=== PATIENT | female | born 1970 | race Caucasian/White ===

== ENCOUNTER 2017-05-19 15:41 | Inpatient (IN) | payer OTHER ==
[~2017-05-19] VITALS: Ht 165.1 cm; Wt 77.5 kg
[2017-05-19] MEDS ORDERED: VANCOMYCIN INJ 1,000 MG in SODIUM CHLORIDE 0.9% 250ML 250 ML IV STA (16:16)
[2017-05-19] MEDS ORDERED: SODIUM CHLORIDE 0.9% 1000ML 1,000 ML IV ONE ×2 (16:16→20:04)
[2017-05-19] MEDS ORDERED: PIPERACILL/TAZOBAC IV 4.5 GM in DEXTROSE 5% 100ML 100 ML IV STA (16:16)
--- NOTE | 2017-05-19 16:24 | EMERGENCY ROOM VISIT NOTE ---
History Report prepared by Jenn: Yanira Dyer Under the Supervision of: Dr. Nikolai Lockett M.D. First contact with patient: 15:57 Chief Complaint: WOUND INFECTION Stated Complaint: RIGHT BIG TOE HAS A HOLE IN IT History of Present Illness The patient is a 46 year old white female with a past medical history of diabetes, gastroparesis, hypertension who presents to the ED with a cc of worsening right great toe infection beginning over 1 month ago. Positive toe redness, malodorous toe. Negative cough, fever, chills, change in appetite, urinary symptoms. Pt has not been soaking her toe or seeing wound care. Pt does smoke. She denies alcohol use. Her sugars are normally in the 400s. Source of History: patient Onset: 1 month ago Position: toe(s) (right great toe) Quality: other (infection) Timing: worsening Associated Symptoms: No fevers, No chills, No cough, No urinary symptoms Note: Pt reports toe redness, smell. Review of Systems See HPI for pertinent positives and negatives. A total of ten systems were reviewed and were otherwise negative. Past Medical & Surgical Medical Problems: (1) Diabetes (2) Diabetic foot ulcer (3) Gastroparesis (4) Hypertension Family History No pertinent family history stated. Social History Smoking Status: Current Every Day Smoker Marital Status: Occupation Status: disabled Current/Historical Medications Scheduled Amitriptyline HCl (Amitriptyline HCl), 1 TAB PO HS Diphenhydramine Hcl (Benadryl Allergy), 7 CAP PO Q4 Docusate Sodium (Colace), 1 CAP PO BID Fentanyl (Fentanyl), 12 MCG TD CQ72HR Magnesium Oxide (Mag-Ox), 400 MG PO DAILY Melatonin (Melatonin Maximum Strengt), 2 TAB PO HS Oxycodone/Acetaminophen 10MG/325MG (Percocet 10MG/325MG), 1 TAB PO QID Pantoprazole (Protonix), 40 MG PO DAILY Scheduled PRN Promethazine Hcl (Phenergan), 25 MG PO Q4H PRN for Nausea Allergies Coded Allergies: Gabapentin (Unverified Allergy, Severe, HIVES/SWELLING, 05/19/17) Iodinated Diagnostic Agents (Unverified Allergy, Severe, FACIAL SWELLING, 05/19/17) Nadolol (Unverified Allergy, Severe, HIVES/SWELLING, 05/19/17) Shellfish Allergy (Unverified Allergy, Severe, SWELLING, 05/19/17) Insulin Detemir (Unverified Adverse Reaction, Severe, VOMITING, 05/19/17) Meperidine (Unverified Adverse Reaction, Severe, BECOMES VIOLENT, 05/19/17 ) Morphine and Related (Unverified Adverse Reaction, Severe, BECOMES VIOLENT , 05/19/17) Phenol (Unverified Adverse Reaction, Severe, VOMITING, 05/19/17) Pregabalin (Unverified Adverse Reaction, Severe, AGITATION, 05/19/17) Varenicline (Unverified Adverse Reaction, Severe, HOMICIDAL IDEATION, ) Uncoded Allergies: ARTIFICIAL SWEETENER (Allergy, Severe, ANAPHYLAXIS, 05/19/17) STEROIDS (Allergy, Severe, ANAPHYLAXIS, 05/19/17) Physical Exam Vital Signs Date Time Temp Pulse Resp B/P (MAP) Pulse Ox O2 Delivery O2 Flow Rate FiO2 05/19/17 18:18 94 18 132/88 96 Room Air 05/19/17 16:49 104 18 144/97 94 Room Air 05/19/17 15:45 37.1 122 18 150/96 99 Room Air Physical Exam GENERAL: Awake, alert, appears older than stated age, NAD HENT: Normocephalic, atraumatic. Edentulous. EYES: Normal conjunctiva. Sclera non-icteric. NECK: Supple. No nuchal rigidity. FROM. RESPIRATORY: CTAB, no rhonchi, wheezing, crackles CARDIAC: Tachycardic rate and regular rhythm, no MRG ABDOMEN: Soft, NTND, BS+ MSK: No chest wall TTP, no LE edema. RLE with stage 3 ulceration to the first great toe plantar aspect approximately 1cm x 2cm, some expanding erythema proximally that blanches. NEURO: GCS 15, CN 2-12 intact, moves all 4s on command SKIN: No rash or jaundice noted. Medical Decision & Procedures ER Provider Diagnostic Interpretation: Radiology results as stated below per my review and radiologist interpretation: CHEST ONE VIEW PORTABLE CLINICAL HISTORY: Evaluate Fever/Sepsis dyspnea COMPARISON STUDY: No previous studies for comparison. FINDINGS: The bones soft tissues and hemidiaphragms are normal. The cardiomediastinal silhouette is normal. The lungs are clear. The pulmonary vasculature is normal. IMPRESSION: Negative chest. The above report was generated using voice recognition software. It may contain grammatical, syntax or spelling errors. Electronically signed by: Braxton Gonzalez M.D. 05/19/2017 4:48 PM Dictated Date/Time: 05/19/2017 4:47 PM R FOOT MIN 3 VIEWS ROUTINE CLINICAL HISTORY: ulceration to R 1st toe h/o DM trauma COMPARISON: None. DISCUSSION: Soft tissue disruption overlying the distal phalanx great toe. No acute bony abnormality. Mild degenerative change throughout. No evidence for bony destructive process. There is no evidence for soft tissue swelling. IMPRESSION: Mild soft tissue edema/laceration overlying the distal phalanx great toe. No acute bony abnormality. The above report was generated using voice recognition software. It may contain grammatical, syntax or spelling errors. Electronically signed by: Braxton Gonzalez M.D. 05/19/2017 4:50 PM Dictated Date/Time: 05/19/2017 4:49 PM Laboratory Results 05/19/17 16:18 Red Blood Count 4.34, Mean Corpuscular Volume 96.8, Mean Corpuscular Hemoglobin 33.4, Mean Corpuscular Hemoglobin Concent 34.5, Mean Platelet Volume 10.4, Neutrophils (%) (Auto) 59.0, Lymphocytes (%) (Auto) 33.3, Monocytes (%) (Auto) 5.4, Eosinophils (%) (Auto) 1.6, Basophils (%) (Auto) 0.2, Neutrophils # (Auto) 7.82, Lymphocytes # (Auto) 4.42, Monocytes # (Auto) 0.72, Eosinophils # (Auto) 0.21, Basophils # (Auto) 0.03 05/19/17 16:18 Test 05/19/17 16:18 05/19/17 17:12 White Blood Count 13.27 K/uL (4.8-10.8) Red Blood Count 4.34 M/uL (4.2-5.4) Hemoglobin 14.5 g/dL (12.0-16.0) Hematocrit 42.0 % (37-47) Mean Corpuscular Volume 96.8 fL (80-100) Mean Corpuscular Hemoglobin 33.4 pg (25-34) Mean Corpuscular Hemoglobin Concent 34.5 g/dl (32-36) Platelet Count 315 K/uL (130-400) Mean Platelet Volume 10.4 fL (7.4-10.4) Neutrophils (%) (Auto) 59.0 % Lymphocytes (%) (Auto) 33.3 % Monocytes (%) (Auto) 5.4 % Eosinophils (%) (Auto) 1.6 % Basophils (%) (Auto) 0.2 % Neutrophils # (Auto) 7.82 K/uL (1.4-6.5) Lymphocytes # (Auto) 4.42 K/uL (1.2-3.4) Monocytes # (Auto) 0.72 K/uL (0.11-0.59) Eosinophils # (Auto) 0.21 K/uL (0-0.5) Basophils # (Auto) 0.03 K/uL (0-0.2) RDW Standard Deviation 44.0 fL (36.4-46.3) RDW Coefficient of Variation 12.6 % (11.5-14.5) Immature Granulocyte % (Auto) 0.5 % Immature Granulocyte # (Auto) 0.07 K/uL (0.00-0.02) Erythrocyte Sedimentation Rate 34 mm/hr (0-21) Prothrombin Time 9.8 SECONDS (9.0-12.0) Prothromb Time International Ratio 0.9 (0.9-1.1) Activated Partial Thromboplast Time 24.3 SECONDS (21.0-31.0) Partial Thromboplastin Ratio 0.9 Anion Gap 6.0 mmol/L (3-11) Est Creatinine Clear Calc Drug Dose 95.7 ml/min Estimated GFR () 111.0 Estimated GFR (Non- 95.8 BUN/Creatinine Ratio 15.0 (10-20) Calcium Level 8.6 mg/dl (8.5-10.1) Total Bilirubin 0.2 mg/dl (0.2-1) Direct Bilirubin < 0.1 mg/dl (0-0.2) Aspartate Amino Transf (AST/SGOT) 13 U/L (15-37) Alanine Aminotransferase (ALT/SGPT) 23 U/L (12-78) Alkaline Phosphatase 97 U/L (45-117) C-Reactive Protein 1.40 mg/dl (0-0.29) Total Protein 6.9 gm/dl (6.4-8.2) Albumin 3.3 gm/dl (3.4-5.0) Lipase 49 U/L (73-393) Lactic Acid Level 1.1 mmol/L (0.4-2.0) Laboratory results reviewed by me Medications Administered Medications (Trade) Dose Ordered Sig/Asaf Route Start Time Stop Time Status Last Admin Dose Admin Vancomycin HCl 1000 mg/Sodium Chloride 270 ml @ 125 mls/hr ONE STAT IV 05/19/17 16:16 05/19/17 18:25 DC 05/19/17 17:56 125 MLS/HR Sodium Chloride 1,000 ml @ 2,000 mls/hr Q30M ONCE IV 05/19/17 16:16 05/19/17 16:45 DC 05/19/17 17:22 2,000 MLS/HR Piperacillin Sod/ Tazobactam Sod 4.5 gm/Dextrose 120 ml @ 200 mls/hr NOW STAT IV 05/19/17 16:16 05/19/17 16:51 DC 05/19/17 17:22 200 MLS/HR ECG Indication: tachycardia Rate (beats per minute): 103 Rhythm: sinus tachycardia Findings: no ectopy, other (normal intervals, normal axis, no STS changes or TWI) ED Course 1600: The patient was evaluated in room C1B. A complete history and physical exam was performed. 1616: Piperacillin Sod/Tazobactam Sod 4.5 gm/Dextrose 120 ml @ 200 mls/hr IV, NSS 1000 ml @ 2000 mls/hr IV, Vancomycin HCl 1000 mg/Sodium Chloride 270 ml @ 125 mls/hr IV. 1716: I discussed the patient's case with CORAL Whalen [facility] service. The patient will be evaluated for further treatment and disposition. 1725: I reevaluated the patient. I discussed the test results and treatment plan with her. The patient will be evaluated for further management. Medical Decision Differential diagnosis: osteo, hyperglycemia, vasculopathy, cellulitis. The patient is a 46 year old white female with a past medical history of diabetes, gastroparesis, hypertension who presents to the ED with a cc of worsening right great toe infection beginning over 1 month ago. Patient was seen and evaluated at the bedside. Patient has had some progressive warmth and ulceration to the right first great toe. Patient is a history of gastroparesis and is noncompliant with medications. Patient does endorse a smoking history 2 packs per day which is down from 4 packs per day for many years. Patient has not good wound clinic. Given the patient's history patient is high risk of a progressively worsening wound. Patient was given empiric antibiotics blood cultures were obtained. Patient did have film which was negative for acute osteo. Patient white blood cell count 13. Patient was admitted for wound care, IV abx, DM control. Medication Reconcilliation Current Medication List: was personally reviewed by me Blood Pressure Screening Patient's blood pressure: Elevated blood pressure Blood pressure disposition: Referred to PCP Consults Time Called: 1712 Consulting Physician: CORAL Whalen hospitalist service Returned Call: 1716 Discussed the patient's case. The patient will be evaluated for further treatment and disposition. Impression Primary Impression: Diabetes Additional Impressions: Encounter for smoking cessation counseling Diabetic ulcer of toe Cellulitis Scribe Attestation The scribe's documentation has been prepared under my direction and personally reviewed by me in its entirety. I confirm that the note above accurately reflects all work, treatment, procedures, and medical decision making performed by me. Departure Information Dispostion Being Evaluated By Hospitalist Referrals No Doctor, Assigned (PCP) Patient Instructions My [facility] Problem Qualifiers Primary Impression: Diabetes Diabetes mellitus type: other specified (including CHINMAY) Diabetes mellitus complication status: with skin complications Diabetes mellitus complication detail: with foot ulcer Diabetes mellitus supervisor intermediates insulin use: without supervisor intermediates use Qualified Codes: E13.621 - Other specified diabetes mellitus with foot ulcer; L97.509 - Non-pressure chronic ulcer of other part of unspecified foot with unspecified severity Additional Impressions: Diabetic ulcer of toe Diabetes mellitus type: type 1 Laterality: right Non-pressure ulcer stage: with fat layer exposed Qualified Codes: E10.621 - Type 1 diabetes mellitus with foot ulcer; L97.512 - Non-pressure chronic ulcer of other part of right foot with fat layer exposed Cellulitis Site of cellulitis: extremity Site of cellulitis of extremity: toe Laterality: right Qualified Codes: L03.031 - Cellulitis of right toe
[2017-05-19 16:35] LABS: BASO % 0.2 %; BASO ABS # 0.03 K/uL (0-0.2); COMPLETE YES; EOS % 1.6 %; IG% 0.5 %; LYMPH % 33.3 %; LYMPH ABS # 4.42 K/uL (1.2-3.4); MEAN CELL VOLUME 96.8 fL (80-100); MEAN CORPUSCULAR HEMOGLOBIN 33.4 pg (25-34); MEAN CORPUSCULAR HGB CONC 34.5 g/dl (32-36); MEAN PLATELET VOLUME 10.4 fL (7.4-10.4); MONO % 5.4 %; PLATELET COUNT 315 K/uL (130-400); RED BLOOD COUNT 4.34 M/uL (4.2-5.4); WHITE BLOOD COUNT 13.27 K/uL (4.8-10.8)
[2017-05-19 16:43] LABS: INR 0.9 (0.9-1.1); PARTIAL THROMBOPLASTIN RATIO 0.9; PROTHROMBIN TIME (PATIENT) 9.8 SECONDS (9.0-12.0)
--- NOTE | 2017-05-19 16:49 | DIAGNOSTIC IMAGING REPORT ---
CHEST ONE VIEW PORTABLE CLINICAL HISTORY: Evaluate Fever/Sepsis dyspnea COMPARISON STUDY: No previous studies for comparison. FINDINGS: The bones soft tissues and hemidiaphragms are normal. The cardiomediastinal silhouette is normal. The lungs are clear. The pulmonary vasculature is normal. IMPRESSION: Negative chest. The above report was generated using voice recognition software. It may contain grammatical, syntax or spelling errors. Electronically signed by: Braxton Gonzalez M.D. 05/19/2017 4:48 PM Dictated Date/Time: 05/19/2017 4:47 PM
--- NOTE | 2017-05-19 16:51 | DIAGNOSTIC IMAGING REPORT ---
R FOOT MIN 3 VIEWS ROUTINE CLINICAL HISTORY: ulceration to R 1st toe h/o DM trauma COMPARISON: None. DISCUSSION: Soft tissue disruption overlying the distal phalanx great toe. No acute bony abnormality. Mild degenerative change throughout. No evidence for bony destructive process. There is no evidence for soft tissue swelling. IMPRESSION: Mild soft tissue edema/laceration overlying the distal phalanx great toe. No acute bony abnormality. The above report was generated using voice recognition software. It may contain grammatical, syntax or spelling errors. Electronically signed by: Braxton Gonzalez M.D. 05/19/2017 4:50 PM Dictated Date/Time: 05/19/2017 4:49 PM
[2017-05-19 17:00] LABS: ALT/SGPT 23 U/L (12-78); BLOOD UREA NITROGEN 11 mg/dl (7-18); CALCIUM 8.6 mg/dl (8.5-10.1); CARBON DIOXIDE 29 mmol/L (21-32); CHLORIDE 99 mmol/L (98-107); CREATININE 0.74 mg/dl (0.60-1.20); GLUCOSE 271 mg/dl (70-99); POTASSIUM 4.2 mmol/L (3.5-5.1); SODIUM 134 mmol/L (136-145)
[2017-05-19 17:03] LABS: ALKALINE PHOSPHATASE 97 U/L (45-117); AST/SGOT 13 U/L (15-37)
[2017-05-19] MEDS ORDERED: AMT100 PO (17:37)
[2017-05-19] MEDS ORDERED: MAGN400T6 PO (17:37)
[2017-05-19] MEDS ORDERED: OXYC-106 PO (17:37)
[2017-05-19] MEDS ORDERED: DRGTP12 TD (17:37)
[2017-05-19] MEDS ORDERED: MELATAB2 PO (17:37)
[2017-05-19] MEDS ORDERED: PANT40TA PO (17:37)
[2017-05-19] MEDS ORDERED: DIPH25CA65 PO (17:37)
[2017-05-19] MEDS ORDERED: PROM25TA9 PO (17:37)
[2017-05-19] MEDS ORDERED: DOCU-94 PO (17:37)
[2017-05-19] MEDS ORDERED: VANCOMYCIN CONSULT ACTIVE SCH (17:57)
[2017-05-19] MEDS ORDERED: PIPERACILL/TAZOBAC CONSULT ACTIVE SCH (18:00)
[2017-05-19] MEDS ORDERED: GLUCOSE 10 TABS/TUBE PO PRN (18:30)
[2017-05-19] MEDS ORDERED: DEXTROSE 50% 50 ML SYR IV PRN (18:30)
[2017-05-19] MEDS ORDERED: GLUCOSE 40% GEL 15 GM TUBE PO PRN (18:30)
[2017-05-19] MEDS ORDERED: GLUCAGON FOR INJ 1 MG VIAL SQ PRN (18:30)
[2017-05-19] MEDS ORDERED: PHARMACY GLYCEMIC MGMT CONSULT SCH (18:39)
[2017-05-19] MEDS ORDERED: OXYCODONE/ACETAMINOPHEN 10/325MG TAB ONE (19:30)
[2017-05-19] MEDS: OXYCODONE/ACETAMINOPHEN 10/325MG TAB PO PRN (19:33)
[2017-05-19 20:32] VITALS: BP 142/97; TEMP 37.1; O2SAT 96; BMI 28.4
--- NOTE | 2017-05-19 20:40 | History and Physical ---
History & Physical Date & Time of Service: May 19, 2017 ~ 18:00 Chief Complaint: Toe Wound Primary Care Physician: Gayla Palafox PA-C History of Present Illness 46 year old female who presents to the ED with a right great toe infection. Patient reports that about one month ago she got into the shower and noticed a large amount of blood on the floor. She then noticed she had cut her toe. After review of records, patient was placed on Augmentin for a right great toe infection/ulcer on 02/20 and then saw podiatry on 02/22 for debridement. Patient reports that the wound had mostly healed however she has kept a dressing on it. This morning when she removed the dressing there was a large amount of drainage , foul odor, and the wound had opened up again. Patient denies fever and chills. She has chronic shortness of breath which is unchanged. No chest pain, lightheadedness, or dizziness. She reports chronic nausea and vomiting from gastroparesis. No hematemesis or coffee ground emesis. She has chronic constipation. No BRBPR or dark tarry stools. She denies any urinary symptoms. Patient is a poorly controlled diabetic reporting she quit taking her insulin 2 months ago because it made her not feel well. In the ED, patient's WBC 13K, glucose 270, and she is mildly tachycardic. Other vitals are stable and other labs are unremarkable. She was given IV Vanco and Zosyn. Past Medical/Surgical History Medical Problems: (1) Chronic pain Status: Chronic (2) Depression Status: Chronic (3) Diabetes Status: Chronic (4) Gastroparesis Status: Chronic (5) GERD (gastroesophageal reflux disease) Status: Chronic (6) Hypertension Status: Chronic (7) BENITO (obstructive sleep apnea) Status: Chronic Surgical Problems: (1) H/O dilation and curettage Status: Chronic (2) H/O tubal ligation Status: Chronic (3) History of appendectomy Status: Chronic (4) History of hysterectomy Status: Chronic Family History Diabetes mellitus FATHER Hypertension MOTHER Social History Smoking Status: Current Every Day Smoker Alcohol Use: none Immunizations History of Tetanus Vaccine?: Yes Allergies Coded Allergies: Corticosteroids (Verified Allergy, Severe, STEROIDS-ANAPHYLAXIS, 05/19/17) Gabapentin (Verified Allergy, Severe, HIVES/SWELLING, 05/19/17) Iodinated Diagnostic Agents (Verified Allergy, Severe, FACIAL SWELLING, ) Nadolol (Verified Allergy, Severe, HIVES/SWELLING, 05/19/17) Shellfish Allergy (Verified Allergy, Severe, SWELLING, 05/19/17) Insulin Detemir (Verified Adverse Reaction, Intermediate, VOMITING, ) Meperidine (Verified Adverse Reaction, Intermediate, BECOMES VIOLENT, ) Morphine and Related (Verified Adverse Reaction, Intermediate, BECOMES VIOLENT, 05/19/17) Phenol (Verified Adverse Reaction, Intermediate, VOMITING, 05/19/17) Pregabalin (Verified Adverse Reaction, Intermediate, AGITATION, 05/19/17) Varenicline (Verified Adverse Reaction, Unknown, HOMICIDAL IDEATION, 05/19) Uncoded Allergies: ARTIFICIAL SWEETENER (Allergy, Severe, ANAPHYLAXIS, 05/19/17) Home Medications Scheduled Amitriptyline HCl (Amitriptyline HCl), 1 TAB PO HS Diphenhydramine Hcl (Benadryl Allergy), 7 CAP PO Q4 Docusate Sodium (Colace), 1 CAP PO BID Fentanyl (Fentanyl), 12 MCG TD CQ72HR Magnesium Oxide (Mag-Ox), 400 MG PO DAILY Melatonin (Melatonin Maximum Strengt), 2 TAB PO HS Oxycodone/Acetaminophen 10MG/325MG (Percocet 10MG/325MG), 1 TAB PO QID Pantoprazole (Protonix), 40 MG PO DAILY Scheduled PRN Promethazine Hcl (Phenergan), 25 MG PO Q4H PRN for Nausea Review of Systems ROS per HPI, all other systems reviewed and negative Physical Exam Vital Signs Date Time Temp Pulse Resp B/P (MAP) Pulse Ox O2 Delivery O2 Flow Rate FiO2 05/19/17 19:38 98 20 142/97 94 05/19/17 19:31 98 20 142/97 94 05/19/17 18:18 94 18 132/88 96 Room Air 05/19/17 16:49 104 18 144/97 94 Room Air 05/19/17 15:45 37.1 122 18 150/96 99 Room Air General Appearance: WD/WN, no apparent distress Head: normocephalic, atraumatic Eyes: normal inspection, EOMI, sclerae normal ENT: hearing grossly normal, + pertinent finding Neck: supple, no JVD, trachea midline Respiratory/Chest: lungs clear, normal breath sounds, no respiratory distress Cardiovascular: regular rate, rhythm, no edema, normal peripheral pulses Abdomen/GI: normal bowel sounds, non tender, soft, no organomegaly Extremities/Musculoskelatal: normal inspection, no calf tenderness, normal capillary refill Neurologic/Psych: no motor/sensory deficits, alert, normal mood/affect, oriented x 3 Skin: normal color, warm/dry, + pertinent finding Diagnostics Laboratory Results Results Past 24 Hours Test 05/19/17 16:18 05/19/17 17:12 Range/Units White Blood Count 13.27 4.8-10.8 K/uL Red Blood Count 4.34 4.2-5.4 M/uL Hemoglobin 14.5 12.0-16.0 g/dL Hematocrit 42.0 37-47 % Mean Corpuscular Volume 96.8 80-100 fL Mean Corpuscular Hemoglobin 33.4 25-34 pg Mean Corpuscular Hemoglobin Concent 34.5 32-36 g/dl Platelet Count 315 130-400 K/uL Mean Platelet Volume 10.4 7.4-10.4 fL Neutrophils (%) (Auto) 59.0 % Lymphocytes (%) (Auto) 33.3 % Monocytes (%) (Auto) 5.4 % Eosinophils (%) (Auto) 1.6 % Basophils (%) (Auto) 0.2 % Neutrophils # (Auto) 7.82 1.4-6.5 K/uL Lymphocytes # (Auto) 4.42 1.2-3.4 K/uL Monocytes # (Auto) 0.72 0.11-0.59 K/uL Eosinophils # (Auto) 0.21 0-0.5 K/uL Basophils # (Auto) 0.03 0-0.2 K/uL RDW Standard Deviation 44.0 36.4-46.3 fL RDW Coefficient of Variation 12.6 11.5-14.5 % Immature Granulocyte % (Auto) 0.5 % Immature Granulocyte # (Auto) 0.07 0.00-0.02 K/uL Erythrocyte Sedimentation Rate 34 0-21 mm/hr Prothrombin Time 9.8 9.0-12.0 SECONDS Prothromb Time International Ratio 0.9 0.9-1.1 Activated Partial Thromboplast Time 24.3 21.0-31.0 SECONDS Partial Thromboplastin Ratio 0.9 Sodium Level 134 136-145 mmol/L Potassium Level 4.2 3.5-5.1 mmol/L Chloride Level 99 98-107 mmol/L Carbon Dioxide Level 29 21-32 mmol/L Anion Gap 6.0 3-11 mmol/L Blood Urea Nitrogen 11 7-18 mg/dl Creatinine 0.74 0.60-1.20 mg/dl Est Creatinine Clear Calc Drug Dose 95.7 ml/min Estimated GFR () 111.0 Estimated GFR (Non- 95.8 BUN/Creatinine Ratio 15.0 10-20 Random Glucose 271 70-99 mg/dl Calcium Level 8.6 8.5-10.1 mg/dl Total Bilirubin 0.2 0.2-1 mg/dl Direct Bilirubin < 0.1 0-0.2 mg/dl Aspartate Amino Transf (AST/SGOT) 13 15-37 U/L Alanine Aminotransferase (ALT/SGPT) 23 12-78 U/L Alkaline Phosphatase 97 45-117 U/L C-Reactive Protein 1.40 0-0.29 mg/dl Total Protein 6.9 6.4-8.2 gm/dl Albumin 3.3 3.4-5.0 gm/dl Lipase 49 73-393 U/L Lactic Acid Level 1.1 0.4-2.0 mmol/L Microbiology Results 05/19/17 Blood Culture, Received Pending 05/19/17 Blood Culture, Received Pending 05/19/17 Gram Stain, Received Pending 05/19/17 Wound Culture, Received Pending Diagnostic Radiology RIGHT FOOT XR IMPRESSION: Mild soft tissue edema/laceration overlying the distal phalanx great toe. No acute bony abnormality. CXR IMPRESSION: Negative chest. Impression Assessment and Plan INFECTED DIABETIC FOOT ULCER - admit to med/surg - patient does meet SIRS criteria with mild leukocytosis and mild tachycardia however does not appear overly septic; normal lactic acid, BP stable - s/p Vanco and Zosyn in the ED, will continue with - gentle IVF - blood and wound cultures - wound care consult with nurse and Dr. Boggs DM - poorly controlled, non compliant - hgb a1c 11.1 01/2016 - blood sugar 270, no DKA - will start Lantus + SSI CHRONIC PAIN - continue Fentanyl patch and PRN Percocet DVT PROPHYLAXIS - SQ Lovenox DISPO - In my clinical judgment this beneficiary meets acute admission criteria, established by [facility], that includes being hospitalized through two midnights. Attending Note: Patient is a 46 yr female presents with history of DM II, gastroparesis, Neuropathy Tobacco use disorder, GERD, Depression, HTN, BENITO, Right foot drop and other problems presents with history of worsening right great toe foot ulcer since about a month. She admits to being non compliant with Insulin therapy and has poor insight about her medical condition. Physical Exam: Vitals signs as noted above General Appearance:Moderately built and nourished, no apparent distress Head: normocephalic, Atraumatic, loss of dentition Eyes: normal inspection, EOMI, PERRL Neck: supple, Trachea midline Respiratory/Chest: Normal breath sounds, CTA Cardiovascular: S1, S2, No murmur Abdomen/GI:Soft, Non tender, Bowel sounds present Extremities/Musculoskelatal:normal inspection, Right foot drop, R big toe ulcer Neurologic/Psych:AAOX3, right foot drop, decreased sensation, RLE motor 3-4/5. otherwise no focal deficits Skin:normal color,warm Assessment and Plan: Sepsis 2/2 Diabetic Foot Ulcer Blood/Wound cultures IVF, Abx Wound care May need debridement Lactate normal Uncontrolled DM II: Start ISS, lantus Tobacco use disorder: Nicotine patch Counseled to quit smoking I personally reviewed the record. Patient is interviewed and examined at bedside. Patient's care is coordinated with Meagan Burgos NP. Please refer to the documentation above for details of patient's presentation and for discussion of other issues. VTE Prophylaxis VTE Risk Assessment Done? Y/N: Yes Risk Level: Moderate
[2017-05-19] MEDS: NICOTINE 21 MG/24 HR TDSY TD SCH (20:41)
[2017-05-19 20:42] VITALS: BP 161/91; PULSE 96; TEMP 36.6; O2SAT 96
[2017-05-19] MEDS: ENOXAPARIN 40 MG/0.4 ML SYR SQ SCH (20:43)
--- NOTE | 2017-05-19 20:49 | Pharmacy Progress Note ---
Pharmacy Abx Dose Short Note Date of Service May 19, 2017. Assessment & Plan Pharmacy is consulted for: * Glycemic Control * Vancomycin IV dosing * Zosyn IV dose Assessment * 46 year old female admitted for worsening infection of her R great toe * Pharmacy has been consulted to dose broad spectrum abx for treatment of diabetic foot ulcer * Baseline renal fxn unclear however pt does not appear to have CELSO * Currently afebrile w/ mild leukocytosis, mildly tachycardic and hypertensive at this time * Blood and ulcer cxs ordered * Glycemic control is poor, in fact patient has not taken her insulin in the last 2 months. She is reported to be ordered Levemir 22units daily and Novolog 10 units w/ meals per [employer]GER's discussion with the patient. Random Glu on admission 271, however no metabolic acidosis noted. Patient claims to have hypoglycemic symptoms when BSGs below 200. Our goals will be less than 200 given data to support less infectious complications with tighter glycemic control. * Insulin doses will be based upon reported out-pt regimen and moderate-severe stress level. * Will add BSG checks overnight to allow us to gain control of hyperglycemia more quickly Plan Vancomycin * 1000mg IV dose given in ER (~12.9mg/kg); this dose may have only produced a peak conc of 15-20mcg/mL. * Will begin maintenance dose as soon as patient admitted to medical floor as no loading dose was given * Maintenance dose: 1250mg (~16mg/kg) IV Q 10 hours * Goal trough level for skin/skin structure infxn : 15 to 20 mcg/mL * Trough level ordered for: 05/21/17 w/ 4th dose * p'kinetic estimates: Vd 0.7L/kg; half-life ~8-9 hours Zosyn * 4.5gm IV x 1 over 30 min; then begin 3.375gm IV (extended infusion over 4 hrs ) Q 8 hours for eCrCl > 20cc/min Glycemic control: * Check A1c w/ next lab draw * Lantus 22 units SQ x 1 tonight, then begin 13 units SQ BID * BSGs ACHS and at 0000 + 0400 tonight given current BSG results * Goal range: 110-150 mg/dL * Correction factor: 25 mg/dL/unit * Carb ratio: 1 unit per 8 grams of CHO consumed Pharmacy will continue to follow and will adjust dose/frequency as necessary. Thank you.
[2017-05-19] MEDS ORDERED: INSULIN GLARGINE SOLOSTAR 100 UNITS/ML 3 ML PEN SC SCH (21:00)
[2017-05-19] MEDS: VANCOMYCIN INJ 1,250 MG in SODIUM CHLORIDE 0.9% 250ML 250 ML IV SCH (22:05)
[2017-05-19] MEDS: DOCUSATE SODIUM 100 MG CAP PO SCH (22:05)
[2017-05-19] MEDS: INSULIN ASPART 100 UNITS/ML 3 ML PEN SC SCH (22:25)
[2017-05-19] MEDS: PROMETHAZINE HCL 25 MG TAB PO PRN (23:22)
[2017-05-19] MEDS: AMITRIPTYLINE HCL 100 MG TAB PO SCH (23:22)
[2017-05-19] MEDS ORDERED: NURSING VERBAL MED ORDER ONE (23:30)
[2017-05-19 23:47] VITALS: BP 181/111; PULSE 97; TEMP 36.7; O2SAT 95
[2017-05-20] MEDS: OXYCODONE/ACETAMINOPHEN 10/325MG TAB PO PRN ×5 (00:05→21:50)
[2017-05-20] MEDS: INSULIN ASPART 100 UNITS/ML 3 ML PEN SC SCH ×6 (00:10→22:05)
[2017-05-20] MEDS: CHECK FENTANYL PATCH PLACEMENT SCH ×3 (00:11→16:00)
[2017-05-20] MEDS: PIPERACILL/TAZOBAC IV 3.375 GM in DEXTROSE 5% 100ML IV SCH ×3 (00:13→17:14)
[2017-05-20 04:00] VITALS: BP 160/100
[2017-05-20 07:33] VITALS: BP 162/97; PULSE 95; TEMP 36.6; O2SAT 93
[2017-05-20] MEDS: VANCOMYCIN INJ 1,250 MG in SODIUM CHLORIDE 0.9% 250ML 250 ML IV SCH ×2 (07:52→17:14)
[2017-05-20 07:55] LABS: HEMATOCRIT 39.5 % (37-47); MEAN CELL VOLUME 97.3 fL (80-100); MEAN CORPUSCULAR HEMOGLOBIN 32.5 pg (25-34); MEAN CORPUSCULAR HGB CONC 33.4 g/dl (32-36); MEAN PLATELET VOLUME 10.1 fL (7.4-10.4); PLATELET COUNT 285 K/uL (130-400); RED BLOOD COUNT 4.06 M/uL (4.2-5.4); WHITE BLOOD COUNT 10.26 K/uL (4.8-10.8)
[2017-05-20] MEDS ORDERED: INSULIN GLARGINE SOLOSTAR 100 UNITS/ML 3 ML PEN SC SCH ×3 (08:00→21:00)
[2017-05-20 08:23] LABS: ESTIMATED AVERAGE GLUCOSE 335 mg/dl; HA1C FLAG Normal (Normal)
[2017-05-20 08:25] LABS: BUN/CREATININE RATIO 13.7 (10-20); CREATININE 0.61 mg/dl (0.60-1.20); POTASSIUM 3.5 mmol/L (3.5-5.1)
[2017-05-20] MEDS: MAGNESIUM OXIDE 400 MG TAB PO SCH (09:14)
[2017-05-20] MEDS: PANTOprazole SOD 40 MG TAB PO SCH (09:14)
[2017-05-20] MEDS: DOCUSATE SODIUM 100 MG CAP PO SCH ×2 (09:14→21:51)
[2017-05-20] MEDS: NICOTINE 21 MG/24 HR TDSY TD SCH (09:15)
[2017-05-20 10:25] VITALS: O2SAT 93
--- NOTE | 2017-05-20 10:44 | Pharmacy Progress Note ---
Glycemic Control Progress Note Date of Service May 20, 2017. Scope Glycemic Pharmacist consulted for glycemic control to write orders per [facility] inpatient glycemic control protocol. Objective Accuchecks BSG (last 24hrs): Test 05/19/17 16:18 05/19/17 20:34 05/20/17 00:00 05/20/17 04:02 Random Glucose 271 mg/dl (70-99) Bedside Glucose 189 mg/dl (70-90) 220 mg/dl (70-90) 151 mg/dl (70-90) Test 05/20/17 07:18 05/20/17 07:26 Bedside Glucose 162 mg/dl (70-90) Random Glucose 170 mg/dl (70-99) HbA1c: Test 05/20/17 07:26 Hemoglobin A1c 13.3 % (4.5-5.6) H Recent Pertinent Medications The patient is currently receiving: * Basal insulin: Lantus 22 units SQ x 1 dose last evening and then Lantus 13 units SQ every 12 hours * Correctional Insulin: Novolog Correction per scale ACHS Goal Range: Low 110 mg/dL - High 150 mg/dL Correction Factor: 25 mg/dL/unit * Prandial insulin: Per carb ratio of 1 unit per 8 grams CHO consumed Outpatient Anti-Diabetic Meds non-complaint with outpatient regimen Assessment & Plan ASSESSMENT: * See progress note from 05/19/17 for more background info, in short: * Pt receiving SQ basal bolus insulin regimen for hyperglycemia secondary to baseline DM (outpatient regimen on hold, patient non-complaint),stress/infection , * BSGs over the past 24 hrs: 189, 220, 151, 162 * Hyperglycemia resolving/BSGs trending downwards with the addition of weight based SQ basal bolus insulin regimen * AM fasting BSG is slightly elevated at 162 mg/dl however, Lantus is not at steady state, will not increase dosing at this time. Lantus is currently ordered Q24h dose split BID dosing --> will change to Q24h dosing to daily administration to increase compliance * Bolus insulin parameters are in accordance with basal insulin dosing. * Will continue to titrate based on BSG trends. PLAN FOR INPATIENT GLYCEMIC CONTROL: * Basal insulin * Lantus 22 units SQ Q24hrs given in the morning * Unsure if this dosing will be adequate based on A1c, therefore, will schedule a small PRN dose of Lantus for this evening if BSG >200 * Bolus insulin * NovoLog per scale ACHS or Q6hrs while NPO * Goal Range: Low 110 mg/dL - High 150 mg/dL * Correction Factor: 25 mg/dL/unit * Nutritional / Prandial insulin per carb ratio of 1 unit per 8 grams CHO consumed RECOMMENDATIONS FOR DISCHARGE: * A1c = 13.3% on 05/20/17 * Pt will need an outpatient regimen that she can adhere to. Tight glycemic control essential for wound healing. * May consider changing to ReliON brand NPH vs 70/30 to minimize the number of insulin infections per day and cost. Will discuss options with DM educator and patient. * Please note that the plan above was derived based on current level of insulin resistance and hospital stress. These recommendations are appropriate for inpatient admission only. Plan of care upon discharge will need to be reassessed to avoid potential outpatient hypo/hyperglycemia. Thank you.
--- NOTE | 2017-05-20 12:08 | Progress Note ---
Internal Med Progress Note Date of Service: May 20, 2017. Provider Documentation: SUBJECTIVE: Seen and examined at bedside States having leg pain Denies chest pain, SOB, dizziness Family at bedside OBJECTIVE: Vital Signs-as noted below Physical Exam: General Appearance:Moderately built and nourished, no apparent distress Head: normocephalic, Atraumatic, loss of dentition Eyes: normal inspection, EOMI, PERRL Neck: supple, Trachea midline Respiratory/Chest: Normal breath sounds, CTA Cardiovascular: S1, S2, No murmur Abdomen/GI:Soft, Non tender, Bowel sounds present Extremities/Musculoskelatal:normal inspection, Right foot drop, R big toe ulcer Neurologic/Psych:AAOX3, right foot drop, decreased sensation, RLE motor 3-4/5. otherwise no focal deficits Skin:normal color,warm Lab data as noted below. ASSESSMENT & PLAN: Sepsis 2/2 Diabetic Foot Ulcer Continue IV Vanco and Zosyn S/P IVF blood and wound cultures pending wound care consult with nurse and Dr. Boggs May need debridement Lactate normal DM II poorly controlled, non compliant A1C: 13.3 no DKA Continue ISS, Lantus Appreciate Pharmacy help in glycemic management Chronic Pain continue Fentanyl patch and PRN Percocet Intolerance to Gabapentin/Lyrica in the past Tobacco use disorder: Nicotine patch Counseled to quit smoking DVT Px SQ Lovenox Disposition Expect to discharge home when stable Vital Signs: Date Time Temp Pulse Resp B/P (MAP) Pulse Ox O2 Delivery O2 Flow Rate FiO2 05/20/17 10:25 93 Room Air 05/20/17 07:33 36.6 95 18 162/97 (118) 93 05/20/17 04:00 160/100 (120) 05/20/17 00:00 Room Air 05/19/17 23:47 36.7 97 18 181/111 (134) 95 Room Air 05/19/17 20:42 36.6 96 18 161/91 (114) 96 Room Air 05/19/17 20:32 37.1 20 142/97 96 Room Air 05/19/17 19:38 98 20 142/97 94 05/19/17 19:31 98 20 142/97 94 05/19/17 18:18 94 18 132/88 96 Room Air 05/19/17 16:49 104 18 144/97 94 Room Air 05/19/17 15:45 37.1 122 18 150/96 99 Room Air Lab Results: Results Past 24 Hours Test 05/19/17 16:18 05/19/17 17:12 05/19/17 20:34 05/20/17 00:00 Range/Units White Blood Count 13.27 4.8-10.8 K/uL Red Blood Count 4.34 4.2-5.4 M/uL Hemoglobin 14.5 12.0-16.0 g/dL Hematocrit 42.0 37-47 % Mean Corpuscular Volume 96.8 80-100 fL Mean Corpuscular Hemoglobin 33.4 25-34 pg Mean Corpuscular Hemoglobin Concent 34.5 32-36 g/dl Platelet Count 315 130-400 K/uL Mean Platelet Volume 10.4 7.4-10.4 fL Neutrophils (%) (Auto) 59.0 % Lymphocytes (%) (Auto) 33.3 % Monocytes (%) (Auto) 5.4 % Eosinophils (%) (Auto) 1.6 % Basophils (%) (Auto) 0.2 % Neutrophils # (Auto) 7.82 1.4-6.5 K/uL Lymphocytes # (Auto) 4.42 1.2-3.4 K/uL Monocytes # (Auto) 0.72 0.11-0.59 K/uL Eosinophils # (Auto) 0.21 0-0.5 K/uL Basophils # (Auto) 0.03 0-0.2 K/uL RDW Standard Deviation 44.0 36.4-46.3 fL RDW Coefficient of Variation 12.6 11.5-14.5 % Immature Granulocyte % (Auto) 0.5 % Immature Granulocyte # (Auto) 0.07 0.00-0.02 K/uL Erythrocyte Sedimentation Rate 34 0-21 mm/hr Prothrombin Time 9.8 9.0-12.0 SECONDS Prothromb Time International Ratio 0.9 0.9-1.1 Activated Partial Thromboplast Time 24.3 21.0-31.0 SECONDS Partial Thromboplastin Ratio 0.9 Sodium Level 134 136-145 mmol/L Potassium Level 4.2 3.5-5.1 mmol/L Chloride Level 99 98-107 mmol/L Carbon Dioxide Level 29 21-32 mmol/L Anion Gap 6.0 3-11 mmol/L Blood Urea Nitrogen 11 7-18 mg/dl Creatinine 0.74 0.60-1.20 mg/dl Est Creatinine Clear Calc Drug Dose 95.7 ml/min Estimated GFR () 111.0 Estimated GFR (Non- 95.8 BUN/Creatinine Ratio 15.0 10-20 Random Glucose 271 70-99 mg/dl Calcium Level 8.6 8.5-10.1 mg/dl Total Bilirubin 0.2 0.2-1 mg/dl Direct Bilirubin < 0.1 0-0.2 mg/dl Aspartate Amino Transf (AST/SGOT) 13 15-37 U/L Alanine Aminotransferase (ALT/SGPT) 23 12-78 U/L Alkaline Phosphatase 97 45-117 U/L C-Reactive Protein 1.40 0-0.29 mg/dl Total Protein 6.9 6.4-8.2 gm/dl Albumin 3.3 3.4-5.0 gm/dl Lipase 49 73-393 U/L Lactic Acid Level 1.1 0.4-2.0 mmol/L Bedside Glucose 189 220 70-90 mg/dl Test 05/20/17 04:02 05/20/17 07:18 05/20/17 07:26 Range/Units Bedside Glucose 151 162 70-90 mg/dl White Blood Count 10.26 4.8-10.8 K/uL Red Blood Count 4.06 4.2-5.4 M/uL Hemoglobin 13.2 12.0-16.0 g/dL Hematocrit 39.5 37-47 % Mean Corpuscular Volume 97.3 80-100 fL Mean Corpuscular Hemoglobin 32.5 25-34 pg Mean Corpuscular Hemoglobin Concent 33.4 32-36 g/dl RDW Standard Deviation 44.8 36.4-46.3 fL RDW Coefficient of Variation 12.8 11.5-14.5 % Platelet Count 285 130-400 K/uL Mean Platelet Volume 10.1 7.4-10.4 fL Sodium Level 135 136-145 mmol/L Potassium Level 3.5 3.5-5.1 mmol/L Chloride Level 101 98-107 mmol/L Carbon Dioxide Level 28 21-32 mmol/L Anion Gap 6.0 3-11 mmol/L Blood Urea Nitrogen 8 7-18 mg/dl Creatinine 0.61 0.60-1.20 mg/dl Est Creatinine Clear Calc Drug Dose 116.1 ml/min Estimated GFR () 124.2 Estimated GFR (Non- 107.2 BUN/Creatinine Ratio 13.7 10-20 Random Glucose 170 70-99 mg/dl Estimated Average Glucose 335 mg/dl Hemoglobin A1c 13.3 4.5-5.6 % Calcium Level 8.0 8.5-10.1 mg/dl Microbiology Results 05/19/17 Blood Culture, Received Pending 05/19/17 Blood Culture, Received Pending 05/19/17 Gram Stain - Final, Resulted 05/19/17 Wound Culture, Resulted Pending
[2017-05-20] MEDS ORDERED: AMLODIPINE BESYLATE 5 MG TAB PO ONE (12:15)
[2017-05-20] MEDS ORDERED: POTASSIUM CHLORIDE 20 MEQ TABCR PO ONE (12:15)
[2017-05-20 14:59] VITALS: BP 130/86; PULSE 98; TEMP 36.8; O2SAT 95
[2017-05-20] MEDS: ENOXAPARIN 40 MG/0.4 ML SYR SQ SCH (21:52)
[2017-05-20] MEDS: AMITRIPTYLINE HCL 100 MG TAB PO SCH (21:53)
[2017-05-21] VITALS: BP 143/84; PULSE 95; TEMP 36.5; O2SAT 94
[2017-05-21] MEDS: PIPERACILL/TAZOBAC IV 3.375 GM in DEXTROSE 5% 100ML IV SCH ×3 (00:13→16:01)
[2017-05-21] MEDS: CHECK FENTANYL PATCH PLACEMENT SCH ×3 (00:13→16:01)
[2017-05-21 02:30] LABS: HEMATOCRIT 41.5 % (37-47); MEAN CORPUSCULAR HEMOGLOBIN 33.4 pg (25-34); MEAN CORPUSCULAR HGB CONC 34.5 g/dl (32-36); PLATELET COUNT 277 K/uL (130-400); RED BLOOD COUNT 4.28 M/uL (4.2-5.4); WHITE BLOOD COUNT 9.14 K/uL (4.8-10.8)
[2017-05-21] MEDS ORDERED: VANCOMYCIN TROUGH ONE (02:30)
[2017-05-21 02:54] LABS: BUN/CREATININE RATIO 14.3 (10-20); CALCIUM 8.2 mg/dl (8.5-10.1); CREATININE 0.68 mg/dl (0.60-1.20); POTASSIUM 3.9 mmol/L (3.5-5.1)
[2017-05-21 02:57] LABS: URINE APPEARANCE CLEAR (CLEAR); URINE BILIRUBIN NEG (NEG); URINE COLOR YELLOW; URINE NITRITE NEG (NEG); URINE PH 6.5 (4.5-7.5); URINE SPECIFIC GRAVITY 1.011 (1.000-1.030); UROBILINOGEN NEG (NEG)
[2017-05-21 02:59] LABS: MANUAL MICROSCOPIC REQUIRED? NO; REVIEW REQ? NO
[2017-05-21] MEDS: VANCOMYCIN INJ 1,250 MG in SODIUM CHLORIDE 0.9% 250ML 250 ML IV SCH ×3 (03:11→22:33)
[2017-05-21] MEDS: OXYCODONE/ACETAMINOPHEN 10/325MG TAB PO PRN ×4 (03:19→21:29)
[2017-05-21 07:29] VITALS: BP 150/92; PULSE 90; TEMP 36.5; O2SAT 96
[2017-05-21 08:00] VITALS: O2SAT 93
[2017-05-21] MEDS: NICOTINE 21 MG/24 HR TDSY TD SCH (08:00)
[2017-05-21] MEDS ORDERED: INSULIN GLARGINE SOLOSTAR 100 UNITS/ML 3 ML PEN SC SCH ×3 (08:00→21:00)
--- NOTE | 2017-05-21 08:34 | Pharmacy Progress Note ---
Pharmacy Abx Dose Short Note Date of Service May 21, 2017. Assessment & Plan Assessment 46 year old female receiving Vancomycin and Zosyn for treatment of Diabetic foot ulcer. Day # 3 of antimicrobial therapy. Item Value Date Time Vancomycin Level Trough 19.1 mcg/ml 05/21/17 0221 Trough level of 19.1 is therapeutic. Prior doses given on time. Renal function stable at this time. WBC are WNL. Pt is afebrile. Blood cultures have NGTD. Wound cultures growing gram positive cocci. Plan Vancomycin * Continue dose of 1250 mg IV every 10 hours * Goal trough level for 15 to 20 mcg/mL Pharmacy will continue to follow and will adjust dose/frequency as necessary. Thank you.
[2017-05-21] MEDS: FENTANYL PATCH REMOVE & WASTE SCH (08:59)
[2017-05-21] MEDS: FENTANYL 12 MCG/HR TDSY TD SCH (09:59)
[2017-05-21] MEDS: PANTOprazole SOD 40 MG TAB PO SCH (10:00)
[2017-05-21] MEDS: AMLODIPINE BESYLATE 5 MG TAB PO SCH (10:00)
[2017-05-21] MEDS: MAGNESIUM OXIDE 400 MG TAB PO SCH (10:00)
[2017-05-21] MEDS: DOCUSATE SODIUM 100 MG CAP PO SCH ×2 (10:01→20:31)
[2017-05-21] MEDS: INSULIN ASPART 100 UNITS/ML 3 ML PEN SC SCH ×4 (10:24→21:25)
--- NOTE | 2017-05-21 13:27 | Progress Note ---
Internal Med Progress Note Date of Service: May 21, 2017. Provider Documentation: SUBJECTIVE: Seen and examined at bedside Doing well Chronic Neuropathic Pain Denies chest pain, SOB, dizziness Family at bedside Reports constipation No other complaints OBJECTIVE: Vital Signs-as noted below Physical Exam: General Appearance:Moderately built and nourished, no apparent distress Head: normocephalic, Atraumatic, loss of dentition Eyes: normal inspection, EOMI, PERRL Neck: supple, Trachea midline Respiratory/Chest: Normal breath sounds, CTA Cardiovascular: S1, S2, No murmur Abdomen/GI:Soft, Non tender, Bowel sounds present Extremities/Musculoskelatal:normal inspection, Right foot drop, R big toe ulcer Neurologic/Psych:AAOX3, right foot drop, decreased sensation, RLE motor 3-4/5. otherwise no focal deficits Skin:normal color,warm Lab data as noted below. ASSESSMENT & PLAN: Sepsis 2/2 Diabetic Foot Ulcer Continue IV Vanco and Zosyn Day # 3 S/P IVF blood culture: No growth to date wound cultures pending wound care consult with nurse and Dr. Boggs May need debridement Lactate normal Continue current management DM II poorly controlled, non compliant A1C: 13.3 no DKA Continue HUNTER, Deandre Appreciate Pharmacy help in glycemic management Chronic Pain continue Fentanyl patch and PRN Percocet Intolerance to Gabapentin/Lyrica in the past Tobacco use disorder: Nicotine patch Counseled to quit smoking DVT Px SQ Lovenox Disposition Expect to discharge home when stable Vital Signs: Date Time Temp Pulse Resp B/P (MAP) Pulse Ox O2 Delivery O2 Flow Rate FiO2 05/21/17 08:00 93 Room Air 05/21/17 07:29 36.5 90 18 150/92 (111) 96 Room Air 05/21/17 00:00 Room Air 05/21/17 00:00 36.5 95 17 143/84 (103) 94 Room Air 05/20/17 22:00 Room Air 05/20/17 16:42 Room Air 05/20/17 14:59 36.8 98 20 130/86 (101) 95 Lab Results: Results Past 24 Hours Test 05/20/17 16:17 05/20/17 20:26 05/21/17 02:21 05/21/17 02:25 Range/Units Bedside Glucose 118 192 70-90 mg/dl White Blood Count 9.14 4.8-10.8 K/uL Red Blood Count 4.28 4.2-5.4 M/uL Hemoglobin 14.3 12.0-16.0 g/dL Hematocrit 41.5 37-47 % Mean Corpuscular Volume 97.0 80-100 fL Mean Corpuscular Hemoglobin 33.4 25-34 pg Mean Corpuscular Hemoglobin Concent 34.5 32-36 g/dl RDW Standard Deviation 45.1 36.4-46.3 fL RDW Coefficient of Variation 13.0 11.5-14.5 % Platelet Count 277 130-400 K/uL Mean Platelet Volume 10.0 7.4-10.4 fL Sodium Level 136 136-145 mmol/L Potassium Level 3.9 3.5-5.1 mmol/L Chloride Level 102 98-107 mmol/L Carbon Dioxide Level 27 21-32 mmol/L Anion Gap 7.0 3-11 mmol/L Blood Urea Nitrogen 10 7-18 mg/dl Creatinine 0.68 0.60-1.20 mg/dl Est Creatinine Clear Calc Drug Dose 104.1 ml/min Estimated GFR () 119.9 Estimated GFR (Non- 103.4 BUN/Creatinine Ratio 14.3 10-20 Random Glucose 188 70-99 mg/dl Calcium Level 8.2 8.5-10.1 mg/dl Vancomycin Level Trough 19.1 SEE COMMENT mcg/ml Urine Color YELLOW Urine Appearance CLEAR CLEAR Urine pH 6.5 4.5-7.5 Urine Specific [place] 1.011 1.000-1.030 Urine Protein NEG NEG Urine Glucose (UA) 2+ NEG Urine Ketones NEG NEG Urine Occult Blood NEG NEG Urine Nitrite NEG NEG Urine Bilirubin NEG NEG Urine Urobilinogen NEG NEG Urine Leukocyte Esterase NEG NEG Urine WBC (Auto) 0 0-5 /hpf Urine RBC (Auto) 0-4 0-4 /hpf Urine Hyaline Casts (Auto) 0 0-5 /lpf Urine Epithelial Cells (Auto) 10-20 0-5 /lpf Urine Bacteria (Auto) NEG NEG Test 05/21/17 07:51 05/21/17 11:51 Range/Units Bedside Glucose 294 240 70-90 mg/dl
[2017-05-21] MEDS ORDERED: DOCUSATE SODIUM/SENNA 50/8.6MG TAB PO ONE (13:30)
[2017-05-21] MEDS ORDERED: POLYETHYLENE (MIRALAX) 17 GM PACK PO PRN (13:45)
--- NOTE | 2017-05-21 14:40 | Pharmacy Progress Note ---
Glycemic Control Progress Note Date of Service May 21, 2017. Scope Glycemic Pharmacist consulted for glycemic control to write orders per [facility] inpatient glycemic control protocol. Objective Accuchecks BSG (last 24hrs): Test 05/20/17 16:17 05/20/17 20:26 05/21/17 02:21 05/21/17 07:51 Bedside Glucose 118 mg/dl (70-90) 192 mg/dl (70-90) 294 mg/dl (70-90) Random Glucose 188 mg/dl (70-99) Test 05/21/17 11:51 Bedside Glucose 240 mg/dl (70-90) HbA1c: Test 05/20/17 07:26 Hemoglobin A1c 13.3 % (4.5-5.6) H Recent Pertinent Medications Outpatient Anti-Diabetic Meds Non-compliance, no insulin x 2 weeks Assessment & Plan ASSESSMENT: * See progress note from 05/19/17 for more background info, in short: * Pt receiving SQ basal bolus insulin regimen for hyperglycemia secondary to baseline DM (outpatient regimen on hold, patient non-complaint),stress/infection , * BSGs over the past 24 hrs: 240, 294, 151, 220, 192 * Hyperglycemia resolving/BSGs trending downwards with the addition of weight based SQ basal bolus insulin regimen, however, pt still with sustained hyperglycemia at basically all times of the day. Total daily dose needs increased. * AM fasting BSG is elevated at 294 mg/dl --> increase in basal insulin is needed. * Post-prandial BSGs elevated. Will tighten in accordance with basal insulin dosing. * Pt received 54 units of insulin yesterday yielding suboptimal control today - -> will increase total daily dose and change to anticipated total daily dose of 75 units * Will continue to titrate based on BSG trends. PLAN FOR INPATIENT GLYCEMIC CONTROL: * Basal insulin: increase dose, change back to BID, Lantus not lasting 24hrs in this insulin resistant patient * Lantus 30 units of Lantus given this morning. Will give additional 10 units this evening for a total of 40 units today, then, change to Lantus 20 units SQ BID. * Bolus insulin : tighten parameters * NovoLog per scale ACHS or Q6hrs while NPO * Goal Range: Low 110 mg/dL - High 150 mg/dL * Correction Factor: 20 mg/dL/unit * Nutritional / Prandial insulin per carb ratio of 1 unit per 7 grams CHO consumed RECOMMENDATIONS FOR DISCHARGE: * A1c = 13.3% on 05/20/17 * Pt will need an outpatient regimen that she can adhere to. Tight glycemic control essential for wound healing. * May consider changing to ReliON brand NPH vs 70/30 to minimize the number of insulin infections per day and cost. Will discuss options with DM educator and patient. * Please note that the plan above was derived based on current level of insulin resistance and hospital stress. These recommendations are appropriate for inpatient admission only. Plan of care upon discharge will need to be reassessed to avoid potential outpatient hypo/hyperglycemia. Thank you.
[2017-05-21 15:49] VITALS: BP 137/89; PULSE 97; TEMP 36.5; O2SAT 95
[2017-05-21] MEDS: AMITRIPTYLINE HCL 100 MG TAB PO SCH (20:32)
[2017-05-21] MEDS: ENOXAPARIN 40 MG/0.4 ML SYR SQ SCH (20:32)
[2017-05-22] MEDS: CHECK FENTANYL PATCH PLACEMENT SCH ×3 (00:06→16:44)
[2017-05-22] MEDS: PIPERACILL/TAZOBAC IV 3.375 GM in DEXTROSE 5% 100ML IV SCH ×3 (00:11→16:43)
[2017-05-22] MEDS: INSULIN ASPART 100 UNITS/ML 3 ML PEN SC SCH ×6 (00:14→21:29)
[2017-05-22 00:20] VITALS: BP 149/92; PULSE 112; TEMP 36.8; O2SAT 93
[2017-05-22] MEDS: OXYCODONE/ACETAMINOPHEN 10/325MG TAB PO PRN ×5 (01:34→21:24)
[2017-05-22 06:50] LABS: HEMATOCRIT 42.3 % (37-47); MEAN CELL VOLUME 97.2 fL (80-100); MEAN CORPUSCULAR HEMOGLOBIN 32.6 pg (25-34); MEAN CORPUSCULAR HGB CONC 33.6 g/dl (32-36); MEAN PLATELET VOLUME 10.1 fL (7.4-10.4); PLATELET COUNT 282 K/uL (130-400); RED BLOOD COUNT 4.35 M/uL (4.2-5.4); WHITE BLOOD COUNT 9.15 K/uL (4.8-10.8)
[2017-05-22 07:17] VITALS: BP 150/90; PULSE 99; TEMP 36.9; O2SAT 94
[2017-05-22 07:18] LABS: BUN/CREATININE RATIO 9.5 (10-20); CALCIUM 8.5 mg/dl (8.5-10.1); CREATININE 0.77 mg/dl (0.60-1.20); POTASSIUM 3.7 mmol/L (3.5-5.1)
[2017-05-22] MEDS ORDERED: DOCUSATE SODIUM/SENNA 50/8.6MG TAB PO SCH (08:00)
[2017-05-22] MEDS: AMLODIPINE BESYLATE 5 MG TAB PO SCH (08:41)
[2017-05-22] MEDS: MAGNESIUM OXIDE 400 MG TAB PO SCH (08:41)
[2017-05-22] MEDS: DOCUSATE SODIUM 100 MG CAP PO SCH ×2 (08:41→21:24)
[2017-05-22] MEDS: PANTOprazole SOD 40 MG TAB PO SCH (08:41)
[2017-05-22] MEDS: NICOTINE 21 MG/24 HR TDSY TD SCH (08:43)
[2017-05-22] MEDS: INSULIN GLARGINE SOLOSTAR 100 UNITS/ML 3 ML PEN SC SCH ×2 (08:48→21:30)
[2017-05-22] MEDS: VANCOMYCIN INJ 1,250 MG in SODIUM CHLORIDE 0.9% 250ML 250 ML IV SCH ×2 (09:45→19:30)
--- NOTE | 2017-05-22 13:39 | Progress Note ---
Internal Med Progress Note Date of Service: May 22, 2017. Provider Documentation: SUBJECTIVE: Seen and examined at bedside Clinically no significant change from yesterday Had debridement of wound today Chronic Neuropathic Pain Denies chest pain, SOB, dizziness Family at bedside Reports constipation No other complaints OBJECTIVE: Vital Signs-as noted below Physical Exam: General Appearance:Moderately built and nourished, no apparent distress Head: normocephalic, Atraumatic, loss of dentition Eyes: normal inspection, EOMI, PERRL Neck: supple, Trachea midline Respiratory/Chest: Normal breath sounds, CTA Cardiovascular: S1, S2, No murmur Abdomen/GI:Soft, Non tender, Bowel sounds present Extremities/Musculoskelatal:normal inspection, Right foot drop, R big toe ulcer in bandage Neurologic/Psych:AAOX3, right foot drop, decreased sensation, RLE motor 3-4/5. otherwise no focal deficits Skin:normal color,warm Lab data as noted below. ASSESSMENT & PLAN: Sepsis 2/2 Diabetic Foot Ulcer Continue IV Vanco and Zosyn for now till would cultures from 05/22 result Day # 4 S/P IVF blood culture: No growth to date wound cultures: Staph, Group B strep Wound cultures from 05/22: pending wound care consult with nurse and Dr. Boggs May need debridement Lactate normal Continue current management MRI RLE pending DM II poorly controlled, non compliant A1C: 13.3 no DKA Continue Deandre HARRISON Appreciate Pharmacy help in glycemic management [place] to discharge on simplified insulin regimen- Novolog Mix 70/30 Needs following prescription/Supplies prior to discharge: 1. NovoFine Autocover insulin pen needles. 2. FreeStyle Lite test strips to check 3x/day. 3. Lancets to check 3x/day. HTN: Started on Amlodipine, Metoprolol Monitor Chronic Pain continue Fentanyl patch and PRN Percocet Intolerance to Gabapentin/Lyrica in the past Tobacco use disorder: Nicotine patch Counseled to quit smoking DVT Px SQ Lovenox Disposition Expect to discharge home when stable Vital Signs: Date Time Temp Pulse Resp B/P (MAP) Pulse Ox O2 Delivery O2 Flow Rate FiO2 05/22/17 07:17 36.9 99 18 150/90 (110) 94 Room Air 05/22/17 07:05 Room Air 05/22/17 00:20 36.8 112 149/92 (111) 93 Room Air 05/22/17 00:15 Room Air 05/21/17 16:00 Room Air 05/21/17 15:49 36.5 97 20 137/89 (105) 95 Room Air Lab Results: Results Past 24 Hours Test 05/21/17 16:45 05/21/17 20:54 05/22/17 00:03 05/22/17 04:05 Range/Units Bedside Glucose 205 104 227 255 70-90 mg/dl Test 05/22/17 06:24 Range/Units White Blood Count 9.15 4.8-10.8 K/uL Red Blood Count 4.35 4.2-5.4 M/uL Hemoglobin 14.2 12.0-16.0 g/dL Hematocrit 42.3 37-47 % Mean Corpuscular Volume 97.2 80-100 fL Mean Corpuscular Hemoglobin 32.6 25-34 pg Mean Corpuscular Hemoglobin Concent 33.6 32-36 g/dl RDW Standard Deviation 45.4 36.4-46.3 fL RDW Coefficient of Variation 12.8 11.5-14.5 % Platelet Count 282 130-400 K/uL Mean Platelet Volume 10.1 7.4-10.4 fL Sodium Level 137 136-145 mmol/L Potassium Level 3.7 3.5-5.1 mmol/L Chloride Level 101 98-107 mmol/L Carbon Dioxide Level 27 21-32 mmol/L Anion Gap 9.0 3-11 mmol/L Blood Urea Nitrogen 7 7-18 mg/dl Creatinine 0.77 0.60-1.20 mg/dl Est Creatinine Clear Calc Drug Dose 92.0 ml/min Estimated GFR () 105.8 Estimated GFR (Non- 91.3 BUN/Creatinine Ratio 9.5 10-20 Random Glucose 170 70-99 mg/dl Calcium Level 8.5 8.5-10.1 mg/dl Microbiology Results 05/22/17 Gram Stain, Received Pending 05/22/17 Wound Culture, Received Pending
--- NOTE | 2017-05-22 13:44 | Wound Consultation: Inpatient ---
Wound Consultation Date of Consultation: May 22, 2017. Attending Physician: Kings Hopper MD Reason for Consultation: Nonhealing ulceration right great toe History of Present Illness Patient states she injured her right great toe approximately 3 months ago getting out of a shower. Patient states there was bleeding at that time. Patient states she's had intermittently nonhealing from the site. Patient states she's been treated by both her primary care physician in podiatry. Patient states that it became worse on Monday with increased swelling and redness. Patient denies any fever chills or night sweats. Patient denies any chest pain shortness of breath abdominal discomfort nausea or vomiting. Patient denies any other systemic complaints at this time. Family History Diabetes mellitus FATHER Hypertension MOTHER Social History Smoking Status: Current Every Day Smoker Alcohol Use: none Allergies Coded Allergies: Corticosteroids (Verified Allergy, Severe, STEROIDS-ANAPHYLAXIS, 05/19/17) Gabapentin (Verified Allergy, Severe, HIVES/SWELLING, 05/19/17) Iodinated Diagnostic Agents (Verified Allergy, Severe, FACIAL SWELLING, ) Nadolol (Verified Allergy, Severe, HIVES/SWELLING, 05/19/17) Shellfish Allergy (Verified Allergy, Severe, SWELLING, 05/19/17) Insulin Detemir (Verified Adverse Reaction, Intermediate, VOMITING, ) Meperidine (Verified Adverse Reaction, Intermediate, BECOMES VIOLENT, ) Morphine and Related (Verified Adverse Reaction, Intermediate, BECOMES VIOLENT, 05/19/17) Phenol (Verified Adverse Reaction, Intermediate, VOMITING, 05/19/17) Pregabalin (Verified Adverse Reaction, Intermediate, AGITATION, 05/19/17) Varenicline (Verified Adverse Reaction, Unknown, HOMICIDAL IDEATION, 05/19) Uncoded Allergies: ARTIFICIAL SWEETENER (Allergy, Severe, ANAPHYLAXIS, 05/19/17) Home Medications Scheduled Amitriptyline HCl (Amitriptyline HCl), 1 TAB PO HS Diphenhydramine Hcl (Benadryl Allergy), 7 CAP PO Q4 Docusate Sodium (Colace), 1 CAP PO BID Fentanyl (Fentanyl), 12 MCG TD [id number] Magnesium Oxide (Mag-Ox), 400 MG PO DAILY Melatonin (Melatonin Maximum Strengt), 2 TAB PO HS Oxycodone/Acetaminophen 10MG/325MG (Percocet 10MG/325MG), 1 TAB PO QID Pantoprazole (Protonix), 40 MG PO DAILY Scheduled PRN Promethazine Hcl (Phenergan), 25 MG PO Q4H PRN for Nausea Inpatient Medications Current Inpatient Medications Medications (Trade) Dose Ordered Sig/Asaf Route Start Time Stop Time Status Last Admin Dose Admin Enoxaparin Sodium (Lovenox Inj) 40 mg Q24H SQ 05/19/17 20:00 06/18/17 19:59 05/21/17 20:32 40 MG Acetaminophen (Tylenol Tab) 650 mg Q4H PRN PO 05/19/17 18:00 06/18/17 17:59 Ondansetron HCl (Zofran Inj) 4 mg Q6H PRN IV 05/19/17 18:00 06/18/17 17:59 Vancomycin HCl (Consult) 1 ea UD N/A 05/19/17 17:57 06/18/17 17:56 Piperacillin Sod/ Tazobactam Sod (Consult) 1 ea UD N/A 05/19/17 18:00 06/18/17 17:59 Amitriptyline HCl (Elavil Tab) 100 mg HS PO 05/19/17 21:00 06/18/17 20:59 05/21/17 20:32 100 MG Docusate Sodium (coLACE CAP) 100 mg BID PO 05/19/17 20:03 06/18/17 20:59 05/22/17 08:41 100 MG Fentanyl (Duragesic Patch) 12 mcg Q72H TD 05/21/17 09:00 06/04/17 08:59 05/21/17 09:59 12 MCG Magnesium Oxide (Mag-Ox Tab) 400 mg DAILY PO 05/20/17 08:00 06/19/17 08:59 05/22/17 08:41 400 MG Pantoprazole Sodium (Protonix Tab) 40 mg DAILY PO 05/20/17 08:00 06/19/17 08:59 05/22/17 08:41 40 MG Promethazine HCl (Phenergan Tab) 25 mg Q4H PRN PO 05/19/17 18:30 06/18/17 18:29 05/19/17 23:22 25 MG Insulin Aspart (novoLOG ASPART) SLIDING SCALE If C... ACHS SC 05/19/17 21:00 06/18/17 20:59 05/22/17 12:53 10 UNITS Glucose (Glucose 40% Gel) 15-30 GRAMS 15 GRAMS... UD PRN PO 05/19/17 18:30 06/18/17 18:29 Glucose (Glucose Chew Tab) 4-8 Tablets 4 Tabl... UD PRN PO 05/19/17 18:30 06/18/17 18:29 Dextrose (Dextrose 50% 50ML Syringe) 25-50ML OF 50% DW IV FOR... UD PRN IV 05/19/17 18:30 06/18/17 18:29 Glucagon (Glucagon Inj) 1 mg UD PRN SQ 05/19/17 18:30 06/18/17 18:29 Miscellaneous Information (Consult Glycemic Management Pharmacy) 1 ea UD N/A 05/19/17 18:39 06/18/17 18:38 Nicotine (Nicoderm Cq 21MG Patch) 1 patch QAM TD 05/19/17 18:45 06/18/17 18:44 05/20/17 09:15 1 PATCH Miscellaneous (Remove Nicoderm Patch) 1 ea HS N/A 05/19/17 21:00 06/18/17 20:59 05/20/17 21:54 1 EA Vancomycin HCl 1250 mg/Sodium Chloride 275 ml @ 125 mls/hr Q10H IV 05/19/17 21:00 05/29/17 20:59 05/22/17 09:45 125 MLS/HR Miscellaneous (Fentanyl Patch Remove & Waste) 1 ea Q3D N/A 05/21/17 08:59 06/20/17 08:58 05/21/17 08:59 1 EA Miscellaneous Information (Check Fentanyl Patch Placement) 1 ea QS N/A 05/20/17 00:00 06/19/17 00:00 05/22/17 08:43 1 EA Piperacillin Sod/ Tazobactam Sod 3.375 gm/Dextrose 115 ml @ 28.75 mls/ hr Q8H IV 05/20/17 00:00 05/30/17 00:00 05/22/17 09:45 28.75 MLS/HR Diphenhydramine HCl (Benadryl Cap) 25 mg BID PRN PO 05/19/17 23:45 06/18/17 23:44 05/22/17 08:48 25 MG Amlodipine Besylate (Norvasc Tab) 5 mg QAM PO 05/21/17 08:00 06/20/17 07:59 05/22/17 08:41 5 MG Oxycodone/ Acetaminophen (Percocet 10-325MG Tab) 1 tab Q4H PRN PO 05/20/17 16:15 06/02/17 20:59 05/22/17 12:07 1 TAB Polyethylene (Miralax Powder Packet) 17 gm DAILY PRN PO 05/21/17 13:45 06/20/17 13:44 Insulin Glargine (Lantus Solostar Pen) 20 units BID SC 05/22/17 08:00 06/21/17 07:59 05/22/17 08:48 20 UNITS Physical Exam Date Time Temp Pulse Resp B/P (MAP) Pulse Ox O2 Delivery O2 Flow Rate FiO2 05/22/17 07:17 36.9 99 18 150/90 (110) 94 Room Air 05/22/17 07:05 Room Air 05/22/17 00:20 36.8 112 149/92 (111) 93 Room Air 05/22/17 00:15 Room Air 05/21/17 16:00 Room Air 05/21/17 15:49 36.5 97 20 137/89 (105) 95 Room Air General: The patient is lying in a hospital bed in no distress. Vital signs were reviewed and found to be unremarkable patient is afebrile Alert, cooperative and appropriate to all questions. HEENT: Pupils equal and reactive to light. Sclera clear, EOM intact. Neck: Supple, No JVD noted Chest: CTA in all ann. No deformity Heart: RRR without murmurs, S3, S4, thrills, rubs or heaves Extremities: Right great toe demonstrates an ulceration with undermining of skin noted in the medial aspect of the distal phalanx. No active drainage is present. Some minimal odor is noted. There is slough noted at the base. There is no active drainage or odor noted. No significant periwound erythema or edema or tenderness noted. Distal neurovascular bundles intact. Pulses +2 bilaterally equal posterior tibial and dorsal pedalis. Neurological: Alert and oriented x3. No focal deficits. Skin: No rashes, papules, vesicles, excoriations Laboratory Results Last 24 Hours Test 05/21/17 16:45 05/21/17 20:54 05/22/17 00:03 05/22/17 04:05 Bedside Glucose 205 mg/dl 104 mg/dl 227 mg/dl 255 mg/dl Test 05/22/17 06:24 White Blood Count 9.15 K/uL Red Blood Count 4.35 M/uL Hemoglobin 14.2 g/dL Hematocrit 42.3 % Mean Corpuscular Volume 97.2 fL Mean Corpuscular Hemoglobin 32.6 pg Mean Corpuscular Hemoglobin Concent 33.6 g/dl RDW Standard Deviation 45.4 fL RDW Coefficient of Variation 12.8 % Platelet Count 282 K/uL Mean Platelet Volume 10.1 fL Sodium Level 137 mmol/L Potassium Level 3.7 mmol/L Chloride Level 101 mmol/L Carbon Dioxide Level 27 mmol/L Anion Gap 9.0 mmol/L Blood Urea Nitrogen 7 mg/dl Creatinine 0.77 mg/dl Est Creatinine Clear Calc Drug Dose 92.0 ml/min Estimated GFR () 105.8 Estimated GFR (Non- 91.3 BUN/Creatinine Ratio 9.5 Random Glucose 170 mg/dl Calcium Level 8.5 mg/dl Assessment & Plan Assessment: Lino grade 2 diabetic foot ulcer right great toe nonhealing Plan: At this time the site did require debridement. With the patient's permission and after the application of topical Xylocaine 4% the site was debrided with a combination of scissors, forceps and a #5 curette. Surrounding undermined skin and central slough was removed without difficulty no significant bleeding occurred. No subcutaneous tissue was removed. Culture was obtained. The patient is currently on antibiotic therapy. The site will be dressed with Aquacel Ag and gauze change daily patient will have a consultation with that orthotics for application of a CAM boot required for offloading. Following discharge patient will be followed up at the wound clinic per her request. This represented a non-excisional debridement of less than 20 cm.
[2017-05-22 13:45] VITALS: Ht 165.1 cm; Wt 77.5 kg
[2017-05-22 15:19] VITALS: BP 129/82; PULSE 106; TEMP 36.6; O2SAT 94
[2017-05-22] MEDS: AMITRIPTYLINE HCL 100 MG TAB PO SCH (21:24)
[2017-05-22] MEDS: ENOXAPARIN 40 MG/0.4 ML SYR SQ SCH (21:26)
[2017-05-22] MEDS: METOPROLOL TARTRATE 25 MG TAB PO SCH (21:59)
[2017-05-22] MEDS: PROMETHAZINE HCL 25 MG TAB PO PRN (22:00)
[2017-05-23 00:15] VITALS: BP 143/92; PULSE 89; TEMP 36.7; O2SAT 95
[2017-05-23] MEDS: PIPERACILL/TAZOBAC IV 3.375 GM in DEXTROSE 5% 100ML IV SCH ×2 (00:19→07:51)
[2017-05-23] MEDS: CHECK FENTANYL PATCH PLACEMENT SCH ×3 (00:19→15:51)
[2017-05-23] MEDS: ACETAMINOPHEN 325 MG TAB PO PRN ×2 (00:19→15:28)
[2017-05-23] MEDS ORDERED: GADAVIST IV PRN (01:00)
[2017-05-23] MEDS: OXYCODONE/ACETAMINOPHEN 10/325MG TAB PO PRN ×5 (01:28→20:40)
[2017-05-23] MEDS ORDERED: VANCOMYCIN TROUGH ONE (04:30)
[2017-05-23] MEDS ORDERED: VANCOMYCIN TROUGH SCH (04:30)
[2017-05-23 04:54] LABS: BUN/CREATININE RATIO 12.5 (10-20); CALCIUM 8.2 mg/dl (8.5-10.1); CREATININE 0.8 mg/dl (0.60-1.20)
[2017-05-23] MEDS: VANCOMYCIN INJ 1,250 MG in SODIUM CHLORIDE 0.9% 250ML 250 ML IV SCH (04:58)
--- NOTE | 2017-05-23 06:53 | DIAGNOSTIC IMAGING REPORT ---
LOWER EXT NON JOINT COMBO CLINICAL HISTORY: DFU right great toe pain. Infection. TECHNIQUE: Multiaxial MRI acquisition pre and post contrast enhancement COMPARISON STUDY: None FINDINGS: Findings suggesting moderate soft tissue edematous change about the soft tissues distal phalanx great toe. Subtle increase in signal on the inversion recovery sequence of the distal phalanx specifically with evidence for minimal postcontrast enhancement. Images suggest the periosteum about the great toe to be edematous. Mild degenerative change of the intertarsal and to lesser extent tarsometatarsal joints. Minimal muscular soft tissue edematous change about the foot. No additional bone marrow replacing process. No evidence for abscess or collection. Subtle edematous change of the subcutaneous fat circumferentially about the foot and toes. IMPRESSION: 1. Findings consistent with periostitis and probable early osteomyelitis distal phalanx great toe. 2. Moderate soft tissue edema about the great toe with less prominent findings seen throughout the foot. 3. No evidence for drainable abscess or collection. The above report was generated using voice recognition software. It may contain grammatical, syntax or spelling errors. Electronically signed by: Braxton Gonzalez M.D. 05/23/2017 6:52 AM Dictated Date/Time: 05/23/2017 6:43 AM
[2017-05-23 07:17] VITALS: BP 130/90; PULSE 92; TEMP 36.6; O2SAT 95
[2017-05-23] MEDS: DOCUSATE SODIUM 100 MG CAP PO SCH ×2 (07:52→20:40)
[2017-05-23] MEDS: PANTOprazole SOD 40 MG TAB PO SCH (07:52)
[2017-05-23] MEDS: AMLODIPINE BESYLATE 5 MG TAB PO SCH (07:53)
[2017-05-23] MEDS: METOPROLOL TARTRATE 25 MG TAB PO SCH ×2 (07:53→20:42)
[2017-05-23] MEDS: NICOTINE 21 MG/24 HR TDSY TD SCH (07:53)
[2017-05-23] MEDS: MAGNESIUM OXIDE 400 MG TAB PO SCH (07:53)
[2017-05-23] MEDS: INSULIN ASPART 100 UNITS/ML 3 ML PEN SC SCH ×4 (08:53→22:00)
[2017-05-23] MEDS: INSULIN GLARGINE SOLOSTAR 100 UNITS/ML 3 ML PEN SC SCH ×2 (08:54→20:46)
--- NOTE | 2017-05-23 12:21 | Pharmacy Progress Note ---
Glycemic Control Progress Note Date of Service May 23, 2017. Scope Glycemic Pharmacist consulted for glycemic control to write orders per [facility] inpatient glycemic control protocol. Objective Accuchecks BSG (last 24hrs): Test 05/22/17 16:15 05/22/17 20:05 05/23/17 04:29 05/23/17 07:31 Bedside Glucose 183 mg/dl (70-90) 179 mg/dl (70-90) 161 mg/dl (70-90) Random Glucose 206 mg/dl (70-99) Test 05/23/17 11:26 Bedside Glucose 146 mg/dl (70-90) HbA1c: Test 05/20/17 07:26 Hemoglobin A1c 13.3 % (4.5-5.6) H Recent Pertinent Medications The patient is currently receiving: * Basal insulin: Lantus 20 units every 12 hours * Correctional Insulin: Novolog Correction per scale ACHS Goal Range: Low 110 mg/dL - High 150 mg/dL Correction Factor: 20 mg/dL/unit * Prandial insulin: Per carb ratio of 1 unit per 7 grams CHO consumed Outpatient Anti-Diabetic Meds Non-compliance, no insulin x 2 weeks Assessment & Plan ASSESSMENT: * See progress note from 05/19/17 for more background info, in short: * Pt receiving SQ basal bolus insulin regimen for hyperglycemia secondary to baseline DM (outpatient regimen on hold), stress/infection * non-compliance - no insulin for two weeks prior to admission * Patient is currently receiving an average of 80 units of insulin per day * 40 units of basal insulin * 40 units of prandial/correctional insulin * BSGs ranging 161 - 183 mg/dl over the past 24hrs * Changes needed to insulin regimen: * AM Fasting BSG = 161 mg/dl. This is in slightly above goal range for patient based on inpatient targets and co-morbidities. * Post-prandial BSGs are improving but remain slightly above goal, therefore need to tighten CF/CR. * Anticipate needing about 95 units of insulin per day. Increase insulin ~ 15% today. PLAN FOR INPATIENT GLYCEMIC CONTROL: * Increase Lantus to 23 units SQ BID * Tighten correction factor to 18 mg/dl/unit * Tighten carb ratio to 1 unit per 6 grams CHO consumed * Goal range to Low 110 mg/dL - High 150 mg/dL RECOMMENDATIONS FOR DISCHARGE: * A1c = 13.3% on 05/20/17 * Pt will need an outpatient regimen that she can adhere to. Tight glycemic control essential for wound healing. * Consider changing to 70/30 to minimize the number of insulin infections per day and cost. * Recommend 70/30 SQ BID with breakfast and dinner * Please note that the plan above was derived based on current level of insulin resistance and hospital stress. These recommendations are appropriate for inpatient admission only. Plan of care upon discharge will need to be reassessed to avoid potential outpatient hypo/hyperglycemia. Thank you.
[2017-05-23] MEDS: ONDANSETRON INJ 2 MG/ML 2 ML VIAL IV PRN (12:27)
[2017-05-23] MEDS ORDERED: CALCIUM POLYCARBOPHIL 1 TAB PO ONE (12:45)
--- NOTE | 2017-05-23 12:46 | Progress Note ---
Medicine Progress Note Date & Time of Visit: May 23, 2017 at 12:35. Subjective 46 yo F with uncontrolled DM admitted for sepsis 2/2 diabetic foot ulcer -MRI overnight showed OM -pain present, not worse or better than normal -s/p wound debridement per Dr. Boggs yesterday morning -tolerating PO -wound culture resulting GBS and MSSA Objective Last 8 Hrs Date Time Temp Pulse Resp B/P (MAP) Pulse Ox O2 Delivery O2 Flow Rate FiO2 05/23/17 08:00 Room Air 05/23/17 07:17 36.6 92 20 130/90 (103) 95 Room Air Physical Exam: GEN: WNWD, in no acute distress, alert and appropriate HEENT: NC/AT, normal sclerae, MMM CARDIO: reg rate, S1/2 heard without m/g/r LUNGS: CTA bilaterally, no crackles, rales or wheezes, good diaphragmatic excursion ABD: soft, non-tender, non-distended, no rebound or guarding. +hypoactive BS EXTREMITY: RP and DP palpable 2+ bilat, no LE swelling or edema, extremities are warm and well-perfused R toe wound, clean ulcer base s/p debridement yest, moist, min serous drainage onto Optifoam. No surrounding erythema. NEURO: grossly intact throughout MUSC: moves around bed with ease, moves all extremities equally. SKIN: warm and dry and wound as above. Laboratory Results: 05/22/17 06:24 05/23/17 04:29 Test 05/19/17 16:18 05/19/17 17:12 05/20/17 07:26 05/21/17 02:25 Immature Granulocyte % (Auto) 0.5 % White Blood Count 13.27 K/uL (4.8-10.8) Red Blood Count 4.34 M/uL (4.2-5.4) Hemoglobin 14.5 g/dL (12.0-16.0) Hematocrit 42.0 % (37-47) Mean Corpuscular Volume 96.8 fL (80-100) Mean Corpuscular Hemoglobin 33.4 pg (25-34) Mean Corpuscular Hemoglobin Concent 34.5 g/dl (32-36) Platelet Count 315 K/uL (130-400) Mean Platelet Volume 10.4 fL (7.4-10.4) Neutrophils (%) (Auto) 59.0 % Lymphocytes (%) (Auto) 33.3 % Monocytes (%) (Auto) 5.4 % Eosinophils (%) (Auto) 1.6 % Basophils (%) (Auto) 0.2 % Neutrophils # (Auto) 7.82 K/uL (1.4-6.5) Lymphocytes # (Auto) 4.42 K/uL (1.2-3.4) Monocytes # (Auto) 0.72 K/uL (0.11-0.59) Eosinophils # (Auto) 0.21 K/uL (0-0.5) Basophils # (Auto) 0.03 K/uL (0-0.2) Immature Granulocyte # (Auto) 0.07 K/uL (0.00-0.02) Erythrocyte Sedimentation Rate 34 mm/hr (0-21) Prothrombin Time 9.8 SECONDS (9.0-12.0) Prothromb Time International Ratio 0.9 (0.9-1.1) Activated Partial Thromboplast Time 24.3 SECONDS (21.0-31.0) Partial Thromboplastin Ratio 0.9 Total Bilirubin 0.2 mg/dl (0.2-1) Direct Bilirubin < 0.1 mg/dl (0-0.2) Aspartate Amino Transf (AST/SGOT) 13 U/L (15-37) Alanine Aminotransferase (ALT/SGPT) 23 U/L (12-78) Alkaline Phosphatase 97 U/L (45-117) C-Reactive Protein 1.40 mg/dl (0-0.29) Total Protein 6.9 gm/dl (6.4-8.2) Albumin 3.3 gm/dl (3.4-5.0) Lipase 49 U/L (73-393) Lactic Acid Level 1.1 mmol/L (0.4-2.0) Estimated Average Glucose 335 mg/dl Hemoglobin A1c 13.3 % (4.5-5.6) Urine Color YELLOW Urine Appearance CLEAR (CLEAR) Urine pH 6.5 (4.5-7.5) Urine Specific [place] 1.011 (1.000-1.030) Urine Protein NEG (NEG) Urine Glucose (UA) 2+ (NEG) Urine Ketones NEG (NEG) Urine Occult Blood NEG (NEG) Urine Nitrite NEG (NEG) Urine Bilirubin NEG (NEG) Urine Urobilinogen NEG (NEG) Urine Leukocyte Esterase NEG (NEG) Urine WBC (Auto) 0 /hpf (0-5) Urine RBC (Auto) 0-4 /hpf (0-4) Urine Hyaline Casts (Auto) 0 /lpf (0-5) Urine Epithelial Cells (Auto) 10-20 /lpf (0-5) Urine Bacteria (Auto) NEG (NEG) Test 05/22/17 06:24 05/23/17 04:29 05/23/17 11:26 Red Blood Count 4.35 M/uL (4.2-5.4) Mean Corpuscular Volume 97.2 fL (80-100) Mean Corpuscular Hemoglobin 32.6 pg (25-34) Mean Corpuscular Hemoglobin Concent 33.6 g/dl (32-36) RDW Standard Deviation 45.4 fL (36.4-46.3) RDW Coefficient of Variation 12.8 % (11.5-14.5) Mean Platelet Volume 10.1 fL (7.4-10.4) Anion Gap 5.0 mmol/L (3-11) Est Creatinine Clear Calc Drug Dose 88.5 ml/min Estimated GFR () 101.0 Estimated GFR (Non- 87.2 BUN/Creatinine Ratio 12.5 (10-20) Calcium Level 8.2 mg/dl (8.5-10.1) Vancomycin Level Trough 20.8 mcg/ml (SEE COMMENT) Bedside Glucose 146 mg/dl (70-90) Date/Time Source Procedure Growth Status 05/19/17 17:12 Blood Blood Culture - Preliminary NO GROWTH TO DATE. Resulted 05/22/17 11:50 Drainage-Deep Toe Right 1 Gram Stain - Final Resulted 05/22/17 11:50 Drainage-Deep Toe Right 1 Wound Culture - Preliminary PIN-POINT GROWTH PRESENT, REINCUBATING. Resulted Last 24 Hours Test 05/22/17 16:15 05/22/17 20:05 05/23/17 04:29 05/23/17 07:31 Bedside Glucose 183 mg/dl 179 mg/dl 161 mg/dl Sodium Level 136 mmol/L Potassium Level 4.0 mmol/L Chloride Level 102 mmol/L Carbon Dioxide Level 29 mmol/L Anion Gap 5.0 mmol/L Blood Urea Nitrogen 10 mg/dl Creatinine 0.80 mg/dl Est Creatinine Clear Calc Drug Dose 88.5 ml/min Estimated GFR () 101.0 Estimated GFR (Non- 87.2 BUN/Creatinine Ratio 12.5 Random Glucose 206 mg/dl Calcium Level 8.2 mg/dl Vancomycin Level Trough 20.8 mcg/ml Test 05/23/17 11:26 Bedside Glucose 146 mg/dl Assessment & Plan 46 yo F presented with sepsis 2/2 diabetic foot ulcer. 1. Sepsis 2/2 diabetic foot ulcer and underlying osteomyelitis- OM noted on MRI overnight. ID consulted in this setting to assist with 4-6 weeks of abx therapy. Apprec recs and management. Pt had debridement yesterday per Dr. Boggs. Wound looks good and is covered with Aquacel and Optifoam per instruction yesterday. Cont with Vanc/Zosyn until ID weighs in-cultures are MSSA and GBS in wound with blood cultures clear to date. 2. DMII-h/o noncompliance per notes. A1C 13. Cont ISS/Lantus and carb coverage. Apprec inpatient glycemic pharmacist assistance. Plan to dc on Novolog 70/30 per prior discussions with other docs. Needs following prescription/Supplies prior to discharge: 1. NovoFine Autocover insulin pen needles. 2. FreeStyle Lite test strips to check 3x/day. 3. Lancets to check 3x/day. 3. HTN-Started on Amlodipine, Metoprolol this admission. Controlled. Cont current therapy. 4. Chronic pain-was previously on high dose Fentanyl patch as outpatient ( 175mcg) but then was taken off and had Percocet increased to 8 times daily. Currently on Fentanyl 12 and Percocet 6 times daily in addition to Elavil 100mg PO qHS. Pt sees a Pain specialist as outpatient. Consulted PM for assistance this admission as patient reports uncontrolled pain an that she feels the need to increase to 8 times per day again. PM recommending Keppra 250mg PO BID to try (allergy to gabapentin and Lyrica in past). SAMIA Acosta to see in am. 5. Smoker-nicotine patch. Counseled to quit smoking. DVT Px SQ Lovenox Full Code Dispo: to home when abx figured out. [facility] Hospital[facility] Consultants: Wound Care Provider-Ambrose ID-[facility]ason [facility] Current Inpatient Medications: Current Inpatient Medications Medications (Trade) Dose Ordered Sig/Asaf Route Start Time Stop Time Status Last Admin Dose Admin Enoxaparin Sodium (Lovenox Inj) 40 mg Q24H SQ 05/19/17 20:00 06/18/17 19:59 05/22/17 21:26 40 MG Acetaminophen (Tylenol Tab) 650 mg Q4H PRN PO 05/19/17 18:00 06/18/17 17:59 05/23/17 00:19 650 MG Ondansetron HCl (Zofran Inj) 4 mg Q6H PRN IV 05/19/17 18:00 06/18/17 17:59 05/23/17 12:27 4 MG Vancomycin HCl (Consult) 1 ea UD N/A 05/19/17 17:57 06/18/17 17:56 Piperacillin Sod/ Tazobactam Sod (Consult) 1 ea UD N/A 05/19/17 18:00 06/18/17 17:59 Amitriptyline HCl (Elavil Tab) 100 mg HS PO 05/19/17 21:00 06/18/17 20:59 05/22/17 21:24 100 MG Docusate Sodium (coLACE CAP) 100 mg BID PO 05/19/17 20:03 06/18/17 20:59 05/23/17 07:52 100 MG Fentanyl (Duragesic Patch) 12 mcg Q72H TD 05/21/17 09:00 06/04/17 08:59 05/21/17 09:59 12 MCG Magnesium Oxide (Mag-Ox Tab) 400 mg DAILY PO 05/20/17 08:00 06/19/17 08:59 05/23/17 07:53 400 MG Pantoprazole Sodium (Protonix Tab) 40 mg DAILY PO 05/20/17 08:00 06/19/17 08:59 05/23/17 07:52 40 MG Promethazine HCl (Phenergan Tab) 25 mg Q4H PRN PO 05/19/17 18:30 06/18/17 18:29 05/22/17 22:00 25 MG Insulin Aspart (novoLOG ASPART) SLIDING SCALE If C... ACHS SC 05/19/17 21:00 06/18/17 20:59 05/23/17 12:33 7 UNITS Glucose (Glucose 40% Gel) 15-30 GRAMS 15 GRAMS... UD PRN PO 05/19/17 18:30 06/18/17 18:29 Glucose (Glucose Chew Tab) 4-8 Tablets 4 Tabl... UD PRN PO 05/19/17 18:30 06/18/17 18:29 Dextrose (Dextrose 50% 50ML Syringe) 25-50ML OF 50% DW IV FOR... UD PRN IV 05/19/17 18:30 06/18/17 18:29 Glucagon (Glucagon Inj) 1 mg UD PRN SQ 05/19/17 18:30 06/18/17 18:29 Miscellaneous Information (Consult Glycemic Management Pharmacy) 1 ea UD N/A 05/19/17 18:39 06/18/17 18:38 Nicotine (Nicoderm Cq 21MG Patch) 1 patch QAM TD 05/19/17 18:45 06/18/17 18:44 05/20/17 09:15 1 PATCH Miscellaneous (Remove Nicoderm Patch) 1 ea HS N/A 05/19/17 21:00 06/18/17 20:59 05/20/17 21:54 1 EA Vancomycin HCl 1250 mg/Sodium Chloride 275 ml @ 125 mls/hr Q10H IV 05/19/17 21:00 05/29/17 20:59 05/23/17 04:58 125 MLS/HR Miscellaneous (Fentanyl Patch Remove & Waste) 1 ea Q3D N/A 05/21/17 08:59 06/20/17 08:58 05/21/17 08:59 1 EA Miscellaneous Information (Check Fentanyl Patch Placement) 1 ea QS N/A 05/20/17 00:00 06/19/17 00:00 05/23/17 07:51 1 EA Piperacillin Sod/ Tazobactam Sod 3.375 gm/Dextrose 115 ml @ 28.75 mls/ hr Q8H IV 05/20/17 00:00 05/30/17 00:00 05/23/17 07:51 28.75 MLS/HR Diphenhydramine HCl (Benadryl Cap) 25 mg BID PRN PO 05/19/17 23:45 06/18/17 23:44 05/23/17 07:57 25 MG Amlodipine Besylate (Norvasc Tab) 5 mg QAM PO 05/21/17 08:00 06/20/17 07:59 05/23/17 07:53 5 MG Oxycodone/ Acetaminophen (Percocet 10-325MG Tab) 1 tab Q4H PRN PO 05/20/17 16:15 06/02/17 20:59 05/23/17 11:53 1 TAB Polyethylene (Miralax Powder Packet) 17 gm DAILY PRN PO 05/21/17 13:45 06/20/17 13:44 Metoprolol Tartrate (Lopressor Tab) 12.5 mg BID PO 05/22/17 20:00 06/21/17 19:59 05/23/17 07:53 12.5 MG Gadobutrol (Gadavist) 7.5 mmol UD PRN IV 05/23/17 01:00 05/27/17 00:59 Insulin Glargine (Lantus Solostar Pen) 23 units BID SC 05/23/17 08:30 06/22/17 08:29 05/23/17 08:54 23 UNITS Levetiracetam (Keppra Tab) 250 mg BID PO 05/23/17 20:00 06/22/17 19:59 Calcium Polycarbophil (Fibercon Tab) 1 tab QAM PO 05/24/17 08:00 06/23/17 07:59 Calcium Polycarbophil (Fibercon Tab) 1 tab NOW ONCE PO 05/23/17 12:45 05/23/17 12:46
--- NOTE | 2017-05-23 13:28 | Pharmacy Progress Note ---
Pharmacy Abx Dose Short Note Date of Service May 23, 2017. Assessment & Plan Assessment 46 year old female with uncontrolled DM receiving Vancomycin 1250mg IV q 10 hours for treatment of Sepsis/Diabetic Foot Ulcer Day # 11/30 of antimicrobial therapy. -MRI overnight showed OM, ID to be consulted for duration of therapy. Plan Vancomycin * Trough level of 20.8 mcg/mL on 05/23 @ 0430 is supratherapeutic. * Change dose to 1250 mg IV every 12 hours. * Goal trough level for vancomycin : 15 to 20 mcg/mL * Trough or random level ordered for: 05/25/17 @ 0430. Pharmacy will continue to follow and will adjust dose/frequency as necessary. Thank you.
--- NOTE | 2017-05-23 14:42 | Progress Note ---
Progress Note Date of Service May 23, 2017. Progress Note ID Consult Dictated #[id number] A/P: 1. Diabetic Foot Infection -Lee to po augmentin and doxy - 3 weeks total -Can follow with ID at wound center post d/c -No contraindication to d/c from ID standpoint -Thank you
[2017-05-23 14:50] VITALS: BP 126/79; PULSE 97; TEMP 36.6; O2SAT 94
--- NOTE | 2017-05-23 14:56 | INFECT. DISEASE CONSULTATION ---
DATE OF CONSULTATION: 05/23/2017 HISTORY OF PRESENT ILLNESS: This is a 46-year-old female who was admitted with a right toe infection. She states that in January, she had noticed a cut while getting in the shower on the right first toe. She was dressing this at home and recently, she noticed purulent drainage and foul odor to her toe upon changing the dressing at home. She subsequently came to the hospital and was admitted. She did have a superficial wound culture done on the , which grew group B strep, resistant to clindamycin and azithromycin. This also grew MSSA. She has been on Zosyn and vancomycin since admission to the hospital. She has been afebrile since admission and denies any fevers or chills prior to admission. Her white blood cell count was normal. Her sed rate was mildly elevated at 34. She did have an MRI done on the , which showed questionable early osteo, but no definitive osteomyelitis was noted. She did have a followup with the wound care physician here in the hospital yesterday and underwent debridement and dressing change. A culture was done again on the and Gram stain has rare GPCs. She is tolerating antibiotics well. She denies any pain and states she has neuropathy in the foot. She has no nausea, vomiting, diarrhea, abdominal pain, cough, shortness of breath or chest pain. She states that she is due to be discharged later today with plans to follow up in the wound care center. All remaining review of systems reviewed and are unremarkable. PAST MEDICAL HISTORY: Significant for chronic pain, depression, type 2 diabetes, gastroparesis, GERD, hypertension, and obstructive sleep apnea. PAST SURGICAL HISTORY: Significant for D&C, tubal ligation, appendectomy and hysterectomy. FAMILY HISTORY: Noncontributory. SOCIAL HISTORY: Significant for daily tobacco use. She denies any alcohol or drug use. ALLERGIES: She has no antibiotic allergies and other allergies are listed in the chart. CURRENT MEDICATIONS: Include calcium, Keppra, vancomycin, insulin, Lopressor, MiraLax, fentanyl patch, Norvasc, Percocet, Protonix, magnesium, Zosyn, Benadryl, amitriptyline, Colace, Lovenox, nicotine patch, Phenergan, Tylenol and Zofran. PHYSICAL EXAMINATION: VITAL SIGNS: She is afebrile, pulse 92, respiratory rate 20, blood pressure 130/90, and oxygen saturation is 95% on room air. GENERAL: She is awake, alert and oriented x3. She is in no acute distress. HEENT: Mucous membranes are moist. Extraocular muscles are intact. HEART: Regular. LUNGS: Clear. ABDOMEN: Soft, nontender, and nondistended. There is no lower extremity edema. SKIN: Without rash. Examination of the retrosternal area shows superficial ulceration. There is no surrounding edema, erythema, warmth, tenderness, or fluctuance. There is no bleeding or drainage on my exam. LABORATORY STUDIES: CBC, hemoglobin yesterday was 9.1 down from 13.2 on admission. Chemistry panel reveals a sodium of 136, potassium 4.0, chloride 102, bicarbonate 29, BUN 10, creatinine 0.8, and glucose 146. Urinalysis was negative. Vancomycin trough today is 20. LFTs were normal on admission. Blood cultures from the are no growth to date x2 sets. Superficial wound culture grew group B strep and MSSA. Imaging is as above. ASSESSMENT AND PLAN: Diabetic foot wound, questionable early osteomyelitis. At this time, she will be transitioned to Augmentin and doxycycline by mouth. She will have a minimum of 3 weeks of therapy. She can follow up with infectious diseases and wound care center as well. I do not see any contraindication for discharge from an infectious diseases standpoint. Thank you for this consultation.
[2017-05-23] MEDS ORDERED: VANCOMYCIN INJ 1,250 MG in SODIUM CHLORIDE 0.9% 250ML 250 ML IV SCH (17:00)
[2017-05-23] MEDS: AMOXICILLIN/CLAVULANATE TAB 875 MG TAB PO SCH (17:55)
[2017-05-23] MEDS: DOXYCYCLINE HYCLATE 100 MG CAP PO SCH (20:41)
[2017-05-23] MEDS: LEVETIRACETAM 250 MG TAB PO SCH (20:41)
[2017-05-23] MEDS: ENOXAPARIN 40 MG/0.4 ML SYR SQ SCH (20:43)
[2017-05-23] MEDS: AMITRIPTYLINE HCL 100 MG TAB PO SCH (22:03)
[2017-05-23 22:50] VITALS: BP 179/100; PULSE 103; TEMP 36.9; O2SAT 95
[2017-05-24] MEDS: CHECK FENTANYL PATCH PLACEMENT SCH ×2 (00:08→08:43)
[2017-05-24 03:28] VITALS: BP 144/86
[2017-05-24] MEDS: OXYCODONE/ACETAMINOPHEN 10/325MG TAB PO PRN ×3 (05:50→14:16)
[2017-05-24 07:12] VITALS: BP 137/85; PULSE 96; TEMP 36.7; O2SAT 93
[2017-05-24] MEDS ORDERED: CALCIUM POLYCARBOPHIL 1 TAB PO SCH (08:00)
[2017-05-24] MEDS: DOCUSATE SODIUM 100 MG CAP PO SCH (08:44)
[2017-05-24] MEDS: PANTOprazole SOD 40 MG TAB PO SCH (08:44)
[2017-05-24] MEDS: AMLODIPINE BESYLATE 5 MG TAB PO SCH (08:45)
[2017-05-24] MEDS: LEVETIRACETAM 250 MG TAB PO SCH (08:45)
[2017-05-24] MEDS: METOPROLOL TARTRATE 25 MG TAB PO SCH (08:45)
[2017-05-24] MEDS: AMOXICILLIN/CLAVULANATE TAB 875 MG TAB PO SCH (08:46)
[2017-05-24] MEDS: DOXYCYCLINE HYCLATE 100 MG CAP PO SCH (08:46)
[2017-05-24] MEDS: MAGNESIUM OXIDE 400 MG TAB PO SCH (08:47)
[2017-05-24] MEDS: NICOTINE 21 MG/24 HR TDSY TD SCH (08:47)
[2017-05-24] MEDS: INSULIN ASPART 100 UNITS/ML 3 ML PEN SC SCH ×2 (08:51→13:19)
[2017-05-24] MEDS: FENTANYL PATCH REMOVE & WASTE SCH (08:52)
[2017-05-24] MEDS: INSULIN GLARGINE SOLOSTAR 100 UNITS/ML 3 ML PEN SC SCH (08:52)
[2017-05-24] MEDS: ACETAMINOPHEN 325 MG TAB PO PRN (08:58)
[2017-05-24] MEDS: FENTANYL 12 MCG/HR TDSY TD SCH (08:59)
[2017-05-24] MEDS: ONDANSETRON INJ 2 MG/ML 2 ML VIAL IV PRN (09:52)
--- NOTE | 2017-05-24 10:06 | DIAGNOSTIC IMAGING REPORT ---
L-SPINE MIN 4 VIEWS ROUTINE CLINICAL HISTORY: Back pain. COMPARISON: None FINDINGS: Alignment of the lumbar spine is anatomic. There are possible L5 pars defects. There is mild loss of height of the superior endplate of L2. Otherwise, vertebral body heights are maintained. Disc spaces are preserved. There is mild multilevel osteophytosis and facet arthrosis of the lumbar spine. Moderate vascular calcification is present. IMPRESSION: 1. Mild loss of height of the superior endplate of L2 which suggests an age indeterminate compression fracture. 2. Preserved disc spaces with mild multilevel osteophytosis and facet arthrosis. Electronically signed by: Aquiles Bentley M.D. 05/24/2017 10:05 AM Dictated Date/Time: 05/24/2017 10:03 AM
--- NOTE | 2017-05-24 12:20 | Pain Management Consultation ---
Pain Management Consultation Date of Consultation May 24, 2017. Reason for Consultation Chronic LE neuropathy Pain Location 1 - 2 - 3 - History Mrs. Kang is a 46 year old white female that has been admitted to the [facility] for sepsis secondary to an infected right foot wound with possible early osteomyelitis. Patient is an uncontrolled diabetic. She cut her right toe about 2 months ago and has undergone antibiotic treatment and wound clinic debridement. Five days ago she was changing the bandage and noted purulent discharge, foul odor, increased pain, and worsening of the wound. She is going to be discharged with wound clinic and infectious disease for Augmentin and Doxycycline PO. Patient reports a significant history of peripheral neuropathy and is on chronic pain medications for this. She describes minimal sensation along the right foot. There is a burning and sharp pain along the right medial lower leg and lateral thigh/groin. She does report right sided low back pain that has been ongoing but not evaluated in a long time. She reports a previous history of an L2 compression fracture many years ago. She states that the right low back pain radiates in the right lateral thigh, up the back and along the left side of the neck. She has been previously been on Fentanyl patch 175mcg/hr which was not effective so it was changed to Percocet 10/325mg 8 tablets daily. She was doing well and decreased to 6 tablets daily. Over the last month the pain has been worsening and she feels like she needs more pain medication. She has previously tried Lyrica and Gabapentin but discontinued them as it caused upset stomach. Patient does tolerate Amitriptyline 100mg QHS. She denies any leg weakness, foot drop, saddle anesthesia, bowel/bladder incontinence, fevers, chills. Case discussed with Dr. Coles Past Medical/Surgical History (1) Diabetes (2) Gastroparesis (3) Hypertension (4) GERD (gastroesophageal reflux disease) (5) Chronic pain (6) Depression (7) BENITO (obstructive sleep apnea) (8) H/O dilation and curettage (9) H/O tubal ligation (10) History of appendectomy (11) History of hysterectomy Family History Diabetes mellitus FATHER Hypertension MOTHER Social / Work History Smokeless Tobacco Use: No Alcohol Use: none Drug Use: none Marital Status: Housing Status: lives with family Allergies Coded Allergies: Corticosteroids (Verified Allergy, Severe, STEROIDS-ANAPHYLAXIS, 05/19/17) Gabapentin (Verified Allergy, Severe, HIVES/SWELLING, 05/19/17) Iodinated Diagnostic Agents (Verified Allergy, Severe, FACIAL SWELLING, ) Nadolol (Verified Allergy, Severe, HIVES/SWELLING, 05/19/17) Shellfish Allergy (Verified Allergy, Severe, SWELLING, 05/19/17) Insulin Detemir (Verified Adverse Reaction, Intermediate, VOMITING, ) Meperidine (Verified Adverse Reaction, Intermediate, BECOMES VIOLENT, ) Morphine and Related (Verified Adverse Reaction, Intermediate, BECOMES VIOLENT, 05/19/17) Phenol (Verified Adverse Reaction, Intermediate, VOMITING, 05/19/17) Pregabalin (Verified Adverse Reaction, Intermediate, AGITATION, 05/19/17) Varenicline (Verified Adverse Reaction, Unknown, HOMICIDAL IDEATION, 05/19) Uncoded Allergies: ARTIFICIAL SWEETENER (Allergy, Severe, ANAPHYLAXIS, 05/19/17) Medications Current Inpatient Medications Medications (Trade) Dose Ordered Sig/Asaf Route Start Time Stop Time Status Last Admin Dose Admin Enoxaparin Sodium (Lovenox Inj) 40 mg Q24H SQ 05/19/17 20:00 06/18/17 19:59 05/23/17 20:43 40 MG Acetaminophen (Tylenol Tab) 650 mg Q4H PRN PO 05/19/17 18:00 06/18/17 17:59 05/24/17 08:58 650 MG Ondansetron HCl (Zofran Inj) 4 mg Q6H PRN IV 05/19/17 18:00 06/18/17 17:59 05/24/17 09:52 4 MG Amitriptyline HCl (Elavil Tab) 100 mg HS PO 05/19/17 21:00 06/18/17 20:59 05/23/17 22:03 100 MG Docusate Sodium (coLACE CAP) 100 mg BID PO 05/19/17 20:03 06/18/17 20:59 05/24/17 08:44 100 MG Fentanyl (Duragesic Patch) 12 mcg Q72H TD 05/21/17 09:00 06/04/17 08:59 05/24/17 08:59 12 MCG Magnesium Oxide (Mag-Ox Tab) 400 mg DAILY PO 05/20/17 08:00 06/19/17 08:59 05/24/17 08:47 400 MG Pantoprazole Sodium (Protonix Tab) 40 mg DAILY PO 05/20/17 08:00 06/19/17 08:59 05/24/17 08:44 40 MG Promethazine HCl (Phenergan Tab) 25 mg Q4H PRN PO 05/19/17 18:30 06/18/17 18:29 05/22/17 22:00 25 MG Insulin Aspart (novoLOG ASPART) SLIDING SCALE If C... ACHS SC 05/19/17 21:00 06/18/17 20:59 05/24/17 08:51 8 UNITS Glucose (Glucose 40% Gel) 15-30 GRAMS 15 GRAMS... UD PRN PO 05/19/17 18:30 06/18/17 18:29 Glucose (Glucose Chew Tab) 4-8 Tablets 4 Tabl... UD PRN PO 05/19/17 18:30 06/18/17 18:29 Dextrose (Dextrose 50% 50ML Syringe) 25-50ML OF 50% DW IV FOR... UD PRN IV 05/19/17 18:30 06/18/17 18:29 Glucagon (Glucagon Inj) 1 mg UD PRN SQ 05/19/17 18:30 06/18/17 18:29 Miscellaneous Information (Consult Glycemic Management Pharmacy) 1 ea UD N/A 05/19/17 18:39 06/18/17 18:38 Nicotine (Nicoderm Cq 21MG Patch) 1 patch QAM TD 05/19/17 18:45 06/18/17 18:44 05/20/17 09:15 1 PATCH Miscellaneous (Remove Nicoderm Patch) 1 ea HS N/A 05/19/17 21:00 06/18/17 20:59 05/20/17 21:54 1 EA Miscellaneous (Fentanyl Patch Remove & Waste) 1 ea Q3D N/A 05/21/17 08:59 06/20/17 08:58 05/24/17 08:52 1 EA Miscellaneous Information (Check Fentanyl Patch Placement) 1 ea QS N/A 05/20/17 00:00 06/19/17 00:00 05/24/17 08:43 1 EA Diphenhydramine HCl (Benadryl Cap) 25 mg BID PRN PO 05/19/17 23:45 06/18/17 23:44 05/24/17 08:58 25 MG Amlodipine Besylate (Norvasc Tab) 5 mg QAM PO 05/21/17 08:00 06/20/17 07:59 05/24/17 08:45 5 MG Oxycodone/ Acetaminophen (Percocet 10-325MG Tab) 1 tab Q4H PRN PO 05/20/17 16:15 06/02/17 20:59 05/24/17 09:52 1 TAB Polyethylene (Miralax Powder Packet) 17 gm DAILY PRN PO 05/21/17 13:45 06/20/17 13:44 Metoprolol Tartrate (Lopressor Tab) 12.5 mg BID PO 05/22/17 20:00 06/21/17 19:59 05/24/17 08:45 12.5 MG Gadobutrol (Gadavist) 7.5 mmol UD PRN IV 05/23/17 01:00 05/27/17 00:59 Insulin Glargine (Lantus Solostar Pen) 23 units BID SC 05/23/17 08:30 06/22/17 08:29 05/24/17 08:52 23 UNITS Levetiracetam (Keppra Tab) 250 mg BID PO 05/23/17 20:00 06/22/17 19:59 05/24/17 08:45 250 MG Calcium Polycarbophil (Fibercon Tab) 1 tab QAM PO 05/24/17 08:00 06/23/17 07:59 05/24/17 08:46 1 TAB Amoxicillin/ Clavulanate Potassium (Augmentin Tab) 875 mg BIDM PO 05/23/17 17:00 06/02/17 16:59 05/24/17 08:46 875 MG Doxycycline Hyclate (Vibramycin Cap) 100 mg BID PO 05/23/17 20:00 06/02/17 19:59 05/24/17 08:46 100 MG Review of Systems Denies any constitutional, cardiac, pulmonary, neurological, GI, , extremity, endocrine, neuro, ENT, dermatological, or musculoskeletal complaints other than stated in HPI Physical Exam Height & Weight: Height 5 feet, 5.00 inches. Weight 77.500 (Kilograms) 170 (Pounds) Last Vital Signs Documentation Date Time Temp Pulse Resp B/P (MAP) Pulse Ox O2 Delivery O2 Flow Rate FiO2 05/24/17 07:12 36.7 96 18 137/85 (102) 93 Room Air Exam: GENERAL: Mrs. Kang is a 46 y/o white female that appears her stated age. Speech and cognition is intact. Mood and affect is appropriate. She is sitting in the hospital bed, in no acute distress. HEAD: Normocephalic; atraumatic. EYES: Pupils are round, equal, and reactive to light; EOM intact. ENT: No external ear discharge or lesions. No rhinorrhea or epistaxis. No mucosal lesions. CHEST: Regular chest respiration and excursion. EXTREMITIES: There is minimal sensation along the right foot. + wound on the right great toe. There is hyperalgesia along the right medal lower leg. There are engorged superficial varicose veins. There is no tenderness along the right lateral aspect of thigh. BACK: Full ROM. There is midline and right lumbosacral tenderness, right SI joint tenderness. Mild spasm along the right superior gluteal/quadratus lumborum muscles without myoneural trigger points. Negative SLR. NEURO: CN II-XII grossly intact with no focal deficits noted. Laboratory Laboratory Results (Last CBC): 05/22/17 06:24 Imaging Radiology Findings L-SPINE MIN 4 VIEWS ROUTINE CLINICAL HISTORY: Back pain. COMPARISON: None FINDINGS: Alignment of the lumbar spine is anatomic. There are possible L5 pars defects. There is mild loss of height of the superior endplate of L2. Otherwise, vertebral body heights are maintained. Disc spaces are preserved. There is mild multilevel osteophytosis and facet arthrosis of the lumbar spine. Moderate vascular calcification is present. IMPRESSION: 1. Mild loss of height of the superior endplate of L2 which suggests an age indeterminate compression fracture. 2. Preserved disc spaces with mild multilevel osteophytosis and facet arthrosis. Electronically signed by: Aquiles Bentley M.D. 05/24/2017 10:05 AM Dictated Date/Time: 05/24/2017 10:03 AM [place] Drug Monitoring Program Search Results: patient reviewed within database Assessment 1. Peripheral neuropathy 2. Uncontrolled diabetes mellitus 3. Early osteomyelitis of the right foot 4. Sepsis secondary to osteomyelitis 5. Low back pain 6. History of L2 compression fracture Recommendations 1. Continue Fentanyl patch 12mcg/hr 2. Continue Percocet 10/325mg x 4 hours PRN pain 3. Will increase Keppra to 500mg BID as she did tolerate the 250mg last night and this morning. Monitor LFT's routinely during Keppra use. Patient's baseline LFTs were unremarkable. 4. A lumbar x-ray was ordered as she does complain of low back pain and possible radicular symptoms along the right leg. X-rays showed old compression fracture at L2. She can follow up with PCP regarding low back pain.
[2017-05-24] MEDS ORDERED: LANC-333 TOP (14:22)
[2017-05-24] MEDS ORDERED: FSTTS EX (14:22)
[2017-05-24] MEDS ORDERED: INSU32MI13 SC (14:22)
[2017-05-24] MEDS ORDERED: DXY100 PO (14:22)
[2017-05-24] MEDS ORDERED: NRV5 PO (14:22)
[2017-05-24] MEDS ORDERED: NICO21DI4 TD (14:22)
[2017-05-24] MEDS ORDERED: INSU70IN2 SC (14:22)
[2017-05-24] MEDS ORDERED: AMOX1TAB43 PO (14:22)
[2017-05-24] MEDS ORDERED: LEVE500T13 PO (14:22)
--- NOTE | 2017-05-24 14:30 | Discharge Instructions ---
Discharge Instructions Date of Service May 24, 2017. Admission Reason for Admission: Diabetic Foot Ulcer Discharge Discharge Diagnosis / Problem: Osteomyelitis R foot, uncontrolled DMII Discharge Goals Goal(s): Therapeutic intervention, Prevent Disease Progression Activity Recommendations Activity Limitations: per Instructions/Follow-up section . Instructions / Follow-Up Instructions / Follow-Up Please take all medications as instructed. You will need liver function tests checked periodically while on Keppra for pain management. This can be checked through your PCP office. Please follow-up with skin care specialist who sees you to update them on changes made to your regimen during this hospitalization. You are being put on a mixed insulin that will start at 30 Units twice daily to be taken with meals. Please check your blood sugar at least twice daily, with one time being in the morning prior to eating. Please bring this written log to your PCP on follow-up which will be with Gayla Palafox PA-C on 04/28 @ 9:45am. You have been placed on an antihypertensive (blood pressure medication) during this hospitalization. Your blood pressure will be checked at the appointment above. You are being put on two antibiotics to treat the bone infection in your foot. Please follow-up with Dr. Melissa Venegas with [facility]Infectious Disease clinic and Dr. Braxton Boggs in the Wound clinic within three weeks of discharge as instructed. It is VERY important that you quit smoking! You have been provided with nicotine patches to help you quit. Please use these and enlist the help of your PCP moving forward to stay away from tobacco products. It was a pleasure taking care of you! Call if you have any questions or problems. You can reach a [facility] hospitalist on duty at [facility] 24 hours a day by calling [phone]. Take care of yourself. Vannesa Cain, [facility] Hospitalist Current Hospital Diet Patient's current hospital diet: Diabetes Type 2 Diet Discharge Diet Recommended Diet: Diabetes Type 2 Diet Pending Studies Studies pending at discharge: yes List of pending studies: Deep tissue wound culture-S. aureus with sensitivity pending at discharge. Laboratory Results 05/22/17 06:24 05/23/17 04:29 Test 05/19/17 16:18 05/19/17 17:12 05/20/17 07:26 05/21/17 02:25 Immature Granulocyte % (Auto) 0.5 % White Blood Count 13.27 K/uL (4.8-10.8) Red Blood Count 4.34 M/uL (4.2-5.4) Hemoglobin 14.5 g/dL (12.0-16.0) Hematocrit 42.0 % (37-47) Mean Corpuscular Volume 96.8 fL (80-100) Mean Corpuscular Hemoglobin 33.4 pg (25-34) Mean Corpuscular Hemoglobin Concent 34.5 g/dl (32-36) Platelet Count 315 K/uL (130-400) Mean Platelet Volume 10.4 fL (7.4-10.4) Neutrophils (%) (Auto) 59.0 % Lymphocytes (%) (Auto) 33.3 % Monocytes (%) (Auto) 5.4 % Eosinophils (%) (Auto) 1.6 % Basophils (%) (Auto) 0.2 % Neutrophils # (Auto) 7.82 K/uL (1.4-6.5) Lymphocytes # (Auto) 4.42 K/uL (1.2-3.4) Monocytes # (Auto) 0.72 K/uL (0.11-0.59) Eosinophils # (Auto) 0.21 K/uL (0-0.5) Basophils # (Auto) 0.03 K/uL (0-0.2) Immature Granulocyte # (Auto) 0.07 K/uL (0.00-0.02) Erythrocyte Sedimentation Rate 34 mm/hr (0-21) Prothrombin Time 9.8 SECONDS (9.0-12.0) Prothromb Time International Ratio 0.9 (0.9-1.1) Activated Partial Thromboplast Time 24.3 SECONDS (21.0-31.0) Partial Thromboplastin Ratio 0.9 Total Bilirubin 0.2 mg/dl (0.2-1) Direct Bilirubin < 0.1 mg/dl (0-0.2) Aspartate Amino Transf (AST/SGOT) 13 U/L (15-37) Alanine Aminotransferase (ALT/SGPT) 23 U/L (12-78) Alkaline Phosphatase 97 U/L (45-117) C-Reactive Protein 1.40 mg/dl (0-0.29) Total Protein 6.9 gm/dl (6.4-8.2) Albumin 3.3 gm/dl (3.4-5.0) Lipase 49 U/L (73-393) Lactic Acid Level 1.1 mmol/L (0.4-2.0) Estimated Average Glucose 335 mg/dl Hemoglobin A1c 13.3 % (4.5-5.6) Urine Color YELLOW Urine Appearance CLEAR (CLEAR) Urine pH 6.5 (4.5-7.5) Urine Specific [place] 1.011 (1.000-1.030) Urine Protein NEG (NEG) Urine Glucose (UA) 2+ (NEG) Urine Ketones NEG (NEG) Urine Occult Blood NEG (NEG) Urine Nitrite NEG (NEG) Urine Bilirubin NEG (NEG) Urine Urobilinogen NEG (NEG) Urine Leukocyte Esterase NEG (NEG) Urine WBC (Auto) 0 /hpf (0-5) Urine RBC (Auto) 0-4 /hpf (0-4) Urine Hyaline Casts (Auto) 0 /lpf (0-5) Urine Epithelial Cells (Auto) 10-20 /lpf (0-5) Urine Bacteria (Auto) NEG (NEG) Test 05/22/17 06:24 05/23/17 04:29 05/24/17 07:50 Red Blood Count 4.35 M/uL (4.2-5.4) Mean Corpuscular Volume 97.2 fL (80-100) Mean Corpuscular Hemoglobin 32.6 pg (25-34) Mean Corpuscular Hemoglobin Concent 33.6 g/dl (32-36) RDW Standard Deviation 45.4 fL (36.4-46.3) RDW Coefficient of Variation 12.8 % (11.5-14.5) Mean Platelet Volume 10.1 fL (7.4-10.4) Anion Gap 5.0 mmol/L (3-11) Est Creatinine Clear Calc Drug Dose 88.5 ml/min Estimated GFR () 101.0 Estimated GFR (Non- 87.2 BUN/Creatinine Ratio 12.5 (10-20) Calcium Level 8.2 mg/dl (8.5-10.1) Vancomycin Level Trough 20.8 mcg/ml (SEE COMMENT) Bedside Glucose 193 mg/dl (70-90) Date/Time Source Procedure Growth Status 05/19/17 17:12 Blood Blood Culture - Preliminary NO GROWTH TO DATE. Resulted 05/22/17 11:50 Drainage-Deep Toe Right 1 Gram Stain - Final Resulted 05/22/17 11:50 Wound Culture - Preliminary Staphylococcus Aureus Resulted Hemoglobin A1c Test 05/20/17 07:26 Range/Units Estimated Average Glucose 335 mg/dl Hemoglobin A1c 13.3 H 4.5-5.6 % Medical Emergencies . Who to Call and When: Medical Emergencies: If at any time you feel your situation is an emergency, please call 911 immediately. . Non-Emergent Contact Non-Emergency issues call your: Primary Care Provider . . "Provider Documentation" section prepared by Vannesa Cain. . VTE Core Measure Inpt VTE Proph given/why not?: Enoxaparin (Lovenox)SQ
[2017-05-24] MEDS ORDERED: INSU32MI SC (14:33)
--- NOTE | 2017-05-24 14:36 | Discharge Summary ---
Discharge Summary Date of Service May 24, 2017. Discharge Summary Admission Date: May 19, 2017 at 17:53 Discharge Date: May 24, 2017 Discharge Disposition: Home Principal Diagnosis: Sepsis 2/2 R foot diabetic ulcer and osteomyelitis DMII-uncontrolled with complications Gastroparesis Chronic pain Chronic L2 compression fracture. HTN-new onset Smoker Procedures: 05/22: wound debridement. Vaccinations: None. Consultations: Wound Care Provider-Ambrose ROJAS-Katelin Rojo Pending Studies/Follow-Up: see instructions below. Medication Reconciliation New Medications: Glucostix Blood Test Strips (Onetouch Ultra Control) 1 Ea Strp BOX EX UD, #1 3 Refills Insulin Isophan/Regular (Novolin 70/30) Susp 30 UNITS SC BIDM for 30 Days, #5 PEN 1 Refill Take with meals. Insulin Pen Needle (Bd Pen Needle/Loly/Ultra) 1 Mis Mis BOX SC UD, #1 3 Refills Lancets (Freestyle Lancets) 1 Mis Mis EA TOP BID, #100 3 Refills Amlodipine Besylate (Amlodipine Besylate) 5 Mg Tab 5 MG PO QAM for 30 Days, #30 TAB 1 Refill Amoxicillin & Pot Clavulanate (Amoxicillin/Clavulanate P) 1 Tab Tab 875 MG PO BIDM for 21 Days, #42 TAB take with meals Doxycycline Hyclate (Doxycycline Hyclate) 100 Mg Cap 100 MG PO BID for 21 Days, #42 CAP Take with meals. Levetiracetam (Keppra) 500 Mg Tab 500 MG PO BID for 30 Days, #60 TAB Nicotine (Nicoderm Cq) 21 Mg/24 Hr Dis 1 PATCH TD QAM for 15 Days, #[address] patch on clean, dry skin once daily. Continued Medications: Amitriptyline HCl (Amitriptyline HCl) 100 Mg Tab 1 TAB PO HS Diphenhydramine Hcl (Benadryl Allergy) 25 Mg Cap 7 CAP PO Q4, CAP Docusate Sodium (Colace) 100 Mg Cap 1 CAP PO BID, CAP Fentanyl (Fentanyl) 12 Mcg Tdsy 12 MCG TD [id number] Magnesium Oxide (Mag-Ox) 400 Mg Tab 400 MG PO DAILY, TAB Melatonin (Melatonin Maximum Strengt) 5 Mg Tab 2 TAB PO HS, TAB Oxycodone/Acetaminophen 10MG/325MG (Percocet 10MG/325MG) Tab 1 TAB PO QID for Severe Pain, TAB Pantoprazole (Protonix) 40 Mg Tab 40 MG PO DAILY, TAB Promethazine Hcl (Phenergan) 25 Mg Tab 25 MG PO Q4H PRN for Nausea, TAB Admission Information HPI (per Admitting provider): 46 year old female who presents to the ED with a right great toe infection. Patient reports that about one month ago she got into the shower and noticed a large amount of blood on the floor. She then noticed she had cut her toe. After review of records, patient was placed on Augmentin for a right great toe infection/ulcer on 02/20 and then saw podiatry on 02/22 for debridement. Patient reports that the wound had mostly healed however she has kept a dressing on it. This morning when she removed the dressing there was a large amount of drainage , foul odor, and the wound had opened up again. Patient denies fever and chills. She has chronic shortness of breath which is unchanged. No chest pain, lightheadedness, or dizziness. She reports chronic nausea and vomiting from gastroparesis. No hematemesis or coffee ground emesis. She has chronic constipation. No BRBPR or dark tarry stools. She denies any urinary symptoms. Patient is a poorly controlled diabetic reporting she quit taking her insulin 2 months ago because it made her not feel well. In the ED, patient's WBC 13K, glucose 270, and she is mildly tachycardic. Other vitals are stable and other labs are unremarkable. She was given IV Vanco and Zosyn. Physical Exam (per Admitting): General Appearance: WD/WN, no apparent distress Head: normocephalic, atraumatic Eyes: normal inspection, EOMI, sclerae normal ENT: hearing grossly normal, + pertinent finding Neck: supple, no JVD, trachea midline Respiratory/Chest: lungs clear, normal breath sounds, no respiratory distress Cardiovascular: regular rate, rhythm, no edema, normal peripheral pulses Abdomen/GI: normal bowel sounds, non tender, soft, no organomegaly Extremities/Musculoskelatal: normal inspection, no calf tenderness, normal capillary refill Neurologic/Psych: no motor/sensory deficits, alert, normal mood/affect, oriented x 3 Skin: normal color, warm/dry, + pertinent finding Hospital Course 46 yo F with h/o uncontrolled diabetes was admitted for worsening of drainage and odor from an ulcer on her R toe. She was started on IV Vancomycin and Zosyn and cultures were obtained. Dr. Boggs from wound care debrided her wound on 05/22. Wound culture revealed MSSA and GBS and ID was consulted and recommended Augmentin and Doxycycline for 3 weeks with follow-up wound care and with them. She was also found to have elevated blood pressure and was started on amlodipine and metoprolol while hospitalize, discharged on amlodipine as monotherapy at discharge. While admitted her blood sugar was controlled with Lantus and Novolog but HbA1C was found to be 13. She was discharged on 70/30 insulin starting at 30 Units twice daily based on her needs. Notification was sent through [employer] to her PCP regarding this and a follow-up was scheduled with PCP within 7 days of discharge to ensure compliance and titrate medications. She was advised to quit smoking and was sent home with nicotine patches which she received in house to continue this process. Defer to PCP to continue to educate her and encourage staying quit. While she was admitted she did admit to some worsening of her chronic pain as well as pain with her diabetic foot wound. She was placed on Fentanyl 12 mcg q72 hours in addition to her 6 Percocets daily as needed. Pain Management was consulted and recommended the addition of Keppra to her regimen (she had trouble with gabapentin and Lyrica in the past). This was started and baseline LFTs were normal. These will need to be monitored periodically, and the patient was advised to have close follow- up with her outpatient Pain Specialist at discharge. She verbalized understand ing of all instructions with intent to comply. She was sent home in good condition. Total time spent on discharge = 60 minutes This includes examination of the patient, discharge planning, medication reconciliation, and communication with other providers. Discharge Instructions [facility] [address] [place] [address] Discharge Medical Patient Name: Sheila Kang Unit Number: [id number] Date of : 1970 Patient Status: Admitted Inpatient Attending Doctor: Vannesa Cain DO DI: Medical v4 Discharge Instructions Date of Service May 24, 2017. Admission Reason for Admission: Diabetic Foot Ulcer Discharge Discharge Diagnosis / Problem: Osteomyelitis R foot, uncontrolled DMII Discharge Goals Goal(s): Therapeutic intervention, Prevent Disease Progression Activity Recommendations Activity Limitations: per Instructions/Follow-up section . Instructions / Follow-Up Instructions / Follow-Up Please take all medications as instructed. You will need liver function tests checked periodically while on Keppra for pain management. This can be checked through your PCP office. Please follow-up with branding specialist who sees you to update them on changes made to your regimen during this hospitalization. You are being put on a mixed insulin that will start at 30 Units twice daily to be taken with meals. Please check your blood sugar at least twice daily, with one time being in the morning prior to eating. Please bring this written log to your PCP on follow-up which will be with Gayla Palafox PA-C on 04/28 @ 9:45am. You have been placed on an antihypertensive (blood pressure medication) during this hospitalization. Your blood pressure will be checked at the appointment above. You are being put on two antibiotics to treat the bone infection in your foot. Please follow-up with Dr. Melissa Venegas with [facility] and Dr. Braxton Boggs in the Wound clinic within three weeks of discharge as instructed. It is VERY important that you quit smoking! You have been provided with nicotine patches to help you quit. Please use these and enlist the help of your PCP moving forward to stay away from tobacco products. It was a pleasure taking care of you! Call if you have any questions or problems. You can reach a [facility] hospitalist on duty at [facility] 24 hours a day by calling [phone]. Take care of yourself. Vannesa Cain, [facility] Hospitalist Current Hospital Diet Patient's current hospital diet: Diabetes Type 2 Diet Discharge Diet Recommended Diet: Diabetes Type 2 Diet Pending Studies Studies pending at discharge: yes List of pending studies: Deep tissue wound culture-S. aureus with sensitivity pending at discharge. Laboratory Results 05/22/17 06:24 05/23/17 04:29 Test 05/19/17 16:18 05/19/17 17:12 05/20/17 07:26 05/21/17 02:25 Immature Granulocyte % (Auto) 0.5 % White Blood Count 13.27 K/uL (4.8-10.8) Red Blood Count 4.34 M/uL (4.2-5.4) Hemoglobin 14.5 g/dL (12.0-16.0) Hematocrit 42.0 % (37-47) Mean Corpuscular Volume 96.8 fL (80-100) Mean Corpuscular Hemoglobin 33.4 pg (25-34) Mean Corpuscular Hemoglobin Concent 34.5 g/dl (32-36) Platelet Count 315 K/uL (130-400) Mean Platelet Volume 10.4 fL (7.4-10.4) Neutrophils (%) (Auto) 59.0 % Lymphocytes (%) (Auto) 33.3 % Monocytes (%) (Auto) 5.4 % Eosinophils (%) (Auto) 1.6 % Basophils (%) (Auto) 0.2 % Neutrophils # (Auto) 7.82 K/uL (1.4-6.5) Lymphocytes # (Auto) 4.42 K/uL (1.2-3.4) Monocytes # (Auto) 0.72 K/uL (0.11-0.59) Eosinophils # (Auto) 0.21 K/uL (0-0.5) Basophils # (Auto) 0.03 K/uL (0-0.2) Immature Granulocyte # (Auto) 0.07 K/uL (0.00-0.02) Erythrocyte Sedimentation Rate 34 mm/hr (0-21) Prothrombin Time 9.8 SECONDS (9.0-12.0) Prothromb Time International Ratio 0.9 (0.9-1.1) Activated Partial Thromboplast Time 24.3 SECONDS (21.0-31.0) Partial Thromboplastin Ratio 0.9 Total Bilirubin 0.2 mg/dl (0.2-1) Direct Bilirubin < 0.1 mg/dl (0-0.2) Aspartate Amino Transf (AST/SGOT) 13 U/L (15-37) Alanine Aminotransferase (ALT/SGPT) 23 U/L (12-78) Alkaline Phosphatase 97 U/L (45-117) C-Reactive Protein 1.40 mg/dl (0-0.29) Total Protein 6.9 gm/dl (6.4-8.2) Albumin 3.3 gm/dl (3.4-5.0) Lipase 49 U/L (73-393) Lactic Acid Level 1.1 mmol/L (0.4-2.0) Estimated Average Glucose 335 mg/dl Hemoglobin A1c 13.3 % (4.5-5.6) Urine Color YELLOW Urine Appearance CLEAR (CLEAR) Urine pH 6.5 (4.5-7.5) Urine Specific [place] 1.011 (1.000-1.030) Urine Protein NEG (NEG) Urine Glucose (UA) 2+ (NEG) Urine Ketones NEG (NEG) Urine Occult Blood NEG (NEG) Urine Nitrite NEG (NEG) Urine Bilirubin NEG (NEG) Urine Urobilinogen NEG (NEG) Urine Leukocyte Esterase NEG (NEG) Urine WBC (Auto) 0 /hpf (0-5) Urine RBC (Auto) 0-4 /hpf (0-4) Urine Hyaline Casts (Auto) 0 /lpf (0-5) Urine Epithelial Cells (Auto) 10-20 /lpf (0-5) Urine Bacteria (Auto) NEG (NEG) Test 05/22/17 06:24 05/23/17 04:29 05/24/17 07:50 Red Blood Count 4.35 M/uL (4.2-5.4) Mean Corpuscular Volume 97.2 fL (80-100) Mean Corpuscular Hemoglobin 32.6 pg (25-34) Mean Corpuscular Hemoglobin Concent 33.6 g/dl (32-36) RDW Standard Deviation 45.4 fL (36.4-46.3) RDW Coefficient of Variation 12.8 % (11.5-14.5) Mean Platelet Volume 10.1 fL (7.4-10.4) Anion Gap 5.0 mmol/L (3-11) Est Creatinine Clear Calc Drug Dose 88.5 ml/min Estimated GFR () 101.0 Estimated GFR (Non- 87.2 BUN/Creatinine Ratio 12.5 (10-20) Calcium Level 8.2 mg/dl (8.5-10.1) Vancomycin Level Trough 20.8 mcg/ml (SEE COMMENT) Bedside Glucose 193 mg/dl (70-90) Date/Time Source Procedure Growth Status 05/19/17 17:12 Blood Blood Culture - Preliminary NO GROWTH TO DATE. Resulted 05/22/17 11:50 Drainage-Deep Toe Right 1 Gram Stain - Final Resulted 05/22/17 11:50 Wound Culture - Preliminary Staphylococcus Aureus Resulted Hemoglobin A1c Test 05/20/17 07:26 Range/Units Estimated Average Glucose 335 mg/dl Hemoglobin A1c 13.3 H 4.5-5.6 % Medical Emergencies . Who to Call and When: Medical Emergencies: If at any time you feel your situation is an emergency, please call 911 immediately. . Non-Emergent Contact Non-Emergency issues call your: Primary Care Provider . . "Provider Documentation" section prepared by Vannesa Cain. . VTE Core Measure Inpt VTE Proph given/why not?: Enoxaparin (Lovenox)SQ Additional Copies To Gayla Palafox PA-C
[2017-05-24 15:10] VITALS: BP 137/85; PULSE 96; TEMP 36.7; O2SAT 93
[2017-05-24 15:17] VITALS: BP 103/70; PULSE 93; TEMP 36.7; O2SAT 96
[2017-05-24] MEDS ORDERED: LEVETIRACETAM 500 MG TAB PO SCH (20:00)
[2017-05-25] MEDS ORDERED: VANCOMYCIN TROUGH SCH (04:30)
== END 2017-05-24 15:35 | disposition home health service (06) | DRG 872 ==
LOC: C.EDB 15:44 → C.MS4W 17:53 → EDBEDREQSVC 17:58 → ENRESERV 19:18
PROVIDERS: ADMIT Internal Medicine; ATTEND Hospitalist
PROC: 0HDMXZZ Extraction of Right Foot Skin, External Approach (ICD-10-PCS; principal; 2017-05-22)
DX: A41.9 Sepsis, unspecified organism (principal); E11.69 Type 2 diabetes mellitus with other specified complication; M86.9 Osteomyelitis, unspecified; E11.621 Type 2 diabetes mellitus with foot ulcer; L97.518 Non-pressure chronic ulcer of other part of right foot with other specified severity; B95.61 Methicillin susceptible Staphylococcus aureus infection as the cause of diseases classified elsewhere; B95.1 Streptococcus, group B, as the cause of diseases classified elsewhere; I10 Essential (primary) hypertension; G89.29 Other chronic pain; M48.56XS Collapsed vertebra, not elsewhere classified, lumbar region, sequela of fracture; E11.42 Type 2 diabetes mellitus with diabetic polyneuropathy; E11.43 Type 2 diabetes mellitus with diabetic autonomic (poly)neuropathy; K21.9 Gastro-esophageal reflux disease without esophagitis; F32.9 Major depressive disorder, single episode, unspecified; F17.200 Nicotine dependence, unspecified, uncomplicated; Z51.81 Encounter for therapeutic drug level monitoring; Z79.899 Other long term (current) drug therapy; Z79.891 Long term (current) use of opiate analgesic; Z91.14 Patient's other noncompliance with medication regimen; Z83.3 Family history of diabetes mellitus; Z82.49 Family history of ischemic heart disease and other diseases of the circulatory system

== ENCOUNTER → 2017-06-06 | Outpatient (CLI) | payer OTHER ==
[~2017-06-06] MED LIST: AMOX1TAB43 PO; AMT100 PO; DIPH25CA65 PO; DOCU-94 PO; DRGTP12 TD; DXY100 PO; INSU70IN2 SC; LEVE500T13 PO; MAGN400T6 PO; MELATAB2 PO; NRV5 PO; OXYC-106 PO; PANT40TA PO; PROM25TA9 PO
--- NOTE | 2017-06-06 13:02 | DIAGNOSTIC IMAGING REPORT ---
RIGHT FIRST TOE 3 VIEWS HISTORY: NON HEALING DIABETIC WOUND, R/O osteomyelitis COMPARISON: Right forefoot MRI 05/22/2017 and right foot radiograph 05/19/2017. FINDINGS: There is no fracture or dislocation. Soft tissue swelling within the first toe is again noted. There is a small skin ulceration along the medial aspect of the first toe. Questionable loss of the normal cortex along the medial base of the distal phalanx of the first toe. This raises the possibility of osteomyelitis. No radiopaque foreign bodies. IMPRESSION: Questionable loss of the normal cortex along the medial base of the distal phalanx of the first toe deep to the focal skin ulceration. This raises the possibility of osteomyelitis. Electronically signed by: Corey Gallo M.D. 06/06/2017 1:01 PM Dictated Date/Time: 06/06/2017 12:57 PM
== END | disposition home or self-care (01) ==
LOC: C.RAD 12:27
PROVIDERS: ATTEND Emergency Medicine
DX: S91.101D Unspecified open wound of right great toe without damage to nail, subsequent encounter (principal); X58.XXXD Exposure to other specified factors, subsequent encounter

== ENCOUNTER 2017-11-28 11:23 | Inpatient (IN) | payer OTHER ==
[~2017-11-28] VITALS: Ht 165.1 cm; Wt 61.5 kg
--- NOTE | 2017-11-28 11:46 | EMERGENCY ROOM VISIT NOTE ---
History Report prepared by Jenn: Beni Chang Under the Supervision of: Dr. Ovidio Martinez D.O. First contact with patient: 11:37 Chief Complaint: CARDIAC ASSESSMENT Stated Complaint: CHEST PAIN History of Present Illness The patient is a 47 year old female who presents to the Emergency Room with complaints of resolving chest discomfort today. The patient is an insulin- dependent diabetic who has a history of coronary artery disease. She had a cardiac catheterization because of a heart attack last month. She was seen at [facility] in [place] for this. She had stents placed for acute coronary syndrome. She smokes approximately 5 packs of cigarettes a day. She also takes medicines for diabetes and hypertension. The patient states that she took her own nitroglycerin but was also given nitroglycerin by the prehospital personnel. She was also given 4 baby aspirin. She states the pain was worsened with exertion and located over her anterior chest wall. She states the pain was better with rest as well as the nitroglycerin. She states the pain is very mild at this time. She denies having any shortness of breath or leg swelling. She denies having any recent falls or injuries. Source of History: patient Onset: Earlier today Position: chest Symptom Intensity: pain very mild at this time Quality: other (discomfort) Timing: other (resolving) Modifying Factors (Worsening): exertion Associated Symptoms: No SOB Note: Denies any leg swelling. Review of Systems See HPI for pertinent positives & negatives. A total of 10 systems reviewed and were otherwise negative. Past Medical & Surgical Medical Problems: (1) Chronic pain (2) Depression (3) Diabetes (4) Gastroparesis (5) GERD (gastroesophageal reflux disease) (6) Hypertension (7) BENITO (obstructive sleep apnea) Surgical Problems: (1) H/O dilation and curettage (2) H/O tubal ligation (3) History of appendectomy (4) History of hysterectomy Family History Diabetes mellitus FATHER Hypertension MOTHER Social History Smoking Status: Current Every Day Smoker Drug Use: none Marital Status: Occupation Status: disabled Current/Historical Medications Scheduled Amitriptyline HCl (Amitriptyline HCl), 1 TAB PO HS Ascorbic Acid (Vitamin C), 100 MG PEG DAILY Aspirin (Aspirin Chewable), 81 MG PO DAILY Docusate Sodium (Colace), 1 CAP PO BID Insulin Isophan/Regular (Novolin 70/30), 30 UNITS SC BIDM Inulin (Fiber Choice Fruity Bites), 3 MG PO BID Loratadine (Allergy Relief), 10 MG PO DAILY Magnesium Oxide (Mag-Ox), 400 MG PO DAILY Melatonin (Melatonin Maximum Strengt), 2 TAB PO HS Metoprolol Tartrate (Lopressor) (Lopressor), 50 MG PO Q12 Nitroglycerin (Nitrostat), 0.4 MG UT PRN Pantoprazole (Protonix), 40 MG PO DAILY Potassium (Potassium), 99 MG PO DAILY Pravastatin Sod (Pravastatin Sodium), 20 MG PO QPM Sertraline (Zoloft), 50 MG PO DAILY Ticagrelor (Brilinta), 90 MG PO BID Scheduled PRN Albuterol Sulf (Proventil 0.083% 2.5MG/3ML), 2.5 MG INH QID PRN for Wheezing Diphenhydramine Hcl (Benadryl Allergy), 1 CAP PO Q6 PRN for Itching Furosemide (Lasix), 20 MG PO DAILY PRN for wt gain /edema Ondansetron Hcl (Zofran), 4 MG PO Q8 PRN for Nausea Oxycodone Hcl (Oxycodone Hcl), 10 MG PO Q6 PRN for Pain Promethazine Hcl (Phenergan), 25 MG PO Q6 PRN for Nausea Allergies Coded Allergies: Corticosteroids (Verified Allergy, Severe, STEROIDS-ANAPHYLAXIS, 11/28/17) Gabapentin (Verified Allergy, Severe, HIVES/SWELLING, 11/28/17) Iodinated Diagnostic Agents (Verified Allergy, Severe, FACIAL SWELLING, 11/28/17) Nadolol (Verified Allergy, Severe, HIVES/SWELLING, 11/28/17) Shellfish Allergy (Verified Allergy, Severe, SWELLING, 11/28/17) Egg White (Verified Allergy, Intermediate, GI SYMPTOMS, 11/28/17) Milk (Verified Allergy, Intermediate, GI SYMPTOMS, 11/29/17) Insulin Detemir (Verified Adverse Reaction, Intermediate, VOMITING, 11/28/17 ) Meperidine (Verified Adverse Reaction, Intermediate, BECOMES VIOLENT, ) Morphine and Related (Verified Adverse Reaction, Intermediate, BECOMES VIOLENT, 11/28/17) Phenol (Verified Adverse Reaction, Intermediate, VOMITING, 11/28/17) Pregabalin (Verified Adverse Reaction, Intermediate, AGITATION, 11/28/17) Varenicline (Verified Adverse Reaction, Unknown, HOMICIDAL IDEATION, ) Uncoded Allergies: ARTIFICIAL SWEETENER (Allergy, Severe, ANAPHYLAXIS, 05/19/17) ultrasound gel (Allergy, Intermediate, HIVES, 05/31/17) Physical Exam Vital Signs Date Time Temp Pulse Resp B/P (MAP) Pulse Ox O2 Delivery O2 Flow Rate FiO2 11/28/17 13:04 102 16 134/100 11/28/17 11:54 95 Room Air 11/28/17 11:54 95 Room Air 11/28/17 11:54 37.3 97 18 97/81 95 Room Air 11/28/17 11:50 98 Physical Exam GENERAL: Patient is awake alert in no acute distress patient is resting comfortably and showing no signs of anxiety EYES: The conjunctivae are clear. The pupils are round and reactive. EARS, NOSE, MOUTH AND THROAT: The nose is without any evidence of any deformity. Mucous membranes are moist tongue is midline NECK: The neck is nontender and supple. RESPIRATORY: Normal respiratory effort is noted there is no evidence of wheezing rhonchi or rales CARDIOVASCULAR: Regular rate and rhythm noted there no murmurs rubs or gallops normal S1 normal S2 GASTROINTESTINAL: The abdomen is soft. Bowel sounds are present in all quadrants. Abdomen is nontender MUSCULOSKELETAL/EXTREMITIES: There is no evidence of gross deformity full range of motion is noted in the hips and shoulders SKIN: There is no obvious evidence of any rash. There are no petechiae, pallor or cyanosis noted. NEUROLOGIC: Patient is awake alert and oriented x3. Medical Decision & Procedures ER Provider Diagnostic Interpretation: X-ray results as stated below per interpretation by me and the radiologist. CHEST ONE VIEW PORTABLE HISTORY: 47 years-old Female CHEST PAIN acute atypical chest pain COMPARISON: Chest radiograph 05/19/2017 TECHNIQUE: Portable AP view of the chest FINDINGS: Cardiomediastinal and hilar silhouettes are within normal limits. Linear subsegmental atelectasis about the left lung base without pneumothorax, pleural effusion, overt pulmonary edema or lobar airspace consolidation. Bones of the chest appear grossly intact. Calcific tendinosis about the left rotator cuff. IMPRESSION: No acute process. The above report was generated using voice recognition software. It may contain grammatical, syntax or spelling errors. Electronically signed by: Madan Burnett M.D. 11/28/2017 12:03 PM Dictated Date/Time: 11/28/2017 12:02 PM Laboratory Results Test 11/28/17 12:10 Immature Granulocyte % (Auto) 0.4 % White Blood Count 15.12 K/uL (4.8-10.8) Red Blood Count 4.96 M/uL (4.2-5.4) Hemoglobin 16.2 g/dL (12.0-16.0) Hematocrit 45.7 % (37-47) Mean Corpuscular Volume 92.1 fL (80-100) Mean Corpuscular Hemoglobin 32.7 pg (25-34) Mean Corpuscular Hemoglobin Concent 35.4 g/dl (32-36) Platelet Count 304 K/uL (130-400) Mean Platelet Volume 10.6 fL (7.4-10.4) Neutrophils (%) (Auto) 77.3 % Lymphocytes (%) (Auto) 15.7 % Monocytes (%) (Auto) 5.1 % Eosinophils (%) (Auto) 1.3 % Basophils (%) (Auto) 0.2 % Neutrophils # (Auto) 11.69 K/uL (1.4-6.5) Lymphocytes # (Auto) 2.37 K/uL (1.2-3.4) Monocytes # (Auto) 0.77 K/uL (0.11-0.59) Eosinophils # (Auto) 0.20 K/uL (0-0.5) Basophils # (Auto) 0.03 K/uL (0-0.2) Immature Granulocyte # (Auto) 0.06 K/uL (0.00-0.02) Prothrombin Time 9.8 SECONDS (9.0-12.0) Prothromb Time International Ratio 0.9 (0.9-1.1) Activated Partial Thromboplast Time 25.0 SECONDS (21.0-31.0) Partial Thromboplastin Ratio 1.0 D-Dimer 320 ug/L FEU (0-500) Estimated Average Glucose 324 mg/dl Hemoglobin A1c 12.9 % (4.5-5.6) Total Bilirubin 0.6 mg/dl (0.2-1) Direct Bilirubin mg/dl (0-0.2) Aspartate Amino Transf (AST/SGOT) 14 U/L (15-37) Alanine Aminotransferase (ALT/SGPT) 16 U/L (12-78) Alkaline Phosphatase 122 U/L (45-117) Total Creatine Kinase 46 U/L (26-192) Creatine Kinase MB < 0.5 ng/ml (0.5-3.6) Creatine Kinase MB Ratio (0-3.0) Total Protein 8.1 gm/dl (6.4-8.2) Albumin 3.6 gm/dl (3.4-5.0) Lipase 38 U/L (73-393) Chemistry Specimen Hemolysis Laboratory results per my review. Medications Administered Medications (Trade) Dose Ordered Sig/Asaf Route Start Time Stop Time Status Last Admin Dose Admin Sodium Chloride 1,000 ml @ 999 mls/hr Q1H1M STAT IV 11/28/17 12:59 11/28/17 13:59 DC 11/28/17 13:13 999 MLS/HR Insulin Human Regular (novoLIN-R U-100 PER UNIT) 6 units NOW STAT IV 11/28/17 12:59 11/28/17 13:00 DC 11/28/17 13:13 6 UNITS Al Hydrox/Mg Hydrox/Simethicone (Maalox Max Susp) 15 ml Q4H PRN PO 11/28/17 13:15 12/28/17 13:14 11/28/17 17:15 15 ML ECG Per My Interpretation Indication: chest pain Rate (beats per minute): 98 Rhythm: normal sinus Findings: ST depression (Anterolateral), no ectopy Comparison ECG Date: changes are new compared to 05/19/2017 ED Course 1140: The patient was evaluated in room C6. A complete history and physical examination were performed. 1259: Novolin-R U-100 PER UNIT 6 units IV, NSS 1000 ml @ 999 mls/hr IV. 1305: I discussed the patient with Dr. Mohinder Brown room service bellhop. She will evaluate the patient for further treatment. 1306: Upon reevaluation, the patient is resting comfortably. I discussed results and treatment plan with her. She verbalizes agreement and understanding. The patient will be evaluated for further management and care. Medical Decision Prior records/ancillary studies reviewed. Triage Nursing notes reviewed. The patient's history was concerning for chest pain. Differential diagnosis: Etiologies such as cardiac ischemia, aortic dissection, pulmonary embolism, pneumonia, pneumothorax, musculoskeletal, infections, pericarditis, myocarditis , esophageal rupture, gastrointestinal, as well as others were entertained. The patient is a 47-year-old female who presented to the emergency department for an evaluation of chest discomfort. The patient was at the pain clinic when she started having difficulty with chest pressure. She has a history of insulin -dependent diabetes and recently had stenting for an acute coronary artery occlusion at [facility]. The patient received aspirin and nitroglycerin prior to arrival. Her pain was significantly improved. I discussed the patient's laboratory and radiographic studies with her. I also discussed the limitations of the emergency department workup for chest pain with her. She was further treated with IV fluids and insulin for elevated blood sugar. I discussed her case with the on-call [facility] hospitalist. They have agreed to evaluate the patient in the emergency department for further management and disposition. Medication Reconcilliation Current Medication List: was personally reviewed by me Blood Pressure Screening Patient's blood pressure: Normal blood pressure Consults Time Called: 1300 Consulting Physician: Dr. Mohinder Brown room service bellhop Returned Call: 1305 I discussed the patient with Dr. Mohinder Brown room service bellhop. She will evaluate the patient for further treatment. Impression Primary Impression: Chest pain Additional Impressions: Abnormal EKG Hyperglycemia Scribe Attestation The scribe's documentation has been prepared under my direction and personally reviewed by me in its entirety. I confirm that the note above accurately reflects all work, treatment, procedures, and medical decision making performed by me. Departure Information Dispostion Being Evaluated By Hospitalist Referrals Gayla Palafox PA-C (PCP) Patient Instructions My [facility] Problem Qualifiers Primary Impression: Chest pain Chest pain type: unspecified Qualified Codes: R07.9 - Chest pain, unspecified
--- NOTE | 2017-11-28 12:05 | DIAGNOSTIC IMAGING REPORT ---
CHEST ONE VIEW PORTABLE HISTORY: 47 years-old Female CHEST PAIN acute atypical chest pain COMPARISON: Chest radiograph 05/19/2017 TECHNIQUE: Portable AP view of the chest FINDINGS: Cardiomediastinal and hilar silhouettes are within normal limits. Linear subsegmental atelectasis about the left lung base without pneumothorax, pleural effusion, overt pulmonary edema or lobar airspace consolidation. Bones of the chest appear grossly intact. Calcific tendinosis about the left rotator cuff. IMPRESSION: No acute process. The above report was generated using voice recognition software. It may contain grammatical, syntax or spelling errors. Electronically signed by: Madan Burnett M.D. 11/28/2017 12:03 PM Dictated Date/Time: 11/28/2017 12:02 PM
[2017-11-28 12:27] LABS: BASO % 0.2 %; BASO ABS # 0.03 K/uL (0-0.2); EOS % 1.3 %; HEMATOCRIT 45.7 % (37-47); HEMOGLOBIN 16.2 g/dL (12.0-16.0); IG# 0.06 K/uL (0.00-0.02); LYMPH % 15.7 %; LYMPH ABS # 2.37 K/uL (1.2-3.4); MEAN CELL VOLUME 92.1 fL (80-100); MEAN CORPUSCULAR HEMOGLOBIN 32.7 pg (25-34); MEAN CORPUSCULAR HGB CONC 35.4 g/dl (32-36); MEAN PLATELET VOLUME 10.6 fL (7.4-10.4); MONO % 5.1 %; MONO ABS # 0.77 K/uL (0.11-0.59); NEUT % 77.3 %; NEUT ABS # 11.69 K/uL (1.4-6.5); PLATELET COUNT 304 K/uL (130-400); RED CELL DISTRIBUTION WIDTH CV 13.3 % (11.5-14.5); RED CELL DISTRIBUTION WIDTH SD 44.5 fL (36.4-46.3); WHITE BLOOD COUNT 15.12 K/uL (4.8-10.8)
[2017-11-28 12:41] LABS: INR 0.9 (0.9-1.1)
[2017-11-28 12:54] LABS: ALBUMIN 3.6 gm/dl (3.4-5.0); ALKALINE PHOSPHATASE 122 U/L (45-117); ALT/SGPT 16 U/L (12-78); AST/SGOT 14 U/L (15-37); BLOOD UREA NITROGEN 11 mg/dl (7-18); CALCIUM 8.9 mg/dl (8.5-10.1); CARBON DIOXIDE 25 mmol/L (21-32); CKMB < 0.5 ng/ml (0.5-3.6); CREATININE 1.24 mg/dl (0.60-1.20); GLUCOSE 442 mg/dl (70-99); LIPASE 38 U/L (73-393); POTASSIUM 4.6 mmol/L (3.5-5.1); SODIUM 128 mmol/L (136-145); TOTAL PROTEIN 8.1 gm/dl (6.4-8.2)
[2017-11-28] MEDS ORDERED: NovoLIN-R INSULIN PER UNIT CHARGE IV STA (12:59)
[2017-11-28] MEDS ORDERED: SODIUM CHLORIDE 0.9% 1000ML 1,000 ML IV STA (12:59)
[2017-11-28] MEDS ORDERED: ONDANSETRON INJ 2 MG/ML 2 ML VIAL IV PRN (13:15)
[2017-11-28] MEDS ORDERED: MAGNESIUM HYDROXIDE SUSP 30 ML UDC PO PRN (13:15)
[2017-11-28] MEDS ORDERED: ALUMINUM/MAGNESIUM/SIMETH (MAALOX MAX) 30 ML UDC PO PRN (13:15)
[2017-11-28] MEDS ORDERED: ACETAMINOPHEN 325 MG TAB PO PRN (13:15)
[2017-11-28] MEDS ORDERED: NITROGLYCERIN 0.4 MG SL PER TAB CHARGE SL PRN (13:15)
[2017-11-28] MEDS ORDERED: POLYETHYLENE (MIRALAX) 17 GM PACK PO PRN (13:15)
[2017-11-28] MEDS ORDERED: PHARMACY GLYCEMIC MGMT CONSULT PRN (13:17)
[2017-11-28] MEDS ORDERED: SODIUM CHLORIDE 0.9% 1000ML 1,000 ML IV SCH (13:30)
--- NOTE | 2017-11-28 13:41 | History and Physical ---
History & Physical Date & Time of Service: November 28, 2017 at 13:41 Chief Complaint: Chest Pain Primary Care Physician: Gayla Palafox PA-C History of Present Illness Source: patient This is a 47-year-old female with medical history coronary artery disease with STEMI on 10/24/2017 status post PTCA, poorly controlled long-standing type 2 diabetes with severe artery pain and peripheral neuropathy, retinopathy , hypertension, hyperlipidemia with statin intolerance, ongoing tobacco usage(was stopped smoking 5 pack cigarettes a day; cut down to one half cigarettes a day after cardiac cath) Presented to ER with complaint of ongoing shortness of breath, dyspnea on exertion, decreased exercise tolerance, intermittent sharp chest pain This morning she noted to have sharp pain on the left precordial area with no radiation Took sublingual nitro with improvement During my time of interview patient was completely, no evidence of hypoxia, SPO2 95% on room air Blood sugar more than 400/with acute renal failure creatinine 1.24 baseline creatinine 0.7 on 10/25/2017 Past Medical/Surgical History Medical Problems: (1) Chronic pain (2) Depression (3) Diabetes (4) Gastroparesis (5) GERD (gastroesophageal reflux disease) (6) Hypertension (7) BENITO (obstructive sleep apnea) Surgical Problems: (1) H/O dilation and curettage (2) H/O tubal ligation (3) History of appendectomy (4) History of hysterectomy Family History Diabetes mellitus FATHER Hypertension MOTHER Social History Smoking Status: Heavy Tobacco Smoker Drug Use: none Marital Status: Housing status: lives with family Occupational Status: disabled Immunizations History of Tetanus Vaccine?: Yes Allergies Coded Allergies: Corticosteroids (Verified Allergy, Severe, STEROIDS-ANAPHYLAXIS, 11/28/17) Gabapentin (Verified Allergy, Severe, HIVES/SWELLING, 11/28/17) Iodinated Diagnostic Agents (Verified Allergy, Severe, FACIAL SWELLING, 11/28/17) Nadolol (Verified Allergy, Severe, HIVES/SWELLING, 11/28/17) Shellfish Allergy (Verified Allergy, Severe, SWELLING, 11/28/17) Egg White (Verified Allergy, Intermediate, GI SYMPTOMS, 11/28/17) Milk (Verified Allergy, Intermediate, GI SYMPTOMS, 11/29/17) Insulin Detemir (Verified Adverse Reaction, Intermediate, VOMITING, 11/28/17 ) Meperidine (Verified Adverse Reaction, Intermediate, BECOMES VIOLENT, ) Morphine and Related (Verified Adverse Reaction, Intermediate, BECOMES VIOLENT, 11/28/17) Phenol (Verified Adverse Reaction, Intermediate, VOMITING, 11/28/17) Pregabalin (Verified Adverse Reaction, Intermediate, AGITATION, 11/28/17) Varenicline (Verified Adverse Reaction, Unknown, HOMICIDAL IDEATION, ) Uncoded Allergies: ARTIFICIAL SWEETENER (Allergy, Severe, ANAPHYLAXIS, 05/19/17) ultrasound gel (Allergy, Intermediate, HIVES, 05/31/17) Home Medications Scheduled Amitriptyline HCl (Amitriptyline HCl), 1 TAB PO HS Ascorbic Acid (Vitamin C), 100 MG PEG DAILY Aspirin (Aspirin Chewable), 81 MG PO DAILY Docusate Sodium (Colace), 1 CAP PO BID Insulin Isophan/Regular (Novolin 70/30), 30 UNITS SC BIDM Inulin (Fiber Choice Fruity Bites), 3 MG PO BID Loratadine (Allergy Relief), 10 MG PO DAILY Magnesium Oxide (Mag-Ox), 400 MG PO DAILY Melatonin (Melatonin Maximum Strengt), 2 TAB PO HS Metoprolol Tartrate (Lopressor) (Lopressor), 50 MG PO Q12 Nitroglycerin (Nitrostat), 0.4 MG UT PRN Pantoprazole (Protonix), 40 MG PO DAILY Potassium (Potassium), 99 MG PO DAILY Pravastatin Sod (Pravastatin Sodium), 20 MG PO QPM Sertraline (Zoloft), 50 MG PO DAILY Ticagrelor (Brilinta), 90 MG PO BID Scheduled PRN Albuterol Sulf (Proventil 0.083% 2.5MG/3ML), 2.5 MG INH QID PRN for Wheezing Diphenhydramine Hcl (Benadryl Allergy), 1 CAP PO Q6 PRN for Itching Furosemide (Lasix), 20 MG PO DAILY PRN for wt gain /edema Ondansetron Hcl (Zofran), 4 MG PO Q8 PRN for Nausea Oxycodone Hcl (Oxycodone Hcl), 10 MG PO Q6 PRN for Pain Promethazine Hcl (Phenergan), 25 MG PO Q6 PRN for Nausea Review of Systems Constitutional: + weakness, + fatigue Respiratory: + shortness of breath, + dyspnea on exertion, + dyspnea at rest Cardiovascular: + chest pain, + orthopnea, + palpitations Musculoskeletal: + problem reported (Chronic low back pain) Neurologic: + weakness, + numbness/tingling (Chronic bilateral lower extremity neuropathic pain), + balance problems (Chronic secondary to diabetic neuropathy) Psychiatric: + depression symptoms Endocrine: + excessive thirst Physical Exam Vital Signs Date Time Temp Pulse Resp B/P (MAP) Pulse Ox O2 Delivery O2 Flow Rate FiO2 11/28/17 13:33 96 16 111/74 11/28/17 13:04 102 16 134/100 11/28/17 11:54 95 Room Air 11/28/17 11:54 95 Room Air 11/28/17 11:54 37.3 97 18 97/81 95 Room Air 11/28/17 11:50 98 General Appearance: + pertinent finding Head: normocephalic (Chronically ill-appearing), atraumatic Eyes: normal inspection, sclerae normal ENT: + pertinent finding (Dry oral mucosa) Neck: no JVD, no carotid bruits Respiratory/Chest: no respiratory distress, + decreased breath sounds Cardiovascular: regular rate, rhythm, no edema, no JVD Abdomen/GI: normal bowel sounds, non tender, soft Extremities/Musculoskelatal: normal inspection, normal capillary refill, no pedal edema Neurologic/Psych: alert, normal mood/affect, oriented x 3 Diagnostics Laboratory Results Results Past 24 Hours Test 11/28/17 12:10 11/28/17 13:24 Range/Units White Blood Count 15.12 4.8-10.8 K/uL Red Blood Count 4.96 4.2-5.4 M/uL Hemoglobin 16.2 12.0-16.0 g/dL Hematocrit 45.7 37-47 % Mean Corpuscular Volume 92.1 80-100 fL Mean Corpuscular Hemoglobin 32.7 25-34 pg Mean Corpuscular Hemoglobin Concent 35.4 32-36 g/dl Platelet Count 304 130-400 K/uL Mean Platelet Volume 10.6 7.4-10.4 fL Neutrophils (%) (Auto) 77.3 % Lymphocytes (%) (Auto) 15.7 % Monocytes (%) (Auto) 5.1 % Eosinophils (%) (Auto) 1.3 % Basophils (%) (Auto) 0.2 % Neutrophils # (Auto) 11.69 1.4-6.5 K/uL Lymphocytes # (Auto) 2.37 1.2-3.4 K/uL Monocytes # (Auto) 0.77 0.11-0.59 K/uL Eosinophils # (Auto) 0.20 0-0.5 K/uL Basophils # (Auto) 0.03 0-0.2 K/uL RDW Standard Deviation 44.5 36.4-46.3 fL RDW Coefficient of Variation 13.3 11.5-14.5 % Immature Granulocyte % (Auto) 0.4 % Immature Granulocyte # (Auto) 0.06 0.00-0.02 K/uL Prothrombin Time 9.8 9.0-12.0 SECONDS Prothromb Time International Ratio 0.9 0.9-1.1 Activated Partial Thromboplast Time 25.0 21.0-31.0 SECONDS Partial Thromboplastin Ratio 1.0 D-Dimer 320 0-500 ug/L FEU Sodium Level 128 136-145 mmol/L Potassium Level 4.6 3.5-5.1 mmol/L Chloride Level 93 98-107 mmol/L Carbon Dioxide Level 25 21-32 mmol/L Anion Gap 10.0 3-11 mmol/L Blood Urea Nitrogen 11 7-18 mg/dl Creatinine 1.24 0.60-1.20 mg/dl Est Creatinine Clear Calc Drug Dose 56.7 ml/min Estimated GFR () 59.1 Estimated GFR (Non- 51.0 BUN/Creatinine Ratio 9.1 10-20 Random Glucose 442 70-99 mg/dl Calcium Level 8.9 8.5-10.1 mg/dl Total Bilirubin 0.6 0.2-1 mg/dl Direct Bilirubin 0-0.2 mg/dl Aspartate Amino Transf (AST/SGOT) 14 15-37 U/L Alanine Aminotransferase (ALT/SGPT) 16 12-78 U/L Alkaline Phosphatase 122 45-117 U/L Total Creatine Kinase 46 26-192 U/L Creatine Kinase MB < 0.5 0.5-3.6 ng/ml Creatine Kinase MB Ratio 0-3.0 Troponin I < 0.015 0-0.045 ng/ml Total Protein 8.1 6.4-8.2 gm/dl Albumin 3.6 3.4-5.0 gm/dl Lipase 38 73-393 U/L Beta-Hydroxybutyric Acid 0.2-2.81 mg/dL Chemistry Specimen Hemolysis Microbiology Results 11/28/17 Blood Culture, Ordered Pending 11/28/17 Blood Culture, Ordered Pending CXR normal Impression Assessment and Plan CHEST PAIN : had intermittent chest pain prior to arrival at present chest pain free , need to rule out ACS , recent hx of NSTEMI , echo shows wall motion abnormality similar after prior MO cont to monitor in tele serial cardiac markers cardiology consulted CAD S/P PTCA : recent NSTEMI ON 10/24/17 life flighted to [facility], cardiac cath shows 2 vessels coronary artery disease underwent bare metal cardiac stent in her obtuse marginal artery and distal RCA patient also had mild LAD disease Patient mentioned that she has been compliant with her aspirin and Brilinta Recent office visit with cardiology Dr. Thomason on 11/16/2017 Presents with intermittent chest pain -relief with sublingual nitro Also progressive shortness of breath/dyspnea on exertion Patient does not appear to be volume overloaded or decompensated CHF Twelve-lead EKG shows evidence of prior inferior infarct Resting echo shows wall motion abnormality similar to prior echo post non-ST elevated MO - few weeks ago Patient will be continued with aspirin and Brilinta/statin on Lopressor 50 mg twice daily Patient reason remains high risk for acute coronary event-given history of poor compliance to medication/poorly controlled/continued heavy smoking HYPERGLYCEMIA /POORLY CONTROLLED TYPE 2 DM: Mentions of taking her insulin as directed Does not follow diabetic diet Hemoglobin A1c more than 12 Presented with blood sugar more than 400 given with IV insulin in the ER Continued with NPH Insulin sliding scale Pharmacy consulted for diabetic management HEAVY TOBACCO USAGE Patient been smoking 4-5 pack cigarettes a day for more than 20 years Mention that she cut down her smoking after attack Still continues to smoke 1.5 packs cigarette a day patient counseled multiple times risk of developing Reported acute coronary event/stroke with continue smoking Patient verbalizes understanding Mention she has been continued to work to cut down her smoking habits refuses Continue patch AK I ON CKD STAGE 3: Secondary due to hyperglycemia/volume loss Given gentle hydration in the ER Follow PRP Patient is counseled regarding development of end-stage renal disease being dialysis dependent with poorly controlled diabetes asthma educator consulted Avoid NSAIDs, contrast studies HYPERLIPIDEMIA History of statin intolerance Continue pravastatin 20 mg daily-dose recently increased from 10 mg daily by cardiology Fasting lipid panel ordered in a.m. HYPERTENSION Blood pressure stable Continue Lopressor 50 mg twice daily Patient will benefit with addition of low-dose KALLI once renal function improves to baseline CODE STATUS: Full code DVT PROPHYLAXIS: Subcu heparin DISPOSITION: Expected to be discharged home when medically stable Follows with family practice at [facility] Cardiology follow-up with Dr. Tung Thomason [facility] cardiology clinic Level of Care Telemetry Resuscitation Status FULL RESUSCITATION VTE Prophylaxis Risk Level: Moderate Given or contraindicated: Unfractionated heparin SQ
[2017-11-28] MEDS ORDERED: CARBOHYDRATES FOR HYPOGLYCEMIA PO PRN (13:45)
[2017-11-28] MEDS ORDERED: GLUCOSE 40% GEL 15 GM TUBE PO PRN (13:45)
[2017-11-28] MEDS ORDERED: DEXTROSE 50% 50 ML SYR IV PRN (13:45)
[2017-11-28] MEDS ORDERED: GLUCAGON FOR INJ 1 MG VIAL SQ PRN (13:45)
[2017-11-28] MEDS ORDERED: IV FLUIDS COMPLETED PRN (13:45)
[2017-11-28] MEDS ORDERED: GLUCOSE 10 TABS/TUBE PO PRN (13:45)
[2017-11-28 13:53] LABS: HEMOGLOBIN A1C 12.9 % (4.5-5.6)
[2017-11-28] MEDS ORDERED: FURO-85 PO (14:18)
[2017-11-28] MEDS ORDERED: INUL6.5C PO (14:18)
[2017-11-28] MEDS ORDERED: NTRGSL/4 UT (14:18)
[2017-11-28] MEDS ORDERED: ASPCH81X PO (14:18)
[2017-11-28] MEDS ORDERED: OXYC-164 PO (14:18)
[2017-11-28] MEDS ORDERED: ONDA4TAB46 PO (14:18)
[2017-11-28] MEDS ORDERED: LORA-554 PO (14:18)
[2017-11-28] MEDS ORDERED: POTA99TA PO (14:18)
[2017-11-28] MEDS ORDERED: ALBINS/ INH (14:18)
[2017-11-28] MEDS ORDERED: METO50TA16 PO (14:18)
[2017-11-28] MEDS ORDERED: TICA1TAB PO (14:18)
[2017-11-28] MEDS ORDERED: PRVC/10 PO (14:18)
[2017-11-28] MEDS ORDERED: SERT50TA PO (14:18)
[2017-11-28] MEDS ORDERED: ASCO100C2 PEG (14:18)
[2017-11-28 14:45] VITALS: BP 119/89; PULSE 98; TEMP 36.8; O2SAT 95; BMI 28.3
--- NOTE | 2017-11-28 15:16 | Pharmacy Progress Note ---
Glycemic Control Intl Consult Date of Service November 28, 2017. Scope Glycemic Pharmacist consulted by Dr Vines on 11/28/17 for glycemic control and to write orders per [facility] inpatient glycemic control protocol Objective Weight (Kilograms): 77.200 Accuchecks BSG (last 24hrs): Test 11/28/17 12:10 Random Glucose 442 mg/dl (70-99) Laboratory Data (last 24hrs) Test 11/28/17 12:10 Anion Gap 10.0 mmol/L BUN/Creatinine Ratio 9.1 Blood Urea Nitrogen 11 mg/dl Creatinine 1.24 mg/dl Hemoglobin A1c 12.9 % Potassium Level 4.6 mmol/L Sodium Level 128 mmol/L White Blood Count 15.12 K/uL Red Blood Count 4.96 M/uL Hemoglobin 16.2 g/dL Hematocrit 45.7 % Mean Corpuscular Volume 92.1 fL Mean Corpuscular Hemoglobin 32.7 pg Mean Corpuscular Hemoglobin Concent 35.4 g/dl Platelet Count 304 K/uL Mean Platelet Volume 10.6 fL Neutrophils (%) (Auto) 77.3 % Lymphocytes (%) (Auto) 15.7 % Monocytes (%) (Auto) 5.1 % Eosinophils (%) (Auto) 1.3 % Basophils (%) (Auto) 0.2 % Neutrophils # (Auto) 11.69 K/uL Lymphocytes # (Auto) 2.37 K/uL Monocytes # (Auto) 0.77 K/uL Eosinophils # (Auto) 0.20 K/uL Basophils # (Auto) 0.03 K/uL HbA1c Test 11/28/17 12:10 Hemoglobin A1c 12.9 % (4.5-5.6) H Recent Pertinent Medications Outpatient Anti-diabetic Regimen: * Novolin 70/30 30 units SQ BID * A1c = 12.9 % 11/28/17 Assessment & Plan ASSESSMENT: * 47 yr old T2DM female admitted with chest pain and hyperglycemia. * Patient has poor outpatient control, HbA1c 12.9%. BSG of 442 mg/dL upon arrival. She was administered a 6 unit regular insulin IV bolus in the ED. * Will initiate basal + bolus insulin based on weight and stress of 3. Will likely loosen parameters tomorrow once severe hyperglycemia resolves. Since patient uses Novolin 70/30 as an outpatient, I will utilize NPH as inpatient ( kinetics more similar than Lantus/Levemir) PLAN FOR INPATIENT GLYCEMIC CONTROL: * Basal insulin * NPH 20 units SQ BID * Bolus Insulin with * NOVOLOG per scale ACHS or Q6hrs while NPO * Goal Range: Low 120 mg/dL - High 150 mg/dL * Correction Factor: 20 mg/dL/unit * Nutritional / Prandial insulin per carb ratio of 1 unit per 7 grams CHO consumed * Add one overnight check * Please note that the plan above was derived based on current level of insulin resistance and hospital stress. These recommendations are appropriate for inpatient admission only. Plan of care upon discharge will need to be reassessed to avoid potential outpatient hypo/hyperglycemia. Thank you.
[2017-11-28] MEDS ORDERED: INSULIN HUMAN NPH SC SCH (16:00)
--- NOTE | 2017-11-28 16:17 | ECHOCARDIOGRAM REPORT ---
*NOTICE TO RECEIVING REPUBLICAN AGENCY This information is strictly Confidential and protected under [place] law. [place] law prohibits you from making any further disclosure of this information unless further disclosure is expressly permitted by the written consent of the person to whom it pertains or is authorized by law. A general authorization for the release of medical or other information is not sufficient for this purpose. Hospital accepts no responsibility if the information is made available to any other person, INCLUDING THE PATIENT. Interpretation Summary * Name: RAIN FRANKLIN Study Date: 11/28/2017 01:52 PM BP: 111/74 mmHg * Patient Location: [facility] HR: 94 * : 1970 (M/d/yyyy) Gender: Female Height: 65 in * Age: 47 yrs Ethnicity: [place] Weight: 171 lb * Ordering Physician: Donna Vines * Referring Physician: Self, Referred * Performed By: Viki Hernandez RDCS * * Reason For Study: CHEST PAIN * BSA: 1.9 m2 * -- Conclusions -- * Normal LV chamber size with moderate concentric LVH. * Normal LV systolic function, EF 55-60%. * Moderate to severe hypokinesis of the basal/mid inferolateral wall, consistent with cardiac cath results from 11/16/17. * Grade I diastolic dysfunction. * No significant valvular pathology. Procedure Details * A contrast injection of Definity was performed to improve assessment of LV function. * Contrast was injected into an intravenous site in the left arm. * One vial of Definity ultrasound contrast was diluted in normal saline to a total volume of 10 ml. A total of '2' ml of solution was administered during imaging. * Lot # [id number] of Definity utilized for procedure. * Expiration date 1 SEP 11. Left Ventricle * The left ventricle is normal in size. * There is moderate concentric left ventricular hypertrophy. * Left ventricular systolic function is normal. * Ejection Fraction = 55-60%. * Moderate to severe hypokinesis of the basal/mid inferolateral wall, consistent with cardiac cath results from 11/16/17. Right Ventricle * The right ventricular cavity size is normal (basal dimension <4.2 cm in right ventricular apical 4-chamber view). * The right ventricular systolic function is normal as assessed by tricuspid annular plane systolic excursion (TAPSE) (normal >1.5 cm). Atria * The left atrial size is normal. * Right atrial size is normal. * No ASD detected; PFO is not assessed. Mitral Valve * The mitral valve is normal in structure and function. Tricuspid Valve * The tricuspid valve is normal in structure and function. Aortic Valve * The aortic valve is not well visualized. * No hemodynamically significant valvular aortic stenosis. * There is no significant aortic regurgitation. Pulmonic Valve * The pulmonary valve is inadequately visualized, but the Doppler data is adequate for interpretation. Great Vessels * The aortic root is normal size. Pericardium/Pleural * There is no pericardial effusion. Left Ventricular Diastolic Function * Grade I diastolic dysfunction, (abnormal relaxation pattern). MMode 2D Measurements and Calculations IVSd 1.4 cm IVSs 1.8 cm LVIDd 3.9 cm LVIDs 2.7 cm LVPWd 1.5 cm LVPWs 1.6 cm IVS/LVPW 0.91 FS 30.5 % EDV(Teich) 65.9 ml ESV(Teich) 27.2 ml EF(Teich) 58.7 % EDV(cubed) 59.3 ml ESV(cubed) 19.9 ml EF(cubed) 66.5 % % IVS thick 30.6 % % LVPW thick 6.0 % LV mass(C)d 216.0 grams LV mass(C)dI 116.7 grams/m\S\2 LV mass(C)s 177.9 grams LV mass(C)sI 96.1 grams/m\S\2 SV(Teich) 38.7 ml SI(Teich) 20.9 ml/m\S\2 SV(cubed) 39.5 ml SI(cubed) 21.3 ml/m\S\2 Ao root diam 3.0 cm Ao root area 6.9 cm\S\2 LA dimension 3.0 cm LA/Ao 1.0 LVAd ap4 25.2 cm\S\2 LVLd ap4 8.1 cm EDV(MOD-sp4) 63.0 ml EDV(sp4-el) 67.0 ml LVAs ap4 14.5 cm\S\2 LVLs ap4 6.9 cm ESV(MOD-sp4) 25.0 ml ESV(sp4-el) 25.8 ml EF(MOD-sp4) 60.3 % EF(sp4-el) 61.4 % LVAd ap2 26.5 cm\S\2 LVLd ap2 7.5 cm EDV(MOD-sp2) 77.8 ml EDV(sp2-el) 78.8 ml LVAs ap2 16.6 cm\S\2 LVLs ap2 6.6 cm ESV(MOD-sp2) 35.2 ml ESV(sp2-el) 35.8 ml EF(MOD-sp2) 54.8 % EF(sp2-el) 54.5 % LVLd %diff -6.99 % EDV(MOD-bp) 72.1 ml LVLs %diff -4.71 % ESV(MOD-bp) 28.3 ml EF(MOD-bp) 60.8 % SV(MOD-sp4) 38.0 ml SI(MOD-sp4) 20.5 ml/m\S\2 SV(MOD-sp2) 42.6 ml SI(MOD-sp2) 23.0 ml/m\S\2 SV(MOD-bp) 43.8 ml SI(MOD-bp) 23.7 ml/m\S\2 SV(sp4-el) 41.1 ml SI(sp4-el) 22.2 ml/m\S\2 SV(sp2-el) 42.9 ml SI(sp2-el) 23.2 ml/m\S\2 Doppler Measurements and Calculations MV E max gabino 60.9 cm/sec MV A max gabino 94.4 cm/sec MV E/A 0.65 MV dec time 0.28 sec Ao V2 max 118.5 cm/sec Ao max PG 5.6 mmHg Ao max PG (full) 2.8 mmHg LV V1 max PG 2.8 mmHg LV V1 max 83.9 cm/sec
[2017-11-28] MEDS: INSULIN ASPART 100 UNITS/ML 3 ML PEN SC SCH ×2 (17:17→20:38)
[2017-11-28] MEDS ORDERED: ALBUTEROL 0.083% NEBU SOLN 3 ML VIAL INH PRN (19:00)
[2017-11-28] MEDS ORDERED: FUROSEMIDE 20 MG TAB PO PRN (19:00)
[2017-11-28] MEDS ORDERED: OXYCODONE HCL IR 5 MG TAB (IMMEDIATE RELEASE) PO PRN (19:00)
[2017-11-28] MEDS ORDERED: NITROGLYCERIN 0.4 MG SL PER TAB CHARGE UT PRN (19:00)
[2017-11-28 19:36] VITALS: BP 113/77; PULSE 95; TEMP 37; O2SAT 94
[2017-11-28] MEDS: PROMETHAZINE HCL 25 MG TAB PO PRN (20:26)
[2017-11-28] MEDS: OXYCODONE HCL IR 5 MG TAB (IMMEDIATE RELEASE) PO PRN (20:26)
[2017-11-28] MEDS: TICAGRELOR 90 MG TAB PO SCH (20:27)
[2017-11-28] MEDS: METOPROLOL TARTRATE 50 MG TAB PO SCH (20:27)
[2017-11-28] MEDS: DOCUSATE SODIUM 100 MG CAP PO SCH (20:28)
[2017-11-28] MEDS: PRAVASTATIN SOD 20 MG TAB PO SCH (20:28)
[2017-11-28 20:35] LABS: CREATININE 0.83 mg/dl (0.60-1.20)
[2017-11-28 20:47] LABS: POTASSIUM 3.7 mmol/L (3.5-5.1)
[2017-11-28] MEDS ORDERED: INSULIN GLARGINE SOLOSTAR 100 UNITS/ML 3 ML PEN SC SCH (21:00)
[2017-11-28 23:25] VITALS: BP 99/67; PULSE 81; TEMP 37; O2SAT 93
[2017-11-29] MEDS ORDERED: INSULIN ASPART 100 UNITS/ML 3 ML PEN SC SCH
[2017-11-29] MEDS: OXYCODONE HCL IR 5 MG TAB (IMMEDIATE RELEASE) PO PRN ×5 (01:06→23:35)
[2017-11-29 03:28] VITALS: BP 95/57; PULSE 83; TEMP 36.7; O2SAT 96
[2017-11-29 06:20] VITALS: BP 107/74; PULSE 89; TEMP 36.6; O2SAT 96
[2017-11-29 07:30] LABS: HEMATOCRIT 41.8 % (37-47); HEMOGLOBIN 14.1 g/dL (12.0-16.0); MEAN CELL VOLUME 94.1 fL (80-100); MEAN CORPUSCULAR HEMOGLOBIN 31.8 pg (25-34); MEAN CORPUSCULAR HGB CONC 33.7 g/dl (32-36); PLATELET COUNT 264 K/uL (130-400); RED CELL DISTRIBUTION WIDTH CV 13.3 % (11.5-14.5); WHITE BLOOD COUNT 10.66 K/uL (4.8-10.8)
[2017-11-29] MEDS ORDERED: INSULIN HUMAN NPH SC SCH ×2 (08:00→16:45)
[2017-11-29 08:02] LABS: CALCIUM 8.7 mg/dl (8.5-10.1); CREATININE 0.88 mg/dl (0.60-1.20); POTASSIUM 3.6 mmol/L (3.5-5.1)
--- NOTE | 2017-11-29 08:32 | Pharmacy Progress Note ---
Glycemic Control Progress Note Date of Service November 29, 2017. Scope Glycemic Pharmacist consulted for glycemic control to write orders per [facility] inpatient glycemic control protocol. Objective Accuchecks BSG (last 24hrs): Test 11/28/17 12:10 11/28/17 14:20 11/28/17 15:17 11/28/17 16:45 Random Glucose 442 mg/dl (70-99) Bedside Glucose 297 mg/dl (70-90) 280 mg/dl (70-90) 255 mg/dl (70-90) Test 11/28/17 19:44 11/28/17 20:32 11/28/17 23:56 11/29/17 07:16 Random Glucose 195 mg/dl (70-99) 194 mg/dl (70-99) Bedside Glucose 179 mg/dl (70-90) 284 mg/dl (70-90) Test 11/29/17 07:31 Bedside Glucose 206 mg/dl (70-90) HbA1c: Test 11/28/17 12:10 Hemoglobin A1c 12.9 % (4.5-5.6) H Outpatient Anti-Diabetic Meds * Novolin 70/30 30 units SQ BID Assessment & Plan ASSESSMENT: 11/28/17: * BSGs over the past 24 hours: 442, 297, 255, 179, 284, 206 (fasting) * Fasting BSG is above goal range. Uncertain if patient took AM dose of Novolin 70/30 prior to arrival to ER. Elevated fasting may be due to basal deficiency. Will increase basal insulin (anticipate needing ~ 25 units BID). * Post prandial BSGs remain above goal but are improving. Will tighten carb ratio. * Patient is scheduled for cardiac cath on 11/30. She is ordered solu-medrol 40 mg IV q8h x 4 doses for h/o IV contrast allergy. * Will temporarily increase NPH and tighten CF/CR while on steroids. Overnight checks with coverage will be added to better control steroid induced hyperglycemia. 11/29/17: * 47 yr old T2DM female admitted with chest pain and hyperglycemia. PMH significant for CAD, STEMI (10/24/17) s/p PTCA. * Patient has poor outpatient control, HbA1c 12.9%. BSG of 442 mg/dL upon arrival. She was administered a 6 unit regular insulin IV bolus in the ED. * Will initiate basal + bolus insulin based on weight and stress of 3. Will likely loosen parameters tomorrow once severe hyperglycemia resolves. Since patient uses Novolin 70/30 as an outpatient, I will utilize NPH as inpatient ( kinetics more similar than Lantus/Levemir) PLAN FOR INPATIENT GLYCEMIC CONTROL: * Basal insulin - increase * NPH 30 units SQ this AM x 1 * NPH 20-30 units SQ tonight (20 units for BSG <140, 25 units for 140-200, 30 units for > 200) * Bolus Insulin with - tighten * NOVOLOG per scale ACHS or Q6hrs while NPO * Lower goal Range: Low 110 mg/dL - High 140 mg/dL * Correction Factor: 15 mg/dL/unit * Nutritional / Prandial insulin per carb ratio of 1 unit per 4 grams CHO consumed * Overnight check at 00 and 04 Thank you.
[2017-11-29] MEDS: LISINOPRIL 2.5 MG TAB PO SCH (08:41)
[2017-11-29] MEDS: FUROSEMIDE 20 MG TAB PO SCH (08:42)
[2017-11-29] MEDS: DOCUSATE SODIUM 100 MG CAP PO SCH ×2 (08:42→22:43)
[2017-11-29] MEDS: TICAGRELOR 90 MG TAB PO SCH ×2 (08:43→22:43)
[2017-11-29] MEDS: PANTOprazole SOD 40 MG TAB PO SCH (08:43)
[2017-11-29] MEDS: ASPIRIN 81 MG ECTAB PO SCH (08:43)
[2017-11-29] MEDS: MAGNESIUM OXIDE 400 MG TAB PO SCH (08:44)
[2017-11-29] MEDS: METOPROLOL TARTRATE 50 MG TAB PO SCH ×2 (08:44→22:44)
[2017-11-29] MEDS: INSULIN ASPART 100 UNITS/ML 3 ML PEN SC SCH ×4 (08:47→17:29)
[2017-11-29] MEDS ORDERED: ASPIRIN 81 MG CHEW PO SCH (09:00)
[2017-11-29] MEDS ORDERED: FAMOTIDINE IV INJ 20 MG in DEXTROSE 5% 100ML 100 ML IV ONE (09:30)
--- NOTE | 2017-11-29 09:54 | Cardiology Consultation ---
Cardiology Consultation Date of Service November 29, 2017. Cardiology Consultation Indication: Consultation for chest pain History: This is a 47-year-old poorly controlled diabetic, smoker with a history of intolerance to statin medications who in early October presented with chest pain and was life flighted from [facility] to [facility]. After admission there she was noted to have a non-STEMI. She was not taken immediately to the Pathology Specialist as she was hyperglycemic and also needed dye prep due to an allergy to IV contrast. She eventually underwent a cardiac catheterization. She received a bare-metal stents within the distal right coronary artery and obtuse marginal artery. She had been doing well and was seen in late October by her primary wine pasteurizer Dr. Thomason in [place]. She was at the the pain clinic yesterday. She was walking out to her vehicle when she suddenly became short of breath and developed chest discomfort. She did take 1 sublingual nitroglycerin which did not resolve her discomfort. She received a second sublingual nitroglycerin by the paramedics and then once again in the emergency department which completely resolved her pain. She has been pain- free since admission. Cardiac markers have been negative. Her admitting EKG shows an old inferior wall myocardial infarction. An echocardiogram completed this admission shows wall motion abnormalities of the inferior basilar myocardium consistent with a previous infarct. Allergies: Patient has multiple food and environmental allergies. She is also allergic to IV contrast Reported Home Medications Medications Dose Route/Sig Max Daily Dose Days Date Category Dose Instructions Nitrostat (Nitroglycerin) 0.4 Mg Tab 0.4 Mg UT PRN 11/28/17 Reported Lasix (Furosemide) 20 Mg Tab 20 Mg PO DAILY PRN 11/28/17 Reported Proventil 0.083% 2.5MG/3ML (Albuterol Sulf) 2.5 Mg/3 Ml Nebu 2.5 Mg INH QID PRN 11/28/17 Reported Zoloft (Sertraline HCl) 50 Mg Tab 50 Mg PO DAILY 11/28/17 Reported Pravastatin Sodium (Pravastatin Sod) 10 Mg Tab 20 Mg PO QPM 11/28/17 Reported Potassium 99 Mg Tab 99 Mg PO DAILY 11/28/17 Reported Oxycodone Hcl 10 Mg Tab 10 Mg PO Q6 PRN 11/28/17 Reported Zofran (Ondansetron HCl) 4 Mg Tab 4 Mg PO Q8 PRN 11/28/17 Reported Lopressor (Metoprolol Tartrate) 50 Mg Tab 50 Mg PO Q12 11/28/17 Reported Fiber Choice Fruity Bites (Inulin) 1.5 Gm Chw 3 Mg PO BID 11/28/17 Reported Brilinta (Ticagrelor) 90 Mg Tab 90 Mg PO BID 11/28/17 Reported Aspirin Chewable (Aspirin) 81 Mg Chew 81 Mg PO DAILY 11/28/17 Reported Vitamin C (Ascorbic Acid) 100 Mg Chw 100 Mg PEG DAILY 11/28/17 Reported Allergy Relief (Loratadine) 10 Mg Tab 10 Mg PO DAILY 11/28/17 Reported Novolin 70/30 (Insulin Human Isoph/Insulin Regular) Susp 30 Units SC BIDM 30 05/24/17 Rx Take with meals. Melatonin Maximum Strengt (Melatonin) 5 Mg Tab 2 Tab PO HS 05/19/17 Reported Benadryl Allergy (Diphenhydramine Hcl) 25 Mg Cap 1 Cap PO Q6 PRN 05/19/17 Reported Colace (Docusate Sodium) 100 Mg Cap 1 Cap PO BID 05/19/17 Reported Mag-Ox (Magnesium Oxide) 400 Mg Tab 400 Mg PO DAILY 05/19/17 Reported Protonix (Pantoprazole Sodium) 40 Mg Tab 40 Mg PO DAILY 05/19/17 Reported Phenergan (Promethazine HCl) 25 Mg Tab 25 Mg PO Q6 PRN 05/19/17 Reported Amitriptyline HCl 100 Mg Tab 1 Tab PO HS 05/19/17 Reported Past medical history: As outlined above in early October patient presented with a non-STEMI and was treated at [facility] with bare-metal stents to the distal right coronary artery and obtuse marginal branch. She has a history of poorly controlled diabetes with complications of nonhealing ulcers and severe autonomic and peripheral neuropathies.. She has an intolerance to statin medications. She is treated for hypertension. She has tobacco associated lung and vascular disease. She has a history of chronic low back pain and is treated at the pain clinic. She also has a disability with foot drop on the right lower extremity. Social history: She lives with her . Previously she had smoked 4-5 packs of cigarettes daily but she states she is trying to cut down. Family medical history: Noncontributory General: The patient denies weight change, night sweats, fever, chills. Head: The patient denies headache and prior head trauma. Cardiovascular: The patient denies chest pain or chest discomfort, dyspnea on exertion, palpitations, PND, orthopnea, edema, spontaneous shortness of breath, syncope and near syncope. Pulmonary: The patient denies cough, wheeze, pleurisy, hemoptysis, sputum, and excessive snoring. Gastrointestinal: The patient denies nausea, vomiting, diarrhea, constipation, bloating, hematemesis, hematochezia, and abdominal pain. Skin: The patient denies diaphoresis and rash. Musculoskeletal: The patient denies joint pain, joint swelling, myalgia, back pain, neck pain and prior injuries. Neurological: The patient denies prior stroke and seizures Vital Signs Past 12 Hours Date Time Temp Pulse Resp B/P (MAP) Pulse Ox O2 Delivery O2 Flow Rate FiO2 11/29/17 06:20 36.6 89 16 107/74 (85) 96 Room Air 11/29/17 04:00 Room Air 11/29/17 03:28 36.7 83 18 95/57 (70) 96 Room Air 11/29/17 00:00 Room Air 11/28/17 23:25 37.0 81 18 99/67 (78) 93 Room Air General Appearance: Alert and Oriented x3. NAD. Head: Normocephalic Atraumatic. Eyes: PERRLA, EOMI, conjunctiva and sclera clear Neck: Supple. No carotid bruits noted. No JVD. No HJD. Respiratory: Breath sounds clear to auscultation bilaterally. No w/r/r. Cardiovascular: Reg rate and rhythm. S1 and S2 noted. No murmurs, rubs, gallops. PMI non displace. Abdomen: Normal bowel sounds, soft nontender. no abdominal bruits. Extremities: No edema, no clubbing or cyanosis. distal pulses 2/4 bilaterally. Neuro: No focal deficits. Psychiatric: Normal affect. Last 24 Hours Test 11/28/17 12:10 11/28/17 13:24 11/28/17 14:20 11/28/17 15:17 White Blood Count 15.12 K/uL Red Blood Count 4.96 M/uL Hemoglobin 16.2 g/dL Hematocrit 45.7 % Mean Corpuscular Volume 92.1 fL Mean Corpuscular Hemoglobin 32.7 pg Mean Corpuscular Hemoglobin Concent 35.4 g/dl Platelet Count 304 K/uL Mean Platelet Volume 10.6 fL Neutrophils (%) (Auto) 77.3 % Lymphocytes (%) (Auto) 15.7 % Monocytes (%) (Auto) 5.1 % Eosinophils (%) (Auto) 1.3 % Basophils (%) (Auto) 0.2 % Neutrophils # (Auto) 11.69 K/uL Lymphocytes # (Auto) 2.37 K/uL Monocytes # (Auto) 0.77 K/uL Eosinophils # (Auto) 0.20 K/uL Basophils # (Auto) 0.03 K/uL RDW Standard Deviation 44.5 fL RDW Coefficient of Variation 13.3 % Immature Granulocyte % (Auto) 0.4 % Immature Granulocyte # (Auto) 0.06 K/uL Prothrombin Time 9.8 SECONDS Prothromb Time International Ratio 0.9 Activated Partial Thromboplast Time 25.0 SECONDS Partial Thromboplastin Ratio 1.0 D-Dimer 320 ug/L FEU Sodium Level 128 mmol/L Potassium Level 4.6 mmol/L Chloride Level 93 mmol/L Carbon Dioxide Level 25 mmol/L Anion Gap 10.0 mmol/L Blood Urea Nitrogen 11 mg/dl Creatinine 1.24 mg/dl Est Creatinine Clear Calc Drug Dose 56.7 ml/min Estimated GFR () 59.1 Estimated GFR (Non- 51.0 BUN/Creatinine Ratio 9.1 Random Glucose 442 mg/dl Estimated Average Glucose 324 mg/dl Hemoglobin A1c 12.9 % Calcium Level 8.9 mg/dl Total Bilirubin 0.6 mg/dl Direct Bilirubin mg/dl Aspartate Amino Transf (AST/SGOT) 14 U/L Alanine Aminotransferase (ALT/SGPT) 16 U/L Alkaline Phosphatase 122 U/L Total Creatine Kinase 46 U/L Creatine Kinase MB < 0.5 ng/ml Creatine Kinase MB Ratio Troponin I < 0.015 ng/ml Total Protein 8.1 gm/dl Albumin 3.6 gm/dl Lipase 38 U/L Beta-Hydroxybutyric Acid mg/dL 1.71 mg/dL Chemistry Specimen Hemolysis Bedside Glucose 297 mg/dl 280 mg/dl Test 11/28/17 16:45 11/28/17 19:44 11/28/17 20:32 11/28/17 23:35 Bedside Glucose 255 mg/dl 179 mg/dl Sodium Level 133 mmol/L Potassium Level 3.7 mmol/L Chloride Level 100 mmol/L Carbon Dioxide Level 26 mmol/L Anion Gap 7.0 mmol/L Blood Urea Nitrogen 9 mg/dl Creatinine 0.83 mg/dl Est Creatinine Clear Calc Drug Dose 84.2 ml/min Estimated GFR () 96.0 Estimated GFR (Non- 82.8 BUN/Creatinine Ratio 11.4 Random Glucose 195 mg/dl Calcium Level 8.0 mg/dl Troponin I < 0.015 ng/ml Pro-B-Type Natriuretic Peptide 824 pg/ml Urine Color YELLOW Urine Appearance CLEAR Urine pH 5.0 Urine Specific [place] 1.020 Urine Protein NEG Urine Glucose (UA) 3+ Urine Ketones NEG Urine Occult Blood NEG Urine Nitrite NEG Urine Bilirubin NEG Urine Urobilinogen NEG Urine Leukocyte Esterase NEG Urine Opiates Screen POS Urine Methadone, Qualitative NEG Urine Barbiturates NEG Urine Phencyclidine (PCP) Level NEG Ur Amphetamine/Methamphetamine NEG MDMA (Ecstasy) Screen NEG Urine Benzodiazepines Screen NEG Urine Cocaine Metabolite NEG Urine Marijuana (THC) NEG Test 11/28/17 23:56 11/29/17 01:11 11/29/17 07:16 11/29/17 07:31 Bedside Glucose 284 mg/dl 206 mg/dl Troponin I < 0.015 ng/ml < 0.015 ng/ml White Blood Count 10.66 K/uL Red Blood Count 4.44 M/uL Hemoglobin 14.1 g/dL Hematocrit 41.8 % Mean Corpuscular Volume 94.1 fL Mean Corpuscular Hemoglobin 31.8 pg Mean Corpuscular Hemoglobin Concent 33.7 g/dl RDW Standard Deviation 46.0 fL RDW Coefficient of Variation 13.3 % Platelet Count 264 K/uL Mean Platelet Volume 10.0 fL Sodium Level 133 mmol/L Potassium Level 3.6 mmol/L Chloride Level 97 mmol/L Carbon Dioxide Level 29 mmol/L Anion Gap 8.0 mmol/L Blood Urea Nitrogen 9 mg/dl Creatinine 0.88 mg/dl Est Creatinine Clear Calc Drug Dose 69.6 ml/min Estimated GFR () 89.4 Estimated GFR (Non- 77.2 BUN/Creatinine Ratio 9.8 Random Glucose 194 mg/dl Calcium Level 8.7 mg/dl Magnesium Level 2.3 mg/dl Triglycerides Level 529 mg/dl Cholesterol Level 216 mg/dl HDL Cholesterol 32 mg/dl LDL Cholesterol, Calculated mg/dl VLDL Cholesterol, Calculated mg/dl Cholesterol/HDL Ratio 6.8 Impression: 1. Chest pain probable angina 2. Recent non-STEMI with bare-metal stents placed in the right coronary and obtuse marginal branches 3. Poorly controlled diabetes with complications of diabetic neuropathy and nonhealing ulcers 4. Cigarette smoking 5. Multiple food and environmental allergies as well as a contrast dye allergy 6. Intolerance to statin medications. Recommendations: I recommended to the patient that she undergo repeat cardiac catheterization to see the status of her stents. She will need IV hydration overnight as well as a dye prep starting today. I see that she lists 1 of her allergies as corticosteroids however, with her heart cath in October she was given steroids for dye prep and tolerated them without problem. She is a difficult patient to evaluate due to her multiple medical problems and chronic pain. I feel the best way is to repeat the cardiac catheterization to be certain the stents are open otherwise she may re-percent with ongoing discomfort. I have explained the risk, benefit and intent of the cardiac catheterization to her including the potential for catheter based intervention such as balloon angioplasty or intracoronary stents. The patient is willing to proceed.
[2017-11-29] MEDS ORDERED: DC ALL ANTICOAGULANTS SCH (10:00)
[2017-11-29] MEDS ORDERED: DiphenhydrAMINE HCL 50 MG/ML VIAL IV SCH (10:00)
[2017-11-29] MEDS: PROMETHAZINE HCL 25 MG TAB PO PRN ×2 (11:23→23:35)
[2017-11-29 11:40] VITALS: BMI 22.4
[2017-11-29 11:51] VITALS: BP 101/74; PULSE 102; TEMP 36.5; O2SAT 97
[2017-11-29] MEDS ORDERED: METHYLPREDNISOLONE IV 40 MG in SYRINGE 0 ML IV ONE (14:00)
[2017-11-29 15:42] VITALS: BP 93/68; PULSE 93; TEMP 36.8; O2SAT 98
[2017-11-29] MEDS ORDERED: DiphenhydrAMINE HCL 50 MG/ML VIAL IV STA (16:20)
[2017-11-29] MEDS ORDERED: DiphenhydrAMINE HCL 50 MG/ML VIAL IV PRN (16:30)
[2017-11-29] MEDS: DiphenhydrAMINE HCL 50 MG/ML VIAL IV SCH (17:49)
[2017-11-29] MEDS: METHYLPREDNISOLONE IV 40 MG in SYRINGE 0 ML IV SCH (18:44)
[2017-11-29 19:23] VITALS: BP 108/80; PULSE 105; TEMP 37.2; O2SAT 93
[2017-11-29] MEDS ORDERED: MELATONIN 10 MG PO SCH (21:00)
[2017-11-29] MEDS ORDERED: INSULIN PROTOCOL GOAL RANGE ONE (21:30)
[2017-11-29] MEDS ORDERED: SEVERE STRESS LEVEL ONE (21:30)
[2017-11-29] MEDS ORDERED: INSULIN IV INFUSION PROTOCOL SCH (21:33)
--- NOTE | 2017-11-29 22:04 | Progress Note ---
Medicine Progress Note Date & Time of Visit: November 29, 2017 at 17:39. Subjective 47-year-old poorly controlled diabetic with active smoking history who is an active smoker with known coronary artery disease status post cath last month with 2 bare-metal stents placed presents with worsening chest pain and shortness of breath. The patient reports that shortness of breath has been ongoing since her heart catheterization in early September. Her chest pain began suddenly yesterday and has since resolved after some nitro in the ER yesterday. She remains pain-free since admission. She is currently very itchy as she has received Solu-Medrol which she is allergic to. We are giving her Benadryl currently. She has no evidence of hives at this time. She has no conversational dyspnea. She is tolerating p.o. She denies any history of weight gain. Objective Last 8 Hrs Date Time Temp Pulse Resp B/P (MAP) Pulse Ox O2 Delivery O2 Flow Rate FiO2 11/29/17 16:00 Room Air 11/29/17 15:42 36.8 93 20 93/68 (76) 98 Room Air 11/29/17 12:00 Room Air 11/29/17 11:51 36.5 102 16 101/74 (83) 97 Room Air Physical Exam: GEN: WNWD, in mild distress 2/2 pruritis, alert and appropriate HEENT: NC/AT, normal sclerae, MMM CARDIO: reg rate, S1/2 heard without m/g/r LUNGS: CTA bilaterally, no crackles, rales or wheezes, good diaphragmatic excursion ABD: soft, non-tender, non-distended, no rebound or guarding EXTREMITY: RP and DP palpable 2+ bilat, no LE swelling or edema, extremities are warm and well-perfused NEURO: CN 2-12 grossly intact MUSC: 5/5 strength throughout, no gross focal deficits SKIN: warm and dry Laboratory Results: 11/29/17 07:16 11/29/17 07:16 Test 11/28/17 12:10 11/28/17 13:24 11/28/17 19:44 11/28/17 23:35 Immature Granulocyte % (Auto) 0.4 % White Blood Count 15.12 K/uL (4.8-10.8) Red Blood Count 4.96 M/uL (4.2-5.4) Hemoglobin 16.2 g/dL (12.0-16.0) Hematocrit 45.7 % (37-47) Mean Corpuscular Volume 92.1 fL (80-100) Mean Corpuscular Hemoglobin 32.7 pg (25-34) Mean Corpuscular Hemoglobin Concent 35.4 g/dl (32-36) Platelet Count 304 K/uL (130-400) Mean Platelet Volume 10.6 fL (7.4-10.4) Neutrophils (%) (Auto) 77.3 % Lymphocytes (%) (Auto) 15.7 % Monocytes (%) (Auto) 5.1 % Eosinophils (%) (Auto) 1.3 % Basophils (%) (Auto) 0.2 % Neutrophils # (Auto) 11.69 K/uL (1.4-6.5) Lymphocytes # (Auto) 2.37 K/uL (1.2-3.4) Monocytes # (Auto) 0.77 K/uL (0.11-0.59) Eosinophils # (Auto) 0.20 K/uL (0-0.5) Basophils # (Auto) 0.03 K/uL (0-0.2) Immature Granulocyte # (Auto) 0.06 K/uL (0.00-0.02) Prothrombin Time 9.8 SECONDS (9.0-12.0) Prothromb Time International Ratio 0.9 (0.9-1.1) Activated Partial Thromboplast Time 25.0 SECONDS (21.0-31.0) Partial Thromboplastin Ratio 1.0 D-Dimer 320 ug/L FEU (0-500) Estimated Average Glucose 324 mg/dl Hemoglobin A1c 12.9 % (4.5-5.6) Total Bilirubin 0.6 mg/dl (0.2-1) Direct Bilirubin mg/dl (0-0.2) Aspartate Amino Transf (AST/SGOT) 14 U/L (15-37) Alanine Aminotransferase (ALT/SGPT) 16 U/L (12-78) Alkaline Phosphatase 122 U/L (45-117) Total Creatine Kinase 46 U/L (26-192) Creatine Kinase MB < 0.5 ng/ml (0.5-3.6) Creatine Kinase MB Ratio (0-3.0) Total Protein 8.1 gm/dl (6.4-8.2) Albumin 3.6 gm/dl (3.4-5.0) Lipase 38 U/L (73-393) Chemistry Specimen Hemolysis Beta-Hydroxybutyric Acid 1.71 mg/dL (0.2-2.81) Pro-B-Type Natriuretic Peptide 824 pg/ml (0-450) Urine Color YELLOW Urine Appearance CLEAR (CLEAR) Urine pH 5.0 (4.5-7.5) Urine Specific Ozan 1.020 (1.000-1.030) Urine Protein NEG (NEG) Urine Glucose (UA) 3+ (NEG) Urine Ketones NEG (NEG) Urine Occult Blood NEG (NEG) Urine Nitrite NEG (NEG) Urine Bilirubin NEG (NEG) Urine Urobilinogen NEG (NEG) Urine Leukocyte Esterase NEG (NEG) Urine Phencyclidine (PCP) Level NEG (NEG) Ur Amphetamine/Methamphetamine NEG (NEG) MDMA (Ecstasy) Screen NEG (NEG) Urine Cocaine Metabolite NEG (NEG) Urine Marijuana (THC) NEG (NEG) Test 11/29/17 07:16 11/29/17 20:33 Red Blood Count 4.44 M/uL (4.2-5.4) Mean Corpuscular Volume 94.1 fL (80-100) Mean Corpuscular Hemoglobin 31.8 pg (25-34) Mean Corpuscular Hemoglobin Concent 33.7 g/dl (32-36) RDW Standard Deviation 46.0 fL (36.4-46.3) RDW Coefficient of Variation 13.3 % (11.5-14.5) Mean Platelet Volume 10.0 fL (7.4-10.4) Anion Gap 8.0 mmol/L (3-11) Est Creatinine Clear Calc Drug Dose 69.6 ml/min Estimated GFR () 89.4 Estimated GFR (Non- 77.2 BUN/Creatinine Ratio 9.8 (10-20) Calcium Level 8.7 mg/dl (8.5-10.1) Magnesium Level 2.3 mg/dl (1.8-2.4) Troponin I < 0.015 ng/ml (0-0.045) Triglycerides Level 529 mg/dl (0-150) Cholesterol Level 216 mg/dl (0-200) HDL Cholesterol 32 mg/dl LDL Cholesterol, Calculated mg/dl VLDL Cholesterol, Calculated mg/dl Cholesterol/HDL Ratio 6.8 Bedside Glucose 410 mg/dl (70-90) Date/Time Source Procedure Growth Status 11/28/17 15:10 Blood Blood Culture Pending Received Last 24 Hours Test 11/28/17 19:44 11/28/17 20:32 11/28/17 23:35 11/28/17 23:56 Sodium Level 133 mmol/L Potassium Level 3.7 mmol/L Chloride Level 100 mmol/L Carbon Dioxide Level 26 mmol/L Anion Gap 7.0 mmol/L Blood Urea Nitrogen 9 mg/dl Creatinine 0.83 mg/dl Est Creatinine Clear Calc Drug Dose 84.2 ml/min Estimated GFR () 96.0 Estimated GFR (Non- 82.8 BUN/Creatinine Ratio 11.4 Random Glucose 195 mg/dl Calcium Level 8.0 mg/dl Troponin I < 0.015 ng/ml Pro-B-Type Natriuretic Peptide 824 pg/ml Bedside Glucose 179 mg/dl 284 mg/dl Urine Color YELLOW Urine Appearance CLEAR Urine pH 5.0 Urine Specific Ozan 1.020 Urine Protein NEG Urine Glucose (UA) 3+ Urine Ketones NEG Urine Occult Blood NEG Urine Nitrite NEG Urine Bilirubin NEG Urine Urobilinogen NEG Urine Leukocyte Esterase NEG Urine Opiates Screen POS Urine Methadone, Qualitative NEG Urine Barbiturates NEG Urine Phencyclidine (PCP) Level NEG Ur Amphetamine/Methamphetamine NEG MDMA (Ecstasy) Screen NEG Urine Benzodiazepines Screen NEG Urine Cocaine Metabolite NEG Urine Marijuana (THC) NEG Test 11/29/17 01:11 11/29/17 07:16 11/29/17 07:31 11/29/17 11:03 Troponin I < 0.015 ng/ml < 0.015 ng/ml White Blood Count 10.66 K/uL Red Blood Count 4.44 M/uL Hemoglobin 14.1 g/dL Hematocrit 41.8 % Mean Corpuscular Volume 94.1 fL Mean Corpuscular Hemoglobin 31.8 pg Mean Corpuscular Hemoglobin Concent 33.7 g/dl RDW Standard Deviation 46.0 fL RDW Coefficient of Variation 13.3 % Platelet Count 264 K/uL Mean Platelet Volume 10.0 fL Sodium Level 133 mmol/L Potassium Level 3.6 mmol/L Chloride Level 97 mmol/L Carbon Dioxide Level 29 mmol/L Anion Gap 8.0 mmol/L Blood Urea Nitrogen 9 mg/dl Creatinine 0.88 mg/dl Est Creatinine Clear Calc Drug Dose 69.6 ml/min Estimated GFR () 89.4 Estimated GFR (Non- 77.2 BUN/Creatinine Ratio 9.8 Random Glucose 194 mg/dl Calcium Level 8.7 mg/dl Magnesium Level 2.3 mg/dl Triglycerides Level 529 mg/dl Cholesterol Level 216 mg/dl HDL Cholesterol 32 mg/dl LDL Cholesterol, Calculated mg/dl VLDL Cholesterol, Calculated mg/dl Cholesterol/HDL Ratio 6.8 Bedside Glucose 206 mg/dl 212 mg/dl Test 11/29/17 16:30 Bedside Glucose 284 mg/dl Assessment & Plan 47-year-old poorly controlled diabetic with active smoking history who is an active smoker with known coronary artery disease status post cath last month with 2 bare-metal stents placed presents with worsening chest pain and shortness of breath. The patient reports that shortness of breath has been ongoing since her heart catheterization in early September. Her chest pain began suddenly yesterday and has since resolved after some nitro in the ER yesterday. She remains pain-free since admission. She is currently very itchy as she has received Solu-Medrol which she is allergic to. We are giving her Benadryl currently. She has no evidence of hives at this time. She has no conversational dyspnea. She is tolerating p.o. She denies any history of weight gain. 1. Chest pain-recent h/o stenting and patient is an active smoker with uncontrolled diabetes. Serial cardiac enzymes are negative. No EKG changes, echocardiogram shows wall motion abnormality consistent with prior left heart catheterization. Cardiology recommends repeat left heart catheterization which will take place in am. Nitro/morphine PRN. Cont medical management with aspirin, Brilinta, Lopressor, lisinopril, and pravastatin. Of note patient has statin intolerance history. 2. Dyspnea-chest x-ray is clear, possibly related to worsening heart disease. Of note patient has no orthopnea, weight gain, leg swelling or conversational dyspnea. Proceed with left heart catheterization tomorrow. 3. Contrast allergy-premedicate with steroids. However, patient is allergic to steroids so will premedicate steroid with Benadryl. 4. Tobacco abuse-patient used to smoke 5 packs of cigarettes per day and is now down to a pack and a half per day after her catheterization. She was strongly encouraged to quit smoking. She has a contact dermatitis to NicoDerm and states this does not work. She has tried Chantix and this was unsuccessful for her to. She continues to contemplate quitting which is strongly recommended. 5. Poorly controlled type 2 diabetes mellitus-continue insulin sliding scale with carb coverage and Lantus while hospitalized. Recent A1c is above 12. Patient will need close follow-up with primary care doc on discharge to gain control of this especially in setting of CAD. Appreciate pharmacy recommendations 6. AK I-resolved. 7. Hypertriglyceridemia-patient has a history of statin intolerance aside from current use of pravastatin. Triglycerides are greater than 550. Would recommend fenofibrate therapy however patient has multiple allergies. Defer this to cardiology or outpatient primary health care coordinator. 8. Hypertension-blood pressure controlled, continue KALLI inhibitor therapy. DVT prophylaxis-SCDs in setting of upcoming procedure Full code Disposition-likely to home in 1-2 days pending catheterization results. Vannesa Cain DO [facility] Hospitalist Consultants: Cardiology-Osorio Keen MD Current Inpatient Medications: Current Inpatient Medications Medications (Trade) Dose Ordered Sig/Asaf Route Start Time Stop Time Status Last Admin Dose Admin Acetaminophen (Tylenol Tab) 650 mg Q4H PRN PO 11/28/17 13:15 12/28/17 13:14 Al Hydrox/Mg Hydrox/Simethicone (Maalox Max Susp) 15 ml Q4H PRN PO 11/28/17 13:15 12/28/17 13:14 11/28/17 17:15 15 ML Magnesium Hydroxide (Milk Of Magnesia Susp) 30 ml Q12H PRN PO 11/28/17 13:15 12/28/17 13:14 Nitroglycerin (Nitrostat Tab) 0.4 mg UD PRN SL 11/28/17 13:15 12/28/17 13:14 Aspirin (Ecotrin Tab) 81 mg QAM PO 11/29/17 09:00 12/29/17 08:59 11/29/17 08:43 81 MG Polyethylene (Miralax Powder Packet) 17 gm DAILY PRN PO 11/28/17 13:15 12/28/17 13:14 Miscellaneous Information (Consult Glycemic Management Pharmacy) 1 ea UD PRN N/A 11/28/17 13:17 12/28/17 13:16 Insulin Aspart (novoLOG ASPART) SLIDING SCALE If C... ACHS SC 11/28/17 16:15 12/28/17 16:14 11/29/17 17:29 10 UNITS Glucose (Glucose 40% Gel) 15-30 GRAMS 15 GRAMS... UD PRN PO 11/28/17 13:45 12/28/17 13:44 Glucose (Glucose Chew Tab) 4-8 Tablets 4 Tabl... UD PRN PO 11/28/17 13:45 12/28/17 13:44 Dextrose (Dextrose 50% 50ML Syringe) 25-50ML 25ML FOR ... UD PRN IV 11/28/17 13:45 12/28/17 13:44 Glucagon (Glucagon Inj) 1 mg UD PRN SQ 11/28/17 13:45 12/28/17 13:44 Carbohydrates (Carbohydrates For Hypoglycemia) 15-30 GRAMS 15 grams if BSG 54-69... UD PRN PO 11/28/17 13:45 12/28/17 13:44 Albuterol Sulfate (Ventolin 0.083% 2.5MG/3ML Neb) 2.5 mg QID PRN INH 11/28/17 19:00 12/28/17 18:59 Docusate Sodium (coLACE CAP) 100 mg BID PO 11/28/17 21:00 12/28/17 20:59 11/29/17 08:42 100 MG Magnesium Oxide (Mag-Ox Tab) 400 mg DAILY PO 11/29/17 09:00 12/29/17 08:59 11/29/17 08:44 400 MG Metoprolol Tartrate (Lopressor Tab) 50 mg Q12 PO 11/28/17 21:00 12/28/17 20:59 11/29/17 08:44 50 MG Pantoprazole Sodium (Protonix Tab) 40 mg DAILY PO 11/29/17 09:00 12/29/17 08:59 11/29/17 08:43 40 MG Pravastatin Sodium (Pravachol Tab) 20 mg QPM PO 11/28/17 21:00 12/28/17 20:59 11/28/17 20:28 20 MG Promethazine HCl (Phenergan Tab) 25 mg Q6 PRN PO 11/28/17 19:00 12/28/17 18:59 11/29/17 11:23 25 MG Ticagrelor (Brilinta Tab) 90 mg BID PO 11/28/17 21:00 12/28/17 20:59 11/29/17 08:43 90 MG Oxycodone HCl (Roxicodone Immediate Rel Tab) 10 mg Q4H PRN PO 11/28/17 19:45 12/12/17 19:44 11/29/17 15:33 10 MG Furosemide (Lasix Tab) 20 mg DAILY PO 11/29/17 09:00 12/28/17 18:59 11/29/17 08:42 20 MG Lisinopril (Zestril Tab) 2.5 mg QAM PO 11/29/17 09:00 12/29/17 08:59 11/29/17 08:41 2.5 MG Sodium Chloride 1,000 ml @ 61 mls/hr [id number] IV 11/30/17 00:00 12/30/17 00:00 Miscellaneous (Dc All Anticoagulants) 1 ea TODAY@1000 N/A 11/29/17 10:00 11/29/17 23:59 11/29/17 15:12 1 EA Methylprednisolone Sodium Succinate 40 mg/Syringe 0.64 ml @ 1.5 mls/min Q8H IV 11/29/17 18:00 11/30/17 10:01 Diphenhydramine HCl (Benadryl Inj) 25 mg TODAY@0600 IV 11/30/17 06:00 11/30/17 18:00 Famotidine 20 mg/ Syringe 5 ml @ 2.5 mls/min TODAY@0600 IV 11/30/17 06:00 11/30/17 18:00 Insulin Aspart (novoLOG ASPART) SLIDING SCALE If C... 0000,0400 SC 11/30/17 00:00 11/30/17 04:01 Insulin Human NPH (novoLIN-N NPH) SEE PROTOCOL 1645 SC 11/29/17 16:45 11/29/17 18:00 11/29/17 17:30 30 UNITS Melatonin (Melatonin) 20 mg HS PO 11/29/17 21:00 12/29/17 20:59 Diphenhydramine HCl (Benadryl Inj) 25 mg Q8H IV 11/29/17 17:30 11/30/17 09:31 Potassium Gluconate (Potassium Gluconate) 99 mg QAM PO 11/30/17 09:00 12/30/17 08:59
[2017-11-29] MEDS: PRAVASTATIN SOD 20 MG TAB PO SCH (22:44)
[2017-11-29] MEDS ORDERED: INSULIN HUMAN REGULAR IV BOLUS 1.5 UNIT in SYRINGE 0 ML IV SCH (22:45)
[2017-11-29] MEDS ORDERED: INSULIN REGULAR 250 UNITS in SODIUM CHLORIDE 0.9% 250ML 250 ML IV SCH (23:00)
[2017-11-30] VITALS (11 sets, daily range): BP systolic 95–149; BP diastolic 66–95; PULSE 84–111; TEMP 36.6–37; O2SAT 93–95; Ht 165.1 cm; Wt 61.5 kg
[2017-11-30] MEDS: SODIUM CHLORIDE 0.9% 1000ML 1,000 ML IV SCH ×2 (01:25→16:24)
[2017-11-30] MEDS: DiphenhydrAMINE HCL 50 MG/ML VIAL IV SCH ×2 (01:27→12:18)
[2017-11-30] MEDS: METHYLPREDNISOLONE IV 40 MG in SYRINGE 0 ML IV SCH ×2 (02:31→12:06)
[2017-11-30] MEDS ORDERED: FAMOTIDINE IV INJ 20 MG in SYRINGE 3 ML IV SCH (06:00)
[2017-11-30] MEDS ORDERED: DiphenhydrAMINE HCL 50 MG/ML VIAL IV SCH (06:00)
[2017-11-30] MEDS ORDERED: INSULIN ASPART 100 UNITS/ML 3 ML PEN SC SCH ×2 (08:00)
[2017-11-30] MEDS ORDERED: POTASSIUM 99 MG PO SCH ×2 (09:00)
[2017-11-30] MEDS: FUROSEMIDE 20 MG TAB PO SCH (09:00)
[2017-11-30] MEDS ORDERED: FENTANYL CITRATE INJ 50 MCG/1 ML 2 ML VIAL ONE (09:25)
[2017-11-30] MEDS ORDERED: MIDAZOLAM HCL 1 MG/ML 2ML VIAL ONE (09:25)
[2017-11-30] MEDS ORDERED: NiCARDipine HCL INJ 2.5 MG/ML 10 ML AMP ONE (09:25)
[2017-11-30] MEDS ORDERED: NITROGLYCERIN/D5W 100MCG/ML 20ML SYR ONE (09:25)
[2017-11-30] MEDS ORDERED: LIDOCAINE HCL 1% 20 ML VIAL ONE (09:40)
[2017-11-30] MEDS ORDERED: SODIUM CHLORIDE 0.9% 1000ML 1,000 ML IV SCH (10:35)
[2017-11-30] MEDS ORDERED: SODIUM CHLORIDE 0.9% 1000ML 250 ML IV PRN (10:35)
--- NOTE | 2017-11-30 10:38 | Pre Sedation Assessment ---
Pre Sedation Assessment General Date of Sedation: November 30, 2017. Vital Signs Past 12 Hours Date Time Temp Pulse Resp B/P (MAP) Pulse Ox O2 Delivery O2 Flow Rate FiO2 11/30/17 10:30 95 18 104/69 (81) 95 Room Air 11/30/17 07:02 36.7 98 20 114/76 (89) 94 Room Air 11/30/17 05:08 37.0 99 18 149/95 (113) 93 Room Air 11/30/17 04:00 Room Air 11/30/17 00:43 36.8 111 18 107/70 (82) 94 Room Air 11/30/17 00:00 Room Air Review Cardiovascular: regular rate, rhythm Lungs: lungs clear Pre-Sedation Airway Assessment Smoking Status: Heavy Tobacco Smoker Hx of Sleep Apnea: No Hx of difficult intubation: No Short Thick Neck: Yes Thyro-mental Distance: < or =3 Finger Breadths Mallampati Classification: Class II ASA Classification: Class III NPO Status Date of Last Intake of Fluids: November 30, 2017 Time of Last Intake of Fluids: 11:59 Date of Last Intake of Solids: November 30, 2017 Time of Last Intake of Solids: 11:59 Procedure Planning Contraindications for Sedation: None Current Medications Reviewed: Yes Notes The planned sedation has been discussed with the patient. Informed Consent was obtained. I have identified the patient, determined the appropriateness of sedation and have assessed the patient immediately prior to the procedure. All medicine(s) and interventions are by my order.
--- NOTE | 2017-11-30 10:40 | Post Sedation Assessment ---
Post Sedation Assessment General Date of Sedation November 30, 2017. Vital Signs: Vital Signs Past 12 Hours Date Time Temp Pulse Resp B/P (MAP) Pulse Ox O2 Delivery O2 Flow Rate FiO2 11/30/17 10:30 95 18 104/69 (81) 95 Room Air 11/30/17 07:02 36.7 98 20 114/76 (89) 94 Room Air 11/30/17 05:08 37.0 99 18 149/95 (113) 93 Room Air 11/30/17 04:00 Room Air 11/30/17 00:43 36.8 111 18 107/70 (82) 94 Room Air 11/30/17 00:00 Room Air Post Procedure Recovery Score Activity: (2) Moves 4 extremities * Respiration: (2) Deep breath/cough Circulation: (2) +/-20% PreAnes Value Consciousness: (2) Fully Awake Oxygen Saturation: (2) > 92% On Room Air Post Anesthesia Score: 8 Discharge Sedation Level of Care: Fast Track Phase II Post Sedation Plan On clinical assessment, the patient appears to have tolerated the sedation without complications. Patient is recovering as anticipated. Patient will continue to be monitored by nursing and may be discharged when sedation discharge criteria are met per below protocol. Upon Completions of procedure and additional 15 minutes continue every 5 minute vital signs and the P.A.R. score; then discharge to a Phase I or Fast Track to Phase II per the following guidelines: * Discharge Patient to appropriate Phase II area if PAR is 8 or greater or return to pre- procedure baseline. The post - procedure orders will be as directed. * If PAR score is less than 8 or not return to pre-procedure baseline then patient will follow Phase I monitoring till PAR is reached for Phase II. The Phase I may be done in procedure room or may call to secure a Phase I area. * If naloxone or flumazenil are used for reversal, hold in Phase I for an additional 60 -120 minutes before discharge to Phase II. Please call the Sedation Physician to re-evaluate and complete post-note for discharge to Phase II area. Do NOT discharge from procedure sedation or Phase 1 until post- sedation evaluation note is complete by procedure /sedation MD Sedation Discharge Instructions to be given to the patient at discharge to home.
--- NOTE | 2017-11-30 10:43 | Cardiac Catheterization ---
Procedure Note Procedure Date November 30, 2017. Pre-Procedure Diagnosis Angina AUC Score 7 Post-Procedure Diagnosis Mild CAD Procedure(s) Performed Coronary Angiography [facility] [facility] Dr. Keen Human Services Case Manager(s) None Estimated Blood Loss None Medication(s) Heparin, Versed, Lidocaine 1% Summary of Findings See dictated report Hemodynamics Rest Ao: 96 Final Ao: 112 LV: Aortic valve not crossed Recommendations Medical therapy and/or Counseling Specimens None Radiation Exposure (mGy) 2511 Contrast (mls) 137 Disposition PCU ACC Data Cardiac Status Clinical evaluation leading to the procedure CAD Presntation: Unstable angina Anginal Classification: CCS II Heart Failure: No Cardiogenic Shock w/in 24Hrs: No Cardiac Arrest w/in 24Hrs: No Imaging studies past 6 months: Yes Stress studies past 6 months: No Coronary Anatomy Dominant: Right Left Main (% Stenosis): Normal LAD (% Stenosis): Normal Circumflex (% Stenosis): Normal RCA (% Stenosis): Normal Diagnostic Status: Elective Closure Device Percutaneous Entry Location: Radial Closure Device: Radial Band Recommendations: Medical therapy and/or Counseling
[2017-11-30] MEDS ORDERED: ACETAMINOPHEN 325 MG TAB PO PRN (10:45)
[2017-11-30] MEDS ORDERED: ONDANSETRON INJ 2 MG/ML 2 ML VIAL IV PRN (10:45)
[2017-11-30] MEDS ORDERED: ATROPINE SULFATE 0.1 MG/ML 5ML SYR IV PRN (10:45)
--- NOTE | 2017-11-30 10:48 | Procedure Note ---
Cardiac Cath Report Procedure: 1. Coronary angiography History: This is a 47-year-old diabetic heavy smoker who at the beginning of October was admitted to [facility] with unstable angina. Eventually she went on to have coronary stents placed in the marginal from the left circumflex artery as well as the posterior lateral branch of the right coronary artery. She has been readmitted with chest pain and the procedure is being completed to check the status of the coronary stents. Procedure summary: After informed consent was obtained patient was taken to the cardiac catheterization lab where access was obtained using a retrograde Salinger technique from the right radial artery. Preformed 4 Tanzanian and 5 Tanzanian diagnostic catheters were utilized for the coronary angiograms. Following the procedure the patient was returned to the holding area the Associate Artistic Director in stable condition. Coronary angiography: Selective injections of the right coronary artery reveal it to be hyper dominant. The right coronary artery is smooth in appearance widely patent and within normal limits with the previous stented site in the posterior lateral branch being patent. Selective injections of the left coronary artery revealed the left main trunk to be widely patent. The LAD is small distally at the apex of the heart giving off a medium to large branch at the apex of the heart. There is an additional diagonal branch which is medium to large size after the takeoff of the first septal hand box folder. The LAD has minor 10-20% narrowing just after the takeoff of the first septal branch with the remainder being widely patent. The left circumflex artery is widely patent including the previous stent site in the marginal branch. Summary: Widely patent coronary anatomy including the previous stent sites in the marginal branch of the left circumflex artery and the posterior lateral branch from the right coronary artery. Recommendations: Continued medical management of the patient's coronary artery disease.
[2017-11-30] MEDS: OXYCODONE HCL IR 5 MG TAB (IMMEDIATE RELEASE) PO PRN ×2 (11:12→17:09)
[2017-11-30] MEDS: PANTOprazole SOD 40 MG TAB PO SCH (12:05)
[2017-11-30] MEDS: ASPIRIN 81 MG ECTAB PO SCH (12:05)
[2017-11-30] MEDS: LISINOPRIL 2.5 MG TAB PO SCH (12:05)
[2017-11-30] MEDS: DOCUSATE SODIUM 100 MG CAP PO SCH (12:05)
[2017-11-30] MEDS: MAGNESIUM OXIDE 400 MG TAB PO SCH (12:05)
[2017-11-30] MEDS: TICAGRELOR 90 MG TAB PO SCH (12:05)
[2017-11-30] MEDS: METOPROLOL TARTRATE 50 MG TAB PO SCH (12:05)
[2017-11-30] MEDS ORDERED: INSULIN HUMAN NPH SC ONE (13:45)
--- NOTE | 2017-11-30 14:01 | Pharmacy Progress Note ---
Pharmacy Glycemic Short Note 2 Date of Service November 30, 2017. OUTPATIENT ANTIDIABETIC REGIMEN: * Novolin 70/30 30 units SQ BID * pt reports only taking 15 units BID ASSESSMENT: 11/30/17: * Despite significant increase in both basal and bolus insulin in anticipation of steroid induced hyperglycemia, BSGs became further elevated last evening, therefore patient was started on IV insulin infusion. Infusion is currently running at 3.7 units/hr. Last dose of solu-medrol IV was at 1000. * Will attempt to transition off insulin infusion per patient may be discharged later today. * Will utilize higher goal range per patient reports feeling ill with normal BSG values PLAN FOR INPATIENT GLYCEMIC CONTROL: * IV insulin infusion * continue to overlap with SQ insulin unless instructed to hold infusion per calculator or for up to 6 hours (whichever happens sooner) * Basal insulin * NPH 25 units SQ BID * Bolus insulin * NovoLog per scale ACHS or Q6hrs while NPO * Goal Range: Low 120 mg/dL - High 160 mg/dL * Correction Factor: 20 mg/dL/unit * Nutritional / Prandial insulin per carb ratio of 1 unit per 6 grams CHO consumed PLAN FOR DISCHARGE: * Poor outpatient glycemic control, A1c 12.9%, due to non compliance and poor diet choices (see CDE note). * Recommend Novolin 70/30 30 units SQ BID on discharge (this is patients ordered dose, however, she reports only administering 15 units BID at home). Recommend f/u with [facility] within one week after discharge. Patient reports clinic appointments q2 months. She would likely benefit from more frequent follow up. * Lifestyle modifications needed to improve glycemic control. Thank you.
[2017-11-30] MEDS: INSULIN ASPART 100 UNITS/ML 3 ML PEN SC SCH (17:48)
--- NOTE | 2017-11-30 18:03 | Discharge Summary ---
Discharge Summary Date of Service November 30, 2017. Discharge Summary Admission Date: November 28, 2017 at 13:17 Discharge Date: November 30, 2017 Discharge Disposition: Home with services Principal Diagnosis: Chest pain Uncontrolled DMII Dyspnea on exertion Procedures: Left heart catheterization Vaccinations: None. Consultations: Cardiology-Osorio Keen MD Pending Studies/Follow-Up: see instructions below. Medication Reconciliation Continued Medications: Albuterol Sulf (Proventil 0.083% 2.5MG/3ML) 2.5 Mg/3 Ml Nebu 2.5 MG INH QID PRN for Wheezing Amitriptyline HCl (Amitriptyline HCl) 100 Mg Tab 1 TAB PO HS Ascorbic Acid (Vitamin C) 100 Mg Chw 100 MG PEG DAILY Aspirin (Aspirin Chewable) 81 Mg Chew 81 MG PO DAILY Diphenhydramine Hcl (Benadryl Allergy) 25 Mg Cap 1 CAP PO Q6 PRN for Itching, CAP Docusate Sodium (Colace) 100 Mg Cap 1 CAP PO BID, CAP Furosemide (Lasix) 20 Mg Tab 20 MG PO DAILY PRN for wt gain /edema Insulin Isophan/Regular (Novolin 70/30) Susp 30 UNITS SC BIDM for 30 Days, #5 PEN 1 Refill Take with meals. Inulin (Fiber Choice Fruity Bites) 1.5 Gm Chw 3 MG PO BID Loratadine (Allergy Relief) 10 Mg Tab 10 MG PO DAILY Magnesium Oxide (Mag-Ox) 400 Mg Tab 400 MG PO DAILY, TAB Melatonin (Melatonin Maximum Strengt) 5 Mg Tab 2 TAB PO HS, TAB Metoprolol Tartrate (Lopressor) (Lopressor) 50 Mg Tab 50 MG PO Q12 Nitroglycerin (Nitrostat) 0.4 Mg Tab 0.4 MG UT PRN Ondansetron Hcl (Zofran) 4 Mg Tab 4 MG PO Q8 PRN for Nausea Oxycodone Hcl (Oxycodone Hcl) 10 Mg Tab 10 MG PO Q6 PRN for Pain Pantoprazole (Protonix) 40 Mg Tab 40 MG PO DAILY, TAB Potassium (Potassium) 99 Mg Tab 99 MG PO DAILY Pravastatin Sod (Pravastatin Sodium) 10 Mg Tab 20 MG PO QPM Promethazine Hcl (Phenergan) 25 Mg Tab 25 MG PO Q6 PRN for Nausea Sertraline (Zoloft) 50 Mg Tab 50 MG PO DAILY Ticagrelor (Brilinta) 90 Mg Tab 90 MG PO BID Admission Information HPI (per Admitting provider): This is a 47-year-old female with medical history coronary artery disease with STEMI on 10/24/2017 status post PTCA, poorly controlled long-standing type 2 diabetes with severe artery pain and peripheral neuropathy, retinopathy , hypertension, hyperlipidemia with statin intolerance, ongoing tobacco usage(was stopped smoking 5 pack cigarettes a day; cut down to one half cigarettes a day after cardiac cath) Presented to ER with complaint of ongoing shortness of breath, dyspnea on exertion, decreased exercise tolerance, intermittent sharp chest pain This morning she noted to have sharp pain on the left precordial area with no radiation Took sublingual nitro with improvement During my time of interview patient was completely, no evidence of hypoxia, SPO2 95% on room air Blood sugar more than 400/with acute renal failure creatinine 1.24 baseline creatinine 0.7 on 10/25/2017 Physical Exam (per Admitting): General Appearance: + pertinent finding Head: normocephalic (Chronically ill-appearing), atraumatic Eyes: normal inspection, sclerae normal ENT: + pertinent finding (Dry oral mucosa) Neck: no JVD, no carotid bruits Respiratory/Chest: no respiratory distress, + decreased breath sounds Cardiovascular: regular rate, rhythm, no edema, no JVD Abdomen/GI: normal bowel sounds, non tender, soft Extremities/Musculoskelatal: normal inspection, normal capillary refill, no pedal edema Neurologic/Psych: alert, normal mood/affect, oriented x 3 Hospital Course 47-year-old poorly controlled diabetic who is an active smoker with known coronary artery disease status post cath last month with 2 bare-metal stents placed presents with worsening chest pain and shortness of breath. The patient reports that shortness of breath has been ongoing since her heart catheterization in early September. Her chest pain began suddenly the day prior to arrival and has since resolved after some nitro in the ER. She remained pain- free since admission. She denied any history of weight gain. She underwent a cardiac catheterization with solumedrol and benadryl as premedication for her contrast allergy. CAth revealed no in-stent stenosis or new disease to explain her symptoms. She was discharged in stable condition after cleared by PT and OT to safely return home. Physical exam on day of discharge was unremarkable- cath site was clean, dry and healing well. She was adamantly encouraged to quit smoking and after she reported intolerance to all kinds of cessation methods, we discussed the possibility of utilizing the smoking cessation class here at the hospital, which she said she would consider. 1. Chest pain-recent h/o stenting and patient is an active smoker with uncontrolled diabetes. Serial cardiac enzymes are negative. No EKG changes, echocardiogram shows wall motion abnormality consistent with prior left heart catheterization. Cardiology recommends repeat left heart catheterization which did not reveal any acute changes. Nitro/morphine PRN. Cont medical management with aspirin, Brilinta, Lopressor, lisinopril, and pravastatin. Of note patient has statin intolerance history. 2. Dyspnea-chest x-ray is clear, possibly related to worsening heart disease. Of note patient has no orthopnea, weight gain, leg swelling or conversational dyspnea. Likely related to smoking 5 packs of cigarettes daily. 3. Contrast allergy-premedicate with steroids. However, patient is allergic to steroids so will premedicate steroid with Benadryl. 4. Tobacco abuse-patient used to smoke 5 packs of cigarettes per day and is now down to a pack and a half per day after her catheterization. She was strongly encouraged to quit smoking. She has a contact dermatitis to NicoDerm and states this does not work. She has tried Chantix and this was unsuccessful for her to. She continues to contemplate quitting which is strongly recommended. 5. Poorly controlled type 2 diabetes mellitus-continue insulin sliding scale with carb coverage and Lantus while hospitalized. Recent A1c is above 12. Patient will need close follow-up with primary care doc on discharge to gain control of this especially in setting of CAD. Appreciate pharmacy recommendations 6. AK I-resolved. 7. Hypertriglyceridemia-patient has a history of statin intolerance aside from current use of pravastatin. Triglycerides are greater than 550. Would recommend fenofibrate therapy however patient has multiple allergies. Defer this to cardiology or outpatient primary manager critical care unit. 8. Hypertension-blood pressure controlled, continue KALLI inhibitor therapy. DVT prophylaxis-SCDs in setting of upcoming procedure Full code Disposition- to home with home health for continued PT and OT. Vannesa Cain DO [facility] Hospitalist Total time spent on discharge = 60 minutes This includes examination of the patient, discharge planning, medication reconciliation, and communication with other providers. Discharge Instructions [facility] [address] [facility] [id number] Dis[facility] Medical Patient Name: Sheila Kang Unit Number: [id number] Date of : 1970 Patient Status: Admitted Inpatient Attending Doctor: Vannesa Cain DO DI: Medical v5 Discharge Instructions Date of Service November 30, 2017. Admission Reason for Admission: Abnormal Ekg, Chest Pain, Hyperglycemia Discharge Discharge Diagnosis / Problem: chest pain-resolved, CAD, uncontrolled DMII. Discharge Goals Goal(s): Improve function, Improve disease control, Prevent Disease Progression Activity Recommendations Activity Limitations: per Instructions/Follow-up section . Instructions / Follow-Up Instructions / Follow-Up Please continue all medications as instructed on discharge list. Please follow-up with [facility] clinic for diabetic follow-up within 1 week of discharge. A more frequent follow-up is recommended (every 2-4 weeks) until sugars are more controlled and your hemoglobin A1C comes down. You have a follow-up appointment from this hospitalization with SAMIA Herman on 12/06 at 11:25 AM. Please bring all hospitalization paperwork with you to this appointment. Per our discussion on the smoking cessation class offered at [facility], please contact Deann Hernandez at for more information. It was a pleasure taking care of you! Call if you have any questions or problems. You can reach a [facility] hospitalist on duty at [facility] 24 hours a day by calling [phone]. Take care of yourself. Vannesa Cain DO [facility] Hospitalist Current Hospital Diet Patient's current hospital diet: AHA Diet (Heart Healthy), Diabetes Type 2 Diet Discharge Diet Recommended Diet: AHA Diet (Heart Healthy), Diabetes Type 2 Diet Procedures Procedures Performed: Left heart catheterization Pending Studies Studies pending at discharge: yes List of pending studies: PReliminary blood cultures are negative with final readings pending at discharge. Laboratory Results Hemoglobin A1c Test 11/28/17 12:10 Range/Units Estimated Average Glucose 324 mg/dl Hemoglobin A1c 12.9 H 4.5-5.6 % Lipid Panel Test 11/29/17 07:16 Range/Units Triglycerides Level 529 H 0-150 mg/dl Cholesterol Level 216 H 0-200 mg/dl HDL Cholesterol 32 mg/dl Cholesterol/HDL Ratio 6.8 LDL Cholesterol, Calculated mg/dl Medical Emergencies . Who to Call and When: Medical Emergencies: If at any time you feel your situation is an emergency, please call 911 immediately. . Non-Emergent Contact Non-Emergency issues call your: Primary Care Provider, Court Supervisor . . "Provider Documentation" section prepared by Vannesa Cain. . Additional Copies To Gayla Palafox PA-C
[2017-11-30] MEDS ORDERED: DC IV INSULIN INFUSION ONE (19:00)
[2017-11-30] MEDS ORDERED: INSULIN HUMAN NPH SC SCH (20:00)
[2017-12-01] MEDS ORDERED: INSULIN ASPART 100 UNITS/ML 3 ML PEN SC SCH
== END 2017-11-30 18:59 | disposition home health service (06) | DRG 313 ==
LOC: C.EDC 11:23 → EDBD 11:23 → C.2T 13:17 → EDBEDREQ 13:21 → ENRESERV 13:36
PROVIDERS: ADMIT Hospitalist; ATTEND Hospitalist
PROC: B211Y10 Fluoroscopy of Multiple Coronary Arteries using Other Contrast, Laser Intraoperative (ICD-10-PCS; principal; 2017-11-30 09:30)
DX: R07.9 Chest pain, unspecified (principal); N17.9 Acute kidney failure, unspecified; K21.9 Gastro-esophageal reflux disease without esophagitis; I12.9 Hypertensive chronic kidney disease with stage 1 through stage 4 chronic kidney disease, or unspecified chronic kidney disease; I25.10 Atherosclerotic heart disease of native coronary artery without angina pectoris; I25.2 Old myocardial infarction; G47.33 Obstructive sleep apnea (adult) (pediatric); E11.65 Type 2 diabetes mellitus with hyperglycemia; N18.3 Chronic kidney disease, stage 3 (moderate); E78.5 Hyperlipidemia, unspecified; F32.9 Major depressive disorder, single episode, unspecified; E11.40 Type 2 diabetes mellitus with diabetic neuropathy, unspecified; F17.210 Nicotine dependence, cigarettes, uncomplicated; Z79.4 Long term (current) use of insulin; Z79.82 Long term (current) use of aspirin; Z79.899 Other long term (current) drug therapy; Z83.3 Family history of diabetes mellitus; Z88.5 Allergy status to narcotic agent; Z88.8 Allergy status to other drugs, medicaments and biological substances; Z91.041 Radiographic dye allergy status

== ENCOUNTER 2020-02-24 01:08 | Inpatient (IN) ==
[2020-02-24] MEDS ORDERED: HYDROmorphone INJ 1 MG/ML SYRINGE IV STA (01:25)
--- NOTE | 2020-02-24 01:31 | Emergency Department Note ---
Impression & Plan Blister of foot, left, infected, Failure of outpatient treatment ED Provider Note Name: RAIN FRANKLIN Age: 49 Sex: F Arrives Via: Walk-In Informant: Patient ED Provider: Ayaan Mckinney MD Chief Complaint: Left foot infection Impression: Blister of foot, left, infected Failure of outpatient treatment Medical Decision Makin yr old female with DMi/CAD, and chronic wounds on feet arrives with acutely worsening left foot wound now with spreading cellulitis up left leg to knee. Foot is quite swollen but no compartment syndrome. This is concerning as she is currently already on Augmentin. With history felt IV abx indicated and patient agreeable to this. She is not septic and is breathing comfortably. Hospitalist in to evaluate further. I will note that exam not consistent with DVT. Furthermore right foot infection I had seen her for 2 weeks ago is much improved (for what she is on Augmentin). Prior Medical Record and Triage/Nursing Notes reviewed by Me Additional history obtained from chart Differentials:Cellulitis, abscess, MRSA infection, DVT, necrotizing fasciitis, dermatitis, drug eruption, allergic reaction, as well as other pathologies. Vital Signs: reviewed and remarkable for no significant abnormalities Interventions: Saline lock, Dapto IV, Rocephin IV, dilaudid 1mg IV Labs:Reviewed and remarkable for hyperglycemia Imaging:Xray Results per my interpretation: 3 view left foot: soft tissue swelling, no clear osteo Consults:Dr Edmundo SANCHEZ Hospitalist Plan: Disposition:Hospitalization. Condition: Good Blood pressure:Normal.No Referral necessary Prescriptions:None PDMP: n/a History of Present Illness:49 / female with history DMII & CAD amongst others who has been dealing with chronic wounds on feet arrives for evaluation of left foot infection. Notes 2 weeks ago with infection right foot, initially on Doxy, switched to Augmentin for which she has been taking the last 1 week. Right foot has greatly improved. Admits she was hanging out at [facility] this week and started with left foot infection. Rapidly worsening over the last few days. Entire foot red, radiating up the leg and has associated groin pain. Notes she has had a fever a few days ago. She was seen at [place] ED today and started on Clinda, but due to worsening pain and redness she came to ED here for evaluation. Movement makes worse, rest makes better. No nausea, vomiting, cp, sob, nor other symptoms. Admits she was seen at [facility] after syncope last week which was felt to be due to heat stroke. No syncope since and states she has been feeling well. ROS: See above HPI for pertinent positives & negatives. A total of 10 systems reviewed and were otherwise negative. Past Medical History:See Below Past Surgical History:See Below Family History:See Below Social History:See Below Home Medications:See Below Allergies:See Below Vitals:Blood Pressure: 160/79, Pulse 93, RR 20, T 36.8C, O2 99% on RA Physical Exam: GENERAL: Patient is uncomfortable appearing and in moderate distress. EYES: No scleral icterus, unremarkable pupils. ENT: Mucous membranes moist, no nasal congestion. NECK: No masses appreciated, nomeningismus, trachea is midline. RESPIRATORY: No dyspnea. Clear to auscultation and equal bilaterally. No wheeze, no rhonchi. CARDIOVASCULAR: Regular rate and rhythm.No murmurs, rubs, gallops appreciated. GASTROINTESTINAL: Abdomen soft, non-tender, no peritonitis.Bowel sounds positive.No masses appreciated. BACK: No midline tenderness, no CVA tenderness EXTREMITIES: Swollen red left foot with blistering and ulceration bottom anterior foot, severe TTP, cap refill intact, pain with ROM. Redness and mild edema left lower leg from knee down. TTP left groin. Otherwise normal motion all extremities, no cyanosis, no edema. NEUROLOGIC: Alert and oriented, no acute motor or sensory deficits, no focal weakness, cranial nerves grossly intact. SKIN: No rash, no jaundice, no diaphoresis. PSYCH: Appropriate GCS: 15 ED Course: Times/Reassessments: Feeling better post pain meds. 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 Beliefs That Will Affect Care: None marital status: Current Living Situation: Spouse Current Living Situation Comment: lives with current occupational status: disabled Feels Safe at Home: Yes Childhood Exposure to Second-Hand Smoke: Yes caffeine: No during the past year weight has: decreased > 10 lbs Dental Care, Regularly: Yes Physical Activity Frequency: 3-4 Times per Week Seatbelt Use: sometimes Sunscreen Use: Yes Allergies Allergies Allergy/AdvReac Type Severity Reaction Status Date / Time Corticosteroids Allergy Severe STEROIDS-AN Verified 02/18/20 11:03 (Glucocorticoids) APHYLAXIS gabapentin Allergy Severe HIVES/SWELL Verified 02/18/20 11:03 ING Iodinated Contrast Media Allergy Severe FACIAL Verified 02/18/20 11:03 SWELLING nadolol Allergy Severe HIVES/SWELL Verified 02/18/20 11:03 ING shellfish derived Allergy Severe SWELLING Verified 02/18/20 11:03 albuterol Allergy Unknown Verified 02/24/20 01:36 aloe vera Allergy Unknown Verified 02/24/20 01:36 atorvastatin [From Lipitor] Allergy Unknown Verified 02/24/20 01:36 azithromycin [From Zithromax] Allergy Unknown Verified 02/24/20 01:36 barium sulfate Allergy Unknown Verified 02/24/20 01:36 beeswax Allergy Unknown Verified 02/24/20 01:36 blueberry Allergy Unknown Verified 02/24/20 05:25 carbidopa Allergy Unknown Verified 02/24/20 01:36 celecoxib [From Celebrex] Allergy Unknown Verified 02/24/20 01:36 dicyclomine Allergy Unknown Verified 02/24/20 01:36 fluoxetine [From Prozac] Allergy Unknown Verified 02/24/20 01:36 influenza virus vaccine ts Allergy Unknown Verified 02/24/20 01:36 [id number] (36 mos,up) [From Fluarix] insulin glargine Allergy Unknown Verified 02/24/20 01:36 [From Lantus U-100 Insulin] levofloxacin Allergy Unknown Verified 02/24/20 01:36 oxymorphone Allergy Unknown Verified 02/24/20 01:36 peach Allergy Unknown Verified 02/24/20 05:25 penicillin V Allergy Unknown Verified 02/24/20 01:36 prednisone Allergy Unknown Verified 02/24/20 01:36 rosuvastatin [From Crestor] Allergy Unknown Verified 02/24/20 01:36 strawberry Allergy Unknown Verified 02/24/20 05:25 sulfamethoxazole Allergy Unknown Verified 02/24/20 01:36 [From Bactrim] tomato Allergy Unknown Verified 02/24/20 01:36 trimethoprim [From Bactrim] Allergy Unknown Verified 02/24/20 01:36 cephalexin [From Keflex] AdvReac Severe YEAST Verified 02/18/20 11:03 INFECTION egg AdvReac Intermediate GI SYMPTOMS Verified 02/24/20 05:23 insulin detemir AdvReac Intermediate VOMITING Verified 02/18/20 11:03 meperidine AdvReac Intermediate BECOMES Verified 02/18/20 11:03 VIOLENT milk AdvReac Intermediate GI SYMPTOMS Verified 02/24/20 05:23 morphine AdvReac Intermediate BECOMES Verified 02/18/20 11:03 VIOLENT phenol AdvReac Intermediate VOMITING Verified 02/18/20 11:03 pregabalin AdvReac Intermediate AGITATION Verified 02/18/20 11:03 varenicline AdvReac Unknown HOMICIDAL Verified 02/18/20 11:03 IDEATION ARTIFICIAL SWEETENER Allergy Severe ANAPHYLAXIS Uncoded 02/18/20 11:03 ultrasound gel Allergy Intermediate HIVES Uncoded 02/18/20 11:03 gynemoistrin Allergy Unknown Uncoded 02/24/20 01:36 Home Meds Home Medications Medication Instructions Recorded Confirmed aspirin 81 mg PO HS 01/22/19 02/24/20 docusate sodium [Stool Softener] 100 mg PO AMPM 01/22/19 02/24/20 furosemide [Lasix] 20 mg PO DAILY PRN 01/22/19 02/24/20 nitroglycerin [Nitrostat] 0 mg SUBLINGUAL UD PRN 01/22/19 02/24/20 metoprolol succinate 25 mg PO DAILY 08/26/19 02/24/20 pantoprazole [Protonix] 40 mg PO DAILY 08/26/19 02/24/20 methocarbamol 500 mg PO TID 09/27/19 02/24/20 Fiber Choice Fruity Bites 1.5g 2 tab PO QAM PRN 02/18/20 02/24/20 melatonin 10 mg tablet 10 mg PO HS tab 02/18/20 02/24/20 blood sugar diagnostic #10 ea 02/19/20 02/19/20 diphenhydramine HCl 25 mg capsule 25 mg PO TID PRN 02/19/20 02/24/20 duloxetine 30 mg capsule,delayed 30 mg PO DAILY 02/19/20 02/24/20 release fenofibrate 160 mg tablet 160 mg PO DAILY 02/19/20 02/24/20 levalbuterol HCl 0.31 mg/3 mL 0.31 mg INH Q8H 02/19/20 02/24/20 solution for nebulization magnesium oxide 400 mg (241.3 mg 400 mg PO DAILY 02/19/20 02/24/20 magnesium) tablet naloxegol 12.5 mg tablet 12.5 mg PO QAM 02/19/20 02/24/20 potassium 99 mg tablet 99 mg PO DAILY tab 02/19/20 02/24/20 pravastatin 20 mg tablet 20 mg PO DAILY 02/19/20 02/24/20 promethazine 25 mg tablet 25 mg PO Q6H PRN 02/19/20 02/24/20 cinnamon bark-chromium picolinate 4 cap PO DAILY cap 02/20/20 02/24/20 500 mg-100 mcg capsule Previous Rx's Medication Instructions Recorded cadexomer iodine 0.9 % topical gel 40 g TOP DAILY 30 Days #40 gm 02/10/20 amoxicillin 875 mg-potassium 1 tab PO bid 14 Days #28 tab 02/13/20 clavulanate 125 mg tablet OneTouch Delica Lancets 33 gauge #400 ea NS 02/20/20 OneTouch Verio test strips #400 ea NS 02/20/20 Results & Data (ED) Vital Signs Vital Signs - 24 hr 02/24/20 01:13 02/24/20 03:01 02/24/20 03:30 Temperature 36.8 C Temperature Source Oral Pulse Rate 93 H 84 83 Pulse Rate from SpO2 Sensor 84 82 Respiratory Rate 20 14 16 Respiratory Effort / Characteristics Non-Labored Spontaneous Respiratory Depth Normal Blood Pressure 160/79 H 118/81 146/97 H Blood Pressure Mean 106 106 109 Pulse Oximetry 99 95 96 Oxygen Delivery Method Room Air Room Air Room Air Sepsis New/Unexplained Change in Mental Status N/A Sepsis Action Taken by Nursing No Action Required Laboratory Data Result diagrams: 02/24/20 01:53 02/24/20 01:53 Lab Results 02/24/20 02/24/20 02/24/20 Range/Units 01:40 01:53 01:53 WBC 12.76 H (4.8-10.8) K/uL RBC 4.24 (4.2-5.4) M/uL Hgb 13.9 (12.0-16.0) g/dL Hct 42.3 (37-47) % MCV 99.8 (80-100) fL MCH 32.8 (25-34) pg MCHC 32.9 (32-36) g/dL RDW Std Deviation 47.8 H (36.4-46.3) fL RDW Coeff of Eleazar 13.1 (11.5-14.5) % Plt Count 354 (130-400) K/uL MPV 10.3 (7.4-10.4) fL Immature Gran % (Auto) 0.2 % Neut % (Auto) 57.1 % Lymph % (Auto) 31.7 % [place] % (Auto) 5.2 % Eos % (Auto) 5.4 % Baso % (Auto) 0.4 % Neut # (Auto) 7.29 H (1.4-6.5) K/uL Lymph # (Auto) 4.05 H (1.2-3.4) K/uL [place] # (Auto) 0.66 H (0.11-0.59) K/uL Eos # (Auto) 0.69 H (0-0.5) K/uL Baso # (Auto) 0.05 (0-0.2) K/uL Immature Gran # (Auto) 0.02 (0.00-0.02) K/uL PT 10.1 (9.0-12.0) Seconds INR 1.0 (0.9-1.1) Sodium (136-145) mmol/L Potassium (3.5-5.1) mmol/L Chloride (98-107) mmol/L Carbon Dioxide (21-32) mmol/L Anion Gap (3-11) BUN (7-18) mg/dl Creatinine (0.6-1.2) mg/dl Est Cr Clr Drug Dosing Est GFR ( Amer) Est GFR (Non-Af Amer) BUN/Creatinine Ratio (10-20) Glucose (70-99) mg/dl Lactate (0.4-2.0) mmol/L Calcium (8.5-10.1) mg/dl Total Creatine Kinase (26-192) U/L Troponin I (0-0.045) ng/ml C-Reactive Protein (0-0.29) mg/dl Procalcitonin (0-0.5) ng/ml Urine Color Yellow Urine Appearance Clear (Clear) Urine pH 5.0 (4.5-7.5) Ur Specific Gordon 1.032 H (1.000-1.030) Urine Protein Negative (Negative) Urine Glucose (UA) 3+ H (Negative) Urine Ketones Negative (Negative) Urine Blood Negative (Negative) Urine Nitrite Negative (Negative) Urine Bilirubin Negative (Negative) Urine Urobilinogen Negative (Negative) Ur Leukocyte Esterase Negative (Negative) 02/24/20 02/24/20 02/24/20 Range/Units 01:53 01:53 02:20 WBC (4.8-10.8) K/uL RBC (4.2-5.4) M/uL Hgb (12.0-16.0) g/dL Hct (37-47) % MCV (80-100) fL MCH (25-34) pg MCHC (32-36) g/dL RDW Std Deviation (36.4-46.3) fL RDW Coeff of Eleazar (11.5-14.5) % Plt Count (130-400) K/uL MPV (7.4-10.4) fL Immature Gran % (Auto) % Neut % (Auto) % Lymph % (Auto) % [place] % (Auto) % Eos % (Auto) % Baso % (Auto) % Neut # (Auto) (1.4-6.5) K/uL Lymph # (Auto) (1.2-3.4) K/uL [place] # (Auto) (0.11-0.59) K/uL Eos # (Auto) (0-0.5) K/uL Baso # (Auto) (0-0.2) K/uL Immature Gran # (Auto) (0.00-0.02) K/uL PT (9.0-12.0) Seconds INR (0.9-1.1) Sodium 137 (136-145) mmol/L Potassium 4.1 (3.5-5.1) mmol/L Chloride 103 (98-107) mmol/L Carbon Dioxide 27 (21-32) mmol/L Anion Gap 7.0 (3-11) BUN 18 (7-18) mg/dl Creatinine 1.12 (0.6-1.2) mg/dl Est Cr Clr Drug Dosing Not Reportable Est GFR ( Amer) 65.9 Est GFR (Non-Af Amer) 56.8 BUN/Creatinine Ratio 15.7 (10-20) Glucose 275 H (70-99) mg/dl Lactate 1.3 (0.4-2.0) mmol/L Calcium 8.5 (8.5-10.1) mg/dl Total Creatine Kinase 76 (26-192) U/L Troponin I < 0.015 (0-0.045) ng/ml C-Reactive Protein 3.13 H (0-0.29) mg/dl Procalcitonin < 0.05 (0-0.5) ng/ml Urine Color Urine Appearance (Clear) Urine pH (4.5-7.5) Ur Specific Gordon (1.000-1.030) Urine Protein (Negative) Urine Glucose (UA) (Negative) Urine Ketones (Negative) Urine Blood (Negative) Urine Nitrite (Negative) Urine Bilirubin (Negative) Urine Urobilinogen (Negative) Ur Leukocyte Esterase (Negative) Administered Medications Discontinued Medications Hydromorphone HCl (Dilaudid) 1 mg IV NOW STA Stop: 02/24/20 01:26 Last Admin: 02/24/20 02:03 Dose: 1 mg Documented by: [id number] Daptomycin 300 mg/ Syringe 6 mls @ 3 mls/min IV NOW ONE; Protocol Stop: 02/24/20 02:39 Last Admin: 02/24/20 04:09 Dose: 3 mls/min Documented by: [id number] Ceftriaxone Sodium (Rocephin) 2,000 mg in 70 mls @ 140 mls/hr IV NOW STA Stop: 02/24/20 03:07 Last Infusion: 02/24/20 03:57 Dose: 0 mls/hr Documented by: [id number] Admin: 02/24/20 03:21 Dose: 140 mls/hr Documented by: [id number] Promethazine HCl (Phenergan) Confirm Administered Dose 25 mg .ROUTE .STK-MED ONE Stop: 02/24/20 04:05 Last Admin: 08/03/20 04:08 Dose: 25 mg Documented by: [id number] Discharge Plan Visit Data *Final* Discharge Date/Time: 02/24/20 04:50 Chief Complaint: Swelling/Edema to Extremity Stated Complaint: LEFT LEG/FOOT SWELLING,OPEN SORE ON FOOT ED Provider: Ayaan Mckinney Discharge Problem: Blister of foot, left, infected, Failure of outpatient treatment Patient Disposition: Admitted As Inpatient Discharge Instructions Interventions: ED Discharge Assessment Last Done: 02/24/20 04:50 Discharge Problem: Blister of foot, left, infected Qualifiers: Encounter type: initial encounter Qualified Code(s): S90.822A - Blister (nonthermal), left foot, initial encounter
[2020-02-24 02:06] LABS: Basophils # (auto) 0.05 K/uL (0-0.2); Basophils % (auto) 0.4 %; Eosinophils # (auto) 0.69 K/uL (0-0.5); Eosinophils % (auto) 5.4 %; Hematocrit (blood only) 42.3 % (37-47); Hemoglobin 13.9 g/dL (12.0-16.0); Immature Granulocytes # (auto) 0.02 K/uL (0.00-0.02); Immature Granulocytes % (auto) 0.2 %; Lymphocytes # (auto) 4.05 K/uL (1.2-3.4); Lymphocytes % (auto) 31.7 %; Mean Corpuscular Hemoglobin 32.8 pg (25-34); Mean Corpuscular Hgb Conc 32.9 g/dL (32-36); Mean Corpuscular Volume 99.8 fL (80-100); Mean Platelet Volume 10.3 fL (7.4-10.4); Monocytes # (auto) 0.66 K/uL (0.11-0.59); Monocytes % (auto) 5.2 %; Neutrophils # (auto) 7.29 K/uL (1.4-6.5); Neutrophils % (auto) 57.1 %; Platelet Count 354 K/uL (130-400); RDW Coefficient of Variation 13.1 % (11.5-14.5); RDW Standard Deviation 47.8 fL (36.4-46.3); Red Blood Count 4.24 M/uL (4.2-5.4); White Blood Count 12.76 K/uL (4.8-10.8)
[2020-02-24 02:10] LABS: Appearance Urine Clear (Clear); Bilirubin Urine Negative (Negative); Blood Urine Negative (Negative); Color Urine Yellow; Glucose Urine UA 3+ (Negative); Ketones Urine Negative (Negative); Leukocyte Esterase Urine Negative (Negative); Nitrite Urine Negative (Negative); Protein Urine Negative (Negative); Specific Gravity Urine 1.032 (1.000-1.030); Urobilinogen Urine Negative (Negative)
[2020-02-24 02:15] LABS: Prothrombin Time 10.1 Seconds (9.0-12.0)
[2020-02-24 02:21] LABS: BUN Creatinine Ratio 15.7 (10-20); Blood Urea Nitrogen 18 mg/dl (7-18); Calcium 8.5 mg/dl (8.5-10.1); Carbon Dioxide 27 mmol/L (21-32); Chloride 103 mmol/L (98-107); Est GFR (African American) 65.9; Est GFR (Non-African American) 56.8; Glucose 275 mg/dl (70-99); Potassium 4.1 mmol/L (3.5-5.1); Sodium 137 mmol/L (136-145)
[2020-02-24 02:26] LABS: C Reactive Protein 3.13 mg/dl (0-0.29); Creatine Kinase 76 U/L (26-192); Troponin I < 0.015 ng/ml (0-0.045)
[2020-02-24] MEDS ORDERED: DAPTOmycin 300 MG in SYRINGE 0 ML IV ONE (02:38)
[2020-02-24] MEDS ORDERED: DAPTOMYCIN CONSULT ACTIVE PRN (02:38)
[2020-02-24] MEDS ORDERED: cefTRIAXone SODIUM 2,000 MG/70 ML BAG IV STA (02:38)
--- NOTE | 2020-02-24 03:50 | History & Physical Report ---
Date of Service February 24, 2020 Assessment & Plan (1) Wound of foot: 49yo female with DM, neuropathy, wound on LLE with cellulitis. Afebrile, HD stable, non-toxic in appearance, +Leukocytosis with WBC=12.76 -Observation to medical floor -Follow culture results -Daptomycin and Zosyn -Monitor redness of site for progression -Wound Care consultation appreciated -Iodosorb topical -Check GIANCARLO - patient with poor wound healing Present on Admission?: Yes (2) Dyslipidemia: Chronic. Stable. -Continue Fenofibrate -Hold Statin while on Daptomycin Present on Admission?: Yes (3) Uncontrolled type 2 diabetes mellitus with neurologic complication, with long-term current use of insulin: Elevated blood sugar today to 275. Last PzSV1C=3.5. Patient follows with Endocrinology. Last seen on 02/20/20 -Lantus 10u BID -ISS with CF=30, CR=10. Goal blood sugar 100- 140 Present on Admission?: Yes (4) Coronary artery disease: History of CAD s/p NSTEMI in 2017, PCI to RCA and OM. Patient denies CP. Troponin unremarkable. EKG with no acute ischemic changes. -Continue ASA 81mgpo daily -Continue Metoprolol 25mg po daily -Holding statin while on Daptomycin Present on Admission?: Yes (5) Depression: Chronic. Stable -Continue Duloxetine 30mg po daily Present on Admission?: Yes (6) Chronic pain: Patient with chronic pain -Continue Methocarbamol 500mg po TID -Continue Naloxegol 12.5mg po daily Present on Admission?: Yes (7) Hypertension: Blood pressure mildly elevated at 160/79 -Continue Metoprolol 25mg po daily -Continue to monitor Present on Admission?: Yes (8) Gastroparesis: Chronic nausea, abdominal pain -Continue Protonix -Continue Phenergan F/E/N - Heplock. Continue PO Magnesium oxide. CC/AHA diet as tolerated Ppx -Lovenox Code - DNR/DNI Dispo - Observation to medical floor Present on Admission?: Yes History of Present Illness Chief Complaint: LLE Ulcer Primary Care Provider: Dion Alas MD Sheila Kang is a 49yo female with multiple medical problems to include DM, HTN, CAD s/p NSTEMI in 2017 with PCI to RCA and OM. Patient presents today with wound on plantar surface of left foot. She reports that this wound was discovered 7 days ago at [facility]. She was at [facility] when she had a syncopal event. She was seen at [facility] and told it was her heart. During that hospital stay she reports that her left sock was caked with blood. When they removed her sock she was found to have a large bleeding wound. Patient does not recall injuring her foot. She does not recall burning her foot or walking on hot pavement. She did walk across hot sand but says it was just for a few feet. She ultimately left [facility] AMA before a full cardiac workup could be completed. Since then, her has been changing the dressing on her left foot. He has been applying Aquacel and a padded dressing then wrapping it. They report that there is always drainage on the bandages and that the wound frequently bleeds. Today she developed swelling of her left foot and leg with pain and streaking radiating up into her thigh. Also with blisters on the lateral dorsal aspect of her foot. She denies fevers but has had some chills. She has baseline nausea and abdominal pain from her diabetic gastroparesis but denies acute worsening of these issues. She has occasional episodes of SOB which, again, is not new or worsened. Otherwise, patient with no new complaints. ER Course: Daptomycin, Ceftriaxone, Dilaudid Allergies Allergy/AdvReac Type Severity Reaction Status Date / Time Corticosteroids Allergy Severe STEROIDS-AN Verified 02/18/20 11:03 (Glucocorticoids) APHYLAXIS gabapentin Allergy Severe HIVES/SWELL Verified 02/18/20 11:03 ING Iodinated Contrast Media Allergy Severe FACIAL Verified 02/18/20 11:03 SWELLING nadolol Allergy Severe HIVES/SWELL Verified 02/18/20 11:03 ING shellfish derived Allergy Severe SWELLING Verified 02/18/20 11:03 egg Allergy Intermediate GI SYMPTOMS Verified 02/18/20 11:03 milk Allergy Intermediate GI SYMPTOMS Verified 02/18/20 11:03 albuterol Allergy Unknown Verified 02/24/20 01:36 aloe vera Allergy Unknown Verified 02/24/20 01:36 atorvastatin [From Lipitor] Allergy Unknown Verified 02/24/20 01:36 azithromycin [From Zithromax] Allergy Unknown Verified 02/24/20 01:36 barium sulfate Allergy Unknown Verified 02/24/20 01:36 beeswax Allergy Unknown Verified 02/24/20 01:36 carbidopa Allergy Unknown Verified 02/24/20 01:36 celecoxib [From Celebrex] Allergy Unknown Verified 02/24/20 01:36 dicyclomine Allergy Unknown Verified 02/24/20 01:36 duloxetine [From Cymbalta] Allergy Unknown Verified 02/24/20 01:36 fluoxetine [From Prozac] Allergy Unknown Verified 02/24/20 01:36 influenza virus vaccine ts Allergy Unknown Verified 02/24/20 01:36 [id number] (36 mos,up) [From Fluarix] insulin glargine Allergy Unknown Verified 02/24/20 01:36 [From Lantus U-100 Insulin] levofloxacin Allergy Unknown Verified 02/24/20 01:36 oxymorphone Allergy Unknown Verified 02/24/20 01:36 pantoprazole Allergy Unknown Verified 02/24/20 01:36 penicillin V Allergy Unknown Verified 02/24/20 01:36 prednisone Allergy Unknown Verified 02/24/20 01:36 rosuvastatin [From Crestor] Allergy Unknown Verified 02/24/20 01:36 sulfamethoxazole Allergy Unknown Verified 02/24/20 01:36 [From Bactrim] tomato Allergy Unknown Verified 02/24/20 01:36 trimethoprim [From Bactrim] Allergy Unknown Verified 02/24/20 01:36 cephalexin [From Keflex] AdvReac Severe YEAST Verified 02/18/20 11:03 INFECTION insulin detemir AdvReac Intermediate VOMITING Verified 02/18/20 11:03 meperidine AdvReac Intermediate BECOMES Verified 02/18/20 11:03 VIOLENT morphine AdvReac Intermediate BECOMES Verified 02/18/20 11:03 VIOLENT phenol AdvReac Intermediate VOMITING Verified 02/18/20 11:03 pregabalin AdvReac Intermediate AGITATION Verified 02/18/20 11:03 varenicline AdvReac Unknown HOMICIDAL Verified 02/18/20 11:03 IDEATION ARTIFICIAL SWEETENER Allergy Severe ANAPHYLAXIS Uncoded 02/18/20 11:03 ultrasound gel Allergy Intermediate HIVES Uncoded 02/18/20 11:03 blueberries Allergy Unknown Uncoded 02/24/20 01:36 gynemoistrin Allergy Unknown Uncoded 02/24/20 01:36 peaches Allergy Unknown Uncoded 02/24/20 01:36 strawberries Allergy Unknown Uncoded 02/24/20 01:36 Home Medications Home Medications Medication Instructions Recorded Confirmed Type aspirin 81 mg PO HS 01/22/19 02/24/20 History docusate sodium [Stool Softener] 100 mg PO AMPM 01/22/19 02/24/20 History furosemide [Lasix] 20 mg PO DAILY PRN 01/22/19 02/24/20 History nitroglycerin [Nitrostat] 0 mg SUBLINGUAL UD PRN 01/22/19 02/24/20 History metoprolol succinate 25 mg PO DAILY 08/26/19 02/24/20 History pantoprazole [Protonix] 40 mg PO DAILY 08/26/19 02/24/20 History methocarbamol 500 mg PO TID 09/27/19 02/24/20 History cadexomer iodine 0.9 % topical gel 40 g TOP DAILY 30 Days #40 gm 02/10/20 02/24/20 Rx amoxicillin 875 mg-potassium 1 tab PO bid 14 Days #28 tab 02/13/20 02/24/20 Rx clavulanate 125 mg tablet Fiber Choice Fruity Bites 1.5g 2 tab PO QAM PRN 02/18/20 02/24/20 History melatonin 10 mg tablet 50 mg PO HS tab 02/18/20 02/24/20 History blood sugar diagnostic #10 ea 02/19/20 02/19/20 History diphenhydramine HCl 25 mg capsule 25 mg PO TID PRN 02/19/20 02/24/20 History duloxetine 30 mg capsule,delayed 30 mg PO DAILY 02/19/20 02/24/20 History release fenofibrate 160 mg tablet 160 mg PO DAILY 02/19/20 02/24/20 History levalbuterol HCl 0.31 mg/3 mL 0.31 mg INH Q8H 02/19/20 02/24/20 History solution for nebulization magnesium oxide 400 mg (241.3 mg 400 mg PO DAILY 02/19/20 02/24/20 History magnesium) tablet naloxegol 12.5 mg tablet 12.5 mg PO QAM 02/19/20 02/24/20 History potassium 99 mg tablet 99 mg PO DAILY tab 02/19/20 02/24/20 History pravastatin 20 mg tablet 20 mg PO DAILY 07/29/20 08/03/20 History promethazine 25 mg tablet 25 mg PO Q6H PRN 02/19/20 02/24/20 History OneTouch Delica Lancets 33 gauge #400 ea NS 02/20/20 02/20/20 Rx OneTouch Verio test strips #400 ea NS 02/20/20 02/20/20 Rx cinnamon bark-chromium picolinate 4 cap PO DAILY cap 02/20/20 02/24/20 History 500 mg-100 mcg capsule Past Med/Surg History Family History (Updated 02/20/20 @ 08:24 by Melanie Deng) Grandmother (Paternal) Diabetes Father Diabetes Uncle Diabetes Hypothyroidism Cancer Stroke Mother Coronary heart disease Heart disease Social History Smoking Status: Current every day smoker Tobacco Type: Cigarettes Age Started Using Tobacco: 13; Cigarettes Per Day: 20; Hx Alcohol Use: No Hx Substance Use: No Preferred Language: Romansh Communication Ability: Effective Communication Tools: Letter Board, Picture Board and Facial Expression Visual Impairment: Limited Hearing Ability: Normal Surgical Assistant Required: No Beliefs That Will Affect Care: Orthodox marital status: Current Living Situation: Spouse Current Living Situation Comment: lives with current occupational status: disabled Feels Safe at Home: Yes Childhood Exposure to Second-Hand Smoke: Yes caffeine: No during the past year weight has: decreased > 10 lbs Dental Care, Regularly: Yes Physical Activity Frequency: 3-4 Times per Week Seatbelt Use: sometimes Sunscreen Use: Yes Review of Systems Review of Systems: All systems reviewed & are unremarkable except as noted in HPI & below Physical Exam Physical Exam: General: patient resting comfortably, NAD, non-toxic in appearance, AA&O x 4 Skin: warm, dry, wound on medial aspect of right great toe with eschar, no bleeding/drainage/malodor, large well circumscribed wound on dorsal surface of left foot with serous drainage, redness of dorsum of right foot with visible streaking to knee on medial side HEENT: NC/AT, PERRL, EOMI, anicteric sclera, conjunctiva without injection, external ear normal to inspection and nontender, nares patent, moist mucus membranes, edentulous, no oropharyngeal lesions, neck supple, trachea midline, no LAD, no thyromegaly, no JVD Heart: +S1/S2, regular, no m/r/g Lungs: equal air entry bilaterally, no rales/rhonchi/wheezes Abd: +BS, soft, ND, diffusely tender with deep palpation, no r ebound/guarding/peritoneal signs, no masses/organomegaly/ascites Ext: warm, 2+ pulses in UE, 1+ pulses in LE bilaterally, skin on legs is red/shiny/hairless, +edema of left foot, redness of foot with streaking as above, small blisters on lateral aspect of left foot Neuro: nonfocal, patient AA&O x 4, speech intact, no facial droop, moving all extremities on command with equal strength 5/5, +neuropathy of bilateral LE Results & Data Results & Data ([facility]) Vital Signs (Past 12 Hours) Vital Signs Temp Pulse Resp BP Pulse Ox 02/24/20 01:13 36.8 C 93 H 20 160/79 H 99 Laboratory Results Lab Results 02/24/20 02/24/20 02/24/20 Range/Units 01:40 01:53 01:53 WBC 12.76 H (4.8-10.8) K/uL RBC 4.24 (4.2-5.4) M/uL Hgb 13.9 (12.0-16.0) g/dL Hct 42.3 (37-47) % MCV 99.8 (80-100) fL MCH 32.8 (25-34) pg MCHC 32.9 (32-36) g/dL RDW Std Deviation 47.8 H (36.4-46.3) fL RDW Coeff of Eleazar 13.1 (11.5-14.5) % Plt Count 354 (130-400) K/uL MPV 10.3 (7.4-10.4) fL Immature Gran % (Auto) 0.2 % Neut % (Auto) 57.1 % Lymph % (Auto) 31.7 % Frio % (Auto) 5.2 % Eos % (Auto) 5.4 % Baso % (Auto) 0.4 % Neut # (Auto) 7.29 H (1.4-6.5) K/uL Lymph # (Auto) 4.05 H (1.2-3.4) K/uL Frio # (Auto) 0.66 H (0.11-0.59) K/uL Eos # (Auto) 0.69 H (0-0.5) K/uL Baso # (Auto) 0.05 (0-0.2) K/uL Immature Gran # (Auto) 0.02 (0.00-0.02) K/uL PT 10.1 (9.0-12.0) Seconds INR 1.0 (0.9-1.1) Sodium (136-145) mmol/L Potassium (3.5-5.1) mmol/L Chloride (98-107) mmol/L Carbon Dioxide (21-32) mmol/L Anion Gap (3-11) BUN (7-18) mg/dl Creatinine (0.6-1.2) mg/dl Est Cr Clr Drug Dosing Est GFR ( Amer) Est GFR (Non-Af Amer) BUN/Creatinine Ratio (10-20) Glucose (70-99) mg/dl Lactate (0.4-2.0) mmol/L Calcium (8.5-10.1) mg/dl Total Creatine Kinase (26-192) U/L Troponin I (0-0.045) ng/ml C-Reactive Protein (0-0.29) mg/dl Procalcitonin (0-0.5) ng/ml Urine Color Yellow Urine Appearance Clear (Clear) Urine pH 5.0 (4.5-7.5) Ur Specific [place] 1.032 H (1.000-1.030) Urine Protein Negative (Negative) Urine Glucose (UA) 3+ H (Negative) Urine Ketones Negative (Negative) Urine Blood Negative (Negative) Urine Nitrite Negative (Negative) Urine Bilirubin Negative (Negative) Urine Urobilinogen Negative (Negative) Ur Leukocyte Esterase Negative (Negative) 02/24/20 02/24/20 02/24/20 Range/Units 01:53 01:53 02:20 WBC (4.8-10.8) K/uL RBC (4.2-5.4) M/uL Hgb (12.0-16.0) g/dL Hct (37-47) % MCV (80-100) fL MCH (25-34) pg MCHC (32-36) g/dL RDW Std Deviation (36.4-46.3) fL RDW Coeff of Eleazar (11.5-14.5) % Plt Count (130-400) K/uL MPV (7.4-10.4) fL Immature Gran % (Auto) % Neut % (Auto) % Lymph % (Auto) % Frio % (Auto) % Eos % (Auto) % Baso % (Auto) % Neut # (Auto) (1.4-6.5) K/uL Lymph # (Auto) (1.2-3.4) K/uL Frio # (Auto) (0.11-0.59) K/uL Eos # (Auto) (0-0.5) K/uL Baso # (Auto) (0-0.2) K/uL Immature Gran # (Auto) (0.00-0.02) K/uL PT (9.0-12.0) Seconds INR (0.9-1.1) Sodium 137 (136-145) mmol/L Potassium 4.1 (3.5-5.1) mmol/L Chloride 103 (98-107) mmol/L Carbon Dioxide 27 (21-32) mmol/L Anion Gap 7.0 (3-11) BUN 18 (7-18) mg/dl Creatinine 1.12 (0.6-1.2) mg/dl Est Cr Clr Drug Dosing Not Reportable Est GFR ( Amer) 65.9 Est GFR (Non-Af Amer) 56.8 BUN/Creatinine Ratio 15.7 (10-20) Glucose 275 H (70-99) mg/dl Lactate 1.3 (0.4-2.0) mmol/L Calcium 8.5 (8.5-10.1) mg/dl Total Creatine Kinase 76 (26-192) U/L Troponin I < 0.015 (0-0.045) ng/ml C-Reactive Protein 3.13 H (0-0.29) mg/dl Procalcitonin < 0.05 (0-0.5) ng/ml Urine Color Urine Appearance (Clear) Urine pH (4.5-7.5) Ur Specific [place] (1.000-1.030) Urine Protein (Negative) Urine Glucose (UA) (Negative) Urine Ketones (Negative) Urine Blood (Negative) Urine Nitrite (Negative) Urine Bilirubin (Negative) Urine Urobilinogen (Negative) Ur Leukocyte Esterase (Negative) Diagnostic Findings CXR - no acute process. Formal read pending X-ray left foot - no gas, no fracture. Formal read pending. PG Care Time/CCT Total # of Minutes Spent Total Time Spent with Patient: Total time spent is greater than 50% in coordination of care (as documented) at patient's floor/unit and/or counseling patient: Coding Level of Care Code 37309 OBS Care - Level 3 Diagnoses Wound of foot S91.309A Dyslipidemia E78.5 Uncontrolled type 2 diabetes mellitus with neurologic complication, with long- term current use of insulin E11.49; E11.65; Z79.4 Coronary artery disease I25.10 Coronary Disease-Associated Artery/Lesion type: [place] artery [place] vs. transplanted heart: [place] heart Associated angina: without angina Depression F32.9 Depression Type: major depressive disorder Major depression recurrence: unspecified whether recurrent Active/Remission status: remission status unspecified Chronic pain G89.29 Chronic pain type: other chronic pain Hypertension I10 Hypertension type: essential hypertension Gastroparesis K31.84 (1) Chronic pain Chronic pain type: other chronic pain Qualified Code(s): G89.29 - Other chronic pain (2) Coronary artery disease Coronary Disease-Associated Artery/Lesion type: [place] artery [place] vs. transplanted heart: [place] heart Associated angina: without angina Qualified Code(s): I25.10 - Atherosclerotic heart disease of [place] coronary artery without angina pectoris (3) Depression Depression Type: major depressive disorder Major depression recurrence: unspecified whether recurrent Active/Remission status: remission status unspecified Qualified Code(s): F32.9 - Major depressive disorder, single episode, unspecified (4) Hypertension Hypertension type: essential hypertension Qualified Code(s): I10 - Essential (primary) hypertension
[2020-02-24] MEDS ORDERED: PROMETHAZINE HCL 25 MG TAB ONE (04:04)
[2020-02-24] MEDS ORDERED: GLUCAGON FOR INJ 1 MG VIAL SQ PRN (05:17)
[2020-02-24] MEDS ORDERED: ACETAMINOPHEN 325 MG TAB PO PRN (05:17)
[2020-02-24] MEDS ORDERED: GLUCOSE 10 TABS/TUBE PO PRN (05:17)
[2020-02-24] MEDS ORDERED: PIPERACILL/TAZOBAC CONSULT ACTIVE PRN (05:17)
[2020-02-24] MEDS ORDERED: CARBOHYDRATES FOR HYPOGLYCEMIA PO PRN (05:17)
[2020-02-24] MEDS ORDERED: GLUCOSE 40% GEL 15 GM TUBE PO PRN (05:17)
[2020-02-24] MEDS ORDERED: PROMETHAZINE HCL 25 MG TAB PO PRN (05:17)
[2020-02-24] MEDS ORDERED: DEXTROSE 50% 50 ML SYRINGE IV PRN (05:17)
[2020-02-24] MEDS ORDERED: PIPERACILLIN/TAZOBACTAM 3.375 GM in DEXTROSE 5% 100 ML IV ONE (05:45)
--- NOTE | 2020-02-24 06:28 | XRay Report ---
XR chest 1V portable CLINICAL HISTORY: syncope mental status change COMPARISON STUDY: 09/27/2019 FINDINGS: The bones soft tissues and hemidiaphragms are normal. The cardiomediastinal silhouette is n ormal. The lungs are clear. The pulmonary vasculature is normal. IMPRESSION: Negative chest. ACT 112: Negative or not required by law. The above report was generated using voice recognition software. It may contain grammatical, syntax or spelling errors. Electronically signed by: Braxton Gonzalez M.D. 02/24/2020 6:27 AM
--- NOTE | 2020-02-24 06:30 | XRay Report ---
XR foot LT min 3V routine CLINICAL HISTORY: left foot infection COMPARISON: None. DISCUSSION: The bones and joint spaces appear intact. There is no evidence of fracture, dislocation o r bony disease. There is no evidence for soft tissue swelling. IMPRESSION: Negative study. ACT 112: Negative or not required by law. The above report was generated using voice recognition software. It may contain grammatical, syntax or spelling errors. Electronically signed by: Braxton Gonzalez M.D. 02/24/2020 6:28 AM
[2020-02-24 06:38] LABS: Magnesium 2.2 mg/dl (1.8-2.4); Phosphorus 3.7 mg/dl (2.5-4.9)
--- NOTE | 2020-02-24 07:22 | Ultrasound Report ---
Ankle-brachial indices HISTORY: Ulcer. Nonhealing wounds. FINDINGS: Right ankle brachial index involving posterior tibial artery is 0.71. Dorsalis pedis is 1.1 8. Left ankle-brachial index involving the posterior tibial is 1.07. Dorsalis pedis is 1.01 IMPRESSION: 1. Moderate arterial occlusive change right leg. 2. Normal indices left leg. Electronically signed by: Braxton Gonzalez M.D. 02/24/2020 7:20 AM
[2020-02-24] MEDS: LEVALBUTEROL 0.31MG/3 ML VIAL INH SCH ×3 (07:23→23:09)
[2020-02-24] MEDS ORDERED: IBUPROFEN 200 MG TAB PO STA (08:20)
[2020-02-24] MEDS: FENOFIBRATE~ORDER AWAITING ACTION SCH ×3 (08:49→23:57)
[2020-02-24] MEDS: MAGNESIUM OXIDE 400 MG TAB PO SCH (08:54)
[2020-02-24] MEDS: DULOXETINE HCL 30 MG CAP PO SCH (08:55)
[2020-02-24] MEDS: METOPROLOL SUCC 25MG EXT REL TAB PO SCH (08:55)
[2020-02-24] MEDS: DOCUSATE SODIUM 100 MG CAP PO SCH ×2 (08:55→21:37)
[2020-02-24] MEDS: METHOCARBAMOL 500 MG TABLET PO SCH ×3 (08:55→21:37)
[2020-02-24] MEDS: ENOXAPARIN INJ 40 MG/0.4 ML SYR SQ SCH (08:55)
[2020-02-24] MEDS: PANTOprazole 40 MG TAB PO SCH (08:55)
[2020-02-24] MEDS: INSULIN ASPART 100 UNITS/ML 3 ML PEN SC SCH ×4 (08:58→21:22)
[2020-02-24] MEDS ORDERED: INSULIN GLARGINE SOLOSTAR 100 UNITS/ML 3 ML PEN SC SCH ×2 (09:00→21:00)
[2020-02-24] MEDS ORDERED: CADEXOMER IODINE TOP SCH (09:00)
[2020-02-24] MEDS ORDERED: OXYCODONE HCL IR 5 MG TAB (IMMEDIATE RELEASE) PO STA ×2 (09:24→17:25)
--- NOTE | 2020-02-24 10:53 | Hospitalist Progress Note ---
Date of Service February 24, 2020 Assessment & Plan (1) Wound of foot: 49yo female with multiple chronic medical issues including Insulin Dependent DM, here with a diabetic foot wound on LLE with cellulitis. Patient was started on IV antibiotics. - patient with bilateral foot wounds - wound on L LE has progressed since wound care clinic visit on 02/16 - PO Augmentin likely a treatment failure - left foot Xray not concerning for osteomyelitis - continue IV Daptomycin and Zosyn - redness seems to be resolving on exam today - Iodosorb topical - Wound Care consultation appreciated - risk factors include underlying diabetes mellitus with peripheral neuropathy and PAD (2) Uncontrolled type 2 diabetes mellitus with neurologic complication, with long-term current use of insulin: - A1c from 02/19 above goal at 8.5 - Patient recently became established with endocrinology - BG running in 200s while in hospital - increase Lantus from 10u to 12u BID - ISS with CF=30, CR=10. - Goal blood sugar 100- 140 - diabetic diet (3) Dyslipidemia: - Continue home dose Fenofibrate - Hold Statin while on Daptomycin (4) Coronary artery disease: - History of CAD s/p NSTEMI in 2017, PCI to RCA and OM. - Troponin undetectable on admission. - EKG with no acute ischemic changes. - Continue ASA 81mgpo daily - Continue Metoprolol 25mg po daily - Holding statin while on Daptomycin (5) Peripheral vascular disease: - patient with many vasculopathic risk factors, including HTN, hyperlipidemia, diabetes and tobacco abuse - GIANCARLO showing normal left sided values, but reduced R sided posterior tibial value of 0.71 - consider outpatient vascular surgery consult - likely contributory to foot wounds (6) Tobacco use: - smoked since age 3 (as in kindergarten age) - at times would smoke up to 4 ppd, now down to 1ppd - has tried multiple nicotine replacement options, Chantix and Wellbutrin, all of which failed or she could not tolerate - she is in the non-contemplative stage of change - when asked if she would get a lung cancer screening CT, she said she would 'not want to know about a cancer even if its there' (7) Gastroparesis: - secondary to diabetes mellitus - Chronic nausea, abdominal pain - Continue home dose Protonix - Continue home dose Phenergan (8) Diabetic peripheral neuropathy: - patient already has [employer] shoes - cannot tolerate gabapentin or lyrica (9) Chronic pain: -Continue home dose Methocarbamol 500mg po TID -Continue home dose Naloxegol 12.5mg po daily (10) Hypertension: - Blood pressure at goal at 120/77 - Continue Metoprolol 25mg po daily (11) Cirrhosis: - chronic - avoid hepatotoxic agents if possible (12) Depression: Chronic. Stable -Continue Duloxetine 30mg po daily Diet: DM II, heart healthy removed due to difficulty with patient's multiple food allergies Ppx -Lovenox, SQ Code - DNR/DNI Dispo - med/surg Admission and Anticipated Discharge Date Admission Date: February 24, 2020 Supervising Physician Co-Signing Physician Notes I personally examined the patient and verified all ware points of history and exam, discussed case, and agree with decision making with Dr Lunsford. feeling about the same as when she came in. vitals noted nad heent nc at mmm. foot with large but appearing reasonably shallow ulcer not much as far as surrounding erythema does have streaking up medial thigh that is quite tender foot ulcer w associated lymphangitis - continue current abx given risks for MDR pathogens etc (uncontrolled DM, recent hospital stay, open wound, failure of augmentin) DM2 - uncontrolled - await A1c, but tighten insulins - continue basal bolus otherwise as above Subjective States that her left leg is burning - not helped by ibuprofen. Of note, her wounds were discovered 7 days ago at [facility]. She was taken to [facility] after a syncopal episode while at [facility] - she developed chest pain while at the [facility], for which she took two nitroglycerins. Her syncopal event was thought to be related to her nitroglycerin use. Patient ultimately signed herself out AMA of [facility]. She was already following with [facility] for her ulcers - she was seen in clinic there on 02/16, at which time she was started on oral Augmentin. She was also evaluated at [facility] on 02/17 - a dobutamine stress echo was ordered at this visit, but not yet scheduled. On 02/19 she established care with [place] end[facility], A1c was 8.5 at the time. They are looking to get her an insulin pump Review of Systems Review of Systems: All systems reviewed & are unremarkable except as noted in HPI & below Physical Exam Constitutional: WD/WN, vitals as above cooperative Eyes: PERRL, conjunctivae normal, anicteric sclerae ENMT: external ear and nose normal, oropharynx normal Neck: normal visual inspection and trachea midline Respiratory: normal respiratory effort, lungs clear to auscultation Auscultation: no crackles, no rales, no rhonchi, no wheezes and no pleural rub Cardiovascular: RRR, no murmur, no edema Extremities: no pedal edema Gastrointestinal (Abdomen): normal bowel sounds, soft, nontender, no hepatosplenomegaly Skin: + wound ulcers on plantar aspects of b/l feet. dressing in place, dry. no erythema visible above dressing. Psychiatric: A+Ox3, euthymic affect Results & Data Results & Data ([facility]) Vital Signs (Past 12 Hours) Vital Signs Temp Pulse Pulse Pulse Resp BP BP 02/24/20 07:32 36.4 C L 81 16 120/77 02/24/20 07:23 87 16 02/24/20 05:22 36.9 C 88 16 142/68 H 02/24/20 04:00 80 16 130/91 02/24/20 03:30 83 16 146/97 H 02/24/20 03:01 84 14 118/81 02/24/20 01:13 36.8 C 93 H 20 160/79 H Pulse Ox 02/24/20 07:32 98 02/24/20 07:23 99 02/24/20 05:22 100 02/24/20 04:00 96 02/24/20 03:30 96 02/24/20 03:01 95 02/24/20 01:13 99 Resident Activity Tracking Resident Involvement: Resident Care Provided Care Provided: Adult Hospital Medicine (1) Chronic pain Chronic pain type: other chronic pain Qualified Code(s): G89.29 - Other chronic pain (2) Coronary artery disease Associated angina: without angina Coronary Disease-Associated Artery/Lesion type: [place] artery [place] vs. transplanted heart: [place] heart Qualified Code(s): I25.10 - Atherosclerotic heart disease of [place] coronary artery without angina pectoris (3) Depression Active/Remission status: remission status unspecified Depression Type: major depressive disorder Major depression recurrence: unspecified whether recurrent Qualified Code(s): F32.9 - Major depressive disorder, single episode, unspecified (4) Hypertension Hypertension type: essential hypertension Qualified Code(s): I10 - Essential (primary) hypertension
[2020-02-24] MEDS: PIPERACILLIN/TAZOBACTAM 3.375 GM in DEXTROSE 5% 100 ML IV SCH ×2 (12:03→20:00)
[2020-02-24] MEDS ORDERED: IBUPROFEN 200 MG TAB PO PRN (17:25)
--- NOTE | 2020-02-24 17:48 | Electrocardiogram Report ---
Test Reason : Blood Pressure : / mmHG Vent. Rate : 087 BPM Atrial Rate : 087 BPM P-R Int : 154 ms QRS Dur : 090 ms QT Int : 376 ms P-R-T Axes : 043 -37 055 degrees QTc Int : 452 ms Normal sinus rhythm Left axis deviation Abnormal ECG When compared with ECG of 27-SEP-2019 21:19, No significant change was found Confirmed by Jung Ortega ([id number]) on 02/24/2020 5:48:34 PM Referred By: REFERRED SELF Confirmed By:John Ortega
[2020-02-24] MEDS: INSULIN GLARGINE SOLOSTAR 100 UNITS/ML 3 ML PEN SC SCH (21:22)
[2020-02-24] MEDS: MELATONIN 3 MG TAB PO SCH (21:37)
[2020-02-24] MEDS: ASPIRIN 81 MG ECTAB PO SCH (21:37)
[2020-02-25] MEDS: OXYCODONE HCL IR 5 MG TAB (IMMEDIATE RELEASE) PO PRN ×6 (00:01→23:43)
[2020-02-25] MEDS: PIPERACILLIN/TAZOBACTAM 3.375 GM in DEXTROSE 5% 100 ML IV SCH ×3 (04:23→19:14)
[2020-02-25] MEDS: DAPTOmycin 225 MG in SYRINGE 0 ML IV SCH (04:24)
[2020-02-25 06:33] LABS: Basophils # (auto) 0.03 K/uL (0-0.2); Basophils % (auto) 0.4 %; Eosinophils # (auto) 0.49 K/uL (0-0.5); Eosinophils % (auto) 5.8 %; Hematocrit (blood only) 39.6 % (37-47); Hemoglobin 13.1 g/dL (12.0-16.0); Immature Granulocytes # (auto) 0.03 K/uL (0.00-0.02); Immature Granulocytes % (auto) 0.4 %; Lymphocytes # (auto) 2.68 K/uL (1.2-3.4); Lymphocytes % (auto) 31.6 %; Mean Corpuscular Hemoglobin 32.5 pg (25-34); Mean Corpuscular Hgb Conc 33.1 g/dL (32-36); Mean Corpuscular Volume 98.3 fL (80-100); Mean Platelet Volume 10.3 fL (7.4-10.4); Monocytes # (auto) 0.48 K/uL (0.11-0.59); Monocytes % (auto) 5.7 %; Neutrophils # (auto) 4.76 K/uL (1.4-6.5); Neutrophils % (auto) 56.1 %; Platelet Count 289 K/uL (130-400); RDW Coefficient of Variation 12.8 % (11.5-14.5); RDW Standard Deviation 46.1 fL (36.4-46.3); Red Blood Count 4.03 M/uL (4.2-5.4); White Blood Count 8.47 K/uL (4.8-10.8)
[2020-02-25] MEDS ORDERED: POLYETHYLENE (MIRALAX) 17 GM PACK PO PRN (06:51)
[2020-02-25 07:01] LABS: Calcium 8.4 mg/dl (8.5-10.1); Creatinine Clr Calc Pharmacy 75.3 ml/min; Est GFR (African American) 82.5; Est GFR (Non-African American) 71.2; Potassium 3.8 mmol/L (3.5-5.1)
[2020-02-25] MEDS: LEVALBUTEROL 0.31MG/3 ML VIAL INH SCH ×3 (07:13→22:57)
[2020-02-25] MEDS: ENOXAPARIN INJ 40 MG/0.4 ML SYR SQ SCH (08:27)
[2020-02-25] MEDS: DULOXETINE HCL 30 MG CAP PO SCH (08:27)
[2020-02-25] MEDS: METOPROLOL SUCC 25MG EXT REL TAB PO SCH (08:27)
[2020-02-25] MEDS: DOCUSATE SODIUM 100 MG CAP PO SCH ×2 (08:27→20:50)
[2020-02-25] MEDS: MAGNESIUM OXIDE 400 MG TAB PO SCH (08:27)
[2020-02-25] MEDS: METHOCARBAMOL 500 MG TABLET PO SCH ×3 (08:28→20:50)
[2020-02-25] MEDS: PANTOprazole 40 MG TAB PO SCH (08:28)
[2020-02-25] MEDS: FENOFIBRATE~ORDER AWAITING ACTION SCH (08:29)
[2020-02-25 08:32] LABS: Estimated Average Glucose 312 mg/dl; Hemoglobin A1C 12.5 % (4.5-5.6)
[2020-02-25] MEDS: INSULIN ASPART 100 UNITS/ML 3 ML PEN SC SCH ×4 (08:38→20:49)
[2020-02-25] MEDS: INSULIN GLARGINE SOLOSTAR 100 UNITS/ML 3 ML PEN SC SCH ×2 (08:39→20:50)
[2020-02-25] MEDS: FENOFIBRATE NANOCRYSTALLIZED 145 MG TABLET PO SCH (10:59)
--- NOTE | 2020-02-25 19:39 | Hospitalist Progress Note ---
Date of Service February 25, 2020 Assessment & Plan (1) Wound of foot: 49yo female with DM, neuropathy, wound on LLE with cellulitis. Afebrile, HD stable, non-toxic in appearance, +Leukocytosis with WBC=12.76 -w lymphangitis as well - improving nicely. continue current abx for now, continue wound care. hopefully stable for discharge on PO abx and ongoing wound care in next 1-2 days (2) Uncontrolled type 2 diabetes mellitus with neurologic complication, with long-term current use of insulin: contniue to titrate basal/bolus insulins (3) Dyslipidemia: Chronic. Stable. -Continue Fenofibrate -Hold Statin while on Daptomycin (4) Coronary artery disease: History of CAD s/p NSTEMI in 2017, PCI to RCA and OM. no symptoms today -Continue ASA 81mgpo daily -Continue Metoprolol 25mg po daily -Holding statin while on Daptomycin (5) Peripheral vascular disease: (6) Tobacco use: (7) Gastroparesis: Chronic nausea, abdominal pain -Continue Protonix -Continue Phenergan F/E/N - Heplock. Continue PO Magnesium oxide. CC/AHA diet as tolerated Ppx -Lovenox Code - DNR/DNI Dispo - improving- hopefully home next 1-2 days (8) Diabetic peripheral neuropathy: (9) Chronic pain: Patient with chronic pain -Continue Methocarbamol 500mg po TID -Continue Naloxegol 12.5mg po daily (10) Hypertension: Blood pressure mildly elevated at 160/79 -Continue Metoprolol 25mg po daily -Continue to monitor (11) Cirrhosis: (12) Depression: Chronic. Stable -Continue Duloxetine 30mg po daily Admission and Anticipated Discharge Date Admission Date: February 24, 2020 Subjective feeling better leg less tender foot burning less. follows w wound care actively and notes that she'll have no trouble w outpt wound follow up. no other new complaints. Review of Systems Review of Systems: All systems reviewed & are unremarkable except as noted in HPI & below Physical Exam Physical Exam: gen aao pleasant nad heent nc at mmm breathing unlabored no accessory muscles good effort skin - essentially no streaking up medial leg, maybe very faintly there - far less tender. foot ulcer now dressed but no trac alexander erythema Results & Data Results & Data ([facility]) Vital Signs (Past 12 Hours) Vital Signs Temp Pulse Resp BP BP Pulse Ox 02/25/20 15:12 81 18 96 02/25/20 15:02 98.4 F 81 19 148/82 H 98 02/25/20 08:35 86 124/85 99 02/25/20 07:51 98.2 F 81 17 133/83 94 PG Care Time/CCT Total # of Minutes Spent Total Time Spent with Patient: Total time spent is greater than 50% in coordination of care (as documented) at patient's floor/unit and/or counseling patient: Coding Level of Care Code 60255 Subseq Hosp Care Lvl 3 Diagnoses Wound of foot S91.309A Uncontrolled type 2 diabetes mellitus with neurologic complication, with long- term current use of insulin E11.49; E11.65; Z79.4 Dyslipidemia E78.5 Coronary artery disease I25.10 Coronary Disease-Associated Artery/Lesion type: king salmon artery [place] vs. transplanted heart: king salmon heart Associated angina: without angina Peripheral vascular disease I73.9 Tobacco use Z72.0 Gastroparesis K31.84 Diabetic peripheral neuropathy E11.42 Chronic pain G89.29 Chronic pain type: other chronic pain Hypertension I10 Hypertension type: essential hypertension Cirrhosis K74.60 Depression F32.9 Depression Type: major depressive disorder Major depression recurrence: unspecified whether recurrent Active/Remission status: remission status unspecified (1) Coronary artery disease Coronary Disease-Associated Artery/Lesion type: king salmon artery [place] vs. transplanted heart: king salmon heart Associated angina: without angina Qualified Code(s): I25.10 - Atherosclerotic heart disease of king salmon coronary artery without angina pectoris (2) Chronic pain Chronic pain type: other chronic pain Qualified Code(s): G89.29 - Other chronic pain (3) Hypertension Hypertension type: essential hypertension Qualified Code(s): I10 - Essential (primary) hypertension (4) Depression Depression Type: major depressive disorder Major depression recurrence: unspecified whether recurrent Active/Remission status: remission status unspecified Qualified Code(s): F32.9 - Major depressive disorder, single episode, unspecified
[2020-02-25] MEDS: MELATONIN 3 MG TAB PO SCH (20:50)
[2020-02-25] MEDS: ASPIRIN 81 MG ECTAB PO SCH (20:51)
[2020-02-26] MEDS: DAPTOmycin 225 MG in SYRINGE 0 ML IV SCH (04:11)
[2020-02-26] MEDS: PIPERACILLIN/TAZOBACTAM 3.375 GM in DEXTROSE 5% 100 ML IV SCH ×2 (04:11→11:53)
[2020-02-26] MEDS: OXYCODONE HCL IR 5 MG TAB (IMMEDIATE RELEASE) PO PRN ×3 (04:17→15:44)
[2020-02-26] MEDS: LEVALBUTEROL 0.31MG/3 ML VIAL INH SCH ×2 (07:21→15:13)
[2020-02-26] MEDS: PANTOprazole 40 MG TAB PO SCH (08:48)
[2020-02-26] MEDS: METHOCARBAMOL 500 MG TABLET PO SCH ×2 (08:48→14:10)
[2020-02-26] MEDS: METOPROLOL SUCC 25MG EXT REL TAB PO SCH (08:49)
[2020-02-26] MEDS: DULOXETINE HCL 30 MG CAP PO SCH (08:49)
[2020-02-26] MEDS: MAGNESIUM OXIDE 400 MG TAB PO SCH (08:49)
[2020-02-26] MEDS: FENOFIBRATE NANOCRYSTALLIZED 145 MG TABLET PO SCH (08:49)
[2020-02-26] MEDS: DOCUSATE SODIUM 100 MG CAP PO SCH ×2 (08:49→08:53)
[2020-02-26] MEDS: ENOXAPARIN INJ 40 MG/0.4 ML SYR SQ SCH (08:53)
[2020-02-26] MEDS: INSULIN GLARGINE SOLOSTAR 100 UNITS/ML 3 ML PEN SC SCH (08:54)
[2020-02-26] MEDS: INSULIN ASPART 100 UNITS/ML 3 ML PEN SC SCH ×3 (08:55→17:42)
--- NOTE | 2020-02-26 15:46 | Discharge Summary ---
Date of Service February 26, 2020 Admission HPI Per Admitting Provider Sheila Kang is a 49yo female with multiple medical problems to include DM, HTN, CAD s/p NSTEMI in 2017 with PCI to RCA and OM. Patient presents today with wound on plantar surface of left foot. She reports that this wound was discovered 7 days ago at [facility]. She was at [facility] when she had a syncopal event. She was seen at [facility] and told it was her heart. During that hospital stay she reports that her left sock was caked with blood. When they removed her sock she was found to have a large bleeding wound. Patient does not recall injuring her foot. She does not recall burning her foot or walking on hot pavement. She did walk across hot sand but says it was just for a few feet. She ultimately left [facility] AMA before a full cardiac workup could be completed. Since then, her has been changing the dressing on her left foot. He has been applying Aquacel and a padded dressing then wrapping it. They report that there is always drainage on the bandages and that the wound frequently bleeds. Today she developed swelling of her left foot and leg with pain and streaking radiating up into her thigh. Also with blisters on the lateral dorsal aspect of her foot. She denies fevers but has had some chills. She has baseline nausea and abdominal pain from her diabetic gastroparesis but denies acute worsening of these issues. She has occasional episodes of SOB which, again, is not new or worsened. Otherwise, patient with no new complaints. ER Course: Daptomycin, Ceftriaxone, Dilaudid Admission Exam Per Admitting Provider General: patient resting comfortably, NAD, non-toxic in appearance, AA&O x 4 Skin: warm, dry, wound on medial aspect of right great toe with eschar, no bleeding/drainage/malodor, large well circumscribed wound on dorsal surface of left foot with serous drainage, redness of dorsum of right foot with visible streaking to knee on medial side HEENT: NC/AT, PERRL, EOMI, anicteric sclera, conjunctiva without injection, external ear normal to inspection and nontender, nares patent, moist mucus membranes, edentulous, no oropharyngeal lesions, neck supple, trachea midline, no LAD, no thyromegaly, no JVD Heart: +S1/S2, regular, no m/r/g Lungs: equal air entry bilaterally, no rales/rhonchi/wheezes Abd: +BS, soft, ND, diffusely tender with deep palpation, no rebound/guarding/peritoneal signs, no masses/organomegaly/ascites Ext: warm, 2+ pulses in UE, 1+ pulses in LE bilaterally, skin on legs is red/shiny/hairless, +edema of left foot, redness of foot with streaking as above, small blisters on lateral aspect of left foot Neuro: nonfocal, patient AA&O x 4, speech intact, no facial droop, moving all extremities on command with equal strength 5/5, +neuropathy of bilateral LE Principal Diagnosis cellulitis Discharge Exam Constitutional WD/WN, vitals as above cooperative Eyes PERRL, conjunctivae normal, anicteric sclerae ENMT external ear and nose normal, oropharynx normal Neck normal visual inspection and trachea midline Respiratory normal respiratory effort, lungs clear to auscultation Auscultation: no crackles, no rales, no rhonchi, no wheezes and no pleural rub Cardiovascular RRR, no murmur, no edema Extremities: no pedal edema Gastrointestinal (Abdomen) normal bowel sounds, soft, nontender, no hepatosplenomegaly Skin + wound erythema has faded Psychiatric A+Ox3, euthymic affect Discharge Data Allergies Allergy/AdvReac Type Severity Reaction Status Date / Time Corticosteroids Allergy Severe STEROIDS-AN Verified 02/18/20 11:03 (Glucocorticoids) APHYLAXIS gabapentin Allergy Severe HIVES/SWELL Verified 02/18/20 11:03 ING Iodinated Contrast Media Allergy Severe FACIAL Verified 02/18/20 11:03 SWELLING nadolol Allergy Severe HIVES/SWELL Verified 02/18/20 11:03 ING shellfish derived Allergy Severe SWELLING Verified 02/18/20 11:03 albuterol Allergy Unknown Verified 02/24/20 01:36 aloe vera Allergy Unknown Verified 02/24/20 01:36 aspartame Allergy Verified 02/24/20 09:54 atorvastatin [From Lipitor] Allergy Unknown Verified 02/24/20 01:36 azithromycin [From Zithromax] Allergy Unknown Verified 02/24/20 01:36 barium sulfate Allergy Unknown Verified 02/24/20 01:36 beeswax Allergy Unknown Verified 02/24/20 01:36 blueberry Allergy Unknown Verified 02/24/20 05:25 carbidopa Allergy Unknown Verified 02/24/20 01:36 celecoxib [From Celebrex] Allergy Unknown Verified 02/24/20 01:36 dicyclomine Allergy Unknown Verified 02/24/20 01:36 fluoxetine [From Prozac] Allergy Unknown Verified 02/24/20 01:36 influenza virus vaccine ts Allergy Unknown Verified 02/24/20 01:36 [id number] (36 mos,up) [From Fluarix] insulin glargine Allergy Unknown Verified 02/24/20 01:36 [From Lantus U-100 Insulin] levofloxacin Allergy Unknown Verified 02/24/20 01:36 oxymorphone Allergy Unknown Verified 02/24/20 01:36 peach Allergy Unknown Verified 02/24/20 05:25 penicillin V Allergy Unknown Verified 02/24/20 01:36 prednisone Allergy Unknown Verified 02/24/20 01:36 rosuvastatin [From Crestor] Allergy Unknown Verified 02/24/20 01:36 strawberry Allergy Unknown Verified 02/24/20 05:25 sucralose Allergy Verified 02/24/20 09:55 [From Splenda (sucralose)] sulfamethoxazole Allergy Unknown Verified 02/24/20 01:36 [From Bactrim] tomato Allergy Unknown Verified 02/24/20 01:36 trimethoprim [From Bactrim] Allergy Unknown Verified 02/24/20 01:36 cephalexin [From Keflex] AdvReac Severe YEAST Verified 02/18/20 11:03 INFECTION egg AdvReac Intermediate GI SYMPTOMS Verified 02/24/20 05:23 insulin detemir AdvReac Intermediate VOMITING Verified 02/18/20 11:03 meperidine AdvReac Intermediate BECOMES Verified 02/18/20 11:03 VIOLENT milk AdvReac Intermediate GI SYMPTOMS Verified 02/24/20 05:23 morphine AdvReac Intermediate BECOMES Verified 02/18/20 11:03 VIOLENT phenol AdvReac Intermediate VOMITING Verified 02/18/20 11:03 pregabalin AdvReac Intermediate AGITATION Verified 02/18/20 11:03 varenicline AdvReac Unknown HOMICIDAL Verified 02/18/20 11:03 IDEATION ARTIFICIAL SWEETENER Allergy Severe ANAPHYLAXIS Uncoded 02/18/20 11:03 ultrasound gel Allergy Intermediate HIVES Uncoded 02/18/20 11:03 gynemoistrin Allergy Unknown Uncoded 02/24/20 01:36 Consultations 02/24/20 02:38 ED Decision to Admit Stat Ordered Studies 02/24/20 05:17 US ankle/brachial index ltd Routine Hospital Course (1) Wound of foot: 49yo female with multiple chronic medical issues including Insulin Dependent DM, here with a diabetic foot wound on LLE with ascending cellulitis. Patient was started on IV antibiotics. - patient with bilateral foot wounds - wound on L LE has progressed since wound care clinic visit on 02/16 - PO Augmentin likely a treatment failure - left foot Xray not concerning for osteomyelitis - patient was treated with IV Daptomycin and Zosyn - ascending lymphangitis faded while on the above antibiotic regimen - Wound Care followed patient while in hospital - risk factors include underlying diabetes mellitus with peripheral neuropathy and PAD - patient discharged on high dose Bactrim for a total of 14 day course. Outpatient items to do: Continued wound care (2) Uncontrolled type 2 diabetes mellitus with neurologic complication, with long-term current use of insulin: - A1c from 02/19 above goal at 8.5 - Patient recently became established with endocrinology - sugars controlled with Lantus 16u BID + ISS with CF=30, CR=10. - Goal blood sugar 100- 140 Outpatient items to do: Continued diabetes/insulin dosing education. Repeat A1c in 3 months. (3) Dyslipidemia: - Continue home dose Fenofibrate - Statin held while on Daptomycin in hospital. She may resume at discharge. (4) Coronary artery disease: - History of CAD s/p NSTEMI in 2017, PCI to RCA and OM. - Troponin undetectable on admission. - EKG with no acute ischemic changes. - Continue ASA 81mgpo daily - Continue Metoprolol 25mg po daily - resume statin upon discharge (5) Peripheral vascular disease: - patient with many vasculopathic risk factors, including HTN, hyperlipidemia, diabetes and tobacco abuse - GIANCARLO showing normal left sided values, but reduced R sided posterior tibial value of 0.71 - likely contributory to foot wounds - working arranged outpatient follow up with Dr. Haider (vascular surgery) Outpatient items to do: ensure non-emergent follow up with vascular surgery (6) Tobacco use: - smoked since age 3 (as in kindergarten age) - at times would smoke up to 4 ppd, now down to 1ppd - has tried multiple nicotine replacement options, Chantix and Wellbutrin, all of which failed or she could not tolerate - she is in the non-contemplative stage of change - when asked if she would get a lung cancer screening CT, she said she would 'not want to know about a cancer even if its there' Outpatient items to do: educate patient options of cancer therapy if she were to engage in routine screenings (7) Gastroparesis: - secondary to diabetes mellitus - Chronic nausea, abdominal pain - Continue home dose Protonix - Continue home dose Phenergan (8) Diabetic peripheral neuropathy: - patient already has Darco shoes - cannot tolerate gabapentin or lyrica (9) Chronic pain: -Continue home dose Methocarbamol 500mg po TID -Continue home dose Naloxegol 12.5mg po daily (10) Hypertension: - Blood pressure at goal for most of hospital stay - Continue Metoprolol 25mg po daily (11) Cirrhosis: - chronic - avoid hepatotoxic agents if possible (12) Depression: Chronic. Stable -Continue Duloxetine 30mg po daily Total Time Total Time Spent Total Time Spent (In Minutes): <30 Discharge Plan Discharge Items Patient Disposition: Home - Self-Care Reason For Visit: LLE ULCER, CELLULITIS IN DIABETIC Discharge Diagnosis: Left foot ulcer Activity: Resume your previous activity Non-emergency contact: Primary Care Provider Call non-emergency contact if: your symptoms worsen Follow-up/Referrals: Sandip Haider MD [Physician] - Dion Alas MD [Primary Care Provider] - Diet: Carb Consistent or DM2 and Heart Healthy Addtl Attending Provider Instructions: You were hospitalized at [facility] for worsening of you left foot ulcer and a developing cellulitis (skin infection) of the left lower leg. Although you had been on oral Augmentin prior to your hospital stay - it was likely that antibiotic was not strong enough to treat your infection. We treated you with two different IV antibiotics while under our care, and your cellulitis began to resolve. Please continue to take the following antibiotic upon discharge: Bactrim, 160-800mg, 2 tablets, twice daily for 11 days. Please continue to wear your Darco boots to off-load your foot ulcers as much as possible. Follow up with wound care clinic as directed. During your hospital stay, the caliber of the arteries in your legs were measured, and you had a narrowing on your right side. We recommend you see vascular surgery as an outpatient. We discussed multiple risk factors that contributed to formation of your foot ulcers. Your uncontrolled diabetes, vascular disease (hardening of your arteries) and your smoking are all contributory. Please continue to follow up with [facility] to work on improving your diabetes. Please follow up with cardiology to get your stress echocardiogram. The very best thing you could do for your health is to quit smoking. This is a very challenging task to achieve - but we are willing to help you become tobacco free. Please discuss this further with your primary care doctor. Pending Studies at Discharge: No Stand-Alone Forms: My [facility], Smoking Cessation Medications and DC Order Prescriptions: New sulfamethoxazole-trimethoprim [Bactrim DS] 800-160 mg tablet 2 tab PO BID 11 Days Qty: 44 RF: 0 Continued Iodosorb 0.9 % gel 40 g TOP DAILY 30 Days Qty: 40 RF: 1 fenofibrate 160 mg tablet 160 mg PO DAILY RF: 0 duloxetine [Cymbalta] 30 mg capsule,delayed release(DR/EC) 30 mg PO DAILY RF: 0 promethazine 25 mg tablet 25 mg PO Q6H PRN (Reason: Nausea) RF: 0 pravastatin 20 mg tablet 20 mg PO DAILY RF: 0 Movantik 12.5 mg tablet 12.5 mg PO QAM RF: 0 magnesium oxide 400 mg (241.3 mg magnesium) tablet 400 mg PO DAILY RF: 0 levalbuterol HCl 0.31 mg/3 mL solution for nebulization 0.31 mg INH Q8H RF: 0 (DME) blood sugar diagnostic [Accu-Chek Madina Plus test strp] Strip See Rx Instructions .ROUTE .MEDSUPPLY Qty: 10 RF: 0 diphenhydramine HCl [Benadryl] 25 mg capsule 25 mg PO TID PRN (Reason: Itching) RF: 0 cinnamon bark-chromium picolin 500-100 mg-mcg capsule 4 cap PO DAILY RF: 0 (DME) blood sugar diagnostic [OneTouch Verio test strips] Strip See Rx Instructions .ROUTE .MEDSUPPLY Qty: 400 RF: 3 (DME) lancets [OneTouch Delica Lancets] 33 gauge misc See Rx Instructions .ROUTE .MEDSUPPLY Qty: 400 RF: 3 insulin glulisine U-100 [Apidra SoloStar U-100 Insulin] 100 unit/mL insulin pen RF: 0 insulin glargine [Lantus Solostar U-100 Insulin] 100 unit/mL (3 mL) insulin pen RF: 0 nitroglycerin [Nitrostat] 0.4 mg Tablet, Sublingual 0 mg sublingual UD PRN (Reason: Chest Pain) RF: 0 docusate sodium [Stool Softener] 100 mg Capsule 100 mg PO AMPM RF: 0 aspirin 81 mg Tablet,Chewable 81 mg PO HS RF: 0 furosemide [Lasix] 20 mg Tablet 20 mg PO DAILY PRN (Reason: Edema) RF: 0 Fiber Choice Fruity Bites 1.5g 2 tab PO QAM PRN (Reason: Constipation) RF: 0 melatonin 10 mg tablet 10 mg PO HS RF: 0 pantoprazole [Protonix] 40 mg Tablet,Delayed Release (Dr/Ec) 40 mg PO DAILY RF: 0 metoprolol succinate 25 mg tablet extended release 24 hr 25 mg PO DAILY RF: 0 methocarbamol 500 mg tablet 500 mg PO TID RF: 0 Discontinued amoxicillin-pot clavulanate [Augmentin] 875-125 mg tablet 1 tab PO bid 14 Days Qty: 28 RF: 0 potassium 99 mg tablet 99 mg PO DAILY RF: 0 Discharge Orders: Discharge Order (Routine); Ordered 02/26/20 Ordered By: Jeanine Hill/Other Patient Handouts: Managing Type 2 Diabetes, Falls Risks Prevent Admission Data Admit Date/Time: 02/26/20 06:29 Attending Provider: Benjamín Moreau Admit Provider: Viki Wyatt Primary Care Provider: Dion Alas Other Providers: Viki Wyatt Other Interventions: Discharge Summary Assessment (RN) Last Done: 02/26/20 17:27 DC Date/Time DO NOT enter until pt leaves facility: 02/26/20 18:01 Supervising Physician Co-Signing Physician Notes I personally examined the patient and verified all ware points of history and exam, discussed case, and agree with decision making with Dr Lunsford. feeling better would like to go home vitals noted nad heent nc at mmm. foot dressed, medial calf still midlly tender but no streaking no crepitis, no tracking erythema foot ulcer w associated lymphangitis - stable enough to go home - improved on dapto/zosyn. failed augmentin as outpt. will discharge home on bactrim, presumptive 2wks DM2 - uncontrolled - outpt f/u otherwise as above discussed with case management regarding status and informed that a code 44 did not need to be performed as it relates to admission vs observation status. Resident Activity Tracking Resident Involvement: Resident Care Provided Care Provided: Adult Hospital Medicine
--- NOTE | 2020-02-26 18:59 | Billing Data ---
Date of Service February 26, 2020 Coding Level of Care Code D/C Day Management <30 mins
== END 2020-02-26 18:01 | disposition home health service (06) | DRG 638 ==
LOC: ED 01:08 → 3E 01:08 → SUATTDRO 03:48 → 3E 04:50

== ENCOUNTER 2021-10-11 11:45 | Inpatient (IN) ==
[2021-10-11 12:47] LABS: iSTAT Creatinine 0.8 mg/dl (0.6-1.3); iSTAT Ionized Calcium 1.02 mmol/l (1.12-1.32); iSTAT Potassium 4.2 mmol/L (3.3-5.0)
--- NOTE | 2021-10-11 12:55 | CT Scan Report ---
CT SCAN OF THE BRAIN WITHOUT IV CONTRAST CLINICAL HISTORY: Strokelike symptoms COMPARISON STUDY: No priors. TECHNIQUE: Unenhanced axial CT scan of the brain is performed from the vertex to the skull base. A d ose lowering technique was utilized adhering to the principles of ALARA. CT DOSE: 537.48 mGy.cm FINDINGS: Brain parenchyma: The brain parenchyma is normal in appearance. There is no hemorrhage, mass effect, or evidence of acute territorial ischemia by CT criteria. Kruger-white matter differentiation is preser ricardo. No extra-axial fluid collection is seen. Ventricles, sulci, cisterns: Normal in configuration. Intracranial vasculature: There is atherosclerotic calcification of the cavernous carotid arteries. Calvarium: Unremarkable. Sinuses and mastoids: The visualized paranasal sinuses are clear. The mastoid air cells are well pneu matized. Orbits: The bony orbits are grossly intact. IMPRESSION: There is no hemorrhage, mass effect, or evidence of acute territorial ischemia by CT carroll crawford. ACT 112: Negative or not required by law. Electronically signed by: Tevin Elam M.D. 10/11/2021 12:53 PM
[2021-10-11 14:11] LABS: Hematocrit (blood only) 40.5 % (37-47); Hemoglobin 13.4 g/dL (12.0-16.0); Mean Corpuscular Hemoglobin 31.6 pg (25-34); Mean Corpuscular Hgb Conc 33.1 g/dL (32-36); Mean Corpuscular Volume 95.5 fL (80-100); Mean Platelet Volume 10.6 fL (7.4-10.4); Platelet Count 229 K/uL (130-400); RDW Coefficient of Variation 13.3 % (11.5-14.5); RDW Standard Deviation 45.9 fL (36.4-46.3); Red Blood Count 4.24 M/uL (4.2-5.4); White Blood Count 10.77 K/uL (4.8-10.8)
--- NOTE | 2021-10-11 14:22 | Emergency Department Note ---
History of Present Illness General Chief complaint: Referred by Doctor Stated complaint: DR FOFANA OVER Time Seen by Provider: 10/11/21 13:27 Source: patient and family Mode of arrival: wheelchair Limitations: no limitations History of Present Illness Provider complaint: Headache, slurred speech, right-sided weakness Onset (ago): day(s) 5 Maximum Pain Intensity: 9 Treatments prior to arrival: none This is a 50-year-old female presents emergency department due to concern for headaches, slurred speech, and right-sided weakness. Patient states last Monday she had developed slurred speech and headache and presented to [facility] where she was admitted with a stroke. She states she was discharged on Monday. She states she began noting right upper extremity weakness and right lower extremity weakness with worsening slurred speech and difficulty walking and went to the emergency room at [facility] again. She states she had a "very nasty nurse" and left AMA. She states she was scheduled to have follow-up today with her PCP Dr. Porter. She states when they spoke to him they were told to come to the emergency room for additional evaluation. Patient and family at bedside state Dr. Porter said that she will need admission and an MRI. Patient states she did have an MRI without contrast on when she was admitted in addition to a CAT scan of the head. She states she is allergic to contrast although has previously had studies with IV contrast as long as she is pretreated with Benadryl. Patient states she is allergic to steroids. Patient states she does have a history of chronic right lower extremity weakness, however it has been worse over the last several days and she is unable to walk. She states Dr. Porter felt she may need PT and OT evaluation and ongoing therapy to try and regain some function. Patient states her headaches are posterior and intermittent. She denies vision changes, tinnitus, nausea or vomiting. Pt seen during a time of high acuity and national emergency pandemic while wearing PPE. Home Medications Medication Instructions Recorded Confirmed Type aspirin 81 mg chewable tablet 81 mg PO HS 01/22/19 10/11/21 History docusate sodium 100 mg capsule 100 mg PO AMPM 01/22/19 10/11/21 History (Stool Softener) nitroglycerin 0.4 mg sublingual 0 mg SUBLINGUAL UD PRN 01/22/19 10/11/21 History tablet (Nitrostat) Fiber Choice Fruity Bites 1.5g 2 tab PO QAM PRN 02/18/20 10/11/21 History furosemide 20 mg tablet (Lasix) 20 mg PO DAILY PRN #30 tab 04/06/21 10/11/21 Rx carvedilol 3.125 mg tablet 3.125 mg PO BID #180 tab 05/03/21 10/11/21 Rx Al 4 tab PO BID 10/11/21 10/11/21 History baclofen 10 mg tablet 20 mg PO HS 10/11/21 10/11/21 History diphenhydramine HCl 25 mg tablet 25 mg PO TID 10/11/21 10/11/21 History (Benadryl Allergy) melatonin 10 mg tablet 20 mg PO HS 10/11/21 10/11/21 History nicotine 21 mg/24 hr daily 21 mg TRANSDERMAL DAILY 10/11/21 10/11/21 History transdermal patch oxycodone 5 mg/5 mL oral solution 5 mg PO TID PRN 10/11/21 10/11/21 History pravastatin 20 mg tablet 20 mg PO DAILY 10/11/21 10/11/21 History torsemide 20 mg tablet 20 mg PO DAILY 10/11/21 10/11/21 History Allergies Allergy/AdvReac Type Severity Reaction Status Date / Time Corticosteroids Allergy Severe STEROIDS-AN Verified 10/11/21 15:16 (Glucocorticoids) APHYLAXIS gabapentin Allergy Severe HIVES/SWELL Verified 10/11/21 15:16 ING Iodinated Contrast Media Allergy Severe FACIAL Verified 10/11/21 15:16 SWELLING nadolol Allergy Severe HIVES/SWELL Verified 10/11/21 15:16 ING shellfish derived Allergy Severe SWELLING Verified 10/11/21 15:16 albuterol Allergy Unknown Verified 10/11/21 15:16 aloe vera Allergy Unknown Verified 10/11/21 15:16 aspartame Allergy Unknown Verified 10/11/21 15:16 atorvastatin [From Lipitor] Allergy Unknown Verified 10/11/21 15:16 azithromycin [From Zithromax] Allergy Unknown Verified 10/11/21 15:16 barium sulfate Allergy Unknown Verified 10/11/21 15:16 beeswax Allergy Unknown Verified 10/11/21 15:16 blueberry Allergy Unknown Verified 10/11/21 15:16 carbidopa Allergy Unknown Verified 10/11/21 15:16 celecoxib [From Celebrex] Allergy Unknown Verified 10/11/21 15:16 dicyclomine Allergy Unknown Verified 10/11/21 15:16 Fish Containing Products Allergy Verified 10/12/21 14:28 fish derived Allergy Verified 10/12/21 14:28 fish oil Allergy Verified 10/12/21 14:28 fluoxetine [From Prozac] Allergy Unknown Verified 10/11/21 15:16 influenza virus vaccine ts Allergy Unknown Verified 10/11/21 15:16 [id number] (36 mos,up) [From Fluarix] insulin glargine Allergy Unknown Verified 10/11/21 15:16 [From Lantus U-100 Insulin] levofloxacin Allergy Unknown Verified 10/11/21 15:16 oxymorphone Allergy Unknown Verified 10/11/21 15:16 peach Allergy Unknown Verified 10/11/21 15:16 prednisone Allergy Unknown Verified 10/11/21 15:16 rosuvastatin [From Crestor] Allergy Unknown Verified 10/11/21 15:16 strawberry Allergy Unknown Verified 10/11/21 15:16 sucralose Allergy Unknown Verified 10/11/21 15:16 [From Splenda (sucralose)] sulfamethoxazole Allergy Unknown Verified 10/11/21 15:16 [From Bactrim] tomato Allergy Unknown Verified 10/11/21 15:16 trimethoprim [From Bactrim] Allergy Unknown Verified 10/11/21 15:16 cephalexin [From Keflex] AdvReac Severe YEAST Verified 10/11/21 15:16 INFECTION egg AdvReac Intermediate GI SYMPTOMS Verified 10/11/21 15:16 insulin detemir AdvReac Intermediate VOMITING Verified 10/11/21 15:16 meperidine AdvReac Intermediate BECOMES Verified 10/11/21 15:16 VIOLENT milk AdvReac Intermediate GI SYMPTOMS Verified 10/11/21 15:16 morphine AdvReac Intermediate BECOMES Verified 10/11/21 15:16 VIOLENT phenol AdvReac Intermediate VOMITING Verified 10/11/21 15:16 pregabalin AdvReac Intermediate AGITATION Verified 10/11/21 15:16 promethazine AdvReac Unknown nausea and Verified 10/11/21 15:16 vomiting varenicline AdvReac Unknown HOMICIDAL Verified 10/11/21 15:16 IDEATION ARTIFICIAL SWEETENER Allergy Severe ANAPHYLAXIS Uncoded 10/11/21 15:16 ultrasound gel Allergy Intermediate HIVES Uncoded 10/11/21 15:16 gynemoistrin Allergy Unknown Uncoded 10/11/21 15:16 Past Med/Surg History Medical History Callus Chronic pain COPD (chronic obstructive pulmonary disease) Coronary artery disease Depression Diabetes mellitus Drop foot gait Dyslipidemia Fracture of lumbar spine L1/L2 - 2nd trauma Gastroparesis GERD (gastroesophageal reflux disease) History of alcoholism History of liver disease History of osteomyelitis right great toe History of ovarian cancer Hypertension VA (myocardial infarction) multiple; 2 stents MSSA (methicillin susceptible Staphylococcus aureus) infection BENITO (obstructive sleep apnea) Peripheral vascular disease Personal history of diabetic foot ulcer Tobacco abuse Surgical History H/O dilation and curettage H/O heart artery stent H/O tubal ligation H/O: hysterectomy History of appendectomy Family History Grandmother (Paternal) Diabetes Father , in his 50s Diabetes Stroke Uncle Diabetes Hypothyroidism Cancer Stroke Mother Coronary heart disease Heart disease Ovarian cancer Grandmother (Maternal) Breast cancer Brother Diabetes Hypertension Gout Grandfather (Maternal) Diabetes Social History Smoking Status: Current every day smoker Tobacco Type: Cigarettes packs per day: 1; Years Smoked: 41; Hx Alcohol Use: Yes (heavy liquor consumption; quit early ) Hx Substance Use: No Preferred Language: Mohawk Communication Ability: Unable Communication Tools: Letter Board, Picture Board and Facial Expression Visual Impairment: Limited Hearing Ability: Normal Woodyard Operator Required: No Beliefs That Will Affect Care: None marital status: Current Living Situation: Spouse Current Living Situation Comment: lives with in [place] current occupational status: disabled 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 How many Children do You have: 1 Other Information That Helps Us Care for You: No Feels Safe at Home: Yes Safety Concerns: Feels Safe At This Time Childhood Exposure to Second-Hand Smoke: Yes caffeine: No during the past year weight has: decreased > 10 lbs Dental Care, Regularly: Yes Physical Activity Frequency: 3-4 Times per Week Seatbelt Use: sometimes Sunscreen Use: Yes Assistive Devices: Walker and Wheelchair Assistive Devices Comment: Patient approved for handicapped marisol and shower - will be installed soon Review of Systems A total of 10 systems reviewed and were otherwise negative All systems reviewed & are unremarkable except as noted in HPI & below Physical Exam Vital Signs Vital Signs - 24 hr 10/11/21 18:49 10/11/21 19:40 10/11/21 19:58 Temperature 36.9 C Temperature Source Oral Pulse Rate Pulse Rate [Left Apical] 88 92 H Pulse Rate [Right Finger] Pulse Rhythm [Left Apical] Regular Pulse Strength [Left Apical] Normal Respiratory Rate 20 22 Respiratory Effort / Characteristics Non-Labored Spontaneous Respiratory Depth Normal Respiratory Pattern Regular Blood Pressure [Left Arm] 205/121 H 189/113 H Blood Pressure [Right Arm] Blood Pressure Mean [Left Arm] 149 138 Blood Pressure Mean [Right Arm] Blood Pressure Position [Left Arm] Lying Blood Pressure Position [Right Arm] Pulse Oximetry 95 95 Pulse Oximetry [Right 2nd Toe] 94 Oxygen Delivery Method Room Air Room Air Oxygen Delivery Method [Right 2nd Toe] Room Air 10/11/21 19:59 10/11/21 23:41 10/12/21 04:24 Temperature 37.1 C 36.8 C 36.5 C Temperature Source Oral Oral Oral Pulse Rate Pulse Rate [Left Apical] 87 Pulse Rate [Right Finger] 83 89 Pulse Rhythm [Left Apical] Pulse Strength [Left Apical] Respiratory Rate 16 18 21 Respiratory Effort / Characteristics Respiratory Depth Normal Respiratory Pattern Blood Pressure [Left Arm] 183/105 H Blood Pressure [Right Arm] 162/115 H 150/90 H Blood Pressure Mean [Left Arm] 131 Blood Pressure Mean [Right Arm] 130 110 Blood Pressure Position [Left Arm] Blood Pressure Position [Right Arm] Lying Pulse Oximetry 98 93 92 Pulse Oximetry [Right 2nd Toe] Oxygen Delivery Method Room Air Room Air Room Air Oxygen Delivery Method [Right 2nd Toe] 10/12/21 07:20 10/12/21 08:06 Temperature 36.8 C Temperature Source Oral Pulse Rate 83 Pulse Rate [Left Apical] 84 Pulse Rate [Right Finger] Pulse Rhythm [Left Apical] Pulse Strength [Left Apical] Respiratory Rate 14 Respiratory Effort / Characteristics Non-Labored Respiratory Depth Normal Respiratory Pattern Blood Pressure [Left Arm] Blood Pressure [Right Arm] 146/98 H Blood Pressure Mean [Left Arm] Blood Pressure Mean [Right Arm] 114 Blood Pressure Position [Left Arm] Blood Pressure Position [Right Arm] Lying Pulse Oximetry 93 Pulse Oximetry [Right 2nd Toe] Oxygen Delivery Method Room Air Oxygen Delivery Method [Right 2nd Toe] GENERAL: alert, well appearing, well nourished, no distress, non-toxic EYE EXAM: normal conjunctiva, PERRL and EOM's grossly intact OROPHARYNX: no exudate, no erythema, lips, buccal mucosa, and tongue normal and mucous membranes are moist NECK: supple, no nuchal rigidity, no adenopathy, non-tender LUNGS: Clear to auscultation. Normal chest wall mechanics, no w/r/r HEART: no murmurs, S1 normal and S2 normal ABDOMEN: abdomen soft, non-tender, normo-active bowel sounds, no masses, no rebound or guarding. BACK: Back is symmetrical on inspection and there is no deformity, no midline tenderness, no CVA tenderness. SKIN: no rashes and no bruising UPPER EXTREMITIES: upper extremities are grossly normal. FROM, nml pulses b/l. LOWER EXTREMITIES: No pitting edema. FROM, nml pulses b/l. NEURO EXAM: Normal sensorium, cranial nerves II-XII grossly intact, normal speech, no gross weakness of arms, no gross weakness of legs. Gross sensation intact. Course Administered Medications Amlodipine Besylate (A[facility]odipine Besylate 5 Mg Tab) [facility] Stop: 11/11/21 08:59 Last Admin: 10/12/21 12:17 Dose: 5 mg Documented by: [id number] Aspirin (Aspirin 81 Mg Ectab) [facility] Stop: 11/11/21 08:59 Last Admin: 10/12/21 12:17 Dose: 81 mg Documented by: [id number] Baclofen (Baclofen 20 Mg Tab) 20 mg PO HS [facility] Stop: 11/10/21 20:59 Last Admin: 10/11/21 22:14 Dose: 20 mg Documented by: [id number] Carvedilol (Carvedilol 6.25 Mg Tab) 6.25 mg PO BID [facility] Stop: 11/11/21 08:59 Last Admin: 10/12/21 12:18 Dose: 6.25 mg Documented by: [id number] Clopidogrel Bisulfate (Clopidogrel Bisulfate 75 Mg Tab) 75 mg PO QAM [facility] Stop: 11/11/21 08:59 Last Admin: 10/12/21 08:52 Dose: 75 mg Documented by: [id number] Diphenhydramine HCl (Diphenhydramine Capsule 25 Mg Cap) 25 mg PO TID [facility]REW Stop: 11/10/21 20:59 Last Admin: 10/12/21 14:05 Dose: 25 mg Documented by: [id number] Admin: 10/12/21 08:52 Dose: 25 mg Documented by: [id number] Admin: 10/11/21 22:14 Dose: 25 mg Documented by: [id number] Docusate Sodium (Docusate Sodium 100 Mg Cap) 100 mg PO BID ANDREW Stop: 11/10/21 20:59 Last Admin: 10/12/21 08:51 Dose: 100 mg Documented by: [id number] Admin: 10/11/21 22:14 Dose: 100 mg Documented by: [id number] Enoxaparin Sodium (Enoxaparin Inj 40 Mg/0.4 Ml Syr) 40 mg SQ QAM ANDREW Stop: 11/11/21 08:59 Last Admin: 10/12/21 08:50 Dose: 40 mg Documented by: [id number] Insulin Aspart (Insulin Aspart Per Unit) 0 units SC ACHS ANDRE[facility] Stop: 11/10/21 20:59 Last Admin: 10/12/21 12:19 Dose: Not Given Documented by: [id number] Admin: 10/12/21 08:55 Dose: Not Given Documented by: [id number] Admin: 10/11/21 23:28 Dose: Not Given Documented by: [id number] Cosigned by: [id number] Melatonin (Melatonin 3 Mg Tab) 18 mg PO HS ANDREW Stop: 11/10/21 20:59 Last Admin: 10/11/21 22:15 Dose: 18 mg Documented by: [id number] Miscellaneous (Remove Nicoderm Patch) 1 ea N/A DAILY@0859 [facility]W Stop: 11/11/21 08:58 Last Admin: 10/12/21 08:54 Dose: 1 ea Documented by: [id number] Nicotine (Nicotine 21 Mg/24 Hr Tdsy) 21 mg TD DAILY ANDREW Stop: 11/11/21 08:59 Last Admin: 10/12/21 08:51 Dose: 21 mg Documented by: [id number] Oxycodone HCl (Oxycodone Hcl Soln 5 Mg/5 Ml Udc) 5 mg PO TID PRN PRN Reason: Pain Stop: 10/25/21 19:57 Last Admin: 10/12/21 08:47 Dose: 5 mg Documented by: [id number] Admin: 10/12/21 01:15 Dose: 5 mg Documented by: [id number] Admin: 10/11/21 20:37 Dose: 5 mg Documented by: [id number] Pravastatin Sodium (Pravastatin Sod 20 Mg Tab) 20 mg PO DAILY ANDREW Stop: 11/11/21 08:59 Last Admin: 10/12/21 08:52 Dose: 20 mg Documented by: [id number] Sitagliptin Phosphate (Sitagliptin Phosphate 25 Mg Tab) 25 mg PO DAILY ANDREW Stop: 11/11/21 08:59 Last Admin: 10/12/21 12:17 Dose: 25 mg Documented by: [id number] Discontinued Medications Carvedilol (Carvedilol 3.125 Mg Tab) 3.125 mg PO NOW ONE Stop: 10/11/21 17:27 Last Admin: 10/11/21 17:38 Dose: 3.125 mg Documented by: [id number] Carvedilol (Carvedilol 3.125 Mg Tab) 3.125 mg PO BID ANDREW Stop: 11/10/21 20:59 Last Admin: 10/11/21 22:15 Dose: 3.125 mg Documented by: [id number] Clopidogrel Bisulfate (Clopidogrel Bisulfate 75 Mg Tab) 75 mg PO NOW ONE Stop: 10/11/21 17:27 Last Admin: 10/11/21 17:38 Dose: 75 mg Documented by: [id number] Acetaminophen (Ofirmev) 1,000 mg in 100 mls @ 400 mls/hr IV NOW STA Stop: 10/11/21 15:33 Last Infusion: 10/11/21 16:13 Dose: 0 mls/hr Documented by: [id number] Admin: 10/11/21 15:35 Dose: 400 mls/hr Documented by: [id number] Medical Decision Making Differential Diagnosis Differential Diagnosis includes but is not limited to ischemic Stroke, hemorrhagic stroke, bells palsy, mass, neoplasm, migraine headache, seizure, subarachnoid hemorrhage, TIA, and transient global amnesia. Medical Records Attestation: I reviewed the patient's medical records. Home Medications Current Medication List: was personally reviewed by me Laboratory Data Attestation: I reviewed the patient's lab results. Result diagrams: 10/11/21 13:57 10/12/21 07:04 Lab Results 10/11/21 10/11/21 10/11/21 Range/Units 12:35 13:57 13:57 WBC 10.77 (4.8-10.8) K/uL RBC 4.24 (4.2-5.4) M/uL Hgb 13.4 (12.0-16.0) g/dL POC Hgb 15.0 (12.0-16.0) g/dl Hct 40.5 (37-47) % POC Hct 44 (37-47) % MCV 95.5 (80-100) fL MCH 31.6 (25-34) pg MCHC 33.1 (32-36) g/dL RDW Std Deviation 45.9 (36.4-46.3) fL RDW Coeff of Eleazar 13.3 (11.5-14.5) % Plt Count 229 (130-400) K/uL MPV 10.6 H (7.4-10.4) fL PT 10.3 (9.0-12.0) Seconds INR 1.0 (0.9-1.1) APTT 25.1 (21.0-31.0) Seconds PTT Ratio 0.9 POC Sodium 132 L (135-144) mmol/L Sodium (136-145) mmol/L POC Potassium 4.2 (3.3-5.0) mmol/L Potassium (3.5-5.1) mmol/L POC Chloride 101 (101-112) mmol/L Chloride (98-107) mmol/L Carbon Dioxide (21-32) mmol/L POC Total CO2 23 L (24-31) mmol/L Anion Gap (3-11) POC Anion Gap 13.0 L (16-25) mmol/L POC BUN 15 (7-18) mg/dl BUN (6-23) mg/dl Creatinine (0.6-1.2) mg/dl POC Creatinine 0.8 (0.6-1.3) mg/dl Est Cr Clr Drug Dosing ml/min Est GFR ( Amer) ml/min Est GFR (Non-Af Amer) ml/min BUN/Creatinine Ratio (10-20) Glucose (70-99(Fasting)) mg/dl POC Glucose (70-99) mg/dl POC Glucose (other) 304 H (70-99) mg/dl Estimat Average Glucose mg/dl Hemoglobin A1c (4.5-5.6) % Calcium (8.5-10.1) mg/dl POC Ioniz Calcium Zechariah 1.02 L (1.12-1.32) mmol/l Magnesium (1.7-2.4) mg/dl Total Bilirubin (0.2-1.0) mg/dl AST (13-39) U/L ALT (7-52) U/L Alkaline Phosphatase (34-104) U/L Total Protein (6.0-8.3) gm/dl Albumin (3.4-5.0) gm/dl Globulin (2.5-4.0) gm/dl Albumin/Globulin Ratio (0.9-2) Triglycerides (0-150) mg/dl Cholesterol (0-200) mg/dl LDL Cholesterol, Calc VLDL Cholesterol, Calc HDL Cholesterol mg/dl Cholesterol/HDL Ratio (0-5) SARS-CoV-2, RNA, NAAT (NEGATIVE) 10/11/21 10/11/21 10/11/21 Range/Units 13:57 13:57 13:57 WBC (4.8-10.8) K/uL RBC (4.2-5.4) M/uL Hgb (12.0-16.0) g/dL POC Hgb (12.0-16.0) g/dl Hct (37-47) % POC Hct (37-47) % MCV (80-100) fL MCH (25-34) pg MCHC (32-36) g/dL RDW Std Deviation (36.4-46.3) fL RDW Coeff of Eleazar (11.5-14.5) % Plt Count (130-400) K/uL MPV (7.4-10.4) fL PT (9.0-12.0) Seconds INR (0.9-1.1) APTT (21.0-31.0) Seconds PTT Ratio POC Sodium (135-144) mmol/L Sodium 135 L (136-145) mmol/L POC Potassium (3.3-5.0) mmol/L Potassium 3.8 (3.5-5.1) mmol/L POC Chloride (101-112) mmol/L Chloride 101 (98-107) mmol/L Carbon Dioxide 27 (21-32) mmol/L POC Total CO2 (24-31) mmol/L Anion Gap 7 (3-11) POC Anion Gap (16-25) mmol/L POC BUN (7-18) mg/dl BUN 14 (6-23) mg/dl Creatinine 0.83 (0.6-1.2) mg/dl POC Creatinine (0.6-1.3) mg/dl Est Cr Clr Drug Dosing 83.4 ml/min Est GFR ( Amer) 94.0 ml/min Est GFR (Non-Af Amer) 81.1 ml/min BUN/Creatinine Ratio 16.9 (10-20) Glucose 273 H (70-99(Fasting)) mg/dl POC Glucose (70-99) mg/dl POC Glucose (other) (70-99) mg/dl Estimat Average Glucose 295 mg/dl Hemoglobin A1c 11.9 H (4.5-5.6) % Calcium 8.4 L (8.5-10.1) mg/dl POC Ioniz Calcium Zechariah (1.12-1.32) mmol/l Magnesium 2.0 (1.7-2.4) mg/dl Total Bilirubin 0.5 (0.2-1.0) mg/dl AST 11 L (13-39) U/L ALT 11 (7-52) U/L Alkaline Phosphatase 69 (34-104) U/L Total Protein 6.4 (6.0-8.3) gm/dl Albumin 3.4 (3.4-5.0) gm/dl Globulin 3.0 (2.5-4.0) gm/dl Albumin/Globulin Ratio 1.1 (0.9-2) Triglycerides 411 H (0-150) mg/dl Cholesterol 231 H (0-200) mg/dl LDL Cholesterol, Calc TNP VLDL Cholesterol, Calc TNP HDL Cholesterol 35 mg/dl Cholesterol/HDL Ratio 6.6 H (0-5) SARS-CoV-2, RNA, NAAT (NEGATIVE) 10/11/21 10/11/21 10/12/21 Range/Units 16:52 20:33 07:04 WBC (4.8-10.8) K/uL RBC (4.2-5.4) M/uL Hgb (12.0-16.0) g/dL POC Hgb (12.0-16.0) g/dl Hct (37-47) % POC Hct (37-47) % MCV (80-100) fL MCH (25-34) pg MCHC (32-36) g/dL RDW Std Deviation (36.4-46.3) fL RDW Coeff of Eleazar (11.5-14.5) % Plt Count (130-400) K/uL MPV (7.4-10.4) fL PT (9.0-12.0) Seconds INR (0.9-1.1) APTT (21.0-31.0) Seconds PTT Ratio POC Sodium (135-144) mmol/L Sodium 135 L (136-145) mmol/L POC Potassium (3.3-5.0) mmol/L Potassium 3.4 L (3.5-5.1) mmol/L POC Chloride (101-112) mmol/L Chloride 102 (98-107) mmol/L Carbon Dioxide 26 (21-32) mmol/L POC Total CO2 (24-31) mmol/L Anion Gap 7 (3-11) POC Anion Gap (16-25) mmol/L POC BUN (7-18) mg/dl BUN 15 (6-23) mg/dl Creatinine 0.74 (0.6-1.2) mg/dl POC Creatinine (0.6-1.3) mg/dl Est Cr Clr Drug Dosing 94.2 ml/min Est GFR ( Amer) 107.2 ml/min Est GFR (Non-Af Amer) 92.5 ml/min BUN/Creatinine Ratio 20.3 H (10-20) Glucose 215 H (70-99(Fasting)) mg/dl POC Glucose 206 H (70-99) mg/dl POC Glucose (other) (70-99) mg/dl Estimat Average Glucose mg/dl Hemoglobin A1c (4.5-5.6) % Calcium 8.3 L (8.5-10.1) mg/dl POC Ioniz Calcium Zechariah (1.12-1.32) mmol/l Magnesium (1.7-2.4) mg/dl Total Bilirubin (0.2-1.0) mg/dl AST (13-39) U/L ALT (7-52) U/L Alkaline Phosphatase (34-104) U/L Total Protein (6.0-8.3) gm/dl Albumin (3.4-5.0) gm/dl Globulin (2.5-4.0) gm/dl Albumin/Globulin Ratio (0.9-2) Triglycerides (0-150) mg/dl Cholesterol (0-200) mg/dl LDL Cholesterol, Calc VLDL Cholesterol, Calc HDL Cholesterol mg/dl Cholesterol/HDL Ratio (0-5) SARS-CoV-2, RNA, NAAT NEGATIVE (NEGATIVE) 10/12/21 Range/Units 07:36 WBC (4.8-10.8) K/uL RBC (4.2-5.4) M/uL Hgb (12.0-16.0) g/dL POC Hgb (12.0-16.0) g/dl Hct (37-47) % POC Hct (37-47) % MCV (80-100) fL MCH (25-34) pg MCHC (32-36) g/dL RDW Std Deviation (36.4-46.3) fL RDW Coeff of Eleazar (11.5-14.5) % Plt Count (130-400) K/uL MPV (7.4-10.4) fL PT (9.0-12.0) Seconds INR (0.9-1.1) APTT (21.0-31.0) Seconds PTT Ratio POC Sodium (135-144) mmol/L Sodium (136-145) mmol/L POC Potassium (3.3-5.0) mmol/L Potassium (3.5-5.1) mmol/L POC Chloride (101-112) mmol/L Chloride (98-107) mmol/L Carbon Dioxide (21-32) mmol/L POC Total CO2 (24-31) mmol/L Anion Gap (3-11) POC Anion Gap (16-25) mmol/L POC BUN (7-18) mg/dl BUN (6-23) mg/dl Creatinine (0.6-1.2) mg/dl POC Creatinine (0.6-1.3) mg/dl Est Cr Clr Drug Dosing ml/min Est GFR ( Amer) ml/min Est GFR (Non-Af Amer) ml/min BUN/Creatinine Ratio (10-20) Glucose (70-99(Fasting)) mg/dl POC Glucose 240 H (70-99) mg/dl POC Glucose (other) (70-99) mg/dl Estimat Average Glucose mg/dl Hemoglobin A1c (4.5-5.6) % Calcium (8.5-10.1) mg/dl POC Ioniz Calcium Zechariah (1.12-1.32) mmol/l Magnesium (1.7-2.4) mg/dl Total Bilirubin (0.2-1.0) mg/dl AST (13-39) U/L ALT (7-52) U/L Alkaline Phosphatase (34-104) U/L Total Protein (6.0-8.3) gm/dl Albumin (3.4-5.0) gm/dl Globulin (2.5-4.0) gm/dl Albumin/Globulin Ratio (0.9-2) Triglycerides (0-150) mg/dl Cholesterol (0-200) mg/dl LDL Cholesterol, Calc VLDL Cholesterol, Calc HDL Cholesterol mg/dl Cholesterol/HDL Ratio (0-5) SARS-CoV-2, RNA, NAAT (NEGATIVE) Imaging Data Radiologist's Impression: Brain MRI 10/11/21 19:58 MRI OF THE BRAIN WITHOUT IV CONTRAST CLINICAL HISTORY: Stroke. Increasing right lower extremity weakness. COMPARISON STUDY: CT of the brain dated 10/11/2021. TECHNIQUE: MRI of the brain was performed utilizing various T1 and T2-weighted sequences in the axial, sagittal, and coronal planes. IV contrast was not administered for this examination. FINDINGS: Brain parenchyma: There is a 1 cm focus of restricted diffusion seen within the left anterior aspect of the delroy. This is consistent with an acute to subacute lacunar infarct. No additional foci of restricted diffusion are identified. There is no hemorrhage or mass effect. There is minimal microangiopathic change. Kruger-white matter differentiation is preserved. No extra-axial fluid collection is seen. The cerebellar tonsils are normal in configuration. Ventricles, sulci, and cisterns: Normal in configuration. Pituitary and sella: Unremarkable. Intracranial vasculature: Normal flow voids are maintained at the skull base. Orbits: The bony orbits are grossly intact. Orbital contents are normal in appearance noting bilateral ocular lens implants. Sinuses and mastoids: Clear. Calvarium: Unremarkable. Cervical cord: Partially visualized cervical spinal cord is normal in morphology and signal intensity. IMPRESSION: 1. There is an acute to subacute lacunar infarct identified in the delroy as above. 2. No additional foci of acute ischemia identified. 3. There is no hemorrhage or mass effect. ACT 112: Negative or not required by law. Electronically signed by: Tevin Elam M.D. 10/12/2021 7:10 AM [place], [place] [phone] CT Scan Report Patient:RAIN FRANKLIN Admit Date:10/11/21 MR#:[id number] Address1:[address] Acct ID:[id number] Address2: Date:1970 [facility] Zip:[place] [address] Age:50 Location:ED Sex:F Room/Bed: Att Phy: Diagnosis:DR FOFANA OVER Karolina Phy:Samuel Porter DO ([place]ARDNER) Service Date:10/11/21 Fam Phy: Interpreting Phy:Tevin Elam MDAdmit Phy: Ordering Phy:LEANDRA,ED cc: ~ CT SCAN OF THE BRAIN WITHOUT IV CONTRAST CLINICAL HISTORY: Strokelike symptoms COMPARISON STUDY: No priors. TECHNIQUE: Unenhanced axial CT scan of the brain is performed from the vertex to the skull base. A dose lowering technique was utilized adhering to the principles of ALARA. CT DOSE: 537.48 mGy.cm FINDINGS: Brain parenchyma: The brain parenchyma is normal in appearance. There is no hemorrhage, mass effect, or evidence of acute territorial ischemia by CT criteria. Kruger-white matter differentiation is preserved. No extra-axial fluid collection is seen. Ventricles, sulci, cisterns: Normal in configuration. Intracranial vasculature: There is atherosclerotic calcification of the cavernous carotid arteries. Calvarium: Unremarkable. Sinuses and mastoids: The visualized paranasal sinuses are clear. The mastoid air cells are well pneumatized. Orbits: The bony orbits are grossly intact. IMPRESSION: There is no hemorrhage, mass effect, or evidence of acute territorial ischemia by CT criteria. ACT 112: Negative or not required by law. Electronically signed by: Tevin Elam M.D. 10/11/2021 12:53 PM ECG Data Attestation: I personally reviewed and interpreted this ECG as follows: Indication: + weakness Rate (beats per minute): 85 Rhythm: + normal sinus ECG Intervals/blocks: + Normal QRS and + Normal QT ECG [place]: + Normal ECG ST segments: + Normal ST segments MDM Narrative This is a 51-year-old female presents emergency department complaining of right- sided weakness that began 4 to 5 days ago. Patient was seen and evaluated at [facility] last week and diagnosed with a pontine stroke. Patient presented there again when the right-sided weakness began however left AMA. We were able to obtain records from [facility] and review these which should confirm the pontine stroke noted on MRI as well as her visit which resulted in her leaving AMA from the emergency room. Patient states the right-sided weakness has been constant and progressive since that time. Patient does have a history of tobacco abuse and diabetes, admits to noncompliance. Patient was afebrile a nd hemodynamically stable. Patient sent for Noncon head CT here due to concern for headache over the last 4 to 5 days with her other symptoms. No evidence of ICH. Patient's labs reveal hyperglycemia, no other acute significant lab abnormality noted immediately. Case discussed with hospitalist for additional evaluation and management regarding a likely stroke. It is unclear if this is a completion of what was initially seen versus a second new stroke given the patient's risk factors and noncompliance. An order was placed for continuous cardiac monitoring. The monitor shows a rate of _90_ with _normal sinus__ rhythm. Impression & Plan Acute right-sided weakness, Tobacco abuse, Noncompliance, Hyperglycemia Discharge Plan Visit Data Chief Complaint: Referred by Doctor Stated Complaint: REF OVER ED Provider: Ania Clifford Discharge Problem: Acute right-sided weakness, Tobacco abuse, Noncompliance, Hyperglycemia Patient Disposition: Admitted As Inpatient Discharge Instructions Interventions: ED Discharge Assessment Last Done: 10/11/21 19:40
[2021-10-11 14:23] LABS: Partial Thromboplastin Ratio 0.9; Partial Thromboplastin Time 25.1 Seconds (21.0-31.0); Prothrombin Time 10.3 Seconds (9.0-12.0)
[2021-10-11 14:31] LABS: Albumin Globulin Ratio 1.1 (0.9-2); Albumin Level 3.4 gm/dl (3.4-5.0); BUN Creatinine Ratio 16.9 (10-20); Bilirubin,Total 0.5 mg/dl (0.2-1.0); Calcium 8.4 mg/dl (8.5-10.1); Creatinine Clr Calc Pharmacy 83.4 ml/min; Est GFR (Non-African American) 81.1 ml/min; Potassium 3.8 mmol/L (3.5-5.1); Total Protein 6.4 gm/dl (6.0-8.3)
[2021-10-11 14:39] LABS: Estimated Average Glucose 295 mg/dl; Hemoglobin A1C 11.9 % (4.5-5.6)
[2021-10-11 15:07] LABS: Cholesterol 231 mg/dl (0-200); HDL Cholesterol 35 mg/dl; Triglycerides 411 mg/dl (0-150)
[2021-10-11 15:10] LABS: Chol HDL Ratio 6.6 (0-5)
[2021-10-11] MEDS ORDERED: ACETAMINOPHEN 1,000 MG/100 ML VIAL IV STA (15:19)
--- NOTE | 2021-10-11 16:09 | History & Physical Report ---
Date of Service October 11, 2021 Assessment & Plan (1) Left pontine stroke: Plan: Per discharge summary from her [facility] hospitalization (10/05 to 10/06). Current symptoms/signs are c/w a left pontine stroke. She developed the right arm/leg weakness after her hospital stay last week. She could have "completed" her stroke after the admission, extended the stroke, or developed an additional stroke adjacent to the original site of infarction. With respect to secondary prevention -- the patient states she was indeed taking aspirin when she developed the stroke last week. Plan - * change aspirin to plavix 75mg daily, first dose now * repeat MRI brain to r/o hemorrhagic transformation of the recent pontine CVA, r/o extension of the stroke, r/o a new stroke next to the original infarcted region, r/o stroke in other regions of the brain, etc * obtain records from [facility] to determine what studies she had (MRA brain/neck, echo, etc); of note - she cannot have IV CT contrast * neurology consultation * PT, OT, speech * since she is 5-6 days out from the original stroke she needs better BP control; plan to add amlodipine 5mg daily in the am; give a dose of coreg now * severe hyperlipidemia - ideally we increase her pravastatin to 40mg daily but uncertain she will tolerate or comply with such * risk factor modification - tobacco cessation, improved DM control, etc (2) Noncompliance: Plan: Patient is noncompliant with numerous recommendations, medicines, etc. This will be an issue in ongoing attempts at secondary stroke prevention. The diabetes in particular is a big problem. See below. (3) Tobacco abuse: Plan: Smoking cessation to be encouraged. Nicoderm patch 21mg/ day. (4) Dyslipidemia: Plan: I am uncertain if today's lipid profile was fasting. If she was indeed fasting she has very low HDL, high trigs, and likely high LDL. These values are chronic. Her trigs in the past have been as high as 1000. Cont statins - increase if she will allow such and/or tolerate such. Consider dedicated triglyceride-lowering agent but again uncertain if she will comply or tolerate. (5) Coronary artery disease: Plan: With prior h/o MIs and 2 stents. Cont statin. Cont antiplatelet agent - likely plavix (as in #1 above). Smoking cessation needed. (6) Diabetes type 2, uncontrolled: Plan: HbA1C very high. Will involve diabetes education. I have ordered novolog but uncertain if she will allow us to give it to her. She is not taking ANY oral agent or insulin at home. Clearly dietary control is not helping. Check BSGs ac/hs. DM diet. (7) Diabetic neuropathy associated with type 2 diabetes mellitus: (8) Gastroparesis: Plan: Poor candidate for any medicinal treatment. (9) Hypertension: Plan: Continue coreg. Would add amlodipine 5mg daily. (10) GERD (gastroesophageal reflux disease): Plan: Not taking meds at home for this. (11) Depression: Plan: Not taking any meds for this at home. (12) BENITO (obstructive sleep apnea): Plan: Unable to use CPAP at home. (13) Drop foot gait: Plan: RIGHT. Chronic. due to lumbar spine disease? more peripheral etiology (peroneal nerve injury)? Cont AFO device. PT, OT. (14) COPD (chronic obstructive pulmonary disease): Plan: no exacerbation at this time. not on inhalers at home. smoking cessation needed. Plan: DVT proph - lovenox SC total time about 80 minutes between history, physical, orders, reviewing [facility] records, etc place on observation status for now History of Present Illness Chief Complaint: right arm and right leg weakness Primary Care Provider: Samuel Porter, 50yo female - right-handed - with numerous medical problems including ongoing tobacco dependence, CAD s/p multiple MIs, uncontrolled T2DM, diabetic neuropathy, prior h/o alcoholism, HTN, hyperlipidemia, untreated BENITO, and gastroparesis who presents with right arm weakness and right leg weakness. The patient was admitted to [facility] from 10/05 to 10/06 for a left-sided pontine stroke. Records indicate she was driving in the car with her on 10/05 when she developed acute dysarthria, confusion and a brief episode of syncope. After admission to [facility] an MRI brain confirmed a small acute stroke in the left delroy. During her brief stay she did NOT have right arm or right leg symptoms. She had no dysphagia. The limited amount of records I had from [facility] shows that she had either a carotid duplex study and/or MRA of the head/neck. Patient states she also had an echo. CTAs were NOT done due to contrast allergy. The d/c summary from that brief stay suggests that the patient was not taking aspirin regularly and thus the antiplatelet agent that was recommended was aspirin 81mg daily. On 10/07/21 she went back to the [facility] ER for headache, weakness, and simply feeling unwell. The ER record states that her motor function of the arms/legs was normal. The patient told me during my admission assessment that she thinks her right-sided weakness started on 10/07. Unfortunately the patient left AMA from the [facility] ER before additional work- up could be completed. Over the next few days her right arm/leg weakness continued to worsen. She feels that her right arm is worse than the right leg. She has been falling because of this focal weakness although she states "I have been falling every day for years." [legs give way then she falls] She also mentions a chronic right foot drop and uses an AFO for this. Denies dysphagia. In addition, she reports numbness of the right saba which is new. She has had numbness of her right foot for many years. Finally, although the [facility] d/c summary suggests she had not been compliant with aspirin therapy prior to her stroke, the patient states that this is untrue. She tells me that she had been compliant with aspirin. Allergies Allergy/AdvReac Type Severity Reaction Status Date / Time Corticosteroids Allergy Severe STEROIDS-AN Verified 10/11/21 15:16 (Glucocorticoids) APHYLAXIS gabapentin Allergy Severe HIVES/SWELL Verified 10/11/21 15:16 ING Iodinated Contrast Media Allergy Severe FACIAL Verified 10/11/21 15:16 SWELLING nadolol Allergy Severe HIVES/SWELL Verified 10/11/21 15:16 ING shellfish derived Allergy Severe SWELLING Verified 10/11/21 15:16 albuterol Allergy Unknown Verified 10/11/21 15:16 aloe vera Allergy Unknown Verified 10/11/21 15:16 aspartame Allergy Unknown Verified 10/11/21 15:16 atorvastatin [From Lipitor] Allergy Unknown Verified 10/11/21 15:16 azithromycin [From Zithromax] Allergy Unknown Verified 10/11/21 15:16 barium sulfate Allergy Unknown Verified 10/11/21 15:16 beeswax Allergy Unknown Verified 10/11/21 15:16 blueberry Allergy Unknown Verified 10/11/21 15:16 carbidopa Allergy Unknown Verified 10/11/21 15:16 celecoxib [From Celebrex] Allergy Unknown Verified 10/11/21 15:16 dicyclomine Allergy Unknown Verified 10/11/21 15:16 fluoxetine [From Prozac] Allergy Unknown Verified 10/11/21 15:16 influenza virus vaccine ts Allergy Unknown Verified 10/11/21 15:16 [id number] (36 mos,up) [From Fluarix] insulin glargine Allergy Unknown Verified 10/11/21 15:16 [From Lantus U-100 Insulin] levofloxacin Allergy Unknown Verified 10/11/21 15:16 oxymorphone Allergy Unknown Verified 10/11/21 15:16 peach Allergy Unknown Verified 10/11/21 15:16 prednisone Allergy Unknown Verified 10/11/21 15:16 rosuvastatin [From Crestor] Allergy Unknown Verified 10/11/21 15:16 strawberry Allergy Unknown Verified 10/11/21 15:16 sucralose Allergy Unknown Verified 10/11/21 15:16 [From Splenda (sucralose)] sulfamethoxazole Allergy Unknown Verified 10/11/21 15:16 [From Bactrim] tomato Allergy Unknown Verified 10/11/21 15:16 trimethoprim [From Bactrim] Allergy Unknown Verified 10/11/21 15:16 cephalexin [From Keflex] AdvReac Severe YEAST Verified 10/11/21 15:16 INFECTION egg AdvReac Intermediate GI SYMPTOMS Verified 10/11/21 15:16 insulin detemir AdvReac Intermediate VOMITING Verified 10/11/21 15:16 meperidine AdvReac Intermediate BECOMES Verified 10/11/21 15:16 VIOLENT milk AdvReac Intermediate GI SYMPTOMS Verified 10/11/21 15:16 morphine AdvReac Intermediate BECOMES Verified 10/11/21 15:16 VIOLENT phenol AdvReac Intermediate VOMITING Verified 10/11/21 15:16 pregabalin AdvReac Intermediate AGITATION Verified 10/11/21 15:16 promethazine AdvReac Unknown nausea and Verified 10/11/21 15:16 vomiting varenicline AdvReac Unknown HOMICIDAL Verified 10/11/21 15:16 IDEATION ARTIFICIAL SWEETENER Allergy Severe ANAPHYLAXIS Uncoded 10/11/21 15:16 ultrasound gel Allergy Intermediate HIVES Uncoded 10/11/21 15:16 gynemoistrin Allergy Unknown Uncoded 10/11/21 15:16 Home Medications Medication Instructions Recorded Confirmed Type aspirin 81 mg chewable tablet 81 mg PO HS 01/22/19 10/11/21 History docusate sodium 100 mg capsule 100 mg PO AMPM 01/22/19 10/11/21 History (Stool Softener) nitroglycerin 0.4 mg sublingual 0 mg SUBLINGUAL UD PRN 01/22/19 10/11/21 History tablet (Nitrostat) Fiber Choice Fruity Bites 1.5g 2 tab PO QAM PRN 02/18/20 10/11/21 History furosemide 20 mg tablet (Lasix) 20 mg PO DAILY PRN #30 tab 04/06/21 10/11/21 Rx carvedilol 3.125 mg tablet 3.125 mg PO BID #180 tab 05/03/21 10/11/21 Rx Al 4 tab PO BID 10/11/21 10/11/21 History baclofen 10 mg tablet 20 mg PO HS 10/11/21 10/11/21 History diphenhydramine HCl 25 mg tablet 25 mg PO TID 10/11/21 10/11/21 History (Benadryl Allergy) melatonin 10 mg tablet 20 mg PO HS 10/11/21 10/11/21 History nicotine 21 mg/24 hr daily 21 mg TRANSDERMAL DAILY 10/11/21 10/11/21 History transdermal patch oxycodone 5 mg/5 mL oral solution 5 mg PO TID PRN 10/11/21 10/11/21 History pravastatin 20 mg tablet 20 mg PO DAILY 10/11/21 10/11/21 History torsemide 20 mg tablet 20 mg PO DAILY 10/11/21 10/11/21 History Past Med/Surg History Medical History (Updated 10/11/21 @ 23:49 by Rene Brooks) Callus Chronic pain COPD (chronic obstructive pulmonary disease) Coronary artery disease Depression Diabetes mellitus Drop foot gait Dyslipidemia Fracture of lumbar spine L1/L2 - 2nd trauma Gastroparesis GERD (gastroesophageal reflux disease) History of alcoholism History of liver disease History of osteomyelitis right great toe History of ovarian cancer Hypertension [place] (myocardial infarction) multiple; 2 stents MSSA (methicillin susceptible Staphylococcus aureus) infection BENITO (obstructive sleep apnea) Peripheral vascular disease Personal history of diabetic foot ulcer Tobacco abuse Surgical History (Updated 10/11/21 @ 23:11 by Rene Brooks) H/O dilation and curettage H/O heart artery stent H/O tubal ligation H/O: hysterectomy History of appendectomy Family History (Updated 10/11/21 @ 23:14 by Rene Brooks) Grandmother (Paternal) Diabetes Father , in his 50s Diabetes Stroke Uncle Diabetes Hypothyroidism Cancer Stroke Mother Coronary heart disease Heart disease Ovarian cancer Grandmother (Maternal) Breast cancer Brother Diabetes Hypertension Gout Grandfather (Maternal) Diabetes Social History (Updated 10/11/21 @ 23:15 by Rene Brooks) Smoking Status: Current every day smoker Tobacco Type: Cigarettes packs per day: 1; Years Smoked: 41; Hx Alcohol Use: Yes (heavy liquor consumption; quit early ) Hx Substance Use: No Preferred Language: Thai Communication Ability: Effective Communication Tools: Letter Board, Picture Board and Facial Expression Visual Impairment: Limited Hearing Ability: Normal State Federal Relations Deputy Director Required: No Beliefs That Will Affect Care: None marital status: Current Living Situation: Spouse Current Living Situation Comment: lives with in [facility] current occupational status: disabled 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 How many Children do You have: 1 Other Information That Helps Us Care for You: No Feels Safe at Home: Yes Safety Concerns: Feels Safe At This Time Childhood Exposure to Second-Hand Smoke: Yes caffeine: No during the past year weight has: decreased > 10 lbs Dental Care, Regularly: Yes Physical Activity Frequency: 3-4 Times per Week Seatbelt Use: sometimes Sunscreen Use: Yes Assistive Devices: Walker and Wheelchair Review of Systems Review of Systems: gen - no fevers or chills; eating normally; weight gain over the last 2 months; fatigue present eyes - chronic blurry vision HENT - dysphagia - CHRONIC, not acute; passed dysphagia screen in ER Neck - no pain CV - no chest pain pulm - intermittent, chronic LEON; no cough GI - chronic vomiting, no pain, no diarrhea - no dysuria musculo - chronic lumbar back pain neuro - right arm/leg weakness, headaches, dysarthria skin - h/o foot ulcers, none at this time; no rash psych - chronic depression, sleep issues Physical Exam Physical Exam: gen - NAD, mild dysarthric speech, alert, awake eyes - PERRL; EOMI; visual ann full by direct confrontation face - slight right lower facial droop HENT - MMM, nose clear neck - no JVD, no thyroidmegaly heart - RRR, s1 s2, no murmur lungs - CTA b/l abd - soft NT ND BS+; no HSM ext - dry skin, no edema, pulses 1+ b/l skin - no open ulcers on feet b/l; no generalized rash neuro - trace right lower facial droop; dysarthric speech; right arm - handgrip 4/5; shoulder extension/abduction 2-3/5 (positive pronator drift); right hip strength 2-3/5; right foot drop; left arm/leg 5/5 strength; b/l feet - sensation NOT intact; finger/nose/finger maneuver normal on left - could not perform this on right due to weakness; gait not tested; DTRs 1+ or less upper/lower ext remities; no babinski sign b/l musculo - no joint effusions psych - a/o x 3 Results & Data Results & Data ([facility]) Vital Signs (Past 12 Hours) Vital Signs Temp Pulse Pulse Resp BP BP Pulse Ox 10/11/21 15:13 81 81 14 187/94 H 96 10/11/21 13:15 79 20 177/96 H 96 10/11/21 11:56 36.2 C L 85 18 183/90 H 98 Laboratory Results Laboratory Results - last 24 hr 10/11/21 10/11/21 10/11/21 12:35 13:57 13:57 WBC 10.77 RBC 4.24 Hgb 13.4 POC Hgb 15.0 Hct 40.5 POC Hct 44 MCV 95.5 MCH 31.6 MCHC 33.1 RDW Std Deviation 45.9 RDW Coeff of Eleazar 13.3 Plt Count 229 MPV 10.6 H PT 10.3 INR 1.0 APTT 25.1 PTT Ratio 0.9 POC Sodium 132 L Sodium POC Potassium 4.2 Potassium POC Chloride 101 Chloride Carbon Dioxide POC Total CO2 23 L Anion Gap POC Anion Gap 13.0 L POC BUN 15 BUN Creatinine POC Creatinine 0.8 Est Cr Clr Drug Dosing Est GFR ( Amer) Est GFR (Non-Af Amer) BUN/Creatinine Ratio Glucose POC Glucose POC Glucose (other) 304 H Estimat Average Glucose Hemoglobin A1c Calcium POC Ioniz Calcium Zechariah 1.02 L Magnesium Total Bilirubin AST ALT Alkaline Phosphatase Total Protein Albumin Globulin Albumin/Globulin Ratio Triglycerides Cholesterol LDL Cholesterol, Calc VLDL Cholesterol, Calc HDL Cholesterol Cholesterol/HDL Ratio SARS-CoV-2, RNA, NAAT 10/11/21 10/11/21 10/11/21 13:57 13:57 13:57 WBC RBC Hgb POC Hgb Hct POC Hct MCV MCH MCHC RDW Std Deviation RDW Coeff of Eleazar Plt Count MPV PT INR APTT PTT Ratio POC Sodium Sodium 135 L POC Potassium Potassium 3.8 POC Chloride Chloride 101 Carbon Dioxide 27 POC Total CO2 Anion Gap 7 POC Anion Gap POC BUN BUN 14 Creatinine 0.83 POC Creatinine Est Cr Clr Drug Dosing 83.4 Est GFR ( Amer) 94.0 Est GFR (Non-Af Amer) 81.1 BUN/Creatinine Ratio 16.9 Glucose 273 H POC Glucose POC Glucose (other) Estimat Average Glucose 295 Hemoglobin A1c 11.9 H Calcium 8.4 L POC Ioniz Calcium Zechariah Magnesium 2.0 Total Bilirubin 0.5 AST 11 L ALT 11 Alkaline Phosphatase 69 Total Protein 6.4 Albumin 3.4 Globulin 3.0 Albumin/Globulin Ratio 1.1 Triglycerides 411 H Cholesterol 231 H LDL Cholesterol, Calc TNP VLDL Cholesterol, Calc TNP HDL Cholesterol 35 Cholesterol/HDL Ratio 6.6 H SARS-CoV-2, RNA, NAAT 10/11/21 10/11/21 16:52 20:33 WBC RBC Hgb POC Hgb Hct POC Hct MCV MCH MCHC RDW Std Deviation RDW Coeff of Eleazar Plt Count MPV PT INR APTT PTT Ratio POC Sodium Sodium POC Potassium Potassium POC Chloride Chloride Carbon Dioxide POC Total CO2 Anion Gap POC Anion Gap POC BUN BUN Creatinine POC Creatinine Est Cr Clr Drug Dosing Est GFR ( Amer) Est GFR (Non-Af Amer) BUN/Creatinine Ratio Glucose POC Glucose 206 H POC Glucose (other) Estimat Average Glucose Hemoglobin A1c Calcium POC Ioniz Calcium Zechariah Magnesium Total Bilirubin AST ALT Alkaline Phosphatase Total Protein Albumin Globulin Albumin/Globulin Ratio Triglycerides Cholesterol LDL Cholesterol, Calc VLDL Cholesterol, Calc HDL Cholesterol Cholesterol/HDL Ratio SARS-CoV-2, RNA, NAAT NEGATIVE Diagnostic Findings Head CT 10/11/21 12:04 CT SCAN OF THE BRAIN WITHOUT IV CONTRAST CLINICAL HISTORY: Strokelike symptoms COMPARISON STUDY: No priors. TECHNIQUE: Unenhanced axial CT scan of the brain is performed from the vertex to the skull base. A dose lowering technique was utilized adhering to the principles of ALARA. CT DOSE: 537.48 mGy.cm FINDINGS: Brain parenchyma: The brain parenchyma is normal in appearance. There is no hemorrhage, mass effect, or evidence of acute territorial ischemia by CT criteria. Kruger-white matter differentiation is preserved. No extra-axial fluid collection is seen. Ventricles, sulci, cisterns: Normal in configuration. Intracranial vasculature: There is atherosclerotic calcification of the cavernous carotid arteries. Calvarium: Unremarkable. Sinuses and mastoids: The visualized paranasal sinuses are clear. The mastoid air cells are well pneumatized. Orbits: The bony orbits are grossly intact. IMPRESSION: There is no hemorrhage, mass effect, or evidence of acute territorial ischemia by CT criteria. ACT 112: Negative or not required by law. Electronically signed by: Tevin Elam M.D. 10/11/2021 12:53 PM EKG - my reading - NSR, LVH by voltage criteria, no ST changes Code Status & VTE Plan Code Status DNR/DNI PG Care Time/CCT Total # of Minutes Spent Total Time Spent with Patient: Total time spent is greater than 50% in coordination of care (as documented) at patient's floor/unit and/or counseling patient: Coding Level of Care Code INT OBSERVATION CARE 70M LVL 3 Diagnoses Left pontine stroke I63.9 Noncompliance Z91.19 Tobacco abuse Z72.0 Dyslipidemia E78.5 Coronary artery disease I25.10 Associated angina: without angina Coronary Disease-Associated Artery/Lesion type: [place] artery Hoh vs. transplanted heart: [place] heart Diabetes type 2, uncontrolled E11.65 Diabetic neuropathy associated with type 2 diabetes mellitus E11.49 Diabetes mellitus complication detail: with other neurological complication Gastroparesis K31.84 Hypertension I10 Hypertension type: essential hypertension GERD (gastroesophageal reflux disease) K21.9 Depression F32.9 Active/Remission status: remission status unspecified Depression Type: major depressive disorder Major depression recurrence: unspecified whether recurrent BENITO (obstructive sleep apnea) G47.33 Drop foot gait M21.379 COPD (chronic obstructive pulmonary disease) J44.9 (1) Coronary artery disease Associated angina: without angina Coronary Disease-Associated Artery/Lesion type: [place] artery Hoh vs. transplanted heart: [place] heart Qualified Code(s): I25.10 - Atherosclerotic heart disease of [place] coronary artery without angina pectoris (2) Depression Active/Remission status: remission status unspecified Depression Type: major depressive disorder Major depression recurrence: unspecified whether recurrent Qualified Code(s): F32.9 - Major depressive disorder, single episode, unspecified (3) Diabetic neuropathy associated with type 2 diabetes mellitus Diabetes mellitus complication detail: with other neurological complication Qualified Code(s): E11.49 - Type 2 diabetes mellitus with other diabetic neurological complication (4) Hypertension Hypertension type: essential hypertension Qualified Code(s): I10 - Essential (primary) hypertension
--- NOTE | 2021-10-11 16:55 | Electrocardiogram Report ---
Test Reason : Blood Pressure : / mmHG Vent. Rate : 085 BPM Atrial Rate : 085 BPM P-R Int : 152 ms QRS Dur : 086 ms QT Int : 394 ms P-R-T Axes : 032 -29 072 degrees QTc Int : 468 ms Normal sinus rhythm Minimal voltage criteria for LVH, may be normal variant Borderline ECG When compared with ECG of 24-FEB-2020 01:39, No significant change was found Confirmed by Jung Ortega ([id number]) on 10/11/2021 4:54:52 PM Referred By: Confirmed By:John Ortega
[2021-10-11] MEDS ORDERED: carvediloL 3.125 MG TAB PO ONE (17:26)
[2021-10-11] MEDS ORDERED: CLOPIDOGREL BISULFATE 75 MG TAB PO ONE (17:26)
[2021-10-11] MEDS ORDERED: ACETAMINOPHEN 325 MG TAB PO PRN (19:58)
[2021-10-11] MEDS ORDERED: ONDANSETRON INJ 2 MG/ML 2 ML VIAL IV PRN (19:58)
[2021-10-11] MEDS ORDERED: PHARMACIST DISCHARGE MED REC CONSULT PRN (19:58)
[2021-10-11] MEDS ORDERED: NITROGLYCERIN SL 0.4 MG/TAB TAB SL PRN (19:58)
[2021-10-11] MEDS: oxyCODONE HCL SOLN 5 MG/5 ML UDC PO PRN (20:37)
[2021-10-11] MEDS ORDERED: carvediloL 3.125 MG TAB PO SCH (21:00)
[2021-10-11] MEDS: diphenhydrAMINE Capsule 25 MG CAP PO SCH (22:14)
[2021-10-11] MEDS: DOCUSATE SODIUM 100 MG CAP PO SCH (22:14)
[2021-10-11] MEDS: BACLOFEN 20 MG TAB PO SCH (22:14)
[2021-10-11] MEDS: MELATONIN 3 MG TAB PO SCH (22:15)
[2021-10-11] MEDS: INSULIN ASPART PER UNIT SC SCH (23:28)
[2021-10-12] MEDS: oxyCODONE HCL SOLN 5 MG/5 ML UDC PO PRN ×3 (01:15→23:51)
--- NOTE | 2021-10-12 07:11 | Magnetic Resonance Report ---
MRI OF THE BRAIN WITHOUT IV CONTRAST CLINICAL HISTORY: Stroke. Increasing right lower extremity weakness. COMPARISON STUDY: CT of the brain dated 10/11/2021. TECHNIQUE: MRI of the brain was performed utilizing various T1 and T2-weighted sequences in the axial , sagittal, and coronal planes. IV contrast was not administered for this examination. FINDINGS: Brain parenchyma: There is a 1 cm focus of restricted diffusion seen within the left anterior aspect of the delroy. This is consistent with an acute to subacute lacunar infarct. No additional foci of rest ricted diffusion are identified. There is no hemorrhage or mass effect. There is minimal microangiopa thic change. Kruger-white matter differentiation is preserved. No extra-axial fluid collection is seen. The cerebellar tonsils are normal in configuration. Ventricles, sulci, and cisterns: Normal in configuration. Pituitary and sella: Unremarkable. Intracranial vasculature: Normal flow voids are maintained at the skull base. Orbits: The bony orbits are grossly intact. Orbital contents are normal in appearance noting bilatera l ocular lens implants. Sinuses and mastoids: Clear. Calvarium: Unremarkable. Cervical cord: Partially visualized cervical spinal cord is normal in morphology and signal intensity . IMPRESSION: 1. There is an acute to subacute lacunar infarct identified in the delroy as above. 2. No additional foci of acute ischemia identified. 3. There is no hemorrhage or mass effect. ACT 112: Negative or not required by law. Electronically signed by: Tevin Elam M.D. 10/12/2021 7:10 AM
[2021-10-12 07:59] LABS: BUN Creatinine Ratio 20.3 (10-20); Calcium 8.3 mg/dl (8.5-10.1); Creatinine Clr Calc Pharmacy 94.2 ml/min; Est GFR (African American) 107.2 ml/min; Est GFR (Non-African American) 92.5 ml/min; Potassium 3.4 mmol/L (3.5-5.1)
[2021-10-12] MEDS: ENOXAPARIN INJ 40 MG/0.4 ML SYR SQ SCH (08:50)
[2021-10-12] MEDS: NICOTINE 21 MG/24 HR TDSY TD SCH (08:51)
[2021-10-12] MEDS: DOCUSATE SODIUM 100 MG CAP PO SCH ×2 (08:51→22:14)
[2021-10-12] MEDS: CLOPIDOGREL BISULFATE 75 MG TAB PO SCH (08:52)
[2021-10-12] MEDS: diphenhydrAMINE Capsule 25 MG CAP PO SCH ×3 (08:52→22:14)
[2021-10-12] MEDS: PRAVASTATIN SOD 20 MG TAB PO SCH (08:52)
[2021-10-12] MEDS: INSULIN ASPART PER UNIT SC SCH ×4 (08:55→22:10)
--- NOTE | 2021-10-12 09:30 | Neurology Consultation ---
Date of Consultation October 12, 2021 Assessment & Plan (1) Left pontine stroke: Acute to subacute left pontine stroke resulting in a right hemiparesis, proximal arm, right leg, mild right facial droop. Stroke risk factors for this patient include poorly controlled diabetes mellitus, tobacco abuse, hyperlipidemia, and hypertension. We recommend dual antiplatelet therapy, aspirin 81 mg/day, and clopidogrel 75 mg/day for 3 weeks. Would then transition to clopidogrel monotherapy, 75 mg/day thereafter. Would recommend an up-to-date MRA of the head and neck to reassess the vertebrobasilar circulation. Consider 30-day mobile cardiac outpatient telemetry. Consider repeat transthoracic echocardiogram if unable to get records from [facility]. Optimize lipid management. Currently on pravastatin. History of intolerance to atorvastatin and rosuvastatin noted. Tobacco cessation. Improved control of diabetes mellitus. Continue medical management of hypertension. Acute systolic blood pressure goal 140 to 160 mmHg. PT/OT/speech therapy. History of Present Illness Reason for Consultation: stroke Requesting Physician: Rene Brooks MD Attending Physician: Colin Duff MD History of Present Illness The patient is a 51-year-old right-handed female with a chief complaint of right-sided weakness that began 1 week ago. She was admitted to [facility] and diagnosed with a left pontine stroke. Her symptoms considerably improved and she was discharged from [facility] to home on October 06. The following day, however, she noticed recurrence of right-sided weakness as well as associated headache. She apparently left the hospital AGAINST MEDICAL ADVICE. Her right-sided weakness worsened over the next few days, ultimately prompting her to seek further evaluation and management at [facility] yesterday afternoon. This morning, the patient complains of severe right-sided weakness, especially the arm. She complains of a low-grade frontal headache. She denies any change in vision speech or swallowing. Past medical history notable for poorly controlled diabetes mellitus, diabetic peripheral neuropathy, tobacco abuse, coronary artery disease, [place], remote history of alcohol abuse, hypertension, hyperlipidemia, obstructive sleep apnea. Allergies Allergy/AdvReac Type Severity Reaction Status Date / Time Corticosteroids Allergy Severe STEROIDS-AN Verified 10/11/21 15:16 (Glucocorticoids) APHYLAXIS gabapentin Allergy Severe HIVES/SWELL Verified 10/11/21 15:16 ING Iodinated Contrast Media Allergy Severe FACIAL Verified 10/11/21 15:16 SWELLING nadolol Allergy Severe HIVES/SWELL Verified 10/11/21 15:16 ING shellfish derived Allergy Severe SWELLING Verified 10/11/21 15:16 albuterol Allergy Unknown Verified 10/11/21 15:16 aloe vera Allergy Unknown Verified 10/11/21 15:16 aspartame Allergy Unknown Verified 10/11/21 15:16 atorvastatin [From Lipitor] Allergy Unknown Verified 10/11/21 15:16 azithromycin [From Zithromax] Allergy Unknown Verified 10/11/21 15:16 barium sulfate Allergy Unknown Verified 10/11/21 15:16 beeswax Allergy Unknown Verified 10/11/21 15:16 blueberry Allergy Unknown Verified 10/11/21 15:16 carbidopa Allergy Unknown Verified 10/11/21 15:16 celecoxib [From Celebrex] Allergy Unknown Verified 10/11/21 15:16 dicyclomine Allergy Unknown Verified 10/11/21 15:16 fluoxetine [From Prozac] Allergy Unknown Verified 10/11/21 15:16 influenza virus vaccine ts Allergy Unknown Verified 10/11/21 15:16 [id number] (36 mos,up) [From Fluarix] insulin glargine Allergy Unknown Verified 10/11/21 15:16 [From Lantus U-100 Insulin] levofloxacin Allergy Unknown Verified 10/11/21 15:16 oxymorphone Allergy Unknown Verified 10/11/21 15:16 peach Allergy Unknown Verified 10/11/21 15:16 prednisone Allergy Unknown Verified 10/11/21 15:16 rosuvastatin [From Crestor] Allergy Unknown Verified 10/11/21 15:16 strawberry Allergy Unknown Verified 10/11/21 15:16 sucralose Allergy Unknown Verified 10/11/21 15:16 [From Splenda (sucralose)] sulfamethoxazole Allergy Unknown Verified 10/11/21 15:16 [From Bactrim] tomato Allergy Unknown Verified 10/11/21 15:16 trimethoprim [From Bactrim] Allergy Unknown Verified 10/11/21 15:16 cephalexin [From Keflex] AdvReac Severe YEAST Verified 10/11/21 15:16 INFECTION egg AdvReac Intermediate GI SYMPTOMS Verified 10/11/21 15:16 insulin detemir AdvReac Intermediate VOMITING Verified 10/11/21 15:16 meperidine AdvReac Intermediate BECOMES Verified 10/11/21 15:16 VIOLENT milk AdvReac Intermediate GI SYMPTOMS Verified 10/11/21 15:16 morphine AdvReac Intermediate BECOMES Verified 10/11/21 15:16 VIOLENT phenol AdvReac Intermediate VOMITING Verified 10/11/21 15:16 pregabalin AdvReac Intermediate AGITATION Verified 10/11/21 15:16 promethazine AdvReac Unknown nausea and Verified 10/11/21 15:16 vomiting varenicline AdvReac Unknown HOMICIDAL Verified 10/11/21 15:16 IDEATION ARTIFICIAL SWEETENER Allergy Severe ANAPHYLAXIS Uncoded 10/11/21 15:16 ultrasound gel Allergy Intermediate HIVES Uncoded 10/11/21 15:16 gynemoistrin Allergy Unknown Uncoded 10/11/21 15:16 Home Medications Medication Instructions Recorded Confirmed Type aspirin 81 mg chewable tablet 81 mg PO HS 01/22/19 10/11/21 History docusate sodium 100 mg capsule 100 mg PO AMPM 01/22/19 10/11/21 History (Stool Softener) nitroglycerin 0.4 mg sublingual 0 mg SUBLINGUAL UD PRN 01/22/19 10/11/21 History tablet (Nitrostat) Fiber Choice Fruity Bites 1.5g 2 tab PO QAM PRN 02/18/20 10/11/21 History furosemide 20 mg tablet (Lasix) 20 mg PO DAILY PRN #30 tab 04/06/21 10/11/21 Rx carvedilol 3.125 mg tablet 3.125 mg PO BID #180 tab 05/03/21 10/11/21 Rx Al 4 tab PO BID 10/11/21 10/11/21 History baclofen 10 mg tablet 20 mg PO HS 10/11/21 10/11/21 History diphenhydramine HCl 25 mg tablet 25 mg PO TID 10/11/21 10/11/21 History (Benadryl Allergy) melatonin 10 mg tablet 20 mg PO HS 10/11/21 10/11/21 History nicotine 21 mg/24 hr daily 21 mg TRANSDERMAL DAILY 10/11/21 10/11/21 History transdermal patch oxycodone 5 mg/5 mL oral solution 5 mg PO TID PRN 10/11/21 10/11/21 History pravastatin 20 mg tablet 20 mg PO DAILY 10/11/21 10/11/21 History torsemide 20 mg tablet 20 mg PO DAILY 10/11/21 10/11/21 History Patient History Medical History Callus Chronic pain COPD (chronic obstructive pulmonary disease) Coronary artery disease Depression Diabetes mellitus Drop foot gait Dyslipidemia Fracture of lumbar spine L1/L2 - 2nd trauma Gastroparesis GERD (gastroesophageal reflux disease) History of alcoholism History of liver disease History of osteomyelitis right great toe History of ovarian cancer Hypertension [place] (myocardial infarction) multiple; 2 stents MSSA (methicillin susceptible Staphylococcus aureus) infection BENITO (obstructive sleep apnea) Peripheral vascular disease Personal history of diabetic foot ulcer Tobacco abuse Surgical History H/O dilation and curettage H/O heart artery stent H/O tubal ligation H/O: hysterectomy History of appendectomy Family History Grandmother (Paternal) Diabetes Father , in his 50s Diabetes Stroke Uncle Diabetes Hypothyroidism Cancer Stroke Mother Coronary heart disease Heart disease Ovarian cancer Grandmother (Maternal) Breast cancer Brother Diabetes Hypertension Gout Grandfather (Maternal) Diabetes Social History Smoking Status: Current every day smoker Tobacco Type: Cigarettes packs per day: 1; Years Smoked: 41; Hx Alcohol Use: Yes (heavy liquor consumption; quit early ) Hx Substance Use: No Preferred Language: Brazilian Communication Ability: Effective Communication Tools: Letter Board, Picture Board and Facial Expression Visual Impairment: Limited Hearing Ability: Normal Director Of Special Services Required: No Beliefs That Will Affect Care: None marital status: Current Living Situation: Spouse Current Living Situation Comment: lives with in [place] current occupational status: disabled 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 How many Children do You have: 1 Other Information That Helps Us Care for You: No Feels Safe at Home: Yes Safety Concerns: Feels Safe At This Time Childhood Exposure to Second-Hand Smoke: Yes caffeine: No during the past year weight has: decreased > 10 lbs Dental Care, Regularly: Yes Physical Activity Frequency: 3-4 Times per Week Seatbelt Use: sometimes Sunscreen Use: Yes Assistive Devices: Walker and Wheelchair Review of Systems Constitutional: no fever and no chills Eyes: no blind spots and no diplopia Ear, Nose, Mouth, Throat: no ear pain and no hearing loss Respiratory: no cough and no dyspnea Cardiovascular: no chest pain and no palpitations Gastrointestinal: + constipation Genitourinary: no urinary incontinence Musculoskeletal: + muscle weakness; no muscle atrophy Integumentary: no rash and no lesions Neurologic: as per Subjective / HPI, + gait abnormality, + localized weakness, + loss of sensation and + headache(s); no tremor(s) and no memory loss Psychiatric: no behavioral changes, no depression, no abnormal sleep pattern and no anxiety Hematologic / Lymphatic: no easy bruising and no lymphadenopathy Exam (Neuro) Constitutional: well developed and well nourished; no acute distress Eyes: normal visual ann by confrontation, PERRL, normal accommodation and EOM intact bilaterally; no fundoscopic abnormality, no nystagmus and no papilledema Cardiovascular: Vessels: normal carotid upstroke; no carotid bruit Neurologic: Oriented to:: Person, Place and Time Memory: Short Term Intact and Remote Intact Attention: Span Intact and Concentration Intact Language: Naming Objects and Repeating Phrases Speech Fluency: negative Dysarthria Speech Aphasia: negative Aphasia Fund of Knowledge: Current Events, Past History and Vocabulary Cranial Nerves: Normal II (Visual ann full to confrontation, visual acuity normal), III, IV, (Pupils equal round reactive to light and accommodation, eye movements normal), V (Facial sensation intact), VIII (Hearing intact), IX, X (Palate elevates to midline), XI (Shoulder shrug intact) and XII (Tongue protrudes to midline); Abnorm VII (There is mild right lower facial weakness noted) Motor Strength: Pronator Drift and Hemiparesis (Proximal arm weaker than distal. Right lower extremity moderately weak.) Laterality: Right; negative Normal Lower Extremities or Normal Upper Extremities Motor Tone: Normal Lower Extremities and Normal Upper Extremities Muscle Bulk/Involuntary Movements: No Involuntary Movements; negative Muscle Atrophy Sensation: negative Light Touch Intact, Pain/Temperature Intact, Vibration Intact or Proprioception Intact Coordination: Finger-Nose Abnormal Laterality: Right and Heel-Lim Abnormal Laterality: Right Deep Tendon Reflexes: Rt Triceps: 1+, Lt Triceps: 1+, Rt Biceps: 1+, Lt Biceps: 1+, Rt Brachioradialis: 1+, Lt Brachioradialis: 1+, Rt Patellar: 1+, Lt Patellar: 1+, Rt Ankle: 0 and Lt Ankle: 0 Special Tests: negative Babinski Present Details: Gait cannot be tested in the context of patient's current neurological status. Results & Data ([facility]) Vital Signs (Past 12 Hours) Vital Signs Temp Pulse Pulse Pulse Resp BP Pulse Ox 10/12/21 08:06 83 10/12/21 07:20 36.8 C 84 14 146/98 H 93 10/12/21 04:24 36.5 C 89 21 150/90 H 92 10/11/21 23:41 36.8 C 83 18 162/115 H 93 Laboratory Results WBC 10.77, hemoglobin 13.4, hematocrit 40.5, MCV 95.5, platelet count 229, sodium 135, potassium 3.4, BUN 15, creatinine 0.74, glucose 215, hemoglobin A1c 11.9, calcium 8.3, AST 11, ALT 11, triglycerides 411, cholesterol 231, LDL test not performed, HDL 35, TSH 1.[address] of the head completed October 11, 2021 was negative for hemorrhage or acute process. Brain MRI without contrast revealed an acute to subacute lacunar infarct within the left anterior delroy. No hemorrhage. There was minimal microangiopathic change as well. I reviewed the images as well as the radiologist interpretation of this test. An electrocardiogram completed October 11, 2020 revealed a normal sinus rhythm. Coding Level of Care Code 98934 Initial Inpt Care Lvl 3 Diagnoses Left pontine stroke I63.9
[2021-10-12] MEDS: amLODIPine BESYLATE 5 MG TAB PO SCH (12:17)
[2021-10-12] MEDS: SITagliptin PHOSPHATE 25 MG TAB PO SCH (12:17)
[2021-10-12] MEDS: ASPIRIN 81 MG ECTAB PO SCH (12:17)
[2021-10-12] MEDS: carvediloL 6.25 MG TAB PO SCH ×2 (12:18→22:15)
--- NOTE | 2021-10-12 13:51 | Hospitalist Progress Note ---
Date of Service October 12, 2021 Assessment & Plan (1) Left pontine stroke: Plan: Occurred recently with recent hospitalization at [facility] hospitalization (10/05 to 10/06). Brain MRI scan done on admission is negative for any extension of the left pontine CVA or pontine hemorrhage. Neurology consultation noted. Dual antiplatelet therapy initiated. Continue OT and PT. (2) Noncompliance: Plan: Patient is noncompliant with numerous recommendations, medicines, etc. This will be an issue in ongoing attempts at secondary stroke prevention. The diabetes in particular is a big problem. See below. (3) Tobacco abuse: Plan: Smoking cessation to be encouraged. Nicoderm patch 21mg/ day. (4) Dyslipidemia: Plan: Low-fat diet. Statin therapy. Serial lab studies over time. (5) Coronary artery disease: Plan: With prior h/o MIs and 2 stents. Cont med management. Smoking cessation needed. (6) Diabetes type 2, uncontrolled: Plan: HbA1C very high. Sitagliptin started. ADA diet. Diabetic teaching. Sliding scale coverage (7) Diabetic neuropathy associated with type 2 diabetes mellitus: Plan: Improve diabetic control may help (8) Gastroparesis: Plan: Poor candidate for any medicinal treatment. (9) Hypertension: Plan: Coreg uptitrated and amlodipine added for blood pressure control. (10) GERD (gastroesophageal reflux disease): Plan: Not taking meds at home for this. (11) Depression: Plan: Not taking any meds for this at home. (12) BENITO (obstructive sleep apnea): Plan: Unable to use CPAP at home. (13) Drop foot gait: Plan: RIGHT. Chronic. due to lumbar spine disease? more peripheral etiology (peroneal nerve injury)? Cont AFO device. PT, OT. (14) COPD (chronic obstructive pulmonary disease): Plan: no exacerbation at this time. not on inhalers at home. smoking cessation needed. Plan: DVT proph - lovenox SC Dispo: [facility] re[facility] at discharge later this week. Admission and Anticipated Discharge Date Admission Date: October 12, 2021 Subjective Alert and oriented. Pleasant. Neurology consultation noted. Dual antiplatelet therapy has been started. Sitagliptin added for diabetic control. Coreg uptitrated and amlodipine added for better blood pressure control. Anticip[facility] as soon as arrangements are finalized. Review of Systems Review of Systems: Constitutional-no fever or chills ENT-no blurred vision, no double vision, no epistaxis, no sore throat Respiratory-no cough, no wheezing, no shortness of breath Cardiac-no palpitations, no chest pain, no syncope GI-no nausea, vomiting, diarrhea, melena, hematochezia -no urinary retention, no urinary incontinence, no dysuria, no hematuria Musculoskeletal-no joint pain, no muscle tenderness Skin-no bruising, no rashes, no pruritus Neuro-right hemiparesis. Chronic right foot drop. Psych-no depression, no anxiety Physical Exam Physical Exam: General-alert and oriented x3, no fevers, no chills HEENT-head atraumatic and normocephalic, TMs intact bilaterally, pupils equal and reactive to light, extraocular muscles intact Neck-no lymphadenopathy or thyromegaly, trachea midline Chest-clear to auscultation percussion. No rales wheezing or rhonchi Cardiac-regular rate and rhythm, normal S1 and S2, no murmurs Abdomen-normal bowel sounds, nontender, no hepatosplenomegaly Extremities-no cyanosis, clubbing, or edema Neuro-cranial nerves II through XII intact. Right hemiparesis and chronic right foot drop Psych-normal affect, normal mood Results & Data Results & Data ([facility]) Vital Signs (Past 12 Hours) Vital Signs Temp Pulse Pulse Pulse Resp BP Pulse Ox 10/12/21 12:19 36.5 C 87 18 163/91 H 96 10/12/21 08:06 83 10/12/21 07:20 36.8 C 84 14 146/98 H 93 10/12/21 04:24 36.5 C 89 21 150/90 H 92 Laboratory Results 10/11/21 13:57 10/12/21 07:04 PG Care Time/CCT Total # of Minutes Spent Total Time Spent with Patient: Total time spent is greater than 50% in coordination of care (as documented) at patient's floor/unit and/or counseling patient: Coding Level of Care Code 31642 Subseq Hosp Care Lvl 3 Diagnoses Left pontine stroke I63.9 Noncompliance Z91.19 Tobacco abuse Z72.0 Dyslipidemia E78.5 Coronary artery disease I25.10 Coronary Disease-Associated Artery/Lesion type: [place] artery [place] vs. transplanted heart: [place] heart Associated angina: without angina Diabetes type 2, uncontrolled E11.65 Diabetic neuropathy associated with type 2 diabetes mellitus E11.49 Diabetes mellitus complication detail: with other neurological complication Gastroparesis K31.84 Hypertension I10 Hypertension type: essential hypertension GERD (gastroesophageal reflux disease) K21.9 Depression F32.9 Depression Type: major depressive disorder Major depression recurrence: unspecified whether recurrent Active/Remission status: remission status unspecified BENITO (obstructive sleep apnea) G47.33 Drop foot gait M21.379 COPD (chronic obstructive pulmonary disease) J44.9 (1) Coronary artery disease Coronary Disease-Associated Artery/Lesion type: [place] artery [place] vs. transplanted heart: [place] heart Associated angina: without angina Qualified Code(s): I25.10 - Atherosclerotic heart disease of [place] coronary artery witho ut angina pectoris (2) Diabetic neuropathy associated with type 2 diabetes mellitus Diabetes mellitus complication detail: with other neurological complication Qualified Code(s): E11.49 - Type 2 diabetes mellitus with other diabetic neurological complication (3) Hypertension Hypertension type: essential hypertension Qualified Code(s): I10 - Essential (primary) hypertension (4) Depression Depression Type: major depressive disorder Major depression recurrence: unspecified whether recurrent Active/Remission status: remission status unspecified Qualified Code(s): F32.9 - Major depressive disorder, single episode, unspecified
[2021-10-12] MEDS: MELATONIN 3 MG TAB PO SCH (22:11)
[2021-10-12] MEDS: BACLOFEN 20 MG TAB PO SCH (22:13)
[2021-10-13] MEDS: DOCUSATE SODIUM 100 MG CAP PO SCH (08:56)
[2021-10-13] MEDS: NICOTINE 21 MG/24 HR TDSY TD SCH (08:56)
[2021-10-13] MEDS: carvediloL 6.25 MG TAB PO SCH (08:57)
[2021-10-13] MEDS: ASPIRIN 81 MG ECTAB PO SCH (08:57)
[2021-10-13] MEDS: SITagliptin PHOSPHATE 25 MG TAB PO SCH (08:57)
[2021-10-13] MEDS: amLODIPine BESYLATE 5 MG TAB PO SCH (08:58)
[2021-10-13] MEDS: diphenhydrAMINE Capsule 25 MG CAP PO SCH ×2 (08:58→13:15)
[2021-10-13] MEDS: ENOXAPARIN INJ 40 MG/0.4 ML SYR SQ SCH (08:59)
[2021-10-13] MEDS: PRAVASTATIN SOD 20 MG TAB PO SCH (08:59)
[2021-10-13] MEDS: CLOPIDOGREL BISULFATE 75 MG TAB PO SCH (09:02)
[2021-10-13] MEDS: oxyCODONE HCL SOLN 5 MG/5 ML UDC PO PRN (09:06)
--- NOTE | 2021-10-13 09:40 | Neurology Progress Note ---
Date of Service October 13, 2021 Assessment & Plan (1) Left pontine stroke: (2) Diabetic neuropathy associated with type 2 diabetes mellitus: Plan: Subacute ischemic left pontine stroke resulting in a right hemiparesis, proximal arm, leg, mild right facial droop, no significant dysarthria, dysphagia. Unable to tolerate MRA evaluation due to claustrophobia. Would consider premedication with lorazepam prior to another attempt at this test. Patient unable to have CT angiography as she has an allergy to iodinated contrast media. Stroke risk factors and medical management as described in yesterday's initial consultation. Consider 30-day mobile cardiac outpatient telemetry. Tobacco cessation. Improved control of diabetes mellitus. Ongoing outpatient management of hypertension. Consider outpatient lower extremity EMG to further assess patient's diabetic peripheral neuropathy. Admission and Anticipated Discharge Date Admission Date: October 12, 2021 Subjective Follow-up for pontine stroke The patient continues to report right-sided weakness, arm and leg, perhaps slightly improved compared with yesterday. Denies experiencing any difficulty with speech or swallowing, no double vision or other vision disturbance. Continues to report chronic distal lower extremity numbness related to her diabetic peripheral neuropathy as well. Review of Systems Eyes: no blind spots and no diplopia Neurologic: as per Subjective / HPI, + localized weakness and + loss of sensation; no headache(s) Results & Data ([facility]) Vital Signs (Past 12 Hours) Vital Signs Temp Pulse Pulse Resp BP Pulse Ox 10/13/21 07:48 36.7 C 77 18 146/80 H 92 10/13/21 04:54 36.7 C 82 14 132/73 93 10/13/21 00:04 36.8 C 85 14 160/93 H 96 10/13/21 00:00 93 H Laboratory Results Glucose this morning 214 Diagnostic Findings Patient did not tolerate MRA due to claustrophobia. Exam (Neuro) Neurologic: Oriented to:: Person, Place and Time Attention: Span Intact and Concentration Intact Speech Fluency: negative Dysarthria or Dysfluency Fund of Knowledge: Vocabulary Cranial Nerves: Normal II and III, IV, ; Abnorm VII (Mild flattening of the right nasolabial fold noted) Motor Strength: Hemiparesis (Proximal greater than distal weakness for the right upper extremity. Right leg weakness 4 out of 5.) Muscle Bulk/Involuntary Movements: No Involuntary Movements Sensation: negative Light Touch Intact or Pain/Temperature Intact Coordination: Finger-Nose Abnormal Laterality: Right and Heel-Lim Abnormal Laterality: Right Coding Level of Care Code 78103 Subseq Hosp Care Lvl 2 Diagnoses Left pontine stroke I63.9 Diabetic neuropathy associated with type 2 diabetes mellitus E11.49 Diabetes mellitus complication detail: with other neurological complication (1) Diabetic neuropathy associated with type 2 diabetes mellitus Diabetes mellitus complication detail: with other neurological complication Qualified Code(s): E11.49 - Type 2 diabetes mellitus with other diabetic neurological complication
[2021-10-13] MEDS: INSULIN ASPART PER UNIT SC SCH ×3 (10:50→16:16)
--- NOTE | 2021-10-13 12:31 | Discharge Summary ---
Date of Service October 13, 2021 Admission HPI Per Admitting Provider 50yo female - right-handed - with numerous medical problems including ongoing tobacco dependence, CAD s/p multiple MIs, uncontrolled T2DM, diabetic neuropathy, prior h/o alcoholism, HTN, hyperlipidemia, untreated BENITO, and gastroparesis who presents with right arm weakness and right leg weakness. The patient was admitted to [facility] from 10/05 to 10/06 for a left-sided pontine stroke. Records indicate she was driving in the car with her on 10/05 when she developed acute dysarthria, confusion and a brief episode of syncope. After admission to [facility] an MRI brain confirmed a small acute stroke in the left delroy. During her brief stay she did NOT have right arm or right leg symptoms. She had no dysphagia. The limited amount of records I had from [facility] shows that she had either a carotid duplex study and/or MRA of the head/neck. Patient states she also had an echo. CTAs were NOT done due to contrast allergy. The d/c summary from that brief stay suggests that the patient was not taking aspirin regularly and thus the antiplatelet agent that was recommended was aspirin 81mg daily. On 10/07/21 she went back to the [facility] ER for headache, weakness, and simply feeling unwell. The ER record states that her motor function of the arms/legs was normal. The patient told me during my admission assessment that she thinks her right-sided weakness started on 10/07. Unfortunately the patient left AMA from the [facility] ER before additional work- up could be completed. Over the next few days her right arm/leg weakness continued to worsen. She feels that her right arm is worse than the right leg. She has been falling because of this focal weakness although she states "I have been falling every day for years." [legs give way then she falls] She also mentions a chronic right foot drop and uses an AFO for this. Denies dysphagia. In addition, she reports numbness of the right saba which is new. She has had numbness of her right foot for many years. Finally, although the [facility] d/c summary suggests she had not been compliant with aspirin therapy prior to her stroke, the patient states that this is untrue. She tells me that she had been compliant with aspirin. Principal Diagnosis Acute non-hemorrhagic left pontine CVA, uncontrolled DM type 2, uncontrolled HTN Discharge Exam right hemiparesis Discharge Data Allergies Allergy/AdvReac Type Severity Reaction Status Date / Time Corticosteroids Allergy Severe STEROIDS-AN Verified 10/11/21 15:16 (Glucocorticoids) APHYLAXIS gabapentin Allergy Severe HIVES/SWELL Verified 10/11/21 15:16 ING Iodinated Contrast Media Allergy Severe FACIAL Verified 10/11/21 15:16 SWELLING nadolol Allergy Severe HIVES/SWELL Verified 10/11/21 15:16 ING shellfish derived Allergy Severe SWELLING Verified 10/11/21 15:16 albuterol Allergy Unknown Verified 10/11/21 15:16 aloe vera Allergy Unknown Verified 10/11/21 15:16 aspartame Allergy Unknown Verified 10/11/21 15:16 atorvastatin [From Lipitor] Allergy Unknown Verified 10/11/21 15:16 azithromycin [From Zithromax] Allergy Unknown Verified 10/11/21 15:16 barium sulfate Allergy Unknown Verified 10/11/21 15:16 beeswax Allergy Unknown Verified 10/11/21 15:16 blueberry Allergy Unknown Verified 10/11/21 15:16 carbidopa Allergy Unknown Verified 10/11/21 15:16 celecoxib [From Celebrex] Allergy Unknown Verified 10/11/21 15:16 dicyclomine Allergy Unknown Verified 10/11/21 15:16 Fish Containing Products Allergy Verified 10/12/21 14:28 fish derived Allergy Verified 10/12/21 14:28 fish oil Allergy Verified 10/12/21 14:28 fluoxetine [From Prozac] Allergy Unknown Verified 10/11/21 15:16 influenza virus vaccine ts Allergy Unknown Verified 10/11/21 15:16 [id number] (36 mos,up) [From Fluarix] insulin glargine Allergy Unknown Verified 10/11/21 15:16 [From Lantus U-100 Insulin] levofloxacin Allergy Unknown Verified 10/11/21 15:16 oxymorphone Allergy Unknown Verified 10/11/21 15:16 peach Allergy Unknown Verified 10/11/21 15:16 prednisone Allergy Unknown Verified 10/11/21 15:16 rosuvastatin [From Crestor] Allergy Unknown Verified 10/11/21 15:16 strawberry Allergy Unknown Verified 10/11/21 15:16 sucralose Allergy Unknown Verified 10/11/21 15:16 [From Splenda (sucralose)] sulfamethoxazole Allergy Unknown Verified 10/11/21 15:16 [From Bactrim] tomato Allergy Unknown Verified 10/11/21 15:16 trimethoprim [From Bactrim] Allergy Unknown Verified 10/11/21 15:16 cephalexin [From Keflex] AdvReac Severe YEAST Verified 10/11/21 15:16 INFECTION egg AdvReac Intermediate GI SYMPTOMS Verified 10/11/21 15:16 insulin detemir AdvReac Intermediate VOMITING Verified 10/11/21 15:16 meperidine AdvReac Intermediate BECOMES Verified 10/11/21 15:16 VIOLENT milk AdvReac Intermediate GI SYMPTOMS Verified 10/11/21 15:16 morphine AdvReac Intermediate BECOMES Verified 10/11/21 15:16 VIOLENT phenol AdvReac Intermediate VOMITING Verified 10/11/21 15:16 pregabalin AdvReac Intermediate AGITATION Verified 10/11/21 15:16 promethazine AdvReac Unknown nausea and Verified 10/11/21 15:16 vomiting varenicline AdvReac Unknown HOMICIDAL Verified 10/11/21 15:16 IDEATION ARTIFICIAL SWEETENER Allergy Severe ANAPHYLAXIS Uncoded 10/11/21 15:16 ultrasound gel Allergy Intermediate HIVES Uncoded 10/11/21 15:16 gynemoistrin Allergy Unknown Uncoded 10/11/21 15:16 Consultations 10/11/21 15:19 ED Decision to Admit Stat 10/11/21 19:58 Consult Neurology Routine Ordered Studies 10/11/21 12:04 CT head/brain wo con Stat 10/11/21 19:58 MR brain wo con Routine Diabetes Follow up Diabetes Follow-up Needed for HgbA1c >9% Hospital Course (1) Left pontine stroke: Occurred recently with recent hospitalization at [facility] hospitalization (10/05 to 10/06). Brain MRI scan done on admission is negative for any extension of the left pontine CVA or pontine hemorrhage. Neurology consultation noted. Dual antiplatelet therapy initiated. Continue OT and PT. (2) Noncompliance: Patient is noncompliant with numerous recommendations, medicines, etc. This will be an issue in ongoing attempts at secondary stroke prevention. (3) Tobacco abuse: Smoking cessation to be encouraged. Nicoderm patch 21mg/ day while hospitalized (4) Dyslipidemia: Low-fat diet. Statin therapy. Serial lab studies over time. (5) Coronary artery disease: With prior h/o MIs and 2 stents. Cont med management. Smoking cessation needed. (6) Diabetes type 2, uncontrolled: HbA1C very high. Sitagliptin started and has helped. ADA diet. Diabetic teaching. Sliding scale coverage (7) Diabetic neuropathy associated with type 2 diabetes mellitus: Improve diabetic control may help (8) Gastroparesis: Poor candidate for any medicinal treatment. (9) Hypertension: Coreg uptitrated and amlodipine added for blood pressure control. Improved (10) GERD (gastroesophageal reflux disease): Not taking meds at home for this. (11) Depression: Not taking any meds for this at home. (12) BENITO (obstructive sleep apnea): Unable to use CPAP at home. (13) Drop foot gait: RIGHT. Chronic. due to lumbar spine disease? more peripheral etiology (peroneal nerve injury)? Cont AFO device. PT, OT. (14) COPD (chronic obstructive pulmonary disease): no exacerbation at this time. not on inhalers at home. smoking cessation needed. DVT proph - lovenox SC Dispo: [facility] rehab at discharge today, 10/13. Total Time Total Time Spent Total Time Spent (In Minutes): 35 minutes Discharge Plan Discharge Items Patient Disposition: Transfer Inpatient Rehab Fac Reason For Visit: L PONTINE STROKE Discharge Diagnosis: ischemic left pontine CVA, uncontrolled type 2 DM, uncontrolled HTN Activity: Resume your previous activity Non-emergency contact: Primary Care Provider Call non-emergency contact if: you have any medication questions Follow-up/Referrals: Samuel Porter, [Primary Care Provider] - Diet: Carb Consistent or DM2 and Heart Healthy Addtl Attending Provider Instructions: sitagliptin added for diabetes control. Amlodipine added for BP control. Coreg dosage increased Pending Studies at Discharge: No Stand-Alone Forms: My [facility] Skilled Items Patient informed of condition?: Yes DNR: No Discharge Level of Care: Acute rehab Communicable Disease: No Discharge Prognosis: Stable Lines: None Urinary Catheter: No Medications and DC Order Prescriptions: New clopidogrel 75 mg Tablet 75 mg PO QAM Qty: 30 RF: 0 amlodipine [Norvasc] 5 mg Tablet 5 mg PO QAM Qty: 10 RF: 0 aspirin 81 mg Tablet,Delayed Release (Dr/Ec) 81 mg PO QAM Qty: 30 RF: 0 Januvia 25 mg Tablet 25 mg PO DAILY Qty: 10 RF: 0 carvedilol 6.25 mg Tablet 6.25 mg PO BID Qty: 10 RF: 0 Continued furosemide [Lasix] 20 mg tablet 20 mg PO DAILY PRN (Reason: Edema) Qty: 30 RF: 3 nitroglycerin [Nitrostat] 0.4 mg Tablet, Sublingual 0 mg sublingual UD PRN (Reason: Chest Pain) RF: 0 docusate sodium [Stool Softener] 100 mg Capsule 100 mg PO AMPM RF: 0 aspirin 81 mg Tablet,Chewable 81 mg PO HS RF: 0 Fiber Choice Fruity Bites 1.5g 2 tab PO QAM PRN (Reason: Constipation) RF: 0 oxycodone 5 mg/5 mL solution 5 mg PO TID PRN (Reason: Pain) RF: 0 baclofen 10 mg tablet 20 mg PO HS RF: 0 pravastatin 20 mg tablet 20 mg PO DAILY RF: 0 torsemide 20 mg tablet 20 mg PO DAILY RF: 0 nicotine 21 mg/24 hr patch 24 hour 21 mg transdermal DAILY RF: 0 diphenhydramine HCl [Benadryl Allergy] 25 mg Tablet 25 mg PO TID RF: 0 melatonin 10 mg Tablet 20 mg PO HS RF: 0 Al 4 tab PO BID RF: 0 No Action carvedilol 3.125 mg tablet 3.125 mg PO BID Qty: 180 RF: 3 Discharge Orders: Discharge Order (Routine); Ordered 10/13/21 Ordered By: Colin Duff Admission Data Admit Date/Time: 10/12/21 10:54 Attending Provider: Colin Duff Admit Provider: Rene Brooks Primary Care Provider: Samuel Porter Other Providers: Rene Brooks ; Casey Perry ; [facility] Coding Level of Care Code D/C DAY MANAGEMENT >30 MINS Diagnoses Left pontine stroke I63.9 Noncompliance Z91.19 Tobacco abuse Z72.0 Dyslipidemia E78.5 Coronary artery disease I25.10 Coronary Disease-Associated Artery/Lesion type: [place] artery [place] vs. transplanted heart: [place] heart Associated angina: without angina Diabetes type 2, uncontrolled E11.65 Diabetic neuropathy associated with type 2 diabetes mellitus E11.49 Diabetes mellitus complication detail: with other neurological complication Gastroparesis K31.84 Hypertension I10 Hypertension type: essential hypertension GERD (gastroesophageal reflux disease) K21.9 Depression F32.9 Depression Type: major depressive disorder Major depression recurrence: unspecified whether recurrent Active/Remission status: remission status unspecified BENITO (obstructive sleep apnea) G47.33 Drop foot gait M21.379 COPD (chronic obstructive pulmonary disease) J44.9
[2021-10-13] MEDS ORDERED: STROKE PATIENT DISCHARGE STA (12:37)
== END 2021-10-13 17:20 | DRG 65 ==
LOC: ED 11:45 → 2E 11:45 → SUATTDRO 16:28 → 2E 19:40

== ENCOUNTER 2022-08-25 20:05 | Observation (INO) ==
--- NOTE | 2022-08-25 20:27 | Emergency Department Note ---
Impression & Plan Acute dyspnea, Elevated troponin ADMIT ED Provider Note HPI: The patient is a 51-year-old female with history of coronary artery disease, COPD, presents emergency department chief complaint shortness of breath. Patient states that she has been feeling more short of breath since yesterday. Patient states that she has a pulse ox that she uses at home and earlier today was 64% and therefore she called EMS. On arrival here to the ED the patient is saturating at 94% on room air, she denies any chest pain, states she has had a cough at baseline, denies any recent fevers. Patient is otherwise in no acute distress on my initial evaluation. ROS: - Per HPI *Outpatient medications and allergy history reviewed. *Pertinent external medical records reviewed. 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 IV was established, lab work obtained, patient was placed on account advisor. Chest x-ray shows a pattern of pulmonary edema, lab work shows a slight elevation in high-sensitivity troponin level at 32, baseline CKD with creatinine 1.56. Hyperglycemia 360 without evidence of DKA. Potassium noted to be low at 2.6, this was ordered for repletion orally in the ED. Given the pattern of pulmonary edema on patient's chest x-ray in addition to hypertension, I do of suspicion that this is likely the source of her shortness of breath. I have low suspicion for PE at this time, low suspicion for dissection given that the patient does not have any chest pain. Patient was given IV Lasix, hydralazine, repeat troponin level shows uptrend from 32 to 51, on my reevaluation patient is in no acute distress, denies any chest pain. Given her shortness of breath with increasing troponin level, I do feel she will require admission to the hospital. Patient was given aspirin, [facility] hospitalist service was consulted for admission. Consultants: Hospitalist service, Dr. Tellez Disposition discussion held by myself with: Patient * CRITICAL CARE TIME: ( 38 ) minutes -Management of hypertensive emergency (191/100) with elevated troponin requiring IV medications for blood pressure control, time spent at the bedside, interpretation of diagnostic studies including EKG, consultation of other healthcare providers and arrangement of admission Diagnosis: 1. Dyspnea, acute 2. Elevated troponin 3. Hypertensive emergency 4. Pulmonary edema, acute Disposition: Admission Braxton Brewer DO Emergency Medicine Past Med/Surg History Medical History (Updated 08/26/22 @ 00:26 by Braxton Brewer DO) Acute kidney injury Acute right-sided weakness Cerebrovascular disease Left pontine stroke 2021 Chronic pain COPD (chronic obstructive pulmonary disease) Depression Drop foot gait Dyslipidemia Fracture of lumbar spine L1/L2 - 2nd trauma Gastroparesis GERD (gastroesophageal reflux disease) History of alcoholism History of myocardial infarction 2 stents History of osteomyelitis right great toe History of ovarian cancer Hypertension MSSA (methicillin susceptible Staphylococcus aureus) infection Noncompliance BENITO (obstructive sleep apnea) Peripheral vascular disease Personal history of diabetic foot ulcer Proteinuria Tobacco abuse Vitamin D deficiency Surgical History H/O dilation and curettage H/O heart artery stent H/O tubal ligation H/O: hysterectomy History of appendectomy Family History Grandmother (Paternal) Diabetes Father , in his 50s Diabetes Stroke Uncle Diabetes Hypothyroidism Cancer Stroke Mother Coronary heart disease Heart disease Ovarian cancer Grandmother (Maternal) Breast cancer Brother Diabetes Hypertension Gout Grandfather (Maternal) Diabetes Social History Smoking Status: Current every day smoker Tobacco Type: Cigarettes packs per day: 1; Hx Alcohol Use: Yes (heavy liquor consumption; quit early ) Hx Substance Use: No Preferred Language: Bhutanese Communication Ability: Unable Communication Tools: Letter Board, Picture Board and Facial Expression Visual Impairment: Limited Hearing Ability: Normal Teacher Lip Reading Required: No Beliefs That Will Affect Care: None marital status: Current Living Situation: Spouse Current Living Situation Comment: lives with in [place] current occupational status: disabled 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 How many Children do You have: 1 Feels Safe at Home: Yes Childhood Exposure to Second-Hand Smoke: Yes caffeine: No during the past year weight has: decreased > 10 lbs Dental Care, Regularly: Yes Physical Activity Frequency: 3-4 Times per Week Seatbelt Use: sometimes Sunscreen Use: Yes Assistive Devices: Cane, Walker and Wheelchair Allergies Allergies Allergy/AdvReac Type Severity Reaction Status Date / Time Corticosteroids Allergy Severe STEROIDS-AN Verified 07/04/22 14:33 (Glucocorticoids) APHYLAXIS gabapentin Allergy Severe HIVES/SWELL Verified 07/04/22 14:33 ING Iodinated Contrast Media Allergy Severe FACIAL Verified 07/04/22 14:33 SWELLING nadolol Allergy Severe HIVES/SWELL Verified 07/04/22 14:33 ING shellfish derived Allergy Severe SWELLING Verified 07/04/22 14:33 albuterol Allergy Unknown Verified 07/04/22 14:33 aloe vera Allergy Unknown Verified 07/04/22 14:33 aspartame Allergy Unknown Verified 07/04/22 14:33 atorvastatin [From Lipitor] Allergy Unknown Verified 07/04/22 14:33 azithromycin [From Zithromax] Allergy Unknown Verified 07/04/22 14:33 barium sulfate Allergy Unknown Verified 07/04/22 14:33 beeswax Allergy Unknown Verified 07/04/22 14:33 blueberry Allergy Unknown Verified 07/04/22 14:33 carbidopa Allergy Unknown Verified 07/04/22 14:33 celecoxib [From Celebrex] Allergy Unknown Verified 07/04/22 14:33 dicyclomine Allergy Unknown Verified 07/04/22 14:33 Fish Containing Products Allergy Verified 07/04/22 14:33 fish derived Allergy Verified 07/04/22 14:33 fish oil Allergy Verified 07/04/22 14:33 fluoxetine [From Prozac] Allergy Unknown Verified 07/04/22 14:33 influenza virus vaccine ts Allergy Unknown Verified 07/04/22 14:33 [id number] (36 mos,up) [From Fluarix] insulin glargine Allergy Unknown Verified 07/04/22 14:33 [From Lantus U-100 Insulin] levofloxacin Allergy Unknown Verified 07/04/22 14:33 oxymorphone Allergy Unknown Verified 07/04/22 14:33 peach Allergy Unknown Verified 07/04/22 14:33 prednisone Allergy Unknown Verified 07/04/22 14:33 rosuvastatin [From Crestor] Allergy Unknown Verified 07/04/22 14:33 strawberry Allergy Unknown Verified 07/04/22 14:33 sucralose Allergy Unknown Verified 07/04/22 14:33 [From Splenda (sucralose)] sulfamethoxazole Allergy Unknown Verified 07/04/22 14:33 [From Bactrim] tomato Allergy Unknown Verified 07/04/22 14:33 trimethoprim [From Bactrim] Allergy Unknown Verified 07/04/22 14:33 cephalexin [From Keflex] AdvReac Severe YEAST Verified 07/04/22 14:33 INFECTION egg AdvReac Intermediate GI SYMPTOMS Verified 07/04/22 14:33 insulin detemir AdvReac Intermediate VOMITING Verified 07/04/22 14:33 meperidine AdvReac Intermediate BECOMES Verified 07/04/22 14:33 VIOLENT milk AdvReac Intermediate GI SYMPTOMS Verified 07/04/22 14:33 morphine AdvReac Intermediate BECOMES Verified 07/04/22 14:33 VIOLENT phenol AdvReac Intermediate VOMITING Verified 07/04/22 14:33 pregabalin AdvReac Intermediate AGITATION Verified 07/04/22 14:33 promethazine AdvReac Unknown nausea and Verified 07/04/22 14:33 vomiting varenicline AdvReac Unknown HOMICIDAL Verified 07/04/22 14:33 IDEATION ARTIFICIAL SWEETENER Allergy Severe ANAPHYLAXIS Uncoded 07/04/22 14:33 ultrasound gel Allergy Intermediate HIVES Uncoded 07/04/22 14:33 gynemoistrin Allergy Unknown Uncoded 07/04/22 14:33 Home Meds Home Medications Medication Instructions Recorded Confirmed nitroglycerin 0.4 mg sublingual 0 mg sublingual UD PRN Chest Pain 01/22/19 08/25/22 tablet (Nitrostat) Fiber Choice Fruity Bites 1.5g 2 tab PO QAM PRN Constipation 02/18/20 08/25/22 oxycodone 5 mg/5 mL oral solution 5 mg PO TID PRN Pain 10/11/21 08/25/22 Red Beet 1 cap PO BID 02/21/22 08/25/22 diphenhydramine HCl 25 mg tablet 175 mg PO TID 02/21/22 08/25/22 (Benadryl Allergy) docusate sodium 100 mg capsule 100 mg PO BID 02/21/22 08/25/22 (Stool Softener) melatonin 10 mg tablet 40 mg PO HS 02/21/22 08/25/22 pantoprazole 40 mg tablet,delayed 40 mg PO HS 02/21/22 08/25/22 release sour strickland extract [Tart Strickland 1 cap PO BID 02/21/22 08/25/22 Extract] baclofen 10 mg tablet 10 mg PO BID 05/05/22 08/25/22 cinnamon bark-chromium picolinate 2 cap PO AMHS 08/25/22 08/25/22 500 mg-100 mcg capsule clopidogrel 75 mg tablet 75 mg PO HS 08/25/22 08/25/22 lisinopril 10 mg tablet 10 mg PO HS 08/25/22 08/25/22 pravastatin 40 mg tablet 40 mg PO HS 08/25/22 08/25/22 vitamin E 268 mg (400 unit) capsule 268 mg PO QAM 08/25/22 08/25/22 Previous Rx's Medication Instructions Recorded carvedilol 6.25 mg tablet 6.25 mg PO BID #10 tabs 10/13/21 sub-q insulin device, 40 unit #90 ea 03/01/22 (V-GO 40 device) furosemide 20 mg tablet 20 mg PO BID #60 tabs 07/04/22 Results & Data (ED) Vital Signs Vital Signs - 24 hr 08/25/22 20:11 08/25/22 20:17 08/25/22 20:17 Temperature 36.6 C Temperature Source Oral Pulse Rate 94 H Pulse Rate [Apical] Pulse Rate from SpO2 Sensor Pulse Rhythm Regular Pulse Rhythm [Apical] Pulse Strength Normal Pulse Strength [Apical] Respiratory Rate 19 Respiratory Effort / Characteristics SOB on Exertion SOB on Exertion Respiratory Depth Normal Normal Respiratory Pattern Regular Regular Blood Pressure 191/100 H Blood Pressure [Left Arm] Blood Pressure Mean 130 Blood Pressure Mean [Left Arm] Pulse Oximetry 94 92 Oxygen Delivery Method Room Air Room Air Room Air Sepsis Recent Fever Within 48 Hours No Sepsis New/Unexplained Change in Mental Status No Sepsis Action Taken by Nursing No Action Required 08/25/22 20:17 08/25/22 20:37 08/25/22 21:22 Temperature Temperature Source Pulse Rate 88 85 Pulse Rate [Apical] 91 H Pulse Rate from SpO2 Sensor 85 Pulse Rhythm Regular Pulse Rhythm [Apical] Regular Pulse Strength Pulse Strength [Apical] Normal Respiratory Rate 20 20 19 Respiratory Effort / Characteristics SOB on Exertion Respiratory Depth Normal Respiratory Pattern Regular Blood Pressure Blood Pressure [Left Arm] 191/100 H Blood Pressure Mean Blood Pressure Mean [Left Arm] 130 Pulse Oximetry 93 93 91 Oxygen Delivery Method Room Air Room Air Sepsis Recent Fever Within 48 Hours Sepsis New/Unexplained Change in Mental Status Sepsis Action Taken by Nursing 08/25/22 22:11 08/25/22 22:45 Temperature Temperature Source Pulse Rate 85 Pulse Rate [Apical] 86 Pulse Rate from SpO2 Sensor 85 Pulse Rhythm Pulse Rhythm [Apical] Regular Pulse Strength Pulse Strength [Apical] Respiratory Rate 22 19 Respiratory Effort / Characteristics Respiratory Depth Respiratory Pattern Blood Pressure 179/110 H Blood Pressure [Left Arm] 177/123 H Blood Pressure Mean 133 Blood Pressure Mean [Left Arm] 141 Pulse Oximetry 92 93 Oxygen Delivery Method Room Air Sepsis Recent Fever Within 48 Hours Sepsis New/Unexplained Change in Mental Status Sepsis Action Taken by Nursing Laboratory Data 08/25/22 20:15 08/25/22 20:15 Lab Results 08/25/22 08/25/22 08/25/22 Range/Units 20:15 20:15 20:15 WBC 11.22 H (4.8-10.8) K/ul RBC 3.49 L (4.20-5.40) M/uL Hgb 11.3 L (12.0-16.0) g/dl Hct 33.5 L (37.0-47.0) % MCV 96.0 (80.0-100.0) fL MCH 32.4 (25.0-34.0) pg MCHC 33.7 (32.0-36.0) g/dL RDW Std Deviation 45.8 (36.4-46.3) fL RDW Coeff of Eleazar 13.0 (11.5-14.5) % Plt Count 223 (130-400) K/uL MPV 11.1 (9.4-12.4) fL Immature Gran % (Auto) 0.4 % Neut % (Auto) 75.4 % Lymph % (Auto) 17.3 % [place] % (Auto) 5.2 % Eos % (Auto) 1.3 % Baso % (Auto) 0.4 % Neut # (Auto) 8.46 H (1.40-6.50) K/uL Lymph # (Auto) 1.94 (1.2-3.4) K/uL [place] # (Auto) 0.58 (0.11-0.59) K/uL Eos # (Auto) 0.15 (0-0.50) K/uL Baso # (Auto) 0.04 (0-0.2) K/uL Immature Gran # (Auto) 0.05 (0.01-0.20) K/uL PT 10.3 (9.0-12.0) Seconds INR 1.0 (0.9-1.1) APTT 25.9 (21.0-31.0) Seconds PTT Ratio 0.9 VBG pH (7.36-7.41) VBG pCO2 (38-50) mmHg VBG pO2 mmHg VBG HCO3 mmol/L VBG O2 Saturation % VBG Base Excess mEq/L Sodium 139 (136-145) mmol/L Potassium 2.8 L (3.5-5.1) mmol/L Chloride 102 (98-107) mmol/L Carbon Dioxide 31 (21-32) mmol/L Anion Gap 6 (3-11) BUN 22 (6-23) mg/dl Creatinine 1.56 H (0.6-1.2) mg/dl Est Cr Clr Drug Dosing 47.5 ml/min Est GFR ( Amer) 43.5 ml/min Est GFR (Non-Af Amer) 37.5 ml/min BUN/Creatinine Ratio 14.1 (10-20) Glucose 360 H* (70-99(Fasting)) mg/dl Calcium 8.6 (8.5-10.1) mg/dl Total Bilirubin 0.4 (0.2-1.0) mg/dl AST 11 L (13-39) U/L ALT 9 (7-52) U/L Alkaline Phosphatase 75 (34-104) U/L Troponin I High Sens 32.2 H (0-14) pg/ml B-Natriuretic Peptide (0-100) pg/ml Total Protein 6.0 (6.0-8.3) gm/dl Albumin 3.0 L (3.4-5.0) gm/dl Globulin 3.0 (2.5-4.0) gm/dl Albumin/Globulin Ratio 1.0 (0.9-2) SARS-CoV-2, RNA, NAAT (NEGATIVE) 08/25/22 08/25/22 08/25/22 Range/Units 20:37 21:20 21:25 WBC (4.8-10.8) K/ul RBC (4.20-5.40) M/uL Hgb (12.0-16.0) g/dl Hct (37.0-47.0) % MCV (80.0-100.0) fL MCH (25.0-34.0) pg MCHC (32.0-36.0) g/dL RDW Std Deviation (36.4-46.3) fL RDW Coeff of Eleazar (11.5-14.5) % Plt Count (130-400) K/uL MPV (9.4-12.4) fL Immature Gran % (Auto) % Neut % (Auto) % Lymph % (Auto) % [place] % (Auto) % Eos % (Auto) % Baso % (Auto) % Neut # (Auto) (1.40-6.50) K/uL Lymph # (Auto) (1.2-3.4) K/uL [place] # (Auto) (0.11-0.59) K/uL Eos # (Auto) (0-0.50) K/uL Baso # (Auto) (0-0.2) K/uL Immature Gran # (Auto) (0.01-0.20) K/uL PT (9.0-12.0) Seconds INR (0.9-1.1) APTT (21.0-31.0) Seconds PTT Ratio VBG pH 7.43 H (7.36-7.41) VBG pCO2 42 (38-50) mmHg VBG pO2 48 mmHg VBG HCO3 28 mmol/L VBG O2 Saturation 79.7 % VBG Base Excess 3.2 mEq/L Sodium (136-145) mmol/L Potassium (3.5-5.1) mmol/L Chloride (98-107) mmol/L Carbon Dioxide (21-32) mmol/L Anion Gap (3-11) BUN (6-23) mg/dl Creatinine (0.6-1.2) mg/dl Est Cr Clr Drug Dosing ml/min Est GFR ( Amer) ml/min Est GFR (Non-Af Amer) ml/min BUN/Creatinine Ratio (10-20) Glucose (70-99(Fasting)) mg/dl Calcium (8.5-10.1) mg/dl Total Bilirubin (0.2-1.0) mg/dl AST (13-39) U/L ALT (7-52) U/L Alkaline Phosphatase (34-104) U/L Troponin I High Sens (0-14) pg/ml B-Natriuretic Peptide 569 H (0-100) pg/ml Total Protein (6.0-8.3) gm/dl Albumin (3.4-5.0) gm/dl Globulin (2.5-4.0) gm/dl Albumin/Globulin Ratio (0.9-2) SARS-CoV-2, RNA, NAAT NEGATIVE (NEGATIVE) 08/25/22 Range/Units 22:20 WBC (4.8-10.8) K/ul RBC (4.20-5.40) M/uL Hgb (12.0-16.0) g/dl Hct (37.0-47.0) % MCV (80.0-100.0) fL MCH (25.0-34.0) pg MCHC (32.0-36.0) g/dL RDW Std Deviation (36.4-46.3) fL RDW Coeff of Eleazar (11.5-14.5) % Plt Count (130-400) K/uL MPV (9.4-12.4) fL Immature Gran % (Auto) % Neut % (Auto) % Lymph % (Auto) % [place] % (Auto) % Eos % (Auto) % Baso % (Auto) % Neut # (Auto) (1.40-6.50) K/uL Lymph # (Auto) (1.2-3.4) K/uL [place] # (Auto) (0.11-0.59) K/uL Eos # (Auto) (0-0.50) K/uL Baso # (Auto) (0-0.2) K/uL Immature Gran # (Auto) (0.01-0.20) K/uL PT (9.0-12.0) Seconds INR (0.9-1.1) APTT (21.0-31.0) Seconds PTT Ratio VBG pH (7.36-7.41) VBG pCO2 (38-50) mmHg VBG pO2 mmHg VBG HCO3 mmol/L VBG O2 Saturation % VBG Base Excess mEq/L Sodium (136-145) mmol/L Potassium (3.5-5.1) mmol/L Chloride (98-107) mmol/L Carbon Dioxide (21-32) mmol/L Anion Gap (3-11) BUN (6-23) mg/dl Creatinine (0.6-1.2) mg/dl Est Cr Clr Drug Dosing ml/min Est GFR ( Amer) ml/min Est GFR (Non-Af Amer) ml/min BUN/Creatinine Ratio (10-20) Glucose (70-99(Fasting)) mg/dl Calcium (8.5-10.1) mg/dl Total Bilirubin (0.2-1.0) mg/dl AST (13-39) U/L ALT (7-52) U/L Alkaline Phosphatase (34-104) U/L Troponin I High Sens 51.6 H* D (0-14) pg/ml B-Natriuretic Peptide (0-100) pg/ml Total Protein (6.0-8.3) gm/dl Albumin (3.4-5.0) gm/dl Globulin (2.5-4.0) gm/dl Albumin/Globulin Ratio (0.9-2) SARS-CoV-2, RNA, NAAT (NEGATIVE) Administered Medications Discontinued Medications Aspirin (Aspirin Chew 324 Mg) 324 mg PO NOW STA Stop: 08/25/22 23:42 Last Admin: 08/26/22 00:03 Dose: 324 mg Documented By: ALYSE Furosemide (Furosemide 40 Mg/4 Ml Vial) 40 mg IV ONE ONE Stop: 08/25/22 22:05 Last Admin: 08/25/22 22:16 Dose: 40 mg Documented By: VICTORINO Hydralazine HCl (Hydralazine Hcl 20 Mg/Ml Vial) 5 mg IV NOW ONE Stop: 08/25/22 23:39 Last Admin: 08/26/22 00:03 Dose: 5 mg Documented By: ALYSE Potassium Chloride (Potassium Chloride Crtab 20 Meq Tabcr) 40 meq PO NOW STA Stop: 08/25/22 21:38 Last Admin: 08/25/22 21:46 Dose: 40 meq Documented By: [facility] Imaging Data Radiologist's Impression: Chest X-Ray 08/25/22 20:24 XR chest 1V portable HISTORY: 51 years-old Female Dyspnea acute shortness of breath COMPARISON: Chest radiograph 02/24/2020 TECHNIQUE: AP view the chest FINDINGS: Cardiac silhouette is enlarged. Pulmonary vascular congestion with mild interstitial coarsening. No pneumothorax. Layering pleural effusions with bibasilar consolidation. Bones appear grossly intact. IMPRESSION: 1. Cardiomegaly with mild pulmonary edema. 2. Layering pleural effusions with bibasilar consolidation favoring atelectasis. ACT 112: Negative or not required by law. The above report was generated using voice recognition software. It may contain grammatical, syntax or spelling errors. Electronically signed by: Jeremiah Burnett M.D. 08/25/2022 8:31 PM Discharge Plan Visit Data Chief Complaint: Shortness of Breath/Dyspnea Stated Complaint: CHF EXACERBATION ED Provider: Braxton Brewer Discharge Problem: Acute dyspnea, Elevated troponin Patient Disposition: Admitted As Inpatient Condition: Good Forms Stand Alone Forms: My [facility] Prescriptions Prescriptions: No Action furosemide 20 mg tablet 20 mg PO BID Qty: 60 3RF pantoprazole 40 mg tablet,delayed release (DR/EC) 40 mg PO HS sour strickland extract [Tart Strickland Extract] 1 cap PO BID Red Beet 1 cap PO BID (DME) V-GO 40 Device See Rx Instructions .Route Qty: 90 3RF Rx Instructions: change daily nitroglycerin [Nitrostat] 0.4 mg Tablet, Sublingual 0 mg sublingual UD PRN (Reason: Chest Pain) Fiber Choice Fruity Bites 1.5g 2 tab PO QAM PRN (Reason: Constipation) docusate sodium [Stool Softener] 100 mg capsule 100 mg PO BID oxycodone 5 mg/5 mL solution 5 mg PO TID PRN (Reason: Pain) Rx Instructions: do not use strawberry flavored..pt has allergy carvedilol 6.25 mg Tablet 6.25 mg PO BID Qty: 10 0RF diphenhydramine HCl [Benadryl Allergy] 25 mg tablet 175 mg PO TID melatonin 10 mg tablet 40 mg PO HS baclofen 10 mg tablet 10 mg PO BID cinnamon bark-chromium picolin 500-100 mg-mcg Capsule 2 cap PO AMHS vitamin E [Vitamin E-400] 268 mg (400 unit) Capsule 268 mg PO QAM pravastatin 40 mg tablet 40 mg PO HS clopidogrel 75 mg tablet 75 mg PO HS lisinopril 10 mg tablet 10 mg PO HS Referrals Referrals: Samuel Porter, [Primary Care Provider] -
--- NOTE | 2022-08-25 20:32 | XRay Report ---
XR chest 1V portable HISTORY: 51 years-old Female Dyspnea acute shortness of breath COMPARISON: Chest radiograph 02/24/2020 TECHNIQUE: AP view the chest FINDINGS: Cardiac silhouette is enlarged. Pulmonary vascular congestion with mild interstitial coarsening. No p neumothorax. Layering pleural effusions with bibasilar consolidation. Bones appear grossly intact. IMPRESSION: 1. Cardiomegaly with mild pulmonary edema. 2. Layering pleural effusions with bibasilar consolidation favoring atelectasis. ACT 112: Negative or not required by law. The above report was generated using voice recognition software. It may contain grammatical, syntax o r spelling errors. Electronically signed by: Jeremiah Burnett M.D. 08/25/2022 8:31 PM
[2022-08-25 20:52] LABS: Basophils # (auto) 0.04 K/uL (0-0.2); Basophils % (auto) 0.4 %; Eosinophils # (auto) 0.15 K/uL (0-0.50); Eosinophils % (auto) 1.3 %; Hematocrit (blood only) 33.5 % (37.0-47.0); Hemoglobin 11.3 g/dl (12.0-16.0); Immature Granulocytes # (auto) 0.05 K/uL (0.01-0.20); Immature Granulocytes % (auto) 0.4 %; Lymphocytes # (auto) 1.94 K/uL (1.2-3.4); Lymphocytes % (auto) 17.3 %; Mean Corpuscular Hemoglobin 32.4 pg (25.0-34.0); Mean Corpuscular Hgb Conc 33.7 g/dL (32.0-36.0); Mean Platelet Volume 11.1 fL (9.4-12.4); Monocytes # (auto) 0.58 K/uL (0.11-0.59); Monocytes % (auto) 5.2 %; Neutrophils # (auto) 8.46 K/uL (1.40-6.50); Neutrophils % (auto) 75.4 %; Platelet Count 223 K/uL (130-400); RDW Standard Deviation 45.8 fL (36.4-46.3); Red Blood Count 3.49 M/uL (4.20-5.40); White Blood Count 11.22 K/ul (4.8-10.8)
[2022-08-25 21:07] LABS: Partial Thromboplastin Ratio 0.9; Partial Thromboplastin Time 25.9 Seconds (21.0-31.0); Prothrombin Time 10.3 Seconds (9.0-12.0)
[2022-08-25 21:21] LABS: Troponin I High Sensitivity 32.2 pg/ml (0-14)
[2022-08-25 21:24] LABS: Bilirubin,Total 0.4 mg/dl (0.2-1.0); Calcium 8.6 mg/dl (8.5-10.1); Potassium 2.8 mmol/L (3.5-5.1)
[2022-08-25 21:33] LABS: BUN Creatinine Ratio 14.1 (10-20); Creatinine Clr Calc Pharmacy 47.5 ml/min; Est GFR (African American) 43.5 ml/min; Est GFR (Non-African American) 37.5 ml/min
[2022-08-25] MEDS ORDERED: POTASSIUM CHLORIDE CRTAB 20 MEQ TABCR PO STA (21:37)
[2022-08-25 21:46] LABS: Base Excess VBG 3.2 mEq/L; HCO3 VBG 28 mmol/L; Oxygen Saturation VBG 79.7 %; PCO2 VBG 42 mmHg (38-50); PO2 VBG 48 mmHg; pH VBG 7.43 (7.36-7.41)
[2022-08-25] MEDS ORDERED: FUROSEMIDE 40 MG/4 ML VIAL IV ONE (22:04)
[2022-08-25] MEDS ORDERED: hydrALAZINE HCL 20 MG/ML VIAL IV ONE (23:38)
[2022-08-25] MEDS ORDERED: ASPIRIN CHEW 324 MG PO STA (23:41)
--- NOTE | 2022-08-26 00:09 | History & Physical Report ---
Date of Service August 26, 2022 Assessment & Plan (1) Acute dyspnea: Plan: Sheila is a 51 year old female w/ PmHx CAD, tobacco use, T2DM, diabetic nephropathy, HTN, HLD, untreated BENITO, gastroparesis admitted for shortness of breath and hypoxia possibly from CHF exacerbation. Acute Dyspnea: -Patient base weight appears to be around 80kg. 94.8kg on admission bed weight. -CXR cardiomegaly w/ mild pulm edema, layering pleural effusions w/ bibasilar consolidation favoring atelectasis. -O2 sat has been WNL on RA since she's been in the hospital. -Most likely CHF exacerbation given worse w/ laying down, weight, multiple admissions over past few months for similar occurance. -Given 40mg IV Lasix in ED. -Creatinine 1.56, may be due to fluid overload. Trend AM BMP, if improved plan for further diuresis w/ 40mg IV Lasix BID. -Admitted to med/tele for monitoring. Elevated troponin: -Troponin 32.2 on admission, 51.6 on repeat. -EKG w/o any acute ischemic changes. -Given hypervolemic state and hypertension may be due to demand ischemia. -Trend to peak. HTN: -BP 170's to 190's systolic, 80's to 110's diastolic while in hospital. -Given hydralazine in the ED. -Ordered nitro paste x1, nitro 2% to be applied q6h. -Continue home carvedilol 6.25mg BID. -Hold home lisinopril due to CELSO. CELSO: -Creatinine baseline 0.9-1.0. -Creatinine 1.56 on admission. -May be secondary to fluid overload. -Continue plan as above. CHF/Hx of [place]: -Echo 09/2021 w/ EF 55%, LV normal size, LV wall thickness mildly increased, anterolateral regional wall motion abnormality, L ventricular diastolic function mildly abnormal. -Same plan as above for acute dsypnea. If CELSO improves with diuresis can continue w/ 40mg IV Lasix BID. -Strict I&O's, daily weights. Diabetes/Gastroparesis: -Hx of diabetes possibly on 40units basal insulin at home however patient declines subq insulin due to fear of needles. -Put in for 10U BID basal, SSI. Will attempt to give however patient may end up refusing due to the above. -ACHS glucose checks. COPD: -Patient not on any inhalers at home due to difficulty and side effect profile she gets. -Continue to monitor respiratory status, O2 ordered as needed. Chronic pain: -Continued patient's home liquid oxycodone 5mg TID PRN. Tobacco use: -Ordered Nicotine patch 21mg daily TD. PAD/Dyslipidemia: -Continue home pravastatin. DVT Prophylaxis: SCDs, compression stockings. F/E/N/GI: Heart healthy, T2DM carb count Code status: DNR/DNI Dispo: Med/tele. (2) Elevated troponin: (3) Acute kidney injury: (4) History of myocardial infarction: (5) Gastroparesis: (6) COPD (chronic obstructive pulmonary disease): (7) Dyslipidemia: (8) Peripheral vascular disease: (9) Tobacco abuse: (10) Chronic pain: (11) Diabetic neuropathy associated with type 2 diabetes mellitus: (12) Hypertension: (13) GERD (gastroesophageal reflux disease): History of Present Illness Chief Complaint: Shortness of breath Primary Care Provider: Samuel Porter DO Sheila is a 51 year old female w/ PmHx CAD, tobacco use, T2DM, diabetic nephropathy, HTN, HLD, untreated BENITO, gastroparesis who presented to the hospital for shortness of breath and hypoxia at home. Patient states that she has had ongoing issues with CHF exacerbations and fluid overload/water weight for over a year. She's had to use Lasix outpatient multiple times and says that she has had 2 hospitalizations at [facility] for fluid overload. Her latest one was early July of 2022 where she was hospitalized with similar presenting symptoms to today of shortness of breath and unable to lie down without getting more short of breath. Her hospital stay ended early as she was disgruntled and frustrated with a nurse at [facility] and so she removed her IV and left AMA. She said that her shortness of breath and swelling in the lower extremities was worse over the past 24hrs starting the previous night. She has had a cough with this as well however she has a chronic cough. Her shortness of breath had gotten so bad she decided to come to the emergency department here. She had not had any chest pain associated with this, no fevers, chills, or diaphoresis. She states that she has always had an issue with eating due to her gastroparesis. She states her water weight issue got much worse after her gastroparesis worsened and now the only food she is able to eat is cheese with vinegar on top. She states that she also has neuropathy of the bilateral lower extremities, R foot up to the distal leg has no feeling and L foot at the bottom as well as the toes have no feeling. She also mentions she waited to come in since she had an appointment with an eye doctor for a collection of blood she's had behind her eye to see if she would qualify for surgery for it and they stated they would call her back next week about it. Patient mentions she has a history of COPD and smokes cigarettes. She had been up to 4 packs per day not long ago but has gotten that down to 1.5 packs per day. She does not take any inhalers for her COPD as she says she feels really bad after taking them. She also says she is bad with needles and will not take any injectable insulin. She states she knows she can get her blood sugar down if she waits long enough and will deny attempts to give injectable insulin. In the ED she was found to have WBC 11.22, Hgb 11.3, plt 223, VBG mildly alkalotic at 7.43, PT/INR WNL, K+ 2.8 and given 40meq KCl, BUN 22, Creatinine 1.56, glucose 360, BNP 569, troponin 32.2 and 51.6 after, CXR w/ cardiomegaly and layering pleural effusions w/ bibasilar consolidation favoring atelectasis. She was given 40mg IV Lasix, ASA 324mg, hydralazine 5mg for HTN urgency. Allergies Allergy/AdvReac Type Severity Reaction Status Date / Time Corticosteroids Allergy Severe STEROIDS-AN Verified 07/04/22 14:33 (Glucocorticoids) APHYLAXIS gabapentin Allergy Severe HIVES/SWELL Verified 07/04/22 14:33 ING Iodinated Contrast Media Allergy Severe FACIAL Verified 07/04/22 14:33 SWELLING nadolol Allergy Severe HIVES/SWELL Verified 07/04/22 14:33 ING shellfish derived Allergy Severe SWELLING Verified 07/04/22 14:33 albuterol Allergy Unknown Verified 07/04/22 14:33 aloe vera Allergy Unknown Verified 07/04/22 14:33 aspartame Allergy Unknown Verified 07/04/22 14:33 atorvastatin [From Lipitor] Allergy Unknown Verified 07/04/22 14:33 azithromycin [From Zithromax] Allergy Unknown Verified 07/04/22 14:33 barium sulfate Allergy Unknown Verified 07/04/22 14:33 beeswax Allergy Unknown Verified 07/04/22 14:33 blueberry Allergy Unknown Verified 07/04/22 14:33 carbidopa Allergy Unknown Verified 07/04/22 14:33 celecoxib [From Celebrex] Allergy Unknown Verified 07/04/22 14:33 dicyclomine Allergy Unknown Verified 07/04/22 14:33 Fish Containing Products Allergy Verified 07/04/22 14:33 fish derived Allergy Verified 07/04/22 14:33 fish oil Allergy Verified 07/04/22 14:33 fluoxetine [From Prozac] Allergy Unknown Verified 07/04/22 14:33 influenza virus vaccine ts Allergy Unknown Verified 07/04/22 14:33 [id number] (36 mos,up) [From Fluarix] insulin glargine Allergy Unknown Verified 07/04/22 14:33 [From Lantus U-100 Insulin] levofloxacin Allergy Unknown Verified 07/04/22 14:33 oxymorphone Allergy Unknown Verified 07/04/22 14:33 peach Allergy Unknown Verified 07/04/22 14:33 prednisone Allergy Unknown Verified 07/04/22 14:33 rosuvastatin [From Crestor] Allergy Unknown Verified 07/04/22 14:33 strawberry Allergy Unknown Verified 07/04/22 14:33 sucralose Allergy Unknown Verified 07/04/22 14:33 [From Splenda (sucralose)] sulfamethoxazole Allergy Unknown Verified 07/04/22 14:33 [From Bactrim] tomato Allergy Unknown Verified 07/04/22 14:33 trimethoprim [From Bactrim] Allergy Unknown Verified 07/04/22 14:33 cephalexin [From Keflex] AdvReac Severe YEAST Verified 07/04/22 14:33 INFECTION egg AdvReac Intermediate GI SYMPTOMS Verified 07/04/22 14:33 insulin detemir AdvReac Intermediate VOMITING Verified 07/04/22 14:33 meperidine AdvReac Intermediate BECOMES Verified 07/04/22 14:33 VIOLENT milk AdvReac Intermediate GI SYMPTOMS Verified 07/04/22 14:33 morphine AdvReac Intermediate BECOMES Verified 07/04/22 14:33 VIOLENT phenol AdvReac Intermediate VOMITING Verified 07/04/22 14:33 pregabalin AdvReac Intermediate AGITATION Verified 07/04/22 14:33 promethazine AdvReac Unknown nausea and Verified 07/04/22 14:33 vomiting varenicline AdvReac Unknown HOMICIDAL Verified 07/04/22 14:33 IDEATION ARTIFICIAL SWEETENER Allergy Severe ANAPHYLAXIS Uncoded 07/04/22 14:33 ultrasound gel Allergy Intermediate HIVES Uncoded 07/04/22 14:33 gynemoistrin Allergy Unknown Uncoded 07/04/22 14:33 Home Medications Medication Instructions Recorded Confirmed Type nitroglycerin 0.4 mg sublingual 0 mg sublingual UD PRN Chest Pain 01/22/19 08/25/22 History tablet (Nitrostat) Fiber Choice Fruity Bites 1.5g 2 tab PO QAM PRN Constipation 02/18/20 08/25/22 History oxycodone 5 mg/5 mL oral solution 5 mg PO TID PRN Pain 10/11/21 08/25/22 History carvedilol 6.25 mg tablet 6.25 mg PO BID #10 tabs 10/13/21 08/25/22 Rx Red Beet 1 cap PO BID 02/21/22 08/25/22 History diphenhydramine HCl 25 mg tablet 175 mg PO TID 02/21/22 08/25/22 History (Benadryl Allergy) docusate sodium 100 mg capsule 100 mg PO BID 02/21/22 08/25/22 History (Stool Softener) melatonin 10 mg tablet 40 mg PO HS 02/21/22 08/25/22 History pantoprazole 40 mg tablet,delayed 40 mg PO HS 02/21/22 08/25/22 History release sour strickland extract [Tart Strickland 1 cap PO BID 02/21/22 08/25/22 History Extract] sub-q insulin device, 40 unit #90 ea 03/01/22 08/26/22 Rx (V-GO 40 device) baclofen 10 mg tablet 10 mg PO BID 05/05/22 08/25/22 History furosemide 20 mg tablet 20 mg PO BID #60 tabs 07/04/22 08/25/22 Rx cinnamon bark-chromium picolinate 2 cap PO AMHS 08/25/22 08/25/22 History 500 mg-100 mcg capsule clopidogrel 75 mg tablet 75 mg PO HS 08/25/22 08/25/22 History lisinopril 10 mg tablet 10 mg PO HS 08/25/22 08/25/22 History pravastatin 40 mg tablet 40 mg PO HS 08/25/22 08/25/22 History vitamin E 268 mg (400 unit) capsule 268 mg PO QAM 08/25/22 08/25/22 History Past Med/Surg History Medical History (Updated 08/26/22 @ 00:26 by Braxton Brewer DO) Acute kidney injury Acute right-sided weakness Cerebrovascular disease Left pontine stroke 2021 Chronic pain COPD (chronic obstructive pulmonary disease) Depression Drop foot gait Dyslipidemia Fracture of lumbar spine L1/L2 - 2nd trauma Gastroparesis GERD (gastroesophageal reflux disease) History of alcoholism History of myocardial infarction 2 stents History of osteomyelitis right great toe History of ovarian cancer Hypertension MSSA (methicillin susceptible Staphylococcus aureus) infection Noncompliance BENITO (obstructive sleep apnea) Peripheral vascular disease Personal history of diabetic foot ulcer Proteinuria Tobacco abuse Vitamin D deficiency Surgical History H/O dilation and curettage H/O heart artery stent H/O tubal ligation H/O: hysterectomy History of appendectomy Family History Grandmother (Paternal) Diabetes Father , in his 50s Diabetes Stroke Uncle Diabetes Hypothyroidism Cancer Stroke Mother Coronary heart disease Heart disease Ovarian cancer Grandmother (Maternal) Breast cancer Brother Diabetes Hypertension Gout Grandfather (Maternal) Diabetes Social History Smoking Status: Current every day smoker Tobacco Type: Cigarettes packs per day: 1; Hx Alcohol Use: No Hx Substance Use: No Preferred Language: Palauan Communication Ability: Effective Communication Tools: Letter Board, Picture Board and Facial Expression Visual Impairment: Limited Hearing Ability: Normal Organ Tuner Electronic Required: No Beliefs That Will Affect Care: None marital status: Current Living Situation: Spouse Current Living Situation Comment: lives with in [place] current occupational status: disabled 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 Physical Exam Constitutional: WD/WN, vitals as above Patient hunched over mildly short of breath with speaking. Eyes: PERRL, conjunctivae normal, anicteric sclerae Respiratory: Clear to auscultation bilaterally however unable to get very good deep breaths. Cardiovascular: Rate/Rhythm: regular rate and regular rhythm Heart Sounds: normal S1 and normal S2 1+ pitting edema to the R lower extremity up to the mid saba, trace edema to the left lower extremity. Gastrointestinal (Abdomen): BS+, obese habitus, tender to palpation at the up per central abdominal area, soft. Psychiatric: A+Ox3, euthymic affect Results & Data Results & Data ([facility]) Vital Signs (Past 12 Hours) Vital Signs Temp Pulse Pulse Resp BP BP Pulse Ox 08/25/22 22:45 85 19 179/110 H 93 08/25/22 22:11 86 22 177/123 H 92 08/25/22 21:22 85 19 91 08/25/22 20:37 88 20 93 08/25/22 20:17 91 H 20 191/100 H 93 08/25/22 20:17 92 08/25/22 20:17 08/25/22 20:11 36.6 C 94 H 19 191/100 H 94 O2 Del Method 08/25/22 22:45 08/25/22 22:11 Room Air 08/25/22 21:22 08/25/22 20:37 Room Air 08/25/22 20:17 Room Air 08/25/22 20:17 Room Air 08/25/22 20:17 Room Air 08/25/22 20:11 Room Air Supervising Physician Co-Signing Physician Notes Attending addendum: I have physically seen this patient, have supervised the medical residents activities, and agree with the H&P unless as otherwise noted. Assessment and Plan: Elevated troponin/high-output CHF/hypertension- The patient will be admitted to telemetry for serial cardiac enzymes, serial EKG's, cardiac rhythm monitoring and a 2-D echocardiogram with Dopplers. Troponin initially 32.2 and follow-up 51.6, and BNP 569 Continue carvedilol 6.25 mg p.o. twice daily Nitropaste 1 inch to anterior chest wall every 6 hours Furosemide 40 mg IV now and every morning Acute kidney injury on CKD- Creatinine 1.56 on admission with baseline 1.03 Follow serially Likely function of decreased forward flow/fluid overload Follow serially while being diuresed Remaining orders and notations as noted Resident Activity Tracking Resident Involvement: Resident Care Provided Care Provided: Adult Hospital Medicine (1) Diabetic neuropathy associated with type 2 diabetes mellitus Diabetes mellitus complication detail: with other neurological complication Qualified Code(s): E11.49 - Type 2 diabetes mellitus with other diabetic neurological complication (2) Hypertension Hypertension type: essential hypertension Qualified Code(s): I10 - Essential (primary) hypertension
[2022-08-26] MEDS ORDERED: NITROGLYCERIN 2% OINTMENT 30GM TUBE EXT ONE (00:30)
[2022-08-26] MEDS ORDERED: GLUCAGON FOR INJ 1 MG VIAL SQ PRN (02:08)
[2022-08-26] MEDS ORDERED: NITROGLYCERIN SL 0.4 MG/TAB TAB SL PRN (02:08)
[2022-08-26] MEDS ORDERED: POLYETHYLENE (MIRALAX) 17 GM PACK PO PRN (02:08)
[2022-08-26] MEDS ORDERED: DEXTROSE 50% 50 ML SYRINGE IV PRN (02:08)
[2022-08-26] MEDS ORDERED: ACETAMINOPHEN 325 MG TAB PO PRN (02:08)
[2022-08-26] MEDS ORDERED: CARBOHYDRATES FOR HYPOGLYCEMIA PO PRN (02:08)
[2022-08-26] MEDS ORDERED: GLUCOSE 10 TAB/TUBE PO PRN (02:08)
[2022-08-26] MEDS ORDERED: GLUCOSE 40% GEL 15 GM TUBE PO PRN (02:08)
[2022-08-26] MEDS ORDERED: INSULIN ASPART PER UNIT SC SCH (03:00)
[2022-08-26 03:06] LABS: Basophils # (auto) 0.03 K/uL (0-0.2); Basophils % (auto) 0.3 %; Eosinophils # (auto) 0.15 K/uL (0-0.50); Eosinophils % (auto) 1.4 %; Immature Granulocytes # (auto) 0.03 K/uL (0.01-0.20); Immature Granulocytes % (auto) 0.3 %; Lymphocytes # (auto) 2.05 K/uL (1.2-3.4); Lymphocytes % (auto) 19.6 %; Mean Corpuscular Hemoglobin 32.6 pg (25.0-34.0); Mean Corpuscular Hgb Conc 34.5 g/dL (32.0-36.0); Mean Corpuscular Volume 94.5 fL (80.0-100.0); Monocytes % (auto) 6.7 %; Neutrophils # (auto) 7.51 K/uL (1.40-6.50); Neutrophils % (auto) 71.7 %; Platelet Count 203 K/uL (130-400); RDW Coefficient of Variation 13.1 % (11.5-14.5); RDW Standard Deviation 44.7 fL (36.4-46.3); Red Blood Count 3.07 M/uL (4.20-5.40); White Blood Count 10.47 K/ul (4.8-10.8)
[2022-08-26 03:27] LABS: BUN Creatinine Ratio 13.5 (10-20); Calcium 8.1 mg/dl (8.5-10.1); Est GFR (African American) 46.4 ml/min
[2022-08-26] MEDS ORDERED: hydrALAZINE HCL 20 MG/ML VIAL IV STA (04:06)
--- NOTE | 2022-08-26 07:49 | Hospitalist Progress Note ---
Date of Service August 26, 2022 Assessment & Plan (1) Acute dyspnea: Plan: Sheila is a 51 year old female w/ PmHx CAD, tobacco use, T2DM, diabetic nephropathy, HTN, HLD, untreated BENITO, gastroparesis Acute Dyspnea: moderate risk , suspect HFpEF -chronic ischemic cardiomyopathy, previous TN -Given 40mg IV Lasix in ED. 1 additional double dose of Lasix will be given -Also given smoking history could be COPD affects Elevated troponin: Acute uncontrolled moderate risk -EKG w/o any acute ischemic changes. mild slight increase in trop, will consult cardiology to determine if ischemic workup is needed Echo does not show any regional wall motion abnormalities ejection fraction is preserved -Given hypervolemic state and hypertension may be due to demand ischemia. HTN: Question if hypertensive emergency could be causing her dyspnea chronic uncontrolled -chronic and unstable -Given hydralazine in the ED. -Ordering discontinuation of Nitropaste -Continue home carvedilol 6.25mg BID. -Hold home lisinopril due to CELSO. CELSO: -Creatinine baseline 0.9-1.0. -holding lisinopril Diabetes/Gastroparesis: Acute uncontrolled based on A1c being 9.8 moderate risk -Hx of diabetes possibly on 40units basal insulin at home however patient declines subq insulin due to fear of needles. -Put in for 10U BID basal, SSI. Will attempt to give however patient may end up refusing due to the above. -ACHS glucose checks. COPD: Chronic uncontrolled -Patient not on any inhalers at home instituting Combivent on 08/26/2022 -pt continues to smoke, cessation councelling offered Chronic pain: -Continued patient's home liquid oxycodone 5mg TID PRN. Tobacco use: -Ordered Nicotine patch 21mg daily TD. PAD/Dyslipidemia: -Continue home pravastatin. DVT Prophylaxis: SCDs, compression stockings. Code status: DNR/DNI (2) Elevated troponin: (3) Acute kidney injury: (4) History of myocardial infarction: (5) Gastroparesis: (6) COPD (chronic obstructive pulmonary disease): (7) Dyslipidemia: (8) Peripheral vascular disease: (9) Tobacco abuse: (10) Chronic pain: (11) Diabetic neuropathy associated with type 2 diabetes mellitus: (12) Hypertension: (13) GERD (gastroesophageal reflux disease): Admission and Anticipated Discharge Date Admission Date: August 26, 2022 Subjective Patient awake and appropriate she complains of dyspnea. She denies any chest pain similar to her previous anginal events. She does continue to smoke has had productive sputum brown Physical Exam Physical Exam: Patient looks older than her stated age Card exam is regular without murmurs clicks rubs or gallops Lungs have good air movement no wheezes she does have a loose cough in the emergency department shows nonproductive Extremities are with 1-2+ edema right lower extremity worse than left Results & Data Results & [facility] ([facility]) Vital Signs (Past 12 Hours) Vital Signs Temp Pulse Pulse Resp BP BP Pulse Ox 08/26/22 07:00 89 24 162/90 H 78 L 08/26/22 06:30 88 19 156/87 H 08/26/22 06:00 166/91 H 08/26/22 07:04 08/26/22 06:00 87 18 80 L 08/26/22 05:30 86 22 166/93 H 91 08/26/22 05:16 89 20 142/101 H 08/26/22 04:30 91 H 21 178/89 H 08/26/22 02:08 69 18 93 08/26/22 04:00 84 24 173/111 H 96 08/26/22 03:00 86 23 199/98 H 95 08/26/22 02:30 84 22 177/93 H 95 08/26/22 02:00 84 23 196/100 H 96 08/26/22 01:15 85 22 191/94 H 93 08/26/22 01:00 86 20 193/112 H 93 08/26/22 00:45 87 17 201/106 H 94 08/26/22 00:15 89 21 196/113 H 94 08/26/22 00:15 196/113 H 08/26/22 00:00 87 20 182/109 H 94 08/25/22 23:46 86 26 H 188/87 H 95 08/25/22 23:31 85 24 92 08/25/22 23:31 173/131 H 08/25/22 23:30 85 26 H 93 08/25/22 23:16 84 20 91 08/25/22 23:16 183/96 H 08/25/22 23:01 171/94 H 08/25/22 23:01 85 15 92 08/25/22 23:00 84 21 92 08/25/22 22:45 85 19 179/110 H 93 08/25/22 22:11 86 22 177/123 H 92 08/25/22 21:22 85 19 91 08/25/22 20:37 88 20 93 08/25/22 20:17 91 H 20 191/100 H 93 08/25/22 20:17 92 08/25/22 20:17 08/25/22 20:11 97.9 F 94 H 19 191/100 H 94 O2 Del Method O2 Flow Rate 08/26/22 07:00 08/26/22 06:30 08/26/22 06:00 08/26/22 07:04 Nasal Cannula 2 08/26/22 06:00 08/26/22 05:30 08/26/22 05:16 08/26/22 04:30 08/26/22 02:08 Nasal Cannula 2 08/26/22 04:00 08/26/22 03:00 08/26/22 02:30 08/26/22 02:00 08/26/22 01:15 08/26/22 01:00 08/26/22 00:45 08/26/22 00:15 08/26/22 00:15 08/26/22 00:00 08/25/22 23:46 08/25/22 23:31 08/25/22 23:31 08/25/22 23:30 08/25/22 23:16 08/25/22 23:16 08/25/22 23:01 08/25/22 23:01 08/25/22 23:00 08/25/22 22:45 08/25/22 22:11 Room Air 08/25/22 21:22 08/25/22 20:37 Room Air 08/25/22 20:17 Room Air 08/25/22 20:17 Room Air 08/25/22 20:17 Room Air 08/25/22 20:11 Room Air Laboratory Results Review troponin 32-50-77 Reviewed chemistry panel Reviewed CBC Magnesium testing ordered for 08/27/2022 PG Care Time/CCT Total # of Minutes Spent Total Time Spent with Patient: Total time spent is greater than 50% in coordination of care (as documented) at patient's floor/unit and/or counseling patient: Coding Level of Care Code 74966 SUB INP/OBS CARE 350MIN Diagnoses Acute dyspnea R06.00 Elevated troponin R77.8 Acute kidney injury N17.9 History of myocardial infarction I25.2 Gastroparesis K31.84 COPD (chronic obstructive pulmonary disease) J44.9 Dyslipidemia E78.5 Peripheral vascular disease I73.9 Tobacco abuse Z72.0 Chronic pain G89.29 Diabetic neuropathy associated with type 2 diabetes mellitus E11.49 Diabetes mellitus complication detail: with other neurological complication Hypertension I10 Hypertension type: essential hypertension GERD (gastroesophageal reflux disease) K21.9 (1) Diabetic neuropathy associated with type 2 diabetes mellitus Diabetes mellitus complication detail: with other neurological complication Qualified Code(s): E11.49 - Type 2 diabetes mellitus with other diabetic neurological complication (2) Hypertension Hypertension type: essential hypertension Qualified Code(s): I10 - Essential (primary) hypertension
[2022-08-26 08:28] LABS: Estimated Average Glucose 235 mg/dl; Hemoglobin A1C 9.8 % (4.5-5.6)
[2022-08-26 08:44] LABS: Appearance Urine Clear (Clear); Bacteria Urine Automated Negative (Negative); Bilirubin Urine Negative (Negative); Blood Urine 1+ (Negative); Color Urine Yellow; Epithelial Cell Urine Auto >30 /lpf (0-5); Glucose Urine UA 3+ (Negative); Ketones Urine Negative (Negative); Leukocyte Esterase Urine Negative (Negative); Nitrite Urine Negative (Negative); Protein Urine 3+ (Negative); Specific Gravity Urine 1.016 (1.000-1.030); Urobilinogen Urine Negative (Negative); pH Urine 5.5 (4.5-7.5)
[2022-08-26] MEDS ORDERED: MAGNESIUM SULFATE / D5W 1 GM/100 ML BAG IV ONE (09:21)
[2022-08-26] MEDS: NICOTINE 21 MG/24 HR TDSY TD SCH (09:31)
[2022-08-26] MEDS: INSULIN ASPART PER UNIT SC SCH ×4 (09:33→20:17)
[2022-08-26] MEDS: carvediloL 6.25 MG TAB PO SCH ×2 (09:34→22:20)
[2022-08-26] MEDS: LANTUS PER UNIT CHARGE SQ SCH ×2 (09:34→20:30)
[2022-08-26] MEDS: DOCUSATE SODIUM 100 MG CAP PO SCH ×2 (09:34→22:21)
[2022-08-26] MEDS: NITROGLYCERIN 2% OINTMENT 30GM TUBE EXT SCH ×2 (09:42→15:03)
--- NOTE | 2022-08-26 11:29 | Electrocardiogram Report ---
Test Reason : Blood Pressure : / mmHG Vent. Rate : 093 BPM Atrial Rate : 093 BPM P-R Int : 152 ms QRS Dur : 092 ms QT Int : 406 ms P-R-T Axes : 046 -16 082 degrees QTc Int : 504 ms Normal sinus rhythm Moderate voltage criteria for LVH, may be normal variant Prolonged QT Abnormal ECG When compared with ECG of 11-OCT-2021 12:26, No significant change was found Confirmed by Ovidio Stubbs ([id number]) on 08/26/2022 11:29:21 AM Referred By: REFERRED SELF Confirmed By:Ovidio Stubbs
[2022-08-26] MEDS: POTASSIUM CHLORIDE / WTR 10 MEQ/100 ML PLCT IV SCH ×3 (11:34→14:49)
--- NOTE | 2022-08-26 14:59 | XCELERA ---
[id number]
[2022-08-26] MEDS ORDERED: IPRATROPIUM BROMIDE/ALBUTEROL respimat INH INH SCH (17:00)
[2022-08-26 17:35] LABS: BUN Creatinine Ratio 13.2 (10-20); Creatinine Clr Calc Pharmacy 48.7 ml/min; Est GFR (African American) 44.9 ml/min; Est GFR (Non-African American) 38.7 ml/min; Potassium 3.1 mmol/L (3.5-5.1)
[2022-08-26 17:42] LABS: Troponin I High Sensitivity 79.3 pg/ml (0-14)
[2022-08-26] MEDS: oxyCODONE HCL IR 5 MG TAB (IMMEDIATE RELEASE) PO PRN (19:42)
[2022-08-26] MEDS: IPRATROPIUM BROMIDE HFA INHALER INH SCH ×2 (20:14→20:16)
[2022-08-26] MEDS: ALBUTEROL HFA 8 GM INHALER INH SCH (20:15)
--- NOTE | 2022-08-26 20:59 | Billing Data ---
Date of Service August 26, 2022 Coding Level of Care Code 68974 INT INP/OBS CARE
[2022-08-26] MEDS ORDERED: CLOPIDOGREL BISULFATE 75 MG TAB PO SCH (21:00)
[2022-08-26] MEDS ORDERED: PRAVASTATIN SOD 40 MG TAB PO SCH (21:00)
[2022-08-26] MEDS ORDERED: PANTOprazole 40 MG TAB PO SCH (21:00)
[2022-08-26] MEDS: DOXYCYCLINE HYCLATE 100 MG CAP PO SCH (22:20)
[2022-08-26] MEDS: POTASSIUM CHLORIDE CRTAB 20 MEQ TABCR PO SCH (22:20)
[2022-08-27] MEDS ORDERED: ALBUT/IPRATROP 3MG/0.5MG NEB 3 ML VIAL NEB ONE (03:06)
[2022-08-27] MEDS ORDERED: oxyCODONE HCL SOLN 5 MG/5 ML UDC PO PRN ×2 (04:14→04:53)
[2022-08-27] MEDS: oxyCODONE HCL IR 5 MG TAB (IMMEDIATE RELEASE) PO PRN ×2 (05:08→10:19)
[2022-08-27 06:37] LABS: Hematocrit (blood only) 29.6 % (37.0-47.0); Hemoglobin 9.7 g/dl (12.0-16.0); Mean Corpuscular Hemoglobin 32.1 pg (25.0-34.0); Mean Corpuscular Hgb Conc 32.8 g/dL (32.0-36.0); Mean Platelet Volume 10.6 fL (9.4-12.4); Platelet Count 208 K/uL (130-400); RDW Coefficient of Variation 13.1 % (11.5-14.5); RDW Standard Deviation 46.7 fL (36.4-46.3); Red Blood Count 3.02 M/uL (4.20-5.40); White Blood Count 9.91 K/ul (4.8-10.8)
[2022-08-27] MEDS: IPRATROPIUM BROMIDE HFA INHALER INH SCH ×2 (07:09→11:13)
[2022-08-27] MEDS: ALBUTEROL HFA 8 GM INHALER INH SCH ×2 (07:09→11:13)
[2022-08-27 07:10] LABS: Troponin I High Sensitivity 47.2 pg/ml (0-14)
--- NOTE | 2022-08-27 07:58 | Hospitalist Progress Note ---
Date of Service August 27, 2022 Assessment & Plan (1) Acute dyspnea: Plan: Sheila is a 51 year old female w/ PmHx CAD, tobacco use, T2DM, diabetic nephropathy, HTN, HLD, untreated BENITO, gastroparesis admitted for shortness of breath and hypoxia possibly from CHF exacerbation. Acute Dyspnea: Uncontrolled moderate risk -Patient near dry weight 81 kg today on 08/27/2022 -History of chronic ischemic cardiomyopathy now with preserved. Ejection fraction -Clinical symptoms fit with possible heart failure preserved ejection fraction exacerbation improved with diuresis -Additionally with tobacco abuse started on inhalers with improvement Elevated troponin: Acute with moderate risk -Troponin 30-50-40 -EKG w/o any acute ischemic changes. -Given hypervolemic state and hypertension may be due to demand ischemia. Patient will likely need restratification stress test perhaps as an outpatient HTN: Chronic uncontrolled Question of hypertensive emergency could be causing her dyspnea -Systolic blood pressures remained elevated -Continue home carvedilol 6.25mg BID. -Resume lisinopril for diabetic renal protective effects once creatinine stabilizes CELSO: -Creatinine baseline 0.9-1.0. -Creatinine 1.56 on admission. -May be secondary to fluid overload. -Continue plan as above. CHF/Hx of [place]: Heart failure preserved ejection fraction repeat echocardiogram without regional wall motion abnormalities and normal EF -Continue beta-lucas HFpEF chronic Diabetes/Gastroparesis: Chronic uncontrolled we will need to discuss Globin A1c is 9.8 suggesting poor outpatient control COPD: Chronic uncontrolled -Instituted inhaler Chronic pain: -Continued patient's home liquid oxycodone 5mg TID PRN. Tobacco use: Chronic and controlled -Ordered Nicotine patch 21mg daily TD. PAD/Dyslipidemia: -Continue home pravastatin. DVT Prophylaxis: SCDs, compression stockings. Code status: DNR/DNI (2) Elevated troponin: (3) Acute kidney injury: (4) History of myocardial infarction: (5) Gastroparesis: (6) COPD (chronic obstructive pulmonary disease): (7) Dyslipidemia: (8) Peripheral vascular disease: (9) Tobacco abuse: (10) Chronic pain: (11) Diabetic neuropathy associated with type 2 diabetes mellitus: (12) Hypertension: (13) GERD (gastroesophageal reflux disease): Admission and Anticipated Discharge Date Admission Date: August 26, 2022 Results & Data Results & Data ([facility]) Vital Signs (Past 12 Hours) Vital Signs Temp Pulse Pulse Pulse Resp BP Pulse Ox 08/27/22 07:00 87 08/27/22 07:11 86 16 95 08/27/22 03:22 85 92 08/27/22 00:20 84 08/26/22 22:17 97.9 F 83 18 181/83 H 98 08/26/22 20:46 87 08/26/22 20:16 80 16 87 L 08/26/22 19:56 O2 Del Method O2 Flow Rate FiO2 08/27/22 07:00 08/27/22 07:11 Room Air 08/27/22 03:22 Room Air 21 08/27/22 00:20 08/26/22 22:17 Nasal Cannula 2 08/26/22 20:46 08/26/22 20:16 Nasal Cannula 2 08/26/22 19:56 Nasal Cannula 2 Laboratory Results Reviewed CBC Reviewed chemistry panel Review troponin for trend Abnormal urinalysis urine culture ordered on 08/27/2022 PG Care Time/CCT Total # of Minutes Spent Total Time Spent with Patient: Total time spent is greater than 50% in coordination of care (as documented) at patient's floor/unit and/or counseling patient: Coding Diagnoses Acute dyspnea R06.00 Elevated troponin R77.8 Acute kidney injury N17.9 History of myocardial infarction I25.2 Gastroparesis K31.84 COPD (chronic obstructive pulmonary disease) J44.9 Dyslipidemia E78.5 Peripheral vascular disease I73.9 Tobacco abuse Z72.0 Chronic pain G89.29 Diabetic neuropathy associated with type 2 diabetes mellitus E11.49 Diabetes mellitus complication detail: with other neurological complication Hypertension I10 Hypertension type: essential hypertension GERD (gastroesophageal reflux disease) K21.9 (1) Diabetic neuropathy associated with type 2 diabetes mellitus Diabetes mellitus complication detail: with other neurological complication Qualified Code(s): E11.49 - Type 2 diabetes mellitus with other diabetic neurological complication (2) Hypertension Hypertension type: essential hypertension Qualified Code(s): I10 - Essential (primary) hypertension
[2022-08-27] MEDS: INSULIN ASPART PER UNIT SC SCH (08:39)
[2022-08-27] MEDS: LANTUS PER UNIT CHARGE SQ SCH (08:40)
[2022-08-27] MEDS: POTASSIUM CHLORIDE CRTAB 20 MEQ TABCR PO SCH (08:45)
[2022-08-27] MEDS: carvediloL 6.25 MG TAB PO SCH (08:46)
[2022-08-27] MEDS: NICOTINE 21 MG/24 HR TDSY TD SCH (08:46)
[2022-08-27] MEDS: DOXYCYCLINE HYCLATE 100 MG CAP PO SCH (08:46)
[2022-08-27] MEDS: DOCUSATE SODIUM 100 MG CAP PO SCH (08:46)
[2022-08-27 08:56] LABS: BUN Creatinine Ratio 13.1 (10-20); Creatinine Clr Calc Pharmacy 40.8 ml/min; Est GFR (African American) 39.8 ml/min; Est GFR (Non-African American) 34.3 ml/min; Magnesium 1.9 mg/dl (1.7-2.4)
--- NOTE | 2022-08-27 17:00 | Discharge Summary ---
Date of Service August 27, 2022 Admission HPI Per Admitting Provider Sheila is a 51 year old female w/ PmHx CAD, tobacco use, T2DM, diabetic nephropathy, HTN, HLD, untreated BENITO, gastroparesis who presented to the hospital for shortness of breath and hypoxia at home. Patient states that she has had ongoing issues with CHF exacerbations and fluid overload/water weight for over a year. She's had to use Lasix outpatient multiple times and says that she has had 2 hospitalizations at [facility] for fluid overload. Her latest one was early July of 2022 where she was hospitalized with similar presenting symptoms to today of shortness of breath and unable to lie down without getting more short of breath. Her hospital stay ended early as she was disgruntled and frustrated with a nurse at [facility] and so she removed her IV and left AMA. She said that her shortness of breath and swelling in the lower extremities was worse over the past 24hrs starting the previous night. She has had a cough with this as well however she has a chronic cough. Her shortness of breath had gotten so bad she decided to come to the emergency department here. She had not had any chest pain associated with this, no fevers, chills, or diaphoresis. She states that she has always had an issue with eating due to her gastroparesis. She states her water weight issue got much worse after her gastroparesis worsened and now the only food she is able to eat is cheese with vinegar on top. She states that she also has neuropathy of the bilateral lower extremities, R foot up to the distal leg has no feeling and L foot at the bottom as well as the toes have no feeling. She also mentions she waited to come in since she had an appointment with an eye doctor for a collection of blood she's had behind her eye to see if she would qualify for surgery for it and they stated they would call her back next week about it. Patient mentions she has a history of COPD and smokes cigarettes. She had been up to 4 packs per day not long ago but has gotten that down to 1.5 packs per day . She does not take any inhalers for her COPD as she says she feels really bad after taking them. She also says she is bad with needles and will not take any injectable insulin. She states she knows she can get her blood sugar down if she waits long enough and will deny attempts to give injectable insulin. In the ED she was found to have WBC 11.22, Hgb 11.3, plt 223, VBG mildly alkalotic at 7.43, PT/INR WNL, K+ 2.8 and given 40meq KCl, BUN 22, Creatinine 1.56, glucose 360, BNP 569, troponin 32.2 and 51.6 after, CXR w/ cardiomegaly and layering pleural effusions w/ bibasilar consolidation favoring atelectasis. She was given 40mg IV Lasix, ASA 324mg, hydralazine 5mg for HTN urgency. Principal Diagnosis Hypertensive urgency Acute kidney injury Uncontrolled diabetes Tobacco abuse Discharge Exam Patient awake alert appropriate lungs were clear without wheezes Discharge Data Allergies Allergy/AdvReac Type Severity Reaction Status Date / Time Corticosteroids Allergy Severe STEROIDS-AN Verified 07/04/22 14:33 (Glucocorticoids) APHYLAXIS gabapentin Allergy Severe HIVES/SWELL Verified 07/04/22 14:33 ING Iodinated Contrast Media Allergy Severe FACIAL Verified 07/04/22 14:33 SWELLING nadolol Allergy Severe HIVES/SWELL Verified 07/04/22 14:33 ING shellfish derived Allergy Severe SWELLING Verified 07/04/22 14:33 albuterol Allergy Unknown Verified 07/04/22 14:33 aloe vera Allergy Unknown Verified 07/04/22 14:33 aspartame Allergy Unknown Verified 07/04/22 14:33 atorvastatin [From Lipitor] Allergy Unknown Verified 07/04/22 14:33 azithromycin [From Zithromax] Allergy Unknown Verified 07/04/22 14:33 barium sulfate Allergy Unknown Verified 07/04/22 14:33 beeswax Allergy Unknown Verified 07/04/22 14:33 blueberry Allergy Unknown Verified 07/04/22 14:33 carbidopa Allergy Unknown Verified 07/04/22 14:33 celecoxib [From Celebrex] Allergy Unknown Verified 07/04/22 14:33 dicyclomine Allergy Unknown Verified 07/04/22 14:33 Fish Containing Products Allergy Verified 07/04/22 14:33 fish derived Allergy Verified 07/04/22 14:33 fish oil Allergy Verified 07/04/22 14:33 fluoxetine [From Prozac] Allergy Unknown Verified 07/04/22 14:33 influenza virus vaccine ts Allergy Unknown Verified 07/04/22 14:33 [id number] (36 mos,up) [From Fluarix] insulin glargine Allergy Unknown Verified 07/04/22 14:33 [From Lantus U-100 Insulin] levofloxacin Allergy Unknown Verified 07/04/22 14:33 oxymorphone Allergy Unknown Verified 07/04/22 14:33 peach Allergy Unknown Verified 07/04/22 14:33 prednisone Allergy Unknown Verified 07/04/22 14:33 rosuvastatin [From Crestor] Allergy Unknown Verified 07/04/22 14:33 strawberry Allergy Unknown Verified 07/04/22 14:33 sucralose Allergy Unknown Verified 07/04/22 14:33 [From Splenda (sucralose)] sulfamethoxazole Allergy Unknown Verified 07/04/22 14:33 [From Bactrim] tomato Allergy Unknown Verified 07/04/22 14:33 trimethoprim [From Bactrim] Allergy Unknown Verified 07/04/22 14:33 cephalexin [From Keflex] AdvReac Severe YEAST Verified 07/04/22 14:33 INFECTION egg AdvReac Intermediate GI SYMPTOMS Verified 07/04/22 14:33 insulin detemir AdvReac Intermediate VOMITING Verified 07/04/22 14:33 meperidine AdvReac Intermediate BECOMES Verified 07/04/22 14:33 VIOLENT milk AdvReac Intermediate GI SYMPTOMS Verified 07/04/22 14:33 morphine AdvReac Intermediate BECOMES Verified 07/04/22 14:33 VIOLENT phenol AdvReac Intermediate VOMITING Verified 07/04/22 14:33 pregabalin AdvReac Intermediate AGITATION Verified 07/04/22 14:33 promethazine AdvReac Unknown nausea and Verified 07/04/22 14:33 vomiting varenicline AdvReac Unknown HOMICIDAL Verified 07/04/22 14:33 IDEATION ARTIFICIAL SWEETENER Allergy Severe ANAPHYLAXIS Uncoded 07/04/22 14:33 ultrasound gel Allergy Intermediate HIVES Uncoded 07/04/22 14:33 gynemoistrin Allergy Unknown Uncoded 07/04/22 14:33 Consultations 08/25/22 23:40 ED Decision to Admit Stat Diabetes Follow up Diabetes Follow-up Needed for HgbA1c >9% Hospital Course (1) Acute dyspnea: Sheila is a 51 year old female w/ PmHx CAD, tobacco use, T2DM, diabetic nephropathy, HTN, HLD, untreated BENITO, gastroparesis admitted for shortness of breath and hypoxia possibly from CHF exacerbation. On 08/27/2022 patient requested to be discharged. I did suggest to the patient that it was not optimal as she did not have good control of her multiple medical problems. She however states that she cannot take insulin will cut down on smoking but cannot stop smoking and will cut down on regular soft drink intake but but cannot drink diet soda. I am implored to the patient that it will be very important that she follow-up with her primary care provider have a blood work the following week and institute some new medications. She is agreeable to the medications however at this time I cannot secure a PCP follow-up appointment. Acute Dyspnea: Uncontrolled moderate risk -Patient near dry weight 81 kg today on 08/27/2022 -History of chronic ischemic cardiomyopathy now with preserved. Ejection fraction -Clinical symptoms fit with possible heart failure preserved ejection fraction exacerbation perhaps worsened by hypertensive urgency perhaps secondary to noncompliant medications improved with diuresis -Additionally with tobacco abuse started on inhalers for concern of COPD with improvement in subjective feelings of reduced shortness of breath Possibility of bronchitis patient will complete doxycycline Elevated troponin: Acute with moderate risk -Troponin 30-50-40 -EKG w/o any acute ischemic changes. -Given hypervolemic state and hypertension may be due to demand ischemia. Patient will likely need restratification stress test perhaps as an outpatient HTN: Chronic uncontrolled Question of hypertensive emergency could be causing her dyspnea -Continue home carvedilol 6.25mg BID. -Resume lisinopril for diabetic renal protective effects once creatinine stabilizes however at time of discharge creatinine was elevated lisinopril was not recommended to be restarted low-salt diet was recommended CELSO: -Creatinine baseline 0.9-1.0. -Creatinine 1.56 on admission. -May be secondary to fluid overload. Hopeful of outpatient follow-up and repeat laboratory testing CHF/Hx of [place]: Heart failure preserved ejection fraction repeat echocardiogram without regional wall motion abnormalities and normal EF -Continue beta-lucas HFpEF chronic Diabetes/Gastroparesis: Chronic uncontrolled we will need to discuss Globin A1c is 9.8 suggesting poor outpatient control patient be given glyburide refuses insulin therapy does not fit for SGL T2 with heart failure she does not have heart failure reduced ejection fraction COPD: Chronic uncontrolled -Instituted inhaler we will send home with albuterol Chronic pain: -Continued patient's home liquid oxycodone 5mg TID PRN. Tobacco use: Chronic and controlled -Ordered Nicotine patch 21mg daily TD. PAD/Dyslipidemia: -Continue home pravastatin. DVT Prophylaxis: SCDs, compression stockings. Code status: DNR/DNI (2) Elevated troponin: (3) Acute kidney injury: (4) History of myocardial infarction: (5) Gastroparesis: (6) COPD (chronic obstructive pulmonary disease): (7) Dyslipidemia: (8) Peripheral vascular disease: (9) Tobacco abuse: (10) Chronic pain: (11) Diabetic neuropathy associated with type 2 diabetes mellitus: (12) Hypertension: (13) GERD (gastroesophageal reflux disease): Total Time Total Time Spent Total Time Spent (In Minutes): It required greater than 30 minutes to prepare this patient for discharge Discharge Plan Discharge Items Patient Disposition: Home - Self-Care Reason For Visit: SHORTNESS OF BREATH, HYPOXIA Discharge Diagnosis: elevated blood pressure worsening kidney function tobacco abuse uncontrolled diabetes Condition on Discharge: Good Activity: Per Instructions section Activity Comment: no strenous exercise until cleared by primary care or cardiology Non-emergency contact: Primary Care Provider and Hides Inspector Call non-emergency contact if: your symptoms worsen Follow-up/Referrals: Samuel Porter, [Primary Care Provider] - Diet: Carb Consistent or DM2 and Low Sodium (2gm) Ambulatory Orders: Basic Metabolic Panel (Routine) Timeframe: 2 Days Location: Determined by Patient Ordered By: Tito Waller Attending Provider Instructions: you have some conditions that will need more care from your primary care and possibly a referral to a sensitometrist First and most important is to not smoke or use tobacco in any way, this is placing a strain on your heart and circulation and will affect you overall risk or illness or Second is the need to control your diabetes, controlling your intake of sugar and calories is very important as well as taking your medications. We are starting a medication but expext this dose to need adjusted. Third is to control your salt intake to reduce your fluid retention and help your heart work at its best. you will need to have blood drawn on monday08/29/22 always return if you feel worse Pending Studies at Discharge: No Stand-Alone Forms: [employer], Smoking Cessation Medications and DC Order Prescriptions: New doxycycline hyclate 100 mg Capsule 100 mg PO BID Qty: 10 0RF albuterol sulfate [Ventolin HFA] 90 mcg/actuation Hfa Aerosol Inhaler 1 puff inhalation QIDR PRN (Reason: Dyspnea) Qty: 1 0RF glipizide 5 mg tablet extended release 24hr 5 mg PO DAILY Qty: 30 0RF Continued pantoprazole 40 mg tablet,delayed release (DR/EC) 40 mg PO HS sour strickland extract [Tart Strickland Extract] 1 cap PO BID Red Beet 1 cap PO BID (DME) V-GO 40 Device See Rx Instructions .Route Qty: 90 3RF Rx Instructions: change daily nitroglycerin [Nitrostat] 0.4 mg Tablet, Sublingual 0 mg sublingual UD PRN (Reason: Chest Pain) Fiber Choice Fruity Bites 1.5g 2 tab PO QAM PRN (Reason: Constipation) docusate sodium [Stool Softener] 100 mg capsule 100 mg PO BID oxycodone 5 mg/5 mL solution 5 mg PO TID PRN (Reason: Pain) Rx Instructions: do not use strawberry flavored..pt has allergy carvedilol 6.25 mg Tablet 6.25 mg PO BID Qty: 10 0RF melatonin 10 mg tablet 40 mg PO HS cinnamon bark-chromium picolin 500-100 mg-mcg Capsule 2 cap PO AMHS vitamin E 268 mg (400 unit) Capsule 268 mg PO QAM pravastatin 40 mg tablet 40 mg PO HS clopidogrel 75 mg tablet 75 mg PO HS Changed furosemide 20 mg tablet 20 mg PO DAILY Qty: 60 3RF Discontinued diphenhydramine HCl [Benadryl Allergy] 25 mg tablet 175 mg PO TID baclofen 10 mg tablet 10 mg PO BID lisinopril 10 mg tablet 10 mg PO HS Discharge Orders: Discharge Order- CHF (Routine); Ordered 08/27/22 Ordered By: Tito Garcia Admission Data Admit Date/Time: 08/26/22 01:02 Attending Provider: Tito Garcia Admit Provider: Santana Guerin Primary Care Provider: Samuel Porter Other Providers: Joss Tellez ; [facility] Other Interventions: Discharge Summary Assessment (RN) Last Done: 08/27/22 11:22 Coding Level of Care Code HOSP INP/OBS DISCH >30 MIN Diagnoses Acute dyspnea R06.00 Elevated troponin R77.8 Acute kidney injury N17.9 History of myocardial infarction I25.2 Gastroparesis K31.84 COPD (chronic obstructive pulmonary disease) J44.9 Dyslipidemia E78.5 Peripheral vascular disease I73.9 Tobacco abuse Z72.0 Chronic pain G89.29 Diabetic neuropathy associated with type 2 diabetes mellitus E11.49 Diabetes mellitus complication detail: with other neurological complication Hypertension I10 Hypertension type: essential hypertension GERD (gastroesophageal reflux disease) K21.9
== END 2022-08-27 11:34 | disposition home or self-care (01) ==
LOC: ED 20:05 → INTOOBSV 08-26 01:02 → EDINP 08-26 01:02 → SUATTDRO 08-26 01:02 → 2S 08-26 02:09